=== PATIENT | female | born 1950 | race Caucasian/White ===

== ENCOUNTER → 2017-11-27 10:33 | Outpatient (CLI) | payer MEDICARE, OTHER, SELFPAY ==
[2017-11-27 12:26] LABS: Anion Gap 6 (5-15); BUN 14 mg/dL (7-18); BUN/Creat Ratio 18.1 RATIO (10-20); Chloride 106 mmol/L (98-107); Cholesterol 243 mg/dL (200); Creatinine, Serum 0.77 mg/dL (0.55-1.02); EST Glomerular Filtration Rate 79 mL/min (>60); Est Glom Filt Rate - Afr Amer 96 mL/min (>60); Glucose 92 mg/dL (74-106); High Density Lipoprotein 38 mg/dL; Potassium 4.4 mmol/L (3.5-5.1); Sodium Level 139 mmol/L (136-145); Triglycerides 178 mg/dL; Very Low Density Lipoprotein 36 mg/dL (5-40)
== END ==
PROVIDERS: Family Provider Family Medicine; PCP Family Medicine; Visit Provider Family Medicine
DX: I10 Essential (primary) hypertension (principal)
CPT/HCPCS: 36415; 80048; 80061

== ENCOUNTER → 2018-04-13 17:44 | Outpatient (CLI) | payer MEDICARE, OTHER, SELFPAY ==
--- NOTE | 2018-04-13 17:50 | CT_ITS ---
STUDY: CT CHEST WITHOUT CONTRAST REASON FOR EXAM: Female, 68 years old. Positive PVD 40 year smoking history RADIATION DOSAGE (If Supplied By Facility): CTDIvol = ( 1.70 ) mGy, DLP = ( 59.55 ) mGycm TECHNIQUE: Transaxial imaging was performed without the administration of intravenous contrast material. Multiplanar coronal and sagittal images were reformatted. Individualized dose optimization techniques were used for this CT. COMPARISON: January 06, 2018 chest x-ray, January 31, 2015 CT scan chest FINDINGS: There is a pattern of hyperinflation throughout the lungs. There are small emphysematous blebs throughout the lungs with predominance in the right upper lobes. There is no visualized focal consolidation pleural effusion or pulmonary edema or suspicious pulmonary nodule. There is no demonstrated pleural abnormality. There is mild enlargement of the left atrium. There are coronary calcifications. There is a precarinal lymph node measuring 8.7 mm. Normal hilar regions. Normal unenhanced pulmonary arteries. There is atherosclerotic calcification of the aortic arch with tortuosity and elongation of the aortic arch and descending thoracic aorta. The bones are osteopenic and mildly degenerative. There is limited visualization of the abdominal anatomy due to the technique. The study is grainy due to evaluate organs of the upper abdomen. CT/Low Dose CT Lung Screening IMPRESSION: Chronic obstructive pulmonary disease emphysema without evidence of focal mass. Nonspecific subcentimeter mediastinal lymph nodes Atherosclerotic disease of the aorta and coronary arteries. Electronically Signed: Claudine Dai MD at 22:23 EDT Tel , Service support ,
== END ==
PROVIDERS: Family Provider Family Medicine; PCP Family Medicine; Visit Provider Internal Medicine Pulmonary Disease
DX: Z87.891 Personal history of nicotine dependence (principal); Z12.2 Encounter for screening for malignant neoplasm of respiratory organs
CPT/HCPCS: G0297

== ENCOUNTER → 2018-05-07 13:43 | Outpatient (CLI) | payer MEDICARE, OTHER, SELFPAY | PROVIDERS: Family Provider Family Medicine; PCP Family Medicine; Visit Provider Family Medicine | DX: R59.1 Generalized enlarged lymph nodes (principal) | CPT/HCPCS: 76882; 77062; 77066; G0279 ==

== ENCOUNTER → 2018-05-12 16:20 | Outpatient (CLI) | payer MEDICARE, OTHER, SELFPAY | PROVIDERS: Family Provider Family Medicine; PCP Family Medicine; Visit Provider Family Medicine | DX: M54.9 Dorsalgia, unspecified (principal); G89.29 Other chronic pain | CPT/HCPCS: 72146 ==

== ENCOUNTER → 2018-06-25 11:44 | Outpatient (CLI) | payer MEDICARE, OTHER, SELFPAY ==
[2018-06-25 14:32] LABS: Vitamin D,25 Hydroxy 18.9 ng/mL (29.95-100.01)
[2018-06-25 14:37] LABS: Anion Gap 8 (5-15); BUN 17 mg/dL (7-18); BUN/Creat Ratio 22.7 RATIO (10-20); Calcium,Total 8.8 mg/dL (8.5-10.1); Chloride 105 mmol/L (98-107); Cholesterol 236 mg/dL (200); Creatinine, Serum 0.75 mg/dL (0.55-1.02); EST Glomerular Filtration Rate 82 mL/min (>60); Est Glom Filt Rate - Afr Amer 100 mL/min (>60); Glucose 78 mg/dL (74-106); High Density Lipoprotein 40 mg/dL; Potassium 4.4 mmol/L (3.5-5.1); Sodium Level 139 mmol/L (136-145); Thyroid Stim Hormone (TSH) 1.09 uIU/mL (0.358-3.74); Triglycerides 247 mg/dL; Very Low Density Lipoprotein 49 mg/dL (5-40)
== END ==
PROVIDERS: Family Provider Family Medicine; PCP Family Medicine; Visit Provider Family Medicine
DX: Z00.00 Encounter for general adult medical examination without abnormal findings (principal)
CPT/HCPCS: 36415; 80048; 80061; 82306; 84443; 97530

== ENCOUNTER 2018-07-13 10:30 | Outpatient (RCR) | payer MEDICARE, OTHER, SELFPAY ==
--- NOTE | 2018-05-26 13:42 | HP.PTEVAL_ITS ---
Patient's Visit Information KORTNEY CRUZ is a 68 year old F referred to Physical Therapy by NAVID Reyes with a diagnosis of INTERVERTEBRAL DISC THORACIC. Date of Evaluation: 05/26/18 Physical Therapist: Humble Finley PT, - Visit Plan Frequency: 2x /Week Duration: 4 Weeks Plan: MANUAL THERAPY-STM,US,MHP,GRADE ROM /POSTURAL EX'S FOR THORACIC SPINE - Subjective Subjective: This 68 y/o female presenst to physical therapy with thoracic pain. Patient thoracic pain for 2013 ,patient symptoms got better,but in February 2018 pain return with more pain. Patient seen pain management and plane for epidural injections Jun 02. Patient has had prior PT and epidural in past.Symptoms worse twisting,raising arms,lifting, housework tasks and ADL'S . Symptoms desribed stabbing pain. Patient better with heat.Patient has had h/n of HNP. Recent x-rays DDD. Pain affects sleeping.Coughing/sneezing/straining increase symptoms. Patient affects QOL and housework tasks. VOCATION: retired. SOCAIL: - Pain Bilateral Back Pain Intensity (Out of 10): 10 Pain Intensity Range: 10 - Objective POSTURE: mild foward posture. PALAPTION: tender thoracic paraspinals. NEURO: intact denies parathesia/tingling. AROM: BUE AROM flexion abd 120 degrees pain. MMT: 4-/5 except shoulders 3+/5. THORACIC ROM: flexion severe,extension severe loss,rotation mod /severe loss. SYMMTRIES: align - Special Tests Thoracic Sitting: Flexion - Mechanical Response: No effect Thoracic Sitting: Flexion - Symptoms During Testing: Increases Thoracic Sitting: Flexion - Symptoms After Testing: Worse Thoracic Sitting: Extension - Mechanical Response: No effect Thoracic Sitting: Extension - Symptoms During Testing: Increases Thoracic Sitting: Extension - Symptoms After Testing: Worse Thoracic Sitting: Right rotation - Mechanical Response: No effect Thoracic Sitting: Right Rotation - Symptoms During Testing: Increases Thoracic Sitting: Right Rotation - Symptoms After Testing: Worse Thoracic Sitting: Left rotation - Mechanical Response: No effect Thoracic Sitting: Left Rotation - Symptoms During Testing: Increases Thoracic Sitting: Left Rotation - Symptoms After Testing: Worse - Goals Goal 1:: Patient to be independant with HEP Goal Time Frame: 4-6 Weeks Goal 2:: Patient to improve posture for ADL'S Goal Time Frame: 4-6 Weeks Goal 3:: Patient decrease thoracic pain by 50% or greater to improve function with ADL'S Goal Time Frame: 4-6 Weeks Goal 4:: Patient to improve thoracic ROM for function of recovery Goal Time Frame: 4-6 Weeks Goal 5:: Patient to be able to perform ADL'S and housework tasks with min limitations Goal Time Frame: 4-6 Weeks - Rehabilitation Potential Physical Therapy Diagnosis: Patient has thoracic pain with loss of motion all planes impairs ADL'S /housework tasks and QOL,thus benifit from skilled PT Rehabilitation Potential: Good - Anticipated Interventions Patient/Client Instruction: Educate patient on: Condition, Plan of Care For the Purpose of:: To decrease pain, To increase ROM, To improve muscle performance and motor function, To improve ability to perform ADL's, To improve ability of physical actions for home/community/work/leisure, To improve health of tissue, To decrease soft tissue restriction, To increase flexibility/ROM, To improve ability to perform tasks related to life management Therapeutic Exercise to Include: Strength training, Postural training, Flexibilty training, Active ROM For the Purpose of:: To decrease pain, To improve nutrient delivery to tissue, To improve ability to perform ADL's, To increase tolerance to activity/condition /position, To improve ability of physical actions for home/community/work/ leisure, To improve health of tissue, To decrease soft tissue restriction, To improve ability to perform tasks related to life management Manual Therapy Techniques to Include: Soft tissue mobilization For the Purpose of:: To decrease pain, To increase ROM, To improve nutrient delivery to tissue, To increase oxygenation perfusion, To improve health of tissue, To decrease soft tissue restriction, To increase flexibility/ROM TENS: Yes IF ES: Yes Thermo therapy (hot pack): Yes Ultrasound (thermal/non thermal): Yes For the Purpose of:: To decrease swelling/inflammation, To increase ROM, To improve health of tissue, To decrease soft tissue restriction Thank you for the opportunity to evaluate your patient. For Medicare and Medicare HMO plans, please review the plan of care and approve it. It will need to be FAXED BACK to us at [phone] for Medicare purposes. Please let me know if there are questions or concerns regarding this plan of care. Physician Signature: Date:
--- NOTE | 2018-06-25 11:00 | HP.PTREVAL_ITS ---
Carmen Smith, CASSANDRA-C, It has been my pleasure to treat KORTNEY CRUZ over the last 9 visits for INTERVERTEBRAL DISC THORACIC. Please see the progress note below for an update on the physical therapy plan of care! Subjective: Giselle is still able to do more ADL'. ABLE TO RIDE BIKE Objective/Function: POSTURE: rounded shoulders head foward. PALPATION: tender scapular/thoracic/levator. AROM: BUE WFL. MMT: 4/5 except shoulder 4-5/. CERVICAL ROM: flexion min loss,lateral flexion/rotation ,ext mold loss. THORACIC ROM: flexion min/mod loss,extension min /mod loss Plan Plan: CONT WITH PT INTERVENTION 2X/WEEK FOR 4WEEKS MANUAL THERAPY- STM,US,MHP,GRADE ROM /POSTURAL EX'S FOR THORACIC SPINE Goals Goal 1:: Patient to be independant with HEP Goal Time Frame: 4-6 Weeks Goal Progress: Progressing Goal 2:: Patient to improve posture for ADL'S Goal Time Frame: 4-6 Weeks Goal Progress: Progressing Goal 3:: Patient decrease thoracic pain by 60% or greater to improve function with ADL'S Goal Time Frame: 4-6 Weeks Goal Progress: Progressing Goal 4:: Patient to improve thoracic ROM for function of recovery Goal Time Frame: 4-6 Weeks Goal Progress: Progressing Goal 5:: Patient to be able to perform ADL'S and housework tasks with min limitations Goal Time Frame: 4-6 Weeks Goal Progress: Progressing Anticipated Interventions Patient/Client Instruction: Educate patient on: Condition, Plan of Care For the Purpose of:: To decrease pain, To increase ROM, To improve muscle performance and motor function, To improve ability to perform ADL's, To improve ability of physical actions for home/community/work/leisure, To improve health of tissue, To decrease soft tissue restriction, To increase flexibility/ROM, To improve ability to perform tasks related to life management Therapeutic Exercise to Include: Strength training, Postural training, Flexibilty training, Active ROM For the Purpose of:: To decrease pain, To improve nutrient delivery to tissue, To improve ability to perform ADL's, To increase tolerance to activity/condition/position, To improve ability of physical actions for home/community/work/leisure, To improve health of tissue, To decrease soft tissue restriction, To improve ability to perform tasks related to life management Manual Therapy Techniques to Include: Soft tissue mobilization For the Purpose of:: To decrease pain, To increase ROM, To improve nutrient delivery to tissue, To increase oxygenation perfusion, To improve health of tissue, To decrease soft tissue restriction, To increase flexibility/ROM TENS: Yes IF ES: Yes Thermo therapy (hot pack): Yes Ultrasound (thermal/non thermal): Yes For the Purpose of:: To decrease swelling/inflammation, To increase ROM, To improve health of tissue, To decrease soft tissue restriction Please do not hesitate to contact me at [phone] by phone or if you have questions or concerns regarding this new plan of care! Sincerely, Humble Finley PT,
--- NOTE | 2018-08-24 11:05 | HP.PTDCNRP_ITS ---
HP - Discharge Summary (1) - Patient Information KORTNEY CRUZ was seen in my office for initial evaluation on 05/26/18. The following Plan of Care was established for this patient: Initial Frequency: 2x /Week Initial Duration: 4 Weeks - Anticipated Interventions Patient/Client Instruction: Educate patient on: Condition, Plan of Care For the Purpose of:: To decrease pain, To increase ROM, To improve muscle perf ormance and motor function, To improve ability to perform ADL's, To improve ability of physical actions for home/community/work/leisure, To improve health of tissue, To decrease soft tissue restriction, To increase flexibility/ROM, To improve ability to perform tasks related to life management Therapeutic Exercise to Include: Strength training, Postural training, Flexibilt y training, Active ROM For the Purpose of:: To decrease pain, To improve nutrient delivery to tissue, To improve ability to perform ADL's, To increase tolerance to activity/co ndition/position, To improve ability of physical actions for home/community/work/leisure, To improve health of tissue, To decrease soft tissue restriction, To improve ability to perform tasks related to life management Manual Therapy Techniques to Include: Soft tissue mobilization For the Purpose of:: To decrease pain, To increase ROM, To improve nutrient delivery to tissue, To increase oxygenation perfusion, To improve health of tissue, To decrease soft tissue restriction, To increase flexibility/ROM TENS: Yes IF ES: Yes Thermo therapy (hot pack): Yes Ultrasound (thermal/non thermal): Yes For the Purpose of:: To decrease swelling/inflammation, To increase ROM, To improve health of tissue, To decrease soft tissue restriction This patient was last seen in our office 07/13/18. Pertinent comments regarding their Physical therapy will appear below: This patient seen for thoracic pain with PT tx focusing on manual therapy -STM . Patient had temporary releive for tx ,thus is d/c from PT At this point I will be discontinuing this patient from physical therapy. I would be happy to see this patient again in the future if found appropriate by the physician. Thank you! Humble Finley, PT, Cert MDT, OCS
== END 2018-07-13 19:00 | disposition home or self-care (01) ==
LOC: PT 10:30
PROVIDERS: Family Provider Family Medicine; PCP Family Medicine; Visit Provider Nurse Practitioner Family
DX: M51.34 Other intervertebral disc degeneration, thoracic region (principal)
CPT/HCPCS: 97035; 97140; 97162; 97530

== ENCOUNTER → 2018-09-24 12:59 | Outpatient (CLI) | payer MEDICARE, OTHER, SELFPAY ==
--- NOTE | 2018-09-24 08:40 | LIP_PTH ---
PATIENT: KORTNEY CRUZ LOC: [facility] U#:[id number] AGE/SX: 75/F ROOM: RE09/24/[address]: Dr. Vianca Madison MD : 1950 BED: DIS: SPEC #: [id number] RECD: 09/24/18 12:51 STATUS: YADIRA KONRAD #: [id number] JOSE EDUARDO: 09/24/18 08:[address]: Vianca Madison DEPT: SURGICAL PATHOLOGY RECD BY: Phill Sebastian ENTERED: 09/24/18 13:33 SP TYPE: LIPOMA OTHR DR: Dr. Josh Greene MD Tissues: Soft tissues, NOS Procedures: Surgery Specimen Level III HEADER OPERATION: Excision of left upper arm lipoma PRE-OP DIAGNOSIS: Left arm lipoma TISSUE SUBMITTED: Left arm lipoma MICROSCOPIC DIAGNOSIS Soft tissue lesion of left arm, excision: Mature adipose tissue consistent with lipoma. AM:carlos 09/25/18 MICROSCOPIC DESCRIPTION Slides are reviewed. GROSS DESCRIPTION Received in fixative is one container labeled with the patient's name and designated left arm lipoma. The specimen consists of a piece of yellow adipose tissue measuring 3.5 x 1 x 0.5 cm. The specimen is bisected and reveals yellow adipose cut surfaces without area of hemorrhage, necrosis and cystic degeneration. The entire specimen is submitted in one cassette. / SJ:carlos 09/24/18 TC:1 CPT: 94247
[2018-09-24 09:07] VITALS: BMI 21.7
--- OUTSIDE RECORDS SUMMARY | 2018-11-29 05:54 | XMS RPT_ITS ---
:1950 Author Organization OHIP Support Name Relationship Address Phone NANCYESTEFANYHIMA Unavailable [address] + [place] [address] R Unavailable Unavailable Unavailable HIMA CRUZ Unavailable [address] + [place] [address] R Unavailable Unavailable Unavailable ESTEFANY CRUZ Unavailable Unavailable + ESTEFANY CRUZ Unavailable Unavailable + HIMA CRUZ Unavailable [address] + [place] [address] R Unavailable Unavailable Unavailable HIMA CRUZ Unavailable [address] + [place] [address] R Unavailable Unavailable Unavailable HIMA CRUZ Unavailable [address] + [place] [address] R Unavailable Unavailable Unavailable HIMA CRUZ Unavailable [address] + [place] [address] R Unavailable Unavailable Unavailable HIMA CRUZ Unavailable [address] + [place] [address] R Unavailable Unavailable Unavailable HIMA CRUZ Unavailable [address] + [place] [address] R Unavailable Unavailable Unavailable HIMA CRUZ Unavailable [address] + [place] [address] R Unavailable Unavailable Unavailable HIMA CRUZ Unavailable [address] + [place] [address] R Unavailable Unavailable Unavailable HIMA CRUZ Unavailable [address] + [place] [address] R Unavailable Unavailable Unavailable HIMA CRUZ Unavailable [address] + [place] [address] R Unavailable Unavailable Unavailable Care Team Providers Name Role Phone ELKE ANTUNEZ, MOE Attending Unavailable DR. MARJ MORRIS DO Primary Care Unavailable Robotham, Vianca Attending Unavailable Greene, Josh Referring Unavailable Robotham, Vianca Attending Unavailable Robotham, Vianca Referring Unavailable Greene, Josh Primary Care Unavailable Prah, Serafin Attending Unavailable Greene, Josh Primary Care Unavailable Greene, Josh Referring Unavailable Greene, Josh Attending Unavailable Greene, Josh Primary Care Unavailable Prah, Serafin Attending Unavailable Greene, Josh Primary Care Unavailable Prah, Serafin Consulting Unavailable Sibilia, Xavier Attending Unavailable Sibilia, Xavier Referring Unavailable Greene, Josh Primary Care Unavailable Greene, Josh Attending Unavailable Greene, Josh Primary Care Unavailable Greene, Josh Attending Unavailable Greene, Josh Referring Unavailable Greene, Josh Primary Care Unavailable Robotham, Vianca Attending Unavailable Greene, Josh Referring Unavailable Greene, Josh Primary Care Unavailable Prebish, Carmen LOAN COORDINATOR-C Attending Unavailable Prebish, Carmen LOAN COORDINATOR-C Referring Unavailable Greene, Josh Primary Care Unavailable Greene, Josh Attending Unavailable Greene, Josh Primary Care Unavailable Prah, Serafin Attending Unavailable Greene, Josh Referring Unavailable Greene, Josh Primary Care Unavailable Prah, Serafin Consulting Unavailable PROBLEMS PROBLEMS DATE TYPE CONDITION / CODE ATTENDING STATUS SOURCE 08/11/2018 Unknown D[facility] [place] [facility] / D45(ICD-10) [facility] Hospital Repository 08/11/2018 Unknown D75.1 - [facility] [place] [facility] / Community D75.1(ICD-10) Hospital Repository 09/02/2018 Unknown M51.34 - Other Prebish, Carmen Active [place] intervertebral disc LOAN COORDINATOR-C [facility] degeneration, [facility] thoracic region / Repository M51.34(ICD-10) 06/25/2018 Unknown Z00.00 - Encounter Josh [place] for general adult [facility] without abnormal Repository findings / Z00.00(ICD-10) 05/07/2018 Unknown R59.1 - Generalized GreeneJosh johansen Active [place] enlarged lymph nodes [facility] / R59.1(ICD-10) Hospital Repository 11/27/2017 Unknown I10 - Essential GreeneJosh johansen Active [place] (primary) [facility] hypertension / Hospital I10(ICD-10) Repository PROCEDURES PROCEDURES No Procedure Records FoundRESULTS RESULTS SURGERY VISIT REPORT Observed: 09/24/2018 Status: F Source: [place] 9:07 AM [facility] [place] [facility] [address] [place] [address] OFFICE VISIT Date of Service: 09/24/18 MR#: [id number] Acct: [id number] Name: YADIRA CRUZ Rep #: [id number] : 1950 Provider: Vianca Madison MD Age/Sex: 68/F Location: [facility] Status: Signed Intake Vital Signs09/24/18 Body Mass Index (BMI) 21.7 Intake Visit Reasons: LT UPPER INSIDE ARM CYST Chief Complaint: F/u for polycythemia. Allergies erythromycin base Adverse Reaction (Verified 09/24/18 09:01) Vomiting Lvccizj-Jrq-Tez Reductase Inhibitor Adverse Reaction (Verified 09/24/18 09:01) Unknown Medications Atenolol [Tenormin (beta ayesha)] 50 mg PO BID 10/17/14 [History Confirmed 09/24/18] Hydrocodone Bitart/Apap 5-325 [[place] 5/325] 1 tab PO TID PRN 10/17/14 [History Confirmed 09/24/18] Clonazepam [Klonopin] 0.5 mg PO TID 06/20/16 [History Confirmed 09/24/18] Amlodipine [Norvasc] 5 mg PO DAILY 01/06/17 [History Confirmed 09/24/18] Zolpidem Tartrate [Ambien Cr] 12.5 mg PO QHS PRN PRN 02/03/18 [History Confirmed 09/24/18] hydroxyzine pamoate 100 mg capsule 100 mg PO ONCE 05/21/18 [History Confirmed 09/24/18] PFSH Medical History Hyperlipidemia (Acute) Vocal cord dysfunction (Acute) Arthritis (Acute) Fatigue (Acute) Chronic pain (Chronic) Anxiety disorder (Chronic) Tobacco dependence (Chronic) Depression (Chronic) Hypertension (Chronic) Chest pain (Acute) Hyperinflation of lungs (Chronic) COPD (chronic obstructive pulmonary disease) (Suspected) GERD (gastroesophageal reflux disease) (Suspected) 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 Patient states that she thinks is gotten a little bigger and they have also found mass in her lung which she is getting worked up. She would like to have this lesion removed. Exam Const General: cooperative, comfortable, no acute distress Skin Other: Left upper arm, 2 x 2 soft, mobile subcutaneous mass, no change the overlying skin, nontender Office Procedures Miscellaneous Procedure Procedure Performed By: Procedure performed by: Vianca Madison Details Discussed procedure of excision of left upper arm lipoma including but not limited to risk of bleeding/hematoma, seroma, infection, recurrence and etc. Patient no further questions and agreed to proceed. Consent was signed and timeout was completed. Patient's left upper arm was prepped draped in usual sterile fashion with Betadine. Lidocaine 1% with epinephrine was used for local anesthesia a total of 3 cc. Incision was made with a 15 blade scalpel. The lipoma was identified as able to be removed with Metzenbaum scissors after gentle pressure to get the lipoma to pop out of the incision. Hemostasis was assured. Wound was irrigated. The lipoma measured 2 cm x 1.5 cm x 1.5 cm. The wound was closed with subdermal sutures of 3-0 Vicryl interrupted x2. The skin was closed with Steri-Strips. OpSite was placed over top. Patient tolerated procedure well and left the office in stable condition. Procedure Time Out Time Out Informed consent given: Yes Consent signed: Yes Time out checklist: patient, procedure, site marked/identified, positioning of patient, supplies available, allergies confirmed, team agrees on procedure Time out staff in room: Yes Time out verified: Yes Time out date: 09/24/18 Time out time: 08:40 Assessment AND Plan Problems 1. Lipoma of arm D17.20 Plan Patient tolerated procedure well. Specimen was consistent with lipoma and was sent to pathology for confirmation. Follow-up in 1-2 weeks. Patient was agreeable plan. Vianca Madison M.D. Pager: [phone] [facility] [address] [place] [address], Outpatient [place], [address] [place] [address] Office: [phone] Plan Detail Follow Up 1-2 weeks Coding Level of Care Code Attention Display Coordinator Diagnoses Lipoma of arm D17.20 Comment [id number] 09/24/18 0907 <Electronically signed by Vianca Madison MD> Date Vianca Madison MD Cosigner Signature: Date (if applicable) CC: Josh Greene MD LIPOMA (SOFT TISSUE) Observed: 09/24/2018 Status: F Source: [place] 8:40 AM [facility] [place] Patient: YADIRA CRUZ : 1950 (68/F) Acct Num: [id number] Phys: Gricelda ANTUNEZ,Vianca Unit Num: [id number] Loc: [facility] Specimen: [id number] Received: 09/24/18 - 1251 Spec Type: LIPOMA TISSUES 1 TISSUES: Soft tissues, NOS GROSS DESCRIPTION Received in fixative is one container labeled with the patient's name and designated left arm lipoma. The specimen consists of a piece of yellow adipose tissue measuring 3.5 x 1 x 0.5 cm. The specimen is bisected and reveals yellow adipose cut surfaces without area of hemorrhage, necrosis and cystic degeneration. The entire specimen is submitted in one cassette. / SJ:carlos TC:1 CPT: 90742 HEADER OPERATION: Excision of left upper arm lipoma PRE-OP DIAGNOSIS: Left arm lipoma TISSUE SUBMITTED: Left arm lipoma MICROSCOPIC DESCRIPTION Slides are reviewed. MICROSCOPIC DIAGNOSIS Soft tissue lesion of left arm, excision: Mature adipose tissue consistent with lipoma. AM:carlos 09/25/18 Signed Marcell Barlow DO 09/25/18 <signature on file> Performed By: #### PLIP #### [facility] [place], [address] CT THORAX W/O Observed: 08/20/2018 Status: F Source: [place] CONTRAST 11:00 AM [facility] REPOSITORY ORIGINAL CT THORAX W/O CONTRAST CLINICAL STATEMENT:OTHER CHEST PAIN TECHNIQUE: Multiple-row detector helical CT examination of the thorax without IV contrast. Axial, sagittal, and coronal reconstructed images. This exam was performed according to our departmental dose o ptimization program, and includes the following measures where applicable: automated exposure control, adjustment of the mAs and/or kVp according to patient size and/or exam, and an iterative reconstruction algorithm. COMPARISON: None FINDINGS: The visualized thyroid gland is unremarkable. There is no axillary adenopathy. No mediastinal or hilar adenopathy shown within the limits of a noncontrast evaluation which decreases sensitivity. The hea rt is not enlarged. Coronary artery and aortic atherosclerotic disease noted. No pericardial effusion. Limited images of the upper abdomen demonstrate nonobstructing LEFT nephrolithiasis. The lungs are emphysematous. The trachea and mainstem bronchi are patent. Parenchymal banding in the lower lobes bilaterally favors scarring or atelectasis. No pleural effusion or pneumothorax. No pulmo nary mass. There is a 3 mm RIGHT upper lobe pulmonary nodule on image 220 series 3. No acute osseous findings. There are mild degenerative changes present in the spine. Vertebral body heights are maintained. IMPRESSION: 1. No acute findings. 2. Emphysema. 3. A 3 mm RIGHT upper lobe pulmonary nodule. Followup as follows based on the 2017 Fleischner Society recommendations for single solid lung nodule measuring <6mm (average of length and width, rounded to the nearest mm), and malignancy risk: Low-Risk Patient: No routine follow-up High-Risk Patient: Optional CT at 12 months These followup recommendations do not apply in immunocompromised patients or patients with cancers who are at risk for metastasis. Interpreted By: Nelia Blackwell MD Preliminary Report By: Nelia Blackwell MD Electronically Signed By: Nelia Blackwell MD Dictated Date: 08/20/2018 11:11:54 AM Prelim Date: 08/20/2018 11:11:54 AM Sign Date: 08/20/2018 11:17:41 AM ONCOLOGY VISIT REPORT Observed: 08/11/2018 Status: F Source: [place] 11:26 AM [facility] [place] [facility] [place] [address] OFFICE VISIT Date of Service: 08/11/18 1125 MR#: [id number] Acct: [id number] Name: YADIRA CRUZ Rep #: [id number] : 1950 From: Serafin Arrieta MD Age/Sex: 68/F Location: [facility]MD Status: Signed Subjective - Date of Service Date of Service:: 08/11/18 - Chief Complaint F/u for polycythemia. - History of Present Illness 68y.o.woman was evaluated in Oct 2014 for Polycythemia with Hgb of 17.5. JAK2 was negative and Erythropoietin level was normal. Bone marrow bx on 12/21/2014 was normal with negative BCR-ABL and JAK2. She had therapeutic phlebotomies till 06/19/2015. Currently on observation, comes in for follow up. She is still smoking, feels well. - Past Medical/Social History Past Medical History Past Medical History: COPD,Depression,Hyperlipidemia,Hypertension Other Past Medical History: Vocal cord dysfunction polycythemia Past Surgical History Surgical: Cholecystectomy Other Surgical History: laparoscopic cholecystectomy Family History Paternal Past Medical History: Diabetes mellitus,Heart disease,Hypertension Paternal History of Cancer Lung cancer Maternal Past Medical History: Arthritis,Hypertension Social History Social History: No changes Smoking Status Current every day smoker Review of Systems Constitutional:: Denies: Fever, Sweats, Weight loss, Appetite change, Chills Cardiovascular:: Denies: Chest pain, Palpitations, Dyspnea on exertion, Orthopnea, PND, Shortness of breath Respiratory: Denies: Cough, Hemoptysis, Shortness of Breath, Wheezing Gastrointestinal:: Denies: Abdominal pain, Nausea, Vomiting, Diarrhea, Constipation, Hematochezia Genitourinary: Denies: Dysuria, Hematuria, 15, Flank pain Musculoskeletal:: Reports: Backache Skin: Denies: Rash, Skin Changes, Wounds Neurological:: Denies: Headache, Dizziness, Visual changes, Tinnitus, Hearing loss Psychiatric: Denies: Anxiety, Depression, Homicidal Ideations, Suicidal Ideations Vital Signs Height 5 ft 2 in Weight: 53.751 kg Weight in Pounds 118.5 lbs Pulse Ox 97 - Physical Exam General: Alert, Oriented x3, No apparent distress HEENT: Atraumatic, PERRLA, EOMI, Normocephalic Oropharynx:: Dry mucosa Neck:: Supple, Trachea midline. Negative for: JVD, bilateral Cardiac:: Regular rate, Regular rhythm, Normal S1, Normal S2. Negative for: Murmur Lungs: Clear to auscultation, Excusion symmetrical. Negative for: Rhonchi, Wheezes Laboratory Data: Laboratory Tests WBC 12.0 H (4.4-11.0) K/mm3 RBC 5.63 H (4.2-5.4) M/mm3 Hgb 16.8 H (12.0-15.0) g/dl Assessment and Plan Polycythemia-most likely secondary to smoking and COPD. HCT is less than 50. No need for phlebotomy. Plan is to continue observation. RTC 6 months with CBC. Medications: Prescriptions This Visit Medication Instructions Recorded Zolpidem Tartrate [Ambien Cr] 12.5 mg PO QHS PRN PRN 02/03/18 Primary Care Provider: Josh [place] Referring Provider: - Problem List (1) Polycythemia secondary to smoking Status: Chronic Code Visit Office Visits / Consults: 34937 OV L3 Est 08/11/18 1126 <Electronically signed by Serafin Arrieta MD> Date Serafin Arrieta MD Cosigner Signature: Date (if applicable) CC: Josh [place] MD CBC W/DIFF, AUTOMATED Collected: 08/11/2018 Status: F Source: [place] 10:49 AM [facility] [place] Order Comment: Reason for Laboratory Test . TYPE CODE TESTS RESULT OUT OF RANGE REFERENCE UNITS LAB L100.1000 4.4-11.0 K/mm3 High WBC 12.0 LAB L100.1200 4.2-5.4 M/mm3 High RBC 5.63 LAB L100.1300 12.0-15.0 g/dl High HGB 16.8 LAB L100.1400 37-47 % High HCT 48.7 LAB L100.1500 81-99 fL Normal MCV 86.5 LAB L100.1600 27.0-32.0 pg Normal MCH 29.8 LAB L100.1700 32-36 g/gl Normal MCHC 34.5 LAB L100.1810 11.6-14.6 % Normal RDW CV 14.3 LAB L100.1820 35.1-43.9 fl High RDW SD 45.3 LAB L100.1900 150-450 K/mm3 Normal PLT 235 LAB L100.2000 6.2-12.0 fl Normal MPV 9.7 LAB L100.2100 47-70 % Normal NEUT% 68.9 LAB L100.2200 19-41 % Normal LY% 22.9 LAB L100.2300 0-10 % Normal MONO% 5.7 LAB L100.2400 0-5 % Normal EO% 1.8 LAB L100.2500 0-1 % Normal BASO% 0.4 LAB L100.2550 0.0-0.9 % Normal IM GRAN % 0.300 Result Comment: IG% - Immature Granulocytes (promyelocytes, myelocytes and metamyelocytes) > 1% indicates that a LEFT SHIFT is Present. LAB L100.2620 2.0-7.7 X10 3/uL High Absolute Neut 8.3 LAB L100.2720 0.83-4.51 X10 3/ul Normal Absolute Lymph 2.74 Performed By: #### L100.0100 #### [facility] [address] [place], [address] RE-EVALUATION - PT (1) Observed: 06/25/2018 Status: F Source: [place] 5:50 PM [facility] [place] [facility] [address] [place], [place] [address] Fax REEVALUATION / MEDICARE RECERTIFICATION PHYSICAL THERAPY MR#: [id number] Acct: [id number] Name: YADIRA CRUZ Rep #: [id number] : 1950 68 From: Humble Finley PT, Cert. MDT, OCS Referring DrShilpi: Carmen SHOEMAKER [place] Status: REG RCR Insurance: MEDICARE PART A B [facility] Carmen Smith, CASSANDRA-Rosemarie, It has been my pleasure to treat YADIRA CRUZ over the last 9 visits for INTERVERTEBRAL DISC THORACIC. Please see the progress note below for an update on the physical therapy plan of care! Subjective: Patyient is still able to do more ADL'. ABLE TO RIDE BIKE Objective/Function: POSTURE: rounded shoulders head foward. PALPATION: tender scapular/thoracic/levator. AROM: BUE WFL. MMT: 4/5 except shoulder 4-5/. CERVICAL ROM: flexion min loss,lateral flexion/rotation ,ext mold loss. THORACIC ROM: flexion min/mod loss,extension min /mod loss Plan Plan: CONT WITH PT INTERVENTION 2X/WEEK FOR 4WEEKS MANUAL THERAPY-STM,US,MHP,GRADE ROM /POSTURAL EX'S FOR THORACIC SPINE Goals Goal 1:: Patient to be independant with HEP Goal Time Frame: 4-6 Weeks Goal Progress: Progressing Goal 2:: Patient to improve posture for ADL'S Goal Time Frame: 4-6 Weeks Goal Progress: Progressing Goal 3:: Patient decrease thoracic pain by 60% or greater to improve function with ADL'S Goal Time Frame: 4-6 Weeks Goal Progress: Progressing Goal 4:: Patient to improve thoracic ROM for function of recovery Goal Time Frame: 4-6 Weeks Goal Progress: Progressing Goal 5:: Patient to be able to perform ADL'S and housework tasks with min limitations Goal Time Frame: 4-6 Weeks Goal Progress: Progressing Anticipated Interventions Patient/Client Instruction: Educate patient on: Condition, Plan of Care For the Purpose of:: To decrease pain, To increase ROM, To improve muscle performance and motor function, To improve ability to perform ADL's, To improve ability of physical actions for home/community/work/leisure, To improve health of tissue, To decrease soft tissue restriction, To increase flexibility/ROM, To improve ability to perform tasks related to life management Therapeutic Exercise to Include: Strength training, Postural training, Flexibilty training, Active ROM For the Purpose of:: To decrease pain, To improve nutrient delivery to tissue, To improve ability to perform ADL's, To increase tolerance to activity/condition/position, To improve ability of physical actions for home/community/work/leisure, To improve health of tissue, To decrease soft tissue restriction, To improve ability to perform tasks related to life management Manual Therapy Techniques to Include: Soft tissue mobilization For the Purpose of:: To decrease pain, To increase ROM, To improve nutrient delivery to tissue, To increase oxygenation perfusion, To improve health of tissue, To decrease soft tissue restriction, To increase flexibility/ROM TENS: Yes IF ES: Yes Thermo therapy (hot pack): Yes Ultrasound (thermal/non thermal): Yes For the Purpose of:: To decrease swelling/inflammation, To increase ROM, To improve health of tissue, To decrease soft tissue restriction Please do not hesitate to contact me at [phone] by phone or if you have questions or concerns regarding this new plan of care! Sincerely, Humble Finley PT, <Electronically signed by Humble Finley PT, Cert. T, OCS> 06/25/18 7788 CC: Carmen SHOEMAKER [facility]; Josh [place] MD VETO Signed For Medicare only, by signing this I certify the plan of care. Physicians Signature Date VITAMIN D,25 HYDROXY Collected: 06/25/2018 Status: F Source: [place] 11:48 AM [facility] [place] TYPE CODE TESTS RESULT OUT OF REFERENCE UNITS RANGE LAB L506.1000 29.95-100.01 ng/mL Low Vitamin D 18.9 25-OH Result Comment: Vitamin D 25(OH) Status Range Deficiency <20 ng/mL (50nmol/L) Insuffciency 20 - 30 ng/mL (50 - 75 nmol/L) Sufficiency 30 - 100 ng/mL (75 - 250 nmol/L) Toxicity >100 ng/mL (>250 nmol/L) Performed By: #### L506.1000 #### [place] [facility] [address] [place], [address] BASIC METABOLIC Collected: 06/25/2018 Status: F Source: [place] PROFILE (BMP) 11:48 AM [facility] [place] TYPE CODE TESTS RESULT OUT OF RANGE REFERENCE UNITS LAB L501.0100 74-106 mg/dL Normal GLU 78 Result Comment: Please note revised GLUCOSE reference range effective 2017. LAB L501.1000 7-18 mg/dL Normal BUN 17 LAB L501.1100 0.55-1.02 mg/dL Normal CREAT,SERUM 0.75 Result Comment: The validity of the calculated GFR AND GFRAA in patients over 70 years has not been determined. Clinical correlation is essential. LAB L501.1110 >60 mL/min Normal EST GFR 82 Result Comment: Non- GFR Calc LAB L501.1115 >60 mL/min Normal EST GFR - AA 100 Result Comment: GFR Calc LAB L501.1300 10-20 RATIO High BUN/CRE 22.7 LAB L501.2200 8.5-10.1 mg/dL CA Normal 8.8 LAB L501.5300 136-145 mmol/L NA Normal 139 LAB L501.5600 3.5-5.1 mmol/L K Normal 4.4 LAB L501.5900 98-107 mmol/L CL Normal 105 LAB L501.6100 21.0-32.0 mmol/L Normal CO2 26.0 LAB L501.6200 5-15 Normal GAP 8 Performed By: #### L500.2500, L500.4100, L501.9520 #### [facility] [address] [place], [place], [address] LIPID PROFILE Collected: 06/25/2018 Status: F Source: [place] 11:48 AM [facility] [place] TYPE CODE TESTS RESULT OUT OF RANGE REFERENCE UNITS LAB L501.4900 200 mg/dL High CHOL 236 Result Comment: <200 mg/dL Desirable 200-240 mg/dL Borderline >240 mg/dL High Risk LAB L501.5000 mg/dL High TRIG 247 Result Comment: The drugs N-Acetylcysteine and Metamizole may falsely depress this assay. Serum Triglycerides Reference Interval Normal <150 mg/dL Borderline high 150 - 199 mg/dL High 200 - 499 mg/dL Very High > or = 500 mg/dL LAB L501.6400 mg/dL Normal HDL 40 Result Comment: The drugs N-Acetylcysteine and Metamizole may falsely depress this assay. Reference Range HDL <40 mg/dL Low HDL Cholesterol HDL >or= 60 mg/dL High HDL Cholesterol LAB L501.6500 0-130 mg/dL High LDL 147 LAB L501.6600 5-40 mg/dL High VLDL 49 Performed By: #### L500.2500, L500.4100, L501.9520 #### [facility] [address] [place], [address] THYROID STIM HORMONE Collected: 06/25/2018 Status: F Source: [place] ([facility]) 11:48 AM [facility] [place] TYPE CODE TESTS RESULT OUT OF RANGE REFERENCE UNITS LAB L501.9520 0.358-3.74 uIU/mL Normal TSH 1.09 Performed By: #### L500.2500, L500.4100, L501.9520 #### [facility] [address] [place], [place], [address] INITAL EVALUATION (1) Observed: 05/27/2018 Status: F Source: [place] - PT 4:24 PM [facility] [place] [facility] [address] [place], [place] [address] Fax REHABILITATION SERVICES INITIAL EVALUATION MR#: [id number] Acct: [id number] Name: YADIRA CRUZ Rep #: [id number] : 1950 68 From: Humble Finley PT, Cert. MDT, OCS Referring DrShilpi: Carmen Smith Status: REG RCR Insurance: MEDICARE PART A B [facility] Patient's Visit Information YADIRA CRUZ is a 68 year old F referred to Physical Therapy by NAVID Reyes with a diagnosis of INTERVERTEBRAL DISC THORACIC. Date of Evaluation: 05/26/18 Physical Therapist: Humble Finley PT, - Visit Plan Frequency: 2x /Week Duration: 4 Weeks Plan: MANUAL THERAPY-STM,US,MHP,GRADE ROM /POSTURAL EX'S FOR THORACIC SPINE - Subjective Subjective: This 68 y/o female presenst to physical therapy with thoracic pain. Patient thoracic pain for 2013 ,patient symptoms got better,but in February 2018 pain return with more pain. Patient seen pain management and plane for epidural injections Jun 02. Patient has had prior PT and epidural in past.Symptoms worse twisting,raising arms,lifting, housework tasks and ADL'S . Symptoms desribed stabbing pain. Patient better with heat.Patient has had h/n of HNP. Recent x-rays DDD. Pain affects sleeping.Coughing/sneezing/straining increase symptoms. Patient affects QOL and housework tasks. VOCATION: retired. SOCAIL: - Pain Bilateral Back Pain Intensity (Out of 10): 10 Pain Intensity Range: 10 - Objective POSTURE: mild foward posture. PALAPTION: tender thoracic paraspinals. NEURO: intact denies parathesia/tingling. AROM: BUE AROM flexion abd 120 degrees pain. MMT: 4-/5 except shoulders 3+/5. THORACIC ROM: flexion severe,extension severe loss,rotation mod /severe loss. SYMMTRIES: align - Special Tests Thoracic Sitting: Flexion - Mechanical Response: No effect Thoracic Sitting: Flexion - Symptoms During Testing: Increases Thoracic Sitting: Flexion - Symptoms After Testing: Worse Thoracic Sitting: Extension - Mechanical Response: No effect Thoracic Sitting: Extension - Symptoms During Testing: Increases Thoracic Sitting: Extension - Symptoms After Testing: Worse Thoracic Sitting: Right rotation - Mechanical Response: No effect Thoracic Sitting: Right Rotation - Symptoms During Testing: Increases Thoracic Sitting: Right Rotation - Symptoms After Testing: Worse Thoracic Sitting: Left rotation - Mechanical Response: No effect Thoracic Sitting: Left Rotation - Symptoms During Testing: Increases Thoracic Sitting: Left Rotation - Symptoms After Testing: Worse - Goals Goal 1:: Patient to be independant with HEP Goal Time Frame: 4-6 Weeks Goal 2:: Patient to improve posture for ADL'S Goal Time Frame: 4-6 Weeks Goal 3:: Patient decrease thoracic pain by 50% or greater to improve function with ADL'S Goal Time Frame: 4-6 Weeks Goal 4:: Patient to improve thoracic ROM for function of recovery Goal Time Frame: 4-6 Weeks Goal 5:: Patient to be able to perform ADL'S and housework tasks with min limitations Goal Time Frame: 4-6 Weeks - Rehabilitation Potential Physical Therapy Diagnosis: Patient has thoracic pain with loss of motion all planes impairs ADL'S /housework tasks and QOL,thus benifit from skilled PT Rehabilitation Potential: Good - Anticipated Interventions Patient/Client Instruction: Educate patient on: Condition, Plan of Care For the Purpose of:: To decrease pain, To increase ROM, To improve muscle performance and motor function, To improve ability to perform ADL's, To improve ability of physical actions for home/community/work/leisure, To improve health of tissue, To decrease soft tissue restriction, To increase flexibility/ROM, To improve ability to perform tasks related to life management Therapeutic Exercise to Include: Strength training, Postural training, Flexibilty training, Active ROM For the Purpose of:: To decrease pain, To improve nutrient delivery to tissue, To improve ability to perform ADL's, To increase tolerance to activity/condition/position, To improve ability of physical actions for home/community/work/leisure, To improve health of tissue, To decrease soft tissue restriction, To improve ability to perform tasks related to life management Manual Therapy Techniques to Include: Soft tissue mobilization For the Purpose of:: To decrease pain, To increase ROM, To improve nutrient delivery to tissue, To increase oxygenation perfusion, To improve health of tissue, To decrease soft tissue restriction, To increase flexibility/ROM TENS: Yes IF ES: Yes Thermo therapy (hot pack): Yes Ultrasound (thermal/non thermal): Yes For the Purpose of:: To decrease swelling/inflammation, To increase ROM, To improve health of tissue, To decrease soft tissue restriction Thank you for the opportunity to evaluate your patient. For Medicare and Medicare HMO plans, please review the plan of care and approve it. It will need to be FAXED BACK to us at [phone] for Medicare purposes. Please let me know if there are questions or concerns regarding this plan of care. Physician Signature: Date: <Electronically signed by Humble Finley PT, Cert. SUZY, OCS> 05/27/18 1624 CC: Carmen Smith; Josh Greene MD VETO Signed For Medicare only, by signing this I certify the plan of care. Physicians Signature Date SURGERY VISIT REPORT Observed: 05/21/2018 Status: F Source: [place] 2:39 PM [facility] [address] [place] [address] OFFICE VISIT Date of Service: 05/21/18 MR#: [id number] Acct: [id number] Name: YADIRA CRUZ Rep #: [id number] : 1950 Provider: Vianca Madison MD Age/Sex: 68/F Location: [facility] Status: Signed Intake Vital Signs05/21/18 Height 5 ft 2 in 05/21/18 Weight: 113 lb Intake Visit Reasons: Lipoma Lt Axilla US [facility] 05/07 Chief Complaint: F/u for polycythemia. Pharmaceutical Salesperson Required: No Is patient in pain?: No Allergies erythromycin base Adverse Reaction (Verified 05/21/18 13:57) Vomiting Cdwmdhj-Lwg-Ito Reductase Inhibitor Adverse Reaction (Verified 05/21/18 13:57) Unknown Medications Atenolol [Tenormin (beta ayesha)] 50 mg PO BID 10/17/14 [History Confirmed 05/21/18] Hydrocodone Bitart/Apap 5-325 [[place] 5/325] 1 tab PO TID PRN 10/17/14 [History Confirmed 02/03/18] Clonazepam [Klonopin] 0.5 mg PO TID 06/20/16 [History Confirmed 05/21/18] Amlodipine [Norvasc] 5 mg PO DAILY 01/06/17 [History Confirmed 05/21/18] Zolpidem Tartrate [Ambien Cr] 12.5 mg PO QHS PRN PRN 02/03/18 [History Confirmed 05/21/18] hydroxyzine pamoate 100 mg capsule 100 mg PO ONCE 05/21/18 [History Confirmed 05/21/18] PFSH Medical History Hyperlipidemia (Acute) Vocal cord dysfunction (Acute) Arthritis (Acute) Fatigue (Acute) Chronic pain (Chronic) Anxiety disorder (Chronic) Tobacco dependence (Chronic) Depression (Chronic) Hypertension (Chronic) Chest pain (Acute) Hyperinflation of lungs (Chronic) COPD (chronic obstructive pulmonary disease) (Suspected) GERD (gastroesophageal reflux disease) (Suspected) 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 Patient did undergo an ultrasound which was consistent with likely lipoma that was about 2 cm x 2 cm. Patient states she knows that maybe about a month ago she sat in the mirror. Denies any pain or changes overlying skin or any irritation with her clothes. Patient states she is here because her PCP told her to come get it checked out however she would be fine with not getting it removed if it does not need to be. Exam Const General: cooperative, comfortable, no acute distress Extrem Other: Left upper arm: 2 x 2 centimeter subcutaneous mass, soft mobile, nontender, likely lipoma Assessment AND Plan Problems 1. Lipoma of arm D17.20 Plan Discussed patient that this was indeed likely a lipoma consistent with the ultrasound. Patient denies any pain or discomfort caused by this. Discussed with patient that if this does in the future cause any discomfort or irritation or grows in size and she is concerned about we could remove this at that time in office for her. Patient was agreeable to this watching it for now and she will let us know if she changes her mind. Patient no further questions at this time. Vianca Madison M.D. Pager: [phone] [facility] [address] [place] [address], [facility], [address] [place] [address] Office: [phone] Plan Detail Follow Up As needed Coding Level of Care Code Off vis,new,level 3 Diagnoses Lipoma of arm D17.20 05/21/18 7439 <Electronically signed by Vianca Madison MD> Date Vianca Madison MD Cosigner Signature: Date (if applicable) CC: Josh Greene MD SPINE THORACIC Observed: 05/12/2018 Status: F Source: [place] (ROUTINE) 4:28 PM [facility] Imaging Services [address] [place] [address] [place] [address] Spine Thoracic (Routine) MR#: [id number] Acct: [id number] Name: YADIRA CRUZ Rep #: [id number] : 1950 F 68 From: Patricio Sellers PCP: Josh Greene MD Status: REG CLI Study: Spine Thoracic (Routine) Date of Exam: 05/12/18 Exam# [id number] Ordering Dr: Josh Greene MD STUDY: MRI THORACIC SPINE WITHOUT CONTRAST REASON FOR EXAM: Female, 68 years old. Chronic mid back pain. TECHNIQUE: Standardized fat and water weighted pulse sequences were obtained in the sagittal and axial planes. COMPARISON: April 11, 2015 FINDINGS: Normal kyphosis of the thoracic spine. There is no substantial scoliosis. T1-2, T2-3, T3-4, T4-5, T5-6, T6-7, T7-8, T8-9, T9-10, T10- 11, T11-12: There is mild/moderate diffuse disc space narrowing and endplate spondylosis. Normal visualized thoracic cord. The soft tissue structures are unremarkable. MRI/Spine Thoracic (Routine) IMPRESSION: Stable examination. Moderate/moderate multilevel degenerative changes. Electronically Signed: Patricio Sellers MD at 15:36 EDT Tel , Service support , CC: Josh Greene MD Film Historian: Signed EXT NON VASC Observed: 05/07/2018 Status: F Source: [place] LIMITED/SOFT TISS 2:37 PM [facility] Imaging Services [address] [place] [address] Ext Non Vasc Limited/Soft Tiss MR#: [id number] Acct: [id number] Name: YADIRA CRUZ Rep #: [id number] : 1950 F 68 From: Modesto Butler MD PCP: Josh Greene MD Status: REG CLI Study: Ext Non Vasc Limited/Soft Tiss Date of Exam: 05/07/18 Exam# [id number] Ordering Dr: Josh Greene MD STUDY: SUPERFICIAL ULTRASOUND - LEFT UPPER ARM. REASON FOR EXAM: Female, 68 years old. Palpable abnormality. TECHNIQUE: A superficial ultrasound was performed with real- time and static deng-scale imaging. COMPARISON: None. FINDINGS: The palpable abnormality corresponds a 2.1 cm x 2 cm x 0.6 cm slightly hyperechoic nodular density. This most likely represents a lipoma. US/Ext Non Vasc Limited/Soft Tiss IMPRESSION: The palpable abnormality corresponds to a 2.1 cm x 2 cm x 0.6 cm slightly hyperechoic well-defined nodular density suggestive of a lipoma. Electronically Signed: Modesto Butler MD at 9:00 EDT Tel [phone], Service support , CC: Josh Greene MD Film Historian: Signed DIAG MAMM W/CAD, Observed: 05/07/2018 Status: F Source: [place] BILAT 1:48 PM [facility] Imaging [facility] [address] [place] [address] DIAG MAMM W/CAD, BILAT MR#: [id number] Acct: [id number] Name: YADIRA CRUZ Rep #: [id number] : 1950 F 68 From: Modesto Butler MD PCP: Josh Greene MD Status: REG CLI Study: DIAG MAMM W/CAD, BILAT Date of Exam: 05/07/18 Exam# [id number] Ordering Dr: Josh Greene MD MAMMOGRAPHY - BILATERAL DIAGNOSTIC REASON FOR EXAM: Female, 68 years old. Left axillary lump. PERTINENT HISTORY: Prior right stereotactic breast biopsy. TECHNIQUE: Digital bilateral breast disha (3D mammographic acquisition) in the CC and MLO projections. 2-D mediolateral oblique (MLO) and craniocaudad (CC) views of both breasts were obtained. Compression spot views of the left axillary region were obtained as well. CAD: Full Field Digital Mammography with Computer Added Detection was performed. COMPARISON: Comparison is made with prior chest examination dated February 09, 2016. FINDINGS: Breast Composition: The breasts are almost entirely fatty. There are no dominant masses or suspicious calcifications. A tissue clip marker is seen in the upper slightly lateral midportion of the right breast. This is unchanged. No other significant abnormalities are identified. There has been no significant change since the prior study. BI/DIAG MAMM W/CAD, BILAT IMPRESSION: Stable bilateral diagnostic mammogram. With the patient's history of a palpable left axillary lump, correlation with ultrasound is recommended. ASSESSMENT CATEGORY: BIRADS Category 0: Incomplete. Need additional imaging evaluation. A letter regarding these results will be sent to the patient by the facility within 30 days. Approximately 10% of breast cancers are not detected by mammography. A normal mammogram should not delay biopsy of a clinically suspicious abnormality. Electronically Signed: Modesto Butler MD at 15:02 EDT Tel [phone], Service support , CC: Josh Greene MD Film Historian: Signed LOW DOSE CT LUNG Observed: 04/13/2018 Status: F Source: [place] SCREENING 5:57 PM [facility] Imaging Services [address] [place] [address] Lung Screening MR#: [id number] Acct: [id number] Name: YADIRA CRUZ Rep #: [id number] : 1950 F 68 From: Claudine Dai MD PCP: Josh Greene MD Status: REG CLI Study: Low Dose CT Lung Screening Date of Exam: 04/13/18 Exam# [id number] Ordering Dr: Xavier Guerrier MD STUDY: CT CHEST WITHOUT CONTRAST REASON FOR EXAM: Female, 68 years old. Positive PVD 40 year smoking history RADIATION DOSAGE (If Supplied By Facility): CTDIvol = ( 1.70 ) mGy, DLP = ( 59.55 ) mGycm TECHNIQUE: Transaxial imaging was performed without the administration of intravenous contrast material. Multiplanar coronal and sagittal images were reformatted. Individualized dose optimization techniques were used for this CT. COMPARISON: January 06, 2018 chest x-ray, January 31, 2015 CT scan chest FINDINGS: There is a pattern of hyperinflation throughout the lungs. There are small emphysematous blebs throughout the lungs with predominance in the right upper lobes. There is no visualized focal consolidation pleural effusion or pulmonary edema or suspicious pulmonary nodule. There is no demonstrated pleural abnormality. There is mild enlargement of the left atrium. There are coronary calcifications. There is a precarinal lymph node measuring 8.7 mm. Normal hilar regions. Normal unenhanced pulmonary arteries. There is atherosclerotic calcification of the aortic arch with tortuosity and elongation of the aortic arch and descending thoracic aorta. The bones are osteopenic and mildly degenerative. There is limited visualization of the abdominal anatomy due to the technique. The study is grainy due to evaluate organs of the upper abdomen. CT/Low Dose CT Lung Screening IMPRESSION: Chronic obstructive pulmonary disease emphysema without evidence of focal mass. Nonspecific subcentimeter mediastinal lymph nodes Atherosclerotic disease of the aorta and coronary arteries. Electronically Signed: Claudine Dai MD at 22:23 EDT Tel , Service support , CC: Josh Greene MD; Xavier Guerrier MD Film Historian: Signed ONCOLOGY VISIT REPORT Observed: 02/03/2018 Status: F Source: [place] 11:09 AM [facility] [address] [place] [address] OFFICE VISIT Date of Service: 02/03/18 1105 MR#: [id number] Acct: [id number] Name: YADIRA CRUZ Rep #: [id number] : 1950 From: Serafin Arrieta MD Age/Sex: 68/F Location: [facility] Status: Signed Subjective - Date of Service Date of Service:: 02/03/18 - Chief Complaint F/u for polycythemia. - History of Present Illness 68y.o.woman was evaluated in Oct 2014 for Polycythemia with Hgb of 17.5. JAK2 was negative and Erythropoietin level was normal. Bone marrow bx on 12/21/2014 was normal with negative BCR-ABL and JAK2. She had therapeutic phlebotomies till 06/19/2015. Currently on observation, comes in for follow up. She is still smoking, feels well. - Past Medical/Social History Past Medical History Past Medical History: COPD,Depression,Hyperlipidemia,Hypertension Other Past Medical History: Vocal cord dysfunction polycythemia Past Surgical History Surgical: Cholecystectomy Other Surgical History: laparoscopic cholecystectomy Family History Paternal Past Medical History: Diabetes mellitus,Heart disease,Hypertension Paternal History of Cancer Lung cancer Maternal Past Medical History: Arthritis,Hypertension Social History Social History: No changes Smoking Status Current every day smoker Review of Systems Constitutional:: Denies: Fever, Sweats, Weight loss, Appetite change, Chills Cardiovascular:: Denies: Chest pain, Palpitations, Dyspnea on exertion, Orthopnea, PND, Shortness of breath Respiratory: Denies: Cough, Hemoptysis, Shortness of Breath, Wheezing Gastrointestinal:: Denies: Abdominal pain, Nausea, Vomiting, Diarrhea, Constipation, Hematochezia Genitourinary: Denies: Dysuria, Hematuria, 15, Flank pain Musculoskeletal:: Denies: Back pain, Myalgia, Arthralgia Skin: Denies: Rash, Skin Changes, Wounds Neurological:: Denies: Headache, Dizziness, Visual changes, Tinnitus, Hearing loss Psychiatric: Denies: Anxiety, Depression, Homicidal Ideations, Suicidal Ideations Vital Signs Height 5 ft 2 in Weight: 53.524 kg Weight in Pounds 118.0 lbs Pulse Ox 96 - Physical Exam General: Alert, Oriented x3, No apparent distress HEENT: Atraumatic, PERRLA, EOMI, Normocephalic Oropharynx:: Dry mucosa Neck:: Supple, Trachea midline. Negative for: JVD, bilateral Cardiac:: Regular rate, Regular rhythm, Normal S1, Normal S2. Negative for: Murmur Lungs: Clear to auscultation, Excusion symmetrical. Negative for: Rhonchi, Wheezes Abdomen:: Bowel sounds x 4, Soft, Non-tender, Non-distended. Negative for: Hepatosplenomegaly Extremities:: Negative for: Cyanosis, Edema Neurological: Neuro grossly intact Skin:: Negative for: Lesions, Rash, Petechiae, Ecchymosis Psychiatric:: Appropriate affect, Euthymic Lymphatics:: Negative for: Cervical lymphadenopathy, Supraclavicular lymphadenopathy, Axillary lymphadenopathy Laboratory Data: Laboratory Tests WBC 10.8 (4.4-11.0) K/mm3 RBC 5.47 H (4.2-5.4) M/mm3 Hgb 16.6 H (12.0-15.0) g/dl Assessment and Plan Polycythemia-most likely secondary to smoking and COPD. HCT is less than 50. No need for phlebotomy. Plan is to continue observation. RTC 6 months with CBC. Medications: Prescriptions This Visit Medication Instructions Recorded Zolpidem Tartrate [Ambien Cr] 12.5 mg PO QHS PRN PRN 02/03/18 Primary Care Provider: Josh Greene Referring Provider: - Problem List (1) Polycythemia secondary to smoking Status: Chronic Code Visit Office Visits / Consults: 19721 OV L3 Est 02/03/18 1109 <Electronically signed by Serafin Arrieta MD> Date Serafin Arrieta MD Cosigner Signature: Date (if applicable) CC: CBC W/DIFF, AUTOMATED Collected: 02/03/2018 Status: F Source: [place] 10:38 AM [facility] Order Comment: Reason for Laboratory Test OV TYPE CODE TESTS RESULT OUT OF RANGE REFERENCE UNITS LAB L100.1000 4.4-11.0 K/mm3 Normal WBC 10.8 LAB L100.1200 4.2-5.4 M/mm3 High RBC 5.47 LAB L100.1300 12.0-15.0 g/dl High HGB 16.6 LAB L100.1400 37-47 % High HCT 48.5 LAB L100.1500 81-99 fL Normal MCV 88.7 LAB L100.1600 27.0-32.0 pg Normal MCH 30.3 LAB L100.1700 32-36 g/gl Normal MCHC 34.2 LAB L100.1810 11.6-14.6 % Normal RDW CV 14.6 LAB L100.1820 35.1-43.9 fl High RDW SD 46.9 LAB L100.1900 150-450 K/mm3 Normal PLT 231 LAB L100.2000 6.2-12.0 fl Normal MPV 10.1 LAB L100.2100 47-70 % Normal NEUT% 67.3 LAB L100.2200 19-41 % Normal LY% 22.6 LAB L100.2300 0-10 % Normal MONO% 8.3 LAB L100.2400 0-5 % Normal EO% 1.2 LAB L100.2500 0-1 % Normal BASO% 0.3 LAB L100.2550 0.0-0.9 % Normal IM GRAN % 0.300 Result Comment: IG% - Immature Granulocytes (promyelocytes, myelocytes and metamyelocytes) > 1% indicates that a LEFT SHIFT is Present. LAB L100.2620 2.0-7.7 X10 3/uL Normal Absolute Neut 7.2 LAB L100.2720 0.83-4.51 X10 3/ul Normal Absolute Lymph 2.43 Performed By: #### L100.0100 #### [facility] [address] [place], [place], [address] BASIC METABOLIC Collected: 11/27/2017 Status: F Source: [place] PROFILE (BMP) 10:35 AM [facility] TYPE CODE TESTS RESULT OUT OF RANGE REFERENCE UNITS LAB L501.0100 74-106 mg/dL Normal GLU 92 Result Comment: Please note revised GLUCOSE reference range effective 2017. LAB L501.1000 7-18 mg/dL Normal BUN 14 LAB L501.1100 0.55-1.02 mg/dL Normal CREAT,SERUM 0.77 Result Comment: The validity of the calculated GFR AND GFRAA in patients over 70 years has not been determined. Clinical correlation is essential. LAB L501.1110 >60 mL/min Normal EST GFR 79 Result Comment: Non- GFR Calc LAB L501.1115 >60 mL/min Normal EST GFR - AA 96 Result Comment: GFR Calc LAB L501.1300 10-20 RATIO Normal BUN/CRE 18.1 LAB L501.2200 8.5-10.1 mg/dL CA Normal 9.0 LAB L501.5300 136-145 mmol/L NA Normal 139 LAB L501.5600 3.5-5.1 mmol/L K Normal 4.4 LAB L501.5900 98-107 mmol/L CL Normal 106 LAB L501.6100 21.0-32.0 mmol/L Normal CO2 27.0 LAB L501.6200 5-15 Normal GAP 6 Performed By: #### L500.2500, L500.4100 #### [facility] [address] [place], [address] LIPID PROFILE Collected: 11/27/2017 Status: F Source: [place] 10:35 AM [facility] TYPE CODE TESTS RESULT OUT OF RANGE REFERENCE UNITS LAB L501.4900 200 mg/dL High CHOL 243 Result Comment: <200 mg/dL Desirable 200-240 mg/dL Borderline >240 mg/dL High Risk LAB L501.5000 mg/dL Normal TRIG 178 Result Comment: The drugs N-Acetylcysteine and Metamizole may falsely depress this assay. Serum Triglycerides Reference Interval Normal <150 mg/dL Borderline high 150 - 199 mg/dL High 200 - 499 mg/dL Very High > or = 500 mg/dL LAB L501.6400 mg/dL Low HDL 38 Result Comment: The drugs N-Acetylcysteine and Metamizole may falsely depress this assay. Reference Range HDL <40 mg/dL Low HDL Cholesterol HDL >or= 60 mg/dL High HDL Cholesterol LAB L501.6500 0-130 mg/dL High LDL 169 LAB L501.6600 5-40 mg/dL Normal VLDL 36 Performed By: #### L500.2500, L500.4100 #### [facility] [address] [place], [address] ALLERGIES ALLERGIES DATE TYPE / CODE NAME / CODE REACTION SEVERITY SOURCE 09/24/2018 Drug Jygbwix-Eat-Ydo Unknown Unknown [facility] 896064(SNOM Inhibitor/[id number] Hospital ED CT) 5(RXNORM) Repository 09/24/2018 Drug erythromycin Vomiting Unknown [facility]/416 base/[id number](RXN [facility] 670349(SNOM ORM) Hospital ED CT) Repository ENCOUNTERS ENCOUNTERS ADMIT/DISCHARGE ACCOUNT NUMBER ADMITTING ENCOUNTER LOCATION SOURCE CLASS 09/24/[id number] [facility] ding:LABSPEC Repository 09/24/2018/09/24/19 [id number] Ambulatory BMSBuilding: [place] [address] BMS[facility] Repository 08/20/2018/08/20/20 [id number] Ambulatory BBuilding:RA Jiang [address] [place] [address] Repository 08/11/2018 [id number] Ambulatory BMSBuilding: [place] [facility] Repository 08/11/[id number] [facility] ding:OMD Repository 07/13/2018/07/13/20 [id number] Ambulatory [place] [facility] [address] [place] [address] ding:PT Repository 06/25/[id number] [facility] ding:MFPLAB Repository 05/21/2018/05/21/20 [id number] Ambulatory BMSBuilding: [place] [facility] BMS.W[facility] Repository 05/12/[id number] [facility] ding:MRI Repository 05/07/[id number] [facility] ding:US Repository 04/13/[id number] [facility] ding:CT Repository 02/03/2018 [id number] Ambulatory BMSBuilding: Brigitte BMS.CF.[facility] Hospital Repository 11/27/[id number] [facility] ding:[id number] Repository PAYERS PAYERS ENCOUNTER GUARANTOR PAYER SUBSCRIBER SOURCE 09/24/2018 YADIRA Vazquez Primary YADIRA Briggs [id number] REYES Insurance:MEDICARE GRIMSHAWDOB: [facility] [id number] [facility] [address]Blb: Number: Repository [id number] (HP) Date:2018-09-24 09/24/2018 Secondary YADIRA Taylor Brigitte Insurance:MEDICAL GRIMSHAWDOB: [facility] [id number] [facility] Number: Repository [id number] Date:7593-31-43[address] [address]HB: 09/24/2018 Tertiary NOT GIVENUNK [place] Insurance:SELF PAY [facility] Number: Effective Repository Date:2018-09-24 09/24/2018 YADIRA Vazquez Primary YADIRA REYES Insurance:MEDICARE GRIMSHAWDOB: [facility] STAPRICHARD NICOLE, PART A [facility] [id number] [facility] [place] [address]Lmw: Number: Repository [id number] (HP) Date:2018-09-22 09/24/2018 Secondary YADIRA Briggs Insurance:MEDICAL GRIMSHAWDOB: [facility] [id number] Hospital Number: Repository [id number] Date:6277-05-85ML [address] [place] [address]KN: 09/24/2018 Tertiary NOT GIVENUNK [place] Insurance:SELF PAY [facility] Number: Effective Repository Date:2018-09-22 08/20/2018 YADIRA L Primary YADIRA Vazquez [facility] GRIMSHAWDOB: Insurance:MEDICARE GRIMSHAWDOB: [facility] PART B [facility] [id number] Repository [facility] Number: [facility] [place] [id number] [place] [address]~[id number] Date:2018-08-2056247Jjw: 330 6@[facility] HOSPITALel: [id number] [phone] Name:[facility] ()Tel: ([phone]) (HP)Tel: ([phone]) Administrators LLCPO [phone] ([phone]) [phone] () [address] [place] [address]AJ: 08/20/2018 Secondary YADIRA Jiang [facility] Insurance:MEDICAL GRIMSHAWDOB: [facility] [id number] Repository [facility] Number: ERIC HINTON [id number] [place] Date:2018-08-2024816Vzm: [phone] [id number] [phone] Name:[facility] Box (HP)Tel: 000 [address], [place] [phone] (WP) [address]UN: 08/11/2018 [place] Primary [facility] Insurance:MEDICARE GRIMSHAWDOB: [facility] [place], PART A [facility] [id number] Regional Medical [facility] [address]Ego: Number: Repository [id number] (HP) Date:2017-01-06 08/11/2018 Secondary YADIRA L [place] Insurance:MEDICAL GRIMSHAWDOB: [facility] [id number] Hospital Number: Repository [id number] Date:1997-13-27QD[address] [address]NO: 08/11/2018 Tertiary NOT GIVENUNK [place] Insurance:SELF PAY [facility] Number: Effective Repository Date:2018-08-11 08/11/2018 [place] Primary YADIRA Faustinoster [id number] Insurance:MEDICARE GRIMSHAWDOB: [facility] [place], PART A [facility] [id number] Regional Medical Center [address]Qif: Number: Repository [id number] (HP) Date:2017-01-06 08/11/2018 Secondary YADIRA L [place] Insurance:MEDICAL GRIMSHAWDOB: [facility] [id number] Hospital Number: Repository [id number] Date:1378-47-08UX[address] [address]FM: 08/11/2018 Tertiary NOT GIVENUNK [place] Insurance:SELF PAY [facility] Number: Effective Repository Date:2016-11-27 07/13/2018 [place] Primary YADIRA Briggs [id number] Insurance:MEDICARE GRIMSHAWDOB: [facility] [place], PART A [facility] [id number] Regional Medical Center [address]Htz: Number: Repository [id number] (HP) Date:2017-01-06 07/13/2018 Secondary YADIRA L [place] Insurance:MEDICAL GRIMSHAWDOB: [facility] [id number] Hospital Number: Repository [id number] Date:4830-89-05TO[address] [address]LU: 07/13/2018 Tertiary NOT GIVENUNK [place] Insurance:SELF PAY [facility] Number: Effective Repository Date:2018-05-21 06/25/2018 [place] Primary YADIRA [address] Insurance:MEDICARE GRIMSHAWDOB: [facility] [place], PART A [facility] [id number] Regional Medical Center [address]Bkk: Number: Repository [id number] (HP) Date:2018-06-25 06/25/2018 Secondary YADIRA Vazquez [place] Insurance:MEDICAL GRIMSHAWDOB: [facility] [id number] Hospital Number: Repository [id number] Date:3421-44-41NE [address] [address]YI: 06/25/2018 Tertiary NOT GIVENUNK [place] Insurance:SELF PAY [facility] Number: Effective Repository Date:2018-06-25 05/21/2018 [place] Primary YADIRA [address] Insurance:MEDICARE GRIMSHAWDOB: [facility] [place], PART A [facility] [id number] Regional Medical Center [address]Bur: Number: Repository [id number] (HP) Date:2018-05-18 05/21/2018 Secondary YADIRA Vazquez [place] Insurance:MEDICAL GRIMSHAWDOB: [facility] [id number] Hospital Number: Repository [id number] Date:4350-82-38QG [address] [address]EQ: 05/21/2018 Tertiary NOT GIVENUNK [place] Insurance:SELF PAY [facility] Number: Effective Repository Date:2018-05-18 05/12/2018 [place] Primary Yadira [id number] Insurance:MEDICARE GrimshawDOB: [facility] [place], PART A [facility] [id number] Regional Medical Center [address]Vyo: Number: Repository [id number] (HP) Date:2018-05-06 05/12/2018 Secondary Yadira Vazquez [place] Insurance:MEDICAL GrimshawDOB: [facility] [id number] Hospital Number: Repository [id number] Date:8089-69-34YC[address] [address]SC: 05/12/2018 Tertiary NOT GIVENUNK [place] Insurance:SELF PAY [facility] Number: Effective Repository Date:2018-05-06 05/07/2018 [place] Primary Yadira Briggs [id number] Insurance:MEDICARE GrimshawDOB: [facility], PART A [facility] [id number] Regional Medical Center [address]Ruj: Number: Repository [id number] () Date:2018-05-06 05/07/2018 Secondary Yadira L [place] Insurance:MEDICAL GrimshawDOB: [facility] [id number] Hospital Number: Repository [id number] Date:0724-60-67MQ[address] [address]SJ: 05/07/2018 Tertiary NOT GIVENUNK [place] Insurance:SELF PAY [facility] Number: Effective Repository Date:2018-05-06 04/13/2018 [place] Primary Yadira [id number] Insurance:MEDICARE GrimshawDOB: [facility], PART A [facility] [id number] Regional Medical Center [address]Mlt: Number: Repository [id number] (HP) Date:2018-03-30 04/13/2018 Secondary Yadira Vazquez [place] Insurance:MEDICAL imshawDOB: [facility] [id number] Hospital Number: Repository [id number] Date:[id number] [address]WN: 04/13/2018 Tertiary NOT GIVENUNK [place] Insurance:SELF PAY [facility] Number: Effective Repository Date:2018-03-30 02/03/2018 [place] Primary Yadira [id number] Insurance:MEDICARE GrimshawDOB: [facility], PART A [facility] [id number] Regional Medical Center [address]San: Number: Repository [id number] (HP) Date:2017-01-06 02/03/2018 Secondary Yadira L [place] Insurance:MEDICAL GrimshawDOB: [facility] [id number] Hospital Number: Repository [id number] Date:9199-01-88VZ [address] [address]DZ: 02/03/2018 Tertiary NOT GIVENUNK [place] Insurance:SELF PAY [facility] Number: Effective Repository Date:2018-02-03 11/27/2017 [place] Primary Yadira [id number] Insurance:MEDICARE imshawDOB: [facility], PART A [facility] [id number] Regional Medical Center [address]Zmx: Number: Repository [id number] (HP) Date:2017-11-27 11/27/2017 Secondary Yadira Vazquez [place] Insurance:MEDICAL imshawDOB: [facility] [id number] Hospital Number: Repository [id number] Date:8275-50-11SA [address] [address]ZW: 11/27/2017 Tertiary NOT GIVENUNK [place] Insurance:SELF PAY [facility] Number: Effective Repository Date:2017-11-27
== END ==
PROVIDERS: Family Provider Family Medicine; PCP Family Medicine; Referring Provider Surgery; Visit Provider Surgery
DX: D17.22 Benign lipomatous neoplasm of skin and subcutaneous tissue of left arm (principal)
CPT/HCPCS: 88304

== ENCOUNTER → 2018-10-28 14:30 | Outpatient (CLI) | payer MEDICARE, OTHER, SELFPAY ==
[2018-09-24 09:07] VITALS: BMI 21.7
[2018-10-28 16:10] LABS: Vitamin D,25 Hydroxy 23.6 ng/mL (29.95-100.01)
[2018-10-28 16:31] LABS: Anion Gap 9 (5-15); BUN 9 mg/dL (7-18); BUN/Creat Ratio 12.6 RATIO (10-20); Calcium,Total 8.7 mg/dL (8.5-10.1); Chloride 104 mmol/L (98-107); Cholesterol 213 mg/dL (200); Creatinine, Serum 0.71 mg/dL (0.55-1.02); EST Glomerular Filtration Rate 87 mL/min (>60); Est Glom Filt Rate - Afr Amer 105 mL/min (>60); Glucose 77 mg/dL (74-106); High Density Lipoprotein 41 mg/dL; Magnesium 2.2 mg/dL (1.6-2.6); Potassium 4.4 mmol/L (3.5-5.1); Sodium Level 141 mmol/L (136-145); Triglycerides 147 mg/dL; Very Low Density Lipoprotein 29 mg/dL (5-40)
== END ==
PROVIDERS: Family Provider Family Medicine; PCP Family Medicine; Referring Provider Family Medicine; Visit Provider Family Medicine
DX: I10 Essential (primary) hypertension (principal); E55.9 Vitamin D deficiency, unspecified
CPT/HCPCS: 36415; 80048; 80061; 82306; 83735

== ENCOUNTER 2019-01-02 15:25 | Inpatient (IN) | payer MEDICARE, OTHER, SELFPAY ==
[2018-09-24 09:07] VITALS: BMI 21.7
[2019-01-02] VITALS (10 sets, daily range): BP systolic 153–172; BP diastolic 66–86; PULSE 58–77; RESP 16–18; TEMP 36.6–36.7; O2SAT 95–99; BMI 23.1; BMI 22.8; BMI 22.9
--- NOTE | 2019-01-02 15:45 | CT_ITS ---
STUDY: CT BRAIN WITHOUT CONTRAST REASON FOR EXAM: Female, 68 years old. Dizzy x10 days. RADIATION DOSAGE (If Supplied By Facility): CTDIvol = ( 44.99 ) mGy, DLP = ( 779.24 ) mGycm TECHNIQUE: Transaxial CT imaging of the brain was performed without administration of intravenous contrast material. Individualized dose optimization techniques were used for this CT. COMPARISON: March 29, 2015 FINDINGS: Normal soft tissue structures. Normal calvarium. Normal size ventricles and extra-axial spaces for the patient's age. Normal white matter tracts of the cerebral hemispheres. Normal basal ganglia and thalami. Normal brainstem. Normal cerebellum. There is no intracranial hemorrhage. There are no findings of an acute ischemic infarction. Normal visualized paranasal sinuses. CT/Brain/Head without Contrast IMPRESSION: No acute intracranial process. Electronically Signed: Kerry Blanoc MD at 16:23 EDT Tel , Service support ,
--- NOTE | 2019-01-02 15:49 | ED.DCSUM_ITS ---
- ER Visit Summary Date of Service: 01/02/19 Chief Complaint: Dizziness History of Present Illness: The patient is a 68 F history of COPD, hypertension and chronic back pain secondary to thoracic degenerative disc disease. Patient states last 2 weeks she has had dizziness which she describes as off balance. Denies any falls. No head trauma. She is on no blood thinners. Denies any headaches. Typically states she does not feel this way. She denies any vomiting or diarrhea. She does have mild nausea with it. The room was not spinning. She denies any weakness in her arms or legs. She has never had vertigo. Physical Examination: Older female. No acute distress. Vital signs are stable. Afebrile. Her initial blood pressure is 163/74. She does not look septic or toxic. She has a strong smell of tobacco smoke. HEENT exam unremarkable. No signs of trauma. Pupils are round reactive light extra motions are intact. No palsy. No facial droop. Normal speech. Pupils about 3 mm bilaterally reactive. TMs are normal bilaterally. No cerumen impaction. Neck nontender. Lungs clear to auscultation bilaterally. Heart regular rhythm no murmur. Abdomen is soft and nontender. Patient is moving all 4 extremities. 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 Fingertip to nose within normal limits bilaterally. Dorsi and plantar flexion intact. Normal motor strength and sensation lower extremities. Ngfr-vq-zpis within normal limits. Neurologically she is awake and alert with absolutely no focal motor or sensory deficits. NIH score is 0. She notes day, month, year and president states. She has normal speech. Hallpike maneuvers were normal. She did not have excessive dizziness or nausea with rotating her head left to right and sitting her upright. This does not appear to be vertigo clinically. Test Results: CBC shows no acute abnormality. White count 10. Hemoglobin 17. BMP unremarkable normal creatinine and gap. CT of the brain without contrast shows no acute abnormality. A CTA of the neck was obtained showed no significant stenosis a CT of the brain showed right carotid artery at the cavernous sinus area with a 50-75% stenosis. Emergency Department Course and Treatment: Patient was ambulating the hallway and had definite ataxia where she went off to the right to the point where she had to grab the wall. Treatment Plan: I discussed with the hospitalist and they will admit the patient for dizziness and ataxia of uncertain etiology. She will undergo further stroke work-up. She may need an MRI and neurology consultation. Disposition: Admission Impression: Acute dizziness with ataxia of uncertain etiology This note was generated with [employer] dictation software. It may contain incorrect words, spelling, and punctuation that were not noted in review of the chart prior to signing ED Disposition - Plan for ED Patient: Referrals: Josh Greene MD [Primary Care Provider] -
[2019-01-02 16:07] LABS: Anion Gap 5 (5-15); BUN 10 mg/dL (7-18); BUN/Creat Ratio 10.6 RATIO (10-20); Calcium,Total 8.8 mg/dL (8.5-10.1); Chloride 105 mmol/L (98-107); Creatinine, Serum 0.94 mg/dL (0.55-1.02); EST Glomerular Filtration Rate 63 mL/min (>60); Est Glom Filt Rate - Afr Amer 76 mL/min (>60); Estimated Creatinine Clearance 46.56 ml/min; Glucose 108 mg/dL (74-106); Potassium 3.8 mmol/L (3.5-5.1); Sodium Level 140 mmol/L (136-145)
[2019-01-02 16:30] LABS: Absolute Lymphocyte Count 3.46 X10^3/ul (0.83-4.51); Absolute Neutrophil Count 5.9 X10^3/uL (2.0-7.7); Basophil# 0.03 X10^3/uL; Basophil% 0.3 % (0-1); Eosinophil# 0.23 X10^3/uL; Eosinophils% 2.2 % (0-5); Hematocrit 48.5 % (37-47); Hemoglobin 17.1 g/dl (12.0-15.0); Lymphocyte # 3.46 X10^3/ul (4.0); Lymphocyte % 33.7 % (19-41); Mean Corp Hgb Conc 35.3 g/gl (32-36); Mean Corpuscular Hgb 29.5 pg (27.0-32.0); Mean Corpuscular Volume 83.8 fL (81-99); Mean Platelet Vol. 9.7 fl (6.2-12.0); Monocyte# 0.64 X10^3/uL; Monocyte% 6.2 % (0-10); Neutrophil # 5.88 X10^3/uL (2.7-7.7); Neutrophil % 57.4 % (47-70); Platelet Count 230 K/mm3 (150-450); RBC Distribution Width CV 14.5 % (11.6-14.6); RBC Distribution Width SD 44.1 fl (35.1-43.9); Red Blood Count 5.79 M/mm3 (4.2-5.4); White Blood Count 10.3 K/mm3 (4.4-11.0)
[2019-01-02 16:32] LABS: POSITIVE COUNT NO; POSITIVE DIFFERENTIAL NO; POSITIVE MORPHOLOGY NO
--- NOTE | 2019-01-02 17:00 | CT_ITS ---
STUDY: CTA OF THE BRAIN REASON FOR EXAM: Female, 68 years old. Ataxia and dizziness RADIATION DOSAGE (If Supplied By Facility): CTDIvol = ( 18.76 ) mGy, DLP = ( 660.26 ) mGycm TECHNIQUE: CT angiography was performed with a multi-detector CT scanner. Data acquisition was obtained from the skull base through the vertex following intravenous administration of 100 IV Isovue 370. MIP images were reconstructed from the axial data set. Post-processing of the angiographic images was performed, with multiplanar reformation and 3D reconstruction. Individualized dose optimization techniques were used for this CT. COMPARISON: January 02, 2019 CT brain FINDINGS: Normal bilateral petrous carotid arteries. There is calcified plaque formation of the right cavernous carotid artery, with a moderate stenosis (50-75%). Normal left cavernous carotid artery with a normal supraclinoid bifurcation. Normal right A1 segments of the anterior cerebral artery. Normal left A1 segments of the anterior cerebral artery. Normal intact anterior communicating artery (ACOM). Normal bilateral A2 segments of the anterior cerebral arteries. Normal right M1 and M2 segments of the middle cerebral arteries, with a normal M1 bifurcation. Normal left M1 and M2 segments of the middle cerebral arteries, with a normal M1 bifurcation. There is non-visualization of the right posterior communicating artery (PCOM). There is non-visualization of the left posterior communicating artery (PCOM). Normal bilateral vertebral arteries. Normal basilar artery with a normal basilar bifurcation. The visualized bilateral superior cerebellar (SCA) arteries are normal. Normal bilateral P1, P2 and visualized P3 segments of the posterior cerebral arteries. There is no demonstrated aneurysm of the [place] of [place]. There is no demonstrated abnormality of the visualized brain. IMPRESSION: Moderate stenosis right cavernous segment internal carotid artery otherwise negative Electronically Signed: Pb Schulz MD at 18:07 EDT , Service support , STUDY: CTA NECK WITH CONTRAST REASON FOR EXAM: Female, 68 years old. Ataxia and dizziness RADIATION DOSAGE (If Supplied By Facility): CTDIvol = ( 18.76 ) mGy, DLP = ( 660.26 ) mGycm TECHNIQUE: CT angiography with multi-detector data acquisition was performed from the aortic arch to the skull base following intravenous administration of 100 IV Isovue 370. MIP images were reconstructed from the axial data set. Post-processing of the angiographic images was performed, with multiplanar reformation and 3D reconstruction. Individualized dose optimization techniques were used for this CT. COMPARISON: None. FINDINGS: AORTIC ARCH: Normal visualized aortic arch. Normal origins of the brachiocephalic, left common carotid, and left subclavian arteries. RIGHT CAROTID ARTERIES: Normal right common carotid artery (CCA). There is mild atherosclerotic plaque formation with minimal narrowing of the right carotid bulb. Normal origin of the right internal carotid (ICA) artery without a hemodynamically significant stenosis. Normal visualized cervical portion of the right internal carotid artery. Normal origin of the right external carotid artery (ECA). LEFT CAROTID ARTERIES: Normal left common carotid artery (CCA). There is mild atherosclerotic plaque formation with minimal narrowing of the left carotid bulb. Normal origin of the left internal carotid (ICA) artery without a hemodynamically significant stenosis. Normal visualized cervical portion of the left internal carotid artery. Normal origin of the left external carotid artery (ECA). VERTEBRAL ARTERIES: Normal bilateral vertebral arteries. CT/CTA Neck W/WO Contrast IMPRESSION: No hemodynamically significant stenosis. Electronically Signed: Pb Schulz MD at 18:11 EDT , Service support ,
--- NOTE | 2019-01-02 17:00 | CT_ITS ---
STUDY: CTA OF THE BRAIN REASON FOR EXAM: Female, 68 years old. Ataxia and dizziness RADIATION DOSAGE (If Supplied By Facility): CTDIvol = ( 18.76 ) mGy, DLP = ( 660.26 ) mGycm TECHNIQUE: CT angiography was performed with a multi-detector CT scanner. Data acquisition was obtained from the skull base through the vertex following intravenous administration of 100 IV Isovue 370. MIP images were reconstructed from the axial data set. Post-processing of the angiographic images was performed, with multiplanar reformation and 3D reconstruction. Individualized dose optimization techniques were used for this CT. COMPARISON: January 02, 2019 CT brain FINDINGS: Normal bilateral petrous carotid arteries. There is calcified plaque formation of the right cavernous carotid artery, with a moderate stenosis (50-75%). Normal left cavernous carotid artery with a normal supraclinoid bifurcation. Normal right A1 segments of the anterior cerebral artery. Normal left A1 segments of the anterior cerebral artery. Normal intact anterior communicating artery (ACOM). Normal bilateral A2 segments of the anterior cerebral arteries. Normal right M1 and M2 segments of the middle cerebral arteries, with a normal M1 bifurcation. Normal left M1 and M2 segments of the middle cerebral arteries, with a normal M1 bifurcation. There is non-visualization of the right posterior communicating artery (PCOM). There is non-visualization of the left posterior communicating artery (PCOM). Normal bilateral vertebral arteries. Normal basilar artery with a normal basilar bifurcation. The visualized bilateral superior cerebellar (SCA) arteries are normal. Normal bilateral P1, P2 and visualized P3 segments of the posterior cerebral arteries. There is no demonstrated aneurysm of the [place] of [place]. There is no demonstrated abnormality of the visualized brain. IMPRESSION: Moderate stenosis right cavernous segment internal carotid artery otherwise negative Electronically Signed: Pb Schulz MD at 18:07 EDT , Service support , STUDY: CTA NECK WITH CONTRAST REASON FOR EXAM: Female, 68 years old. Ataxia and dizziness RADIATION DOSAGE (If Supplied By Facility): CTDIvol = ( 18.76 ) mGy, DLP = ( 660.26 ) mGycm TECHNIQUE: CT angiography with multi-detector data acquisition was performed from the aortic arch to the skull base following intravenous administration of 100 IV Isovue 370. MIP images were reconstructed from the axial data set. Post-processing of the angiographic images was performed, with multiplanar reformation and 3D reconstruction. Individualized dose optimization techniques were used for this CT. COMPARISON: None. FINDINGS: AORTIC ARCH: Normal visualized aortic arch. Normal origins of the brachiocephalic, left common carotid, and left subclavian arteries. RIGHT CAROTID ARTERIES: Normal right common carotid artery (CCA). There is mild atherosclerotic plaque formation with minimal narrowing of the right carotid bulb. Normal origin of the right internal carotid (ICA) artery without a hemodynamically significant stenosis. Normal visualized cervical portion of the right internal carotid artery. Normal origin of the right external carotid artery (ECA). LEFT CAROTID ARTERIES: Normal left common carotid artery (CCA). There is mild atherosclerotic plaque formation with minimal narrowing of the left carotid bulb. Normal origin of the left internal carotid (ICA) artery without a hemodynamically significant stenosis. Normal visualized cervical portion of the left internal carotid artery. Normal origin of the left external carotid artery (ECA). VERTEBRAL ARTERIES: Normal bilateral vertebral arteries. CT/CTA Head W/WO Contrast IMPRESSION: No hemodynamically significant stenosis. Electronically Signed: Pb Schulz MD at 18:11 EDT , Service support ,
[2019-01-02] MEDS: 0.9% Normal Saline 1,000 ML 999 ML IV (17:19)
--- NOTE | 2019-01-02 17:21 | EKG12_ITS ---
Test Reason : DIZZINESS Blood Pressure : / mmHG Vent. Rate : 075 BPM Atrial Rate : 075 BPM P-R Int : 198 ms QRS Dur : 124 ms QT Int : 452 ms P-R-T Axes : 073 055 030 degrees QTc Int : 504 ms Normal sinus rhythm Low voltage QRS (Limb Leads) Right bundle branch block Abnormal ECG Confirmed by KAYLIN ANTUNEZ, JAYSON ([id number]), x ray consultant VASHTI TALBOT ([id number]) on 01/04/2019 12:01:38 PM Referred By: Latisha Irby Confirmed By:JAYSON EWING MD
--- NOTE | 2019-01-02 17:32 | PCM.HP.STD ---
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 The patient is a 68 year old F who presents the Emergency Room with ataxia. She reports approximately 10 days ago she went to her primary care physician for mild dizziness and was diagnosed with inner ear fluid and placed on Augmentin. She states her symptoms have slowly worsened since that time and she now has to hold onto something while ambulating due to drifting to the right. She complains of dizzy sensation with head movement or standing/ambulating. Denies unilateral weakness, numbness, tingling, slurred speech, vision changes. She has a past medical history of hypertension, hyperlipidemia, anxiety, depression, mild COPD, GERD, polycythemia secondary to smoking, tobacco dependence, chronic pain syndrome, marijuana oil use. Past Medical History Past Medical History (Chronic Problems): Chronic Problems (Last Reviewed 09/24/18 @ 09:00 by Aditi Carreno) Hyperlipidemia (Chronic) Vocal cord dysfunction (Chronic) Hx of cholecystectomy (Chronic) 05/2014 Arthritis (Chronic) Chronic pain (Chronic) Anxiety disorder (Chronic) Tobacco dependence (Chronic) Depression (Chronic) Hypertension (Chronic) Hyperinflation of lungs (Chronic) COPD (chronic obstructive pulmonary disease) (Chronic) GERD (gastroesophageal reflux disease) (Chronic) Polycythemia secondary to smoking (Chronic) Medical History: Medical History (Last Reviewed 09/24/18 @ 09:00 by Aditi Carreno) Hyperlipidemia (Chronic) E78.5 Vocal cord dysfunction (Chronic) J38.3 Arthritis (Chronic) M19.90 Chronic pain (Chronic) G89.29 Anxiety disorder (Chronic) F41.9 Tobacco dependence (Chronic) F17.200 Depression (Chronic) F32.9 Hypertension (Chronic) I10 Hyperinflation of lungs (Chronic) R09.89 COPD (chronic obstructive pulmonary disease) (Chronic) J44.9 GERD (gastroesophageal reflux disease) (Chronic) K21.9 Polycythemia secondary to smoking (Chronic) D75.1 Allergies erythromycin base Adverse Reaction (Verified 01/02/19 15:28) Vomiting Fixeome-Trb-Iel Reductase Inhibitor Adverse Reaction (Verified 01/02/19 15:28) Unknown Home Medications: Ambulatory Orders Medication Instructions Recorded Atenolol [Tenormin (beta ayesha)] 50 mg PO BID 10/17/14 Clonazepam [Klonopin] 0.5 mg PO TID 06/20/16 Amlodipine [Norvasc] 5 mg PO DAILY 01/06/17 Zolpidem Tartrate [Ambien Cr] 12.5 mg PO QHS PRN PRN 02/03/18 hydroxyzine pamoate 100 mg capsule 100 mg PO ONCE 05/21/18 Amoxicillin/Potassium Clav 1 tab PO BID 01/02/19 [Amox-Clav 875-125 mg Tablet] Baclofen [Lioresal] 10 mg PO TID 01/02/19 Cholecalciferol (Vitamin D3) 1 tab PO DAILY 01/02/19 [Vitamin D3] Surgical History: Surgical History (Last Reviewed 09/24/18 @ 09:00 by Aditi Carreno) Hx of cholecystectomy (Chronic) Z90.49 05/2014 Surgical History: cholecystectomy Psychiatric History: Anxiety, Depression 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 Alcohol: Rare Drugs: Marijuana - Oil - *Family History Maternal Family History: Family History (Last Reviewed 01/02/19 @ 17:35 by NAVID Ambrocio) Mother Arthritis Hypertension Father Lung cancer Heart disease Diabetes Hypertension Sibling Family History: Family History (Last Reviewed 01/02/19 @ 17:35 by NAVID Ambrocio) Mother Arthritis Hypertension Father Lung cancer Heart disease Diabetes Hypertension History Items: Heart Disease Paternal Family History: Family History (Last Reviewed 01/02/19 @ 17:35 by NAVID Ambrocio) Mother Arthritis Hypertension Father Lung cancer Heart disease Diabetes Hypertension History Items: Diabetes, Heart Disease Review of Systems Constitutional: Denies: Chills, Fever, Weight Change HEENT: Denies: Head Aches, Sinus Congestion, Sinus Drainage Cardiovascular: Denies: Chest Pain, Edema, Light Headedness, Palpitations, Syncope Respiratory: Denies: Cough, Shortness of breath at rest, Sputum production Gastrointestinal: Denies: Abdominal Pain, Nausea, Vomiting Genitourinary: Denies: Dysuria Musculoskeletal: Denies: Joint Pain, Joint Tenderness Skin: Denies: Rash, Wounds Neurological: Reports: - - Drift to right when walking, dizziness.. Denies: Focal weakness, Numbness, Tingling Psychiatric: Reports: Anxiety, Depression Hematologic/ Lymphatic: Denies: Easy Bruising, Easy Bleeding VTE Information - Inpt Only VTE Present on Admission: No VTE Mechan Device Prophylaxis: None VTE Pharm Prophylaxis ordered?: Yes - Physical Exam General: Alert, Oriented x3, Cooperative HEENT: Atraumatic, PERRLA, EOMI, Normocephalic Neck: Supple, No JVD, Negative Carotid Bruits Lungs: Clear to auscultation, Diminished Cardiovascular: Regular rate, Regular Rhythm, Normal S1, Normal S2, No murmurs Abdomen: Bowel Sounds Present, Soft, Non Tender, Non-Distended Extremities: No clubbing, No cyanosis, No edema, Capillary Refill Less than 3 Seconds Skin: No rashes, No breakdown Musculoskeletal: No Tenderness to Palpation of Joints or Extremities Neurological: Cranial nerves II-XII grossly intact, Neuro grossly intact, - - Right eye nystagmus. Ataxia with walking. Psych/Mental Status: Normal Affect, Appropriate Vital Signs Temp Pulse Resp BP Pulse Ox 97.9 F 62 17 157/66 H 99 01/02/19 15:25 01/02/19 16:22 01/02/19 15:34 01/02/19 16:22 01/02/19 15:34 Oxygen Delivery Method Room Air Weight: 126 lb 12.253 oz Body Mass Index (BMI) 23.1 Laboratory Tests Past 24 Hrs 01/02/19 01/02/19 15:35 15:35 WBC 10.3 RBC 5.79 H Hgb 17.1 H Hct 48.5 H MCV 83.8 MCH 29.5 MCHC 35.3 RDW 14.5 RDW Differential 44.1 H Plt Count 230 MPV 9.7 Immature Gran % (Auto) 0.200 Neut % (Auto) 57.4 Lymph % (Auto) 33.7 [place] % (Auto) 6.2 Eos % (Auto) 2.2 Baso % (Auto) 0.3 Absolute Neuts (auto) 5.9 Absolute Lymphs (auto) 3.46 Total Counted Not Reportable Sodium 140 Potassium 3.8 Chloride 105 Carbon Dioxide 30.0 Anion Gap 5 BUN 10 Creatinine 0.94 Estim Creat Clear Calc 46.56 Est GFR (MDRD) Af Amer 76 Est GFR (MDRD) Non-Af 63 BUN/Creatinine Ratio 10.6 Glucose 108 H Calcium 8.8 Assessment/Plan 1. Ataxia- Unclear etiology. R/O CVA. Brain CT with no acute process. Head and neck CTA pending. Obtain MRI brain. [facility]. Check lipid panel in a.m. PT/OT. Check mg, tsh. 2. Hypertension-permissive while r/o cva. On amlodipine, atenolol. 3. Chronic polycythemia-follows with oncology, Dr. Arrieta. Suspected to be secondary to COPD and tobacco use. 4. Anxiety/Depression- continue home klonopin regimen. 5. Tobacco Dependence-encourage smoking cessation. Nicotine replaced tonight. 6. Chronic pain syndrome- continue baclofen regimen. Uses marijuana oil for pain as well. 7. Chronic COPD-No acute exacerbation. PRN albuterol aerosols. DVT prophylaxis- Lovenox sc This patient was seen by NAVID Ambrocio under the supervision of Dr. Irby.
--- NOTE | 2019-01-02 17:39 | HP.PCM_ITS ---
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 The patient is a 68 year old F who presents the Emergency Room with ataxia. She reports approximately 10 days ago she went to her primary care physician for mild dizziness and was diagnosed with inner ear fluid and placed on Augmentin. She states her symptoms have slowly worsened since that time and she now has to hold onto something while ambulating due to drifting to the right. She complains of dizzy sensation with head movement or standing/ambulating. Denies unilateral weakness, numbness, tingling, slurred speech, vision changes. She has a past medical history of hypertension, hyperlipidemia, anxiety, depression, mild COPD, GERD, polycythemia secondary to smoking, tobacco dependence, chronic pain syndrome, marijuana oil use. Past Medical History Past Medical History (Chronic Problems): Chronic Problems (Last Reviewed 09/24/18 @ 09:00 by Aditi Carreno) Hyperlipidemia (Chronic) Vocal cord dysfunction (Chronic) Hx of cholecystectomy (Chronic) 05/2014 Arthritis (Chronic) Chronic pain (Chronic) Anxiety disorder (Chronic) Tobacco dependence (Chronic) Depression (Chronic) Hypertension (Chronic) Hyperinflation of lungs (Chronic) COPD (chronic obstructive pulmonary disease) (Chronic) GERD (gastroesophageal reflux disease) (Chronic) Polycythemia secondary to smoking (Chronic) Medical History: Medical History (Last Reviewed 09/24/18 @ 09:00 by Aditi Carreno) Hyperlipidemia (Chronic) E78.5 Vocal cord dysfunction (Chronic) J38.3 Arthritis (Chronic) M19.90 Chronic pain (Chronic) G89.29 Anxiety disorder (Chronic) F41.9 Tobacco dependence (Chronic) F17.200 Depression (Chronic) F32.9 Hypertension (Chronic) I10 Hyperinflation of lungs (Chronic) R09.89 COPD (chronic obstructive pulmonary disease) (Chronic) J44.9 GERD (gastroesophageal reflux disease) (Chronic) K21.9 Polycythemia secondary to smoking (Chronic) D75.1 Allergies erythromycin base Adverse Reaction (Verified 01/02/19 15:28) Vomiting Kyvyokw-Oje-Vmf Reductase Inhibitor Adverse Reaction (Verified 01/02/19 15:28) Unknown Home Medications: Ambulatory Orders Medication Instructions Recorded Atenolol [Tenormin (beta ayesha)] 50 mg PO BID 10/17/14 Clonazepam [Klonopin] 0.5 mg PO TID 06/20/16 Amlodipine [Norvasc] 5 mg PO DAILY 01/06/17 Zolpidem Tartrate [Ambien Cr] 12.5 mg PO QHS PRN PRN 02/03/18 hydroxyzine pamoate 100 mg capsule 100 mg PO ONCE 05/21/18 Amoxicillin/Potassium Clav 1 tab PO BID 01/02/19 [Amox-Clav 875-125 mg Tablet] Baclofen [Lioresal] 10 mg PO TID 01/02/19 Cholecalciferol (Vitamin D3) 1 tab PO DAILY 01/02/19 [Vitamin D3] Surgical History: Surgical History (Last Reviewed 09/24/18 @ 09:00 by Aditi Carreno) Hx of cholecystectomy (Chronic) Z90.49 05/2014 Surgical History: cholecystectomy Psychiatric History: Anxiety, Depression 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 Alcohol: Rare Drugs: Marijuana - Oil - *Family History Maternal Family History: Family History (Last Reviewed 01/02/19 @ 17:35 by NAVID Ambrocio) Mother Arthritis Hypertension Father Lung cancer Heart disease Diabetes Hypertension Sibling Family History: Family History (Last Reviewed 01/02/19 @ 17:35 by NAVID Ambrocio) Mother Arthritis Hypertension Father Lung cancer Heart disease Diabetes Hypertension History Items: Heart Disease Paternal Family History: Family History (Last Reviewed 01/02/19 @ 17:35 by NAVID Ambrocio) Mother Arthritis Hypertension Father Lung cancer Heart disease Diabetes Hypertension History Items: Diabetes, Heart Disease Review of Systems Constitutional: Denies: Chills, Fever, Weight Change HEENT: Denies: Head Aches, Sinus Congestion, Sinus Drainage Cardiovascular: Denies: Chest Pain, Edema, Light Headedness, Palpitations, Syncope Respiratory: Denies: Cough, Shortness of breath at rest, Sputum production Gastrointestinal: Denies: Abdominal Pain, Nausea, Vomiting Genitourinary: Denies: Dysuria Musculoskeletal: Denies: Joint Pain, Joint Tenderness Skin: Denies: Rash, Wounds Neurological: Reports: - - Drift to right when walking, dizziness.. Denies: Focal weakness, Numbness, Tingling Psychiatric: Reports: Anxiety, Depression Hematologic/ Lymphatic: Denies: Easy Bruising, Easy Bleeding VTE Information - Inpt Only VTE Present on Admission: No VTE Mechan Device Prophylaxis: None VTE Pharm Prophylaxis ordered?: Yes - Physical Exam General: Alert, Oriented x3, Cooperative HEENT: Atraumatic, PERRLA, EOMI, Normocephalic Neck: Supple, No JVD, Negative Carotid Bruits Lungs: Clear to auscultation, Diminished Cardiovascular: Regular rate, Regular Rhythm, Normal S1, Normal S2, No murmurs Abdomen: Bowel Sounds Present, Soft, Non Tender, Non-Distended Extremities: No clubbing, No cyanosis, No edema, Capillary Refill Less than 3 Seconds Skin: No rashes, No breakdown Musculoskeletal: No Tenderness to Palpation of Joints or Extremities Neurological: Cranial nerves II-XII grossly intact, Neuro grossly intact, - - Right eye nystagmus. Ataxia with walking. Psych/Mental Status: Normal Affect, Appropriate Vital Signs Temp Pulse Resp BP Pulse Ox 97.9 F 62 17 157/66 H 99 01/02/19 15:25 01/02/19 16:22 01/02/19 15:34 01/02/19 16:22 01/02/19 15:34 Oxygen Delivery Method Room Air Weight: 126 lb 12.253 oz Body Mass Index (BMI) 23.1 Laboratory Tests Past 24 Hrs 01/02/19 01/02/19 15:35 15:35 WBC 10.3 RBC 5.79 H Hgb 17.1 H Hct 48.5 H MCV 83.8 MCH 29.5 MCHC 35.3 RDW 14.5 RDW Differential 44.1 H Plt Count 230 MPV 9.7 Immature Gran % (Auto) 0.200 Neut % (Auto) 57.4 Lymph % (Auto) 33.7 [place] % (Auto) 6.2 Eos % (Auto) 2.2 Baso % (Auto) 0.3 Absolute Neuts (auto) 5.9 Absolute Lymphs (auto) 3.46 Total Counted Not Reportable Sodium 140 Potassium 3.8 Chloride 105 Carbon Dioxide 30.0 Anion Gap 5 BUN 10 Creatinine 0.94 Estim Creat Clear Calc 46.56 Est GFR (MDRD) Af Amer 76 Est GFR (MDRD) Non-Af 63 BUN/Creatinine Ratio 10.6 Glucose 108 H Calcium 8.8 Assessment/Plan 1. Ataxia- Unclear etiology. R/O CVA. Brain CT with no acute process. Head and neck CTA pending. Obtain MRI brain. [facility]. Check lipid panel in a.m. PT/OT. Check mg, tsh. 2. Hypertension-permissive while r/o cva. On amlodipine, atenolol. 3. Chronic polycythemia-follows with oncology, Dr. Arrieta. Suspected to be secondary to COPD and tobacco use. 4. Anxiety/Depression- continue home klonopin regimen. 5. Tobacco Dependence-encourage smoking cessation. Nicotine replaced tonight. 6. Chronic pain syndrome- continue baclofen regimen. Uses marijuana oil for pain as well. 7. Chronic COPD-No acute exacerbation. PRN albuterol aerosols. DVT prophylaxis- Lovenox sc This patient was seen by NAVID Ambrocio under the supervision of Dr. Irby.
[2019-01-02 20:02] LABS: Hemoglobin A1c 5.4 % (4.2-6.3)
[2019-01-02 20:04] LABS: Magnesium 1.9 mg/dL (1.6-2.6); Thyroid Stim Hormone (TSH) 2.48 uIU/mL (0.358-3.74)
[2019-01-02] MEDS: 0.9% Normal Saline 1,000 ML 100 ML IV (20:29)
[2019-01-02] MEDS: Baclofen 10 MG Tablet PO (22:24)
[2019-01-02] MEDS: hydrOXYzine PAM 25 MG Capsule 100 MG PO (22:36)
[2019-01-02] MEDS: clonazePAM 0.5 MG Tablet PO (22:36)
[2019-01-03] VITALS (11 sets, daily range): BP systolic 137–173; BP diastolic 61–78; PULSE 59–82; RESP 16–18; TEMP 36.6–36.9; O2SAT 92–96; BMI 22.8
[2019-01-03] MEDS: 0.9% Normal Saline 1,000 ML 100 ML IV ×2 (05:55→18:04)
[2019-01-03] MEDS: Baclofen 10 MG Tablet PO ×3 (05:56→21:16)
[2019-01-03] MEDS: clonazePAM 0.5 MG Tablet PO ×3 (05:56→21:14)
[2019-01-03] MEDS: Ipratropium/Albuterol Sulfate 3 ML AMPUL.NEB INHALATION (07:12)
[2019-01-03 08:02] LABS: Cholesterol 219 mg/dL (200); High Density Lipoprotein 38 mg/dL; Triglycerides 195 mg/dL; Very Low Density Lipoprotein 39 mg/dL (5-40)
[2019-01-03] MEDS: Aspirin 81 MG TAB.CHEW PO (09:01)
[2019-01-03] MEDS: Famotidine 20 MG Tablet PO ×2 (09:01→21:16)
[2019-01-03] MEDS: Enoxaparin 40 MG/0.4 ML Syringe SC (09:01)
--- NOTE | 2019-01-03 12:10 | PCM.PROGNOTE ---
<Paula Benjamin - Last Filed: 01/03/19 12:20> Subjective: Patient seen and examined. Continues to complain of drifting to right when walking and blurred vision. Denies new neurologic symptoms or focal deficits. - Physical Exam General: Alert, Oriented x3, Cooperative HEENT: Atraumatic, PERRLA, EOMI, Normocephalic Neck: Supple, No JVD, Negative Carotid Bruits Lungs: Clear to auscultation, Diminished Cardiovascular: Regular rate, Regular Rhythm, Normal S1, Normal S2, No murmurs Abdomen: Bowel Sounds Present, Soft, Non Tender, Non-Distended Extremities: No clubbing, No cyanosis, No edema, Capillary Refill Less than 3 Seconds Skin: No rashes, No breakdown Musculoskeletal: No Tenderness to Palpation of Joints or Extremities Neurological: Cranial nerves II-XII grossly intact, Neuro grossly intact, - - Ataxia with ambulation, right gaze nystagmus Psych/Mental Status: Normal Affect, Appropriate Vital Signs Temp Pulse Resp BP Pulse Ox 98.2 F 71 16 152/76 H 96 01/03/19 09:00 01/03/19 10:55 01/03/19 09:00 01/03/19 09:00 01/03/19 09:00 Oxygen Delivery Method Room Air Weight: 125 lb 3.561 oz Body Mass Index (BMI) 22.8 Intake and Output for Last 24 Hours 01/01/19 01/02/19 01/03/19 23:59 23:59 23:59 Intake Total 1435 / 1435 Balance 1435 / 1435 Laboratory Tests Past 24 Hrs 01/02/19 01/02/19 01/02/19 15:35 15:35 15:35 WBC 10.3 RBC 5.79 H Hgb 17.1 H Hct 48.5 H MCV 83.8 MCH 29.5 MCHC 35.3 RDW 14.5 RDW Differential 44.1 H Plt Count 230 MPV 9.7 Immature Gran % (Auto) 0.200 Neut % (Auto) 57.4 Lymph % (Auto) 33.7 [place] % (Auto) 6.2 Eos % (Auto) 2.2 Baso % (Auto) 0.3 Absolute Neuts (auto) 5.9 Absolute Lymphs (auto) 3.46 Total Counted Not Reportable Sodium 140 Potassium 3.8 Chloride 105 Carbon Dioxide 30.0 Anion Gap 5 BUN 10 Creatinine 0.94 Estim Creat Clear Calc 46.56 Est GFR (MDRD) Af Amer 76 Est GFR (MDRD) Non-Af 63 BUN/Creatinine Ratio 10.6 Glucose 108 H Hemoglobin A1c Calcium 8.8 Magnesium 1.9 Triglycerides Cholesterol LDL Cholesterol VLDL Cholesterol HDL Cholesterol Whole Bld Vitamin B1 Vitamin B12 RBC Folate Hemolysate RBC Folate Hematocrit TSH 2.48 01/02/19 01/03/19 01/03/19 15:35 05:55 08:23 WBC RBC Hgb Hct MCV MCH MCHC RDW RDW Differential Plt Count MPV Immature Gran % (Auto) Neut % (Auto) Lymph % (Auto) [place] % (Auto) Eos % (Auto) Baso % (Auto) Absolute Neuts (auto) Absolute Lymphs (auto) Total Counted Sodium Potassium Chloride Carbon Dioxide Anion Gap BUN Creatinine Estim Creat Clear Calc Est GFR (MDRD) Af Amer Est GFR (MDRD) Non-Af BUN/Creatinine Ratio Glucose Hemoglobin A1c 5.4 Calcium Magnesium Triglycerides 195 Cholesterol 219 H LDL Cholesterol 142 H VLDL Cholesterol 39 HDL Cholesterol 38 L Whole Bld Vitamin B1 Vitamin B12 Pending RBC Folate Hemolysate RBC Folate Hematocrit TSH 01/03/19 01/03/19 08:23 08:23 WBC RBC Hgb Hct MCV MCH MCHC RDW RDW Differential Plt Count MPV Immature Gran % (Auto) Neut % (Auto) Lymph % (Auto) [place] % (Auto) Eos % (Auto) Baso % (Auto) Absolute Neuts (auto) Absolute Lymphs (auto) Total Counted Sodium Potassium Chloride Carbon Dioxide Anion Gap BUN Creatinine Estim Creat Clear Calc Est GFR (MDRD) Af Amer Est GFR (MDRD) Non-Af BUN/Creatinine Ratio Glucose Hemoglobin A1c Calcium Magnesium Triglycerides Cholesterol LDL Cholesterol VLDL Cholesterol HDL Cholesterol Whole Bld Vitamin B1 Pending Vitamin B12 RBC Folate Hemolysate Pending RBC Folate Pending Hematocrit Pending TSH Medical Necessity - Tobacco Use Smoking Status: Current every day smoker Tobacco Use: Cigarettes Assessment/Plan 1. Ataxia- Unclear etiology. CVA ruled out. Brain CT with no acute process. MRI of brain showed scattered foci of abnormal signal within the white matter with the most severe changes in the left periatrial region. No evidence of acute infarct. Neck CTA shows moderate stenosis right cavernous segment internal carotid artery 50 to 75%, otherwise no significant stenosis. Lipid panel elevated, reported allergy to statin although reaction unknown. Will attempt initiation of statin and monitor. Continue aspirin. Neurology consult pending. PT/OT. Echo pending. B12, folate pending. 2. Hypertension-continue amlodipine, atenolol. 3. Chronic polycythemia-follows with oncology, Dr. Arrieta. Suspected to be secondary to COPD and tobacco use. 4. Anxiety/Depression- continue home klonopin regimen. 5. Tobacco Dependence-encourage smoking cessation. Nicotine replacement patch. 6. Chronic pain syndrome- continue baclofen regimen. Uses marijuana oil for pain as well. 7. Chronic COPD-No acute exacerbation. PRN albuterol aerosols. DVT prophylaxis- Lovenox sc This patient was seen by NAVID Ambrocio under the supervision of Dr. Campos. <Nehal Campos - Last Filed: 01/03/19 13:30> - Physical Exam Vital Signs Temp Pulse Resp BP Pulse Ox 98.2 F 71 16 152/76 H 96 01/03/19 09:00 01/03/19 10:55 01/03/19 09:00 01/03/19 09:00 01/03/19 09:00 Oxygen Delivery Method Room Air Weight: 125 lb 3.561 oz Body Mass Index (BMI) 22.8 Intake and Output for Last 24 Hours 01/01/19 01/02/19 01/03/19 23:59 23:59 23:59 Intake Total 2227 / 2227 Balance 2227 / 2227 Laboratory Tests Past 24 Hrs 01/02/19 01/02/19 01/02/19 15:35 15:35 15:35 WBC 10.3 RBC 5.79 H Hgb 17.1 H Hct 48.5 H MCV 83.8 MCH 29.5 MCHC 35.3 RDW 14.5 RDW Differential 44.1 H Plt Count 230 MPV 9.7 Immature Gran % (Auto) 0.200 Neut % (Auto) 57.4 Lymph % (Auto) 33.7 [place] % (Auto) 6.2 Eos % (Auto) 2.2 Baso % (Auto) 0.3 Absolute Neuts (auto) 5.9 Absolute Lymphs (auto) 3.46 Total Counted Not Reportable Sodium 140 Potassium 3.8 Chloride 105 Carbon Dioxide 30.0 Anion Gap 5 BUN 10 Creatinine 0.94 Estim Creat Clear Calc 46.56 Est GFR (MDRD) Af Amer 76 Est GFR (MDRD) Non-Af 63 BUN/Creatinine Ratio 10.6 Glucose 108 H Hemoglobin A1c Calcium 8.8 Magnesium 1.9 Triglycerides Cholesterol LDL Cholesterol VLDL Cholesterol HDL Cholesterol Whole Bld Vitamin B1 Vitamin B12 RBC Folate Hemolysate RBC Folate Hematocrit TSH 2.48 01/02/19 01/03/19 01/03/19 15:35 05:55 08:23 WBC RBC Hgb Hct MCV MCH MCHC RDW RDW Differential Plt Count MPV Immature Gran % (Auto) Neut % (Auto) Lymph % (Auto) [place] % (Auto) Eos % (Auto) Baso % (Auto) Absolute Neuts (auto) Absolute Lymphs (auto) Total Counted Sodium Potassium Chloride Carbon Dioxide Anion Gap BUN Creatinine Estim Creat Clear Calc Est GFR (MDRD) Af Amer Est GFR (MDRD) Non-Af BUN/Creatinine Ratio Glucose Hemoglobin A1c 5.4 Calcium Magnesium Triglycerides 195 Cholesterol 219 H LDL Cholesterol 142 H VLDL Cholesterol 39 HDL Cholesterol 38 L Whole Bld Vitamin B1 Vitamin B12 Pending RBC Folate Hemolysate RBC Folate Hematocrit TSH 01/03/19 01/03/19 08:23 08:23 WBC RBC Hgb Hct MCV MCH MCHC RDW RDW Differential Plt Count MPV Immature Gran % (Auto) Neut % (Auto) Lymph % (Auto) [place] % (Auto) Eos % (Auto) Baso % (Auto) Absolute Neuts (auto) Absolute Lymphs (auto) Total Counted Sodium Potassium Chloride Carbon Dioxide Anion Gap BUN Creatinine Estim Creat Clear Calc Est GFR (MDRD) Af Amer Est GFR (MDRD) Non-Af BUN/Creatinine Ratio Glucose Hemoglobin A1c Calcium Magnesium Triglycerides Cholesterol LDL Cholesterol VLDL Cholesterol HDL Cholesterol Whole Bld Vitamin B1 Pending Vitamin B12 RBC Folate Hemolysate Pending RBC Folate Pending Hematocrit Pending TSH Assessment/Plan Patient seen by Paula SHOEMAKER under my supervision Patient seen and examined. She was admitted with complaint of gait instability. She had been seen by her PCP about 10 days ago for dizziness incision was diagnosed with an air-fluid and started on Augmentin. Symptoms have however not resolved eventually she found herself drifting to the right side. She also has blurred vision. CT of the head and CT angiogram of the head and neck done in the ED was negative. Patient seen and examined. Still complaining of gait instability this morning. The patient has improved. It was noted on admission that she had some nystagmus. Review of systems otherwise negative. Last vitals reviewed. o/e: Vital Signs Height 5 ft 2 in Weight: 125 lb 3.561 oz Weight in Pounds 125.2 lbs Pulse Ox 96 Temperature 98.2 F Pulse Rate [Standing] 68 Pulse Rate [Sitting] 65 Pulse Rate [Lying] 62 Pulse Rate 71 Respiratory Rate 16 Blood Pressure [Standing] 153/86 Blood Pressure [Sitting] 158/72 Blood Pressure [Lying] 157/66 Blood Pressure 152/76 Blood Pressure Position Semi-Fowlers General: Alert, Oriented x3, Cooperative HEENT: Atraumatic, PERRLA, EOMI, Normocephalic Neck: Supple, No JVD, Negative Carotid Bruits Lungs: Clear to auscultation, Diminished Cardiovascular: Regular rate, Regular Rhythm, Normal S1, Normal S2, No murmurs Abdomen: Bowel Sounds Present, Soft, Non Tender, Non-Distended Extremities: No clubbing, No cyanosis, No edema, Capillary Refill Less than 3 Seconds Skin: No rashes, No breakdown Musculoskeletal: No Tenderness to Palpation of Joints or Extremities Neurological: Cranial nerves II-XII grossly intact, Neuro grossly intact, - - Ataxia with ambulation, mild right gaze nystagmus Psych/Mental Status: Normal Affect, Appropriate MRI done of the brain today showed scattered foci of abnormal signal within the white matter with the most severe changes in the left periatrial region. No MRI evidence of acute infarct. Neurology consulted and will await recommendations. Patient was worried that she may possibly have MS; patient reassured and told that would wait for neurology evaluation to see if we need any further work-up for MS. Vitamin B12 and folate levels also ordered and pending. Vitamin B1 also checked. Rest of management as per NAVID Ambrocio's note which I have reviewed and endorsed. Code Visit Inpatient E&M: 66350 Subs Hosp L3
--- NOTE | 2019-01-03 12:20 | CDU_ITS ---
Reason For Study: Vertigo Rt. Velocities/BP Lt. Velocities/BP Prox CCA 69.5/13.4 cm/sec. Prox CCA 72.7/10.7 cm/sec. Mid CCA 81.2/20 cm/sec. Mid CCA 87.2/13.5 cm/sec. Dist CCA 57.9/10.7 cm/sec. Dist CCA 68.3/13.5 cm/sec. Prox ICA 65.5/17.3 cm/sec. Prox ICA 77.8/16.3 cm/sec. Mid ICA 57/15.4 cm/sec. Mid ICA 81.5/19.2 cm/sec. Dist ICA 73.7/9.5 cm/sec. Dist ICA 33.4/11.4 cm/sec. Rt. ICA/CCA = 1.1. Lt. ICA/CCA = 1.1. Prox ECA 92.6/12.4 cm/sec. Prox ECA 65.5/10.7 cm/sec. Rt. Vert. 51.7/11.6 cm/sec. Lt. Vert. 76.1/10.2 cm/sec. Right Extracranial There is homogeneous, smooth atherosclerotic plaque noted in the right common carotid artery. There is heterogeneous, smooth atherosclerotic plaque noted in the right internal carotid artery. There is intimal thickening but no significant atherosclerotic plaque noted in the right external carotid artery. Antegrade flow is noted in the right vertebral artery. Left Extracranial There is homogeneous, smooth atherosclerotic plaque noted in the left common carotid artery. There is heterogeneous, irregular atherosclerotic plaque noted in the left internal carotid artery. There is intimal thickening but no significant atherosclerotic plaque noted in the left external carotid artery. Antegrade flow is noted in the left vertebral artery. Procedure Carotid Duplex [id number]. Exam performed portable in patient room. Interpretation Summary Irregular plague at the proximal right internal and external carotid arteries with <50% stenosis of each. Irregular plague at the proximal left internal carotid with<50% stenosis. <50% stenosis left external carotid Patent and antegrade vertebrals bilaterally Ordering Physician: NAVID Ambrocio Referring Physician: Josh Greene Performed By: Stella Fernández RVT
--- NOTE | 2019-01-03 19:33 | MRI_ITS ---
STUDY: MRI BRAIN WITH AND WITHOUT CONTRAST REASON FOR EXAM: Female, 68 years old. Ataxia and imbalance. TECHNIQUE: Standardized multiplanar fat and water weighted pulse sequences were obtained. 11 ml IV Dotarem was administered for the contrast portion of the examination. COMPARISON: CT of the head dated January 02, 2019. FINDINGS: Normal size of the ventricles and extra-axial spaces for the patient's age. There are a limited number of small white matter hyperintensities, distributed throughout the deep white matter tracts of the cerebral hemispheres, consistent with mild chronic white matter ischemic changes. There is no evidence for recent intracranial ischemia or other cause of cytotoxic edema on diffusion weighted imaging (DWI). Normal T2* images of the brain without demonstrated susceptibility artifact. There is no demonstrated hemosiderin stain. Normal bilateral basal ganglia. Normal thalami. There is no extra-axial fluid accumulation. Normal flow voids within the major intracranial circulation suggesting patency by spin echo criteria. Normal venous enhancement. There is no enhancing intra-axial or extra-axial abnormality. Normal sella turcica, pituitary gland, infundibular stalk, optic chiasm and hypothalamus. Normal tectal plate and pineal gland. Normal midbrain, terry and medulla. Normal cerebellum. Normal basal cisterns. Normal bilateral temporal bones. Normal bilateral internal auditory canals. No demonstrated orbital abnormality, within the constraints of a routine brain study. Normal visualized paranasal sinuses. Normal calvarium and skull base. Normal visualized soft tissue structures. Normal visualized upper cervical spine. MRI/Brain W/WO Contrast IMPRESSION: 1. There are scattered foci of abnormal signal within the white matter with the most severe changes in the left periatrial region. Although differential considerations include sequela of microvascular disease, etiologies of demyelination are also possible. 2. No MRI evidence for acute infarct. Electronically Signed: Birgit Arellano MD at 11:02 EDT , Service support ,
[2019-01-03] MEDS: hydrOXYzine PAM 25 MG Capsule 100 MG PO (21:14)
[2019-01-03] MEDS: Acetaminophen 325 MG Tablet 650 MG PO (21:15)
[2019-01-03] MEDS: Atenolol 50 MG Tablet PO (21:20)
[2019-01-04] VITALS (9 sets, daily range): BP systolic 156–190; BP diastolic 53–88; PULSE 53–92; RESP 14–18; TEMP 36.7–36.8; O2SAT 95–98; BMI 22.8
[2019-01-04] MEDS: 0.9% Normal Saline 1,000 ML 100 ML IV (04:24)
[2019-01-04] MEDS: Aspirin 81 MG TAB.CHEW PO (07:40)
[2019-01-04] MEDS: Enoxaparin 40 MG/0.4 ML Syringe SC (07:41)
[2019-01-04] MEDS: Famotidine 20 MG Tablet PO (07:41)
[2019-01-04] MEDS: Atenolol 50 MG Tablet PO (07:41)
[2019-01-04] MEDS: amLODIPine 5 MG Tablet PO (07:41)
[2019-01-04] MEDS: Baclofen 10 MG Tablet PO ×2 (07:42→14:03)
[2019-01-04] MEDS: clonazePAM 0.5 MG Tablet PO ×2 (07:43→14:03)
[2019-01-04 08:59] LABS: Vitamin B12 452 pg/mL (211-911)
--- NOTE | 2019-01-04 10:01 | PCM.CONS.GEN ---
Reason for Consult Date of Consultation: 01/04/19 Reason for Consultation: unsteady History of Present Illness: 68 yo white female with 14 day history of unsteadiness. reports gradual onset. some nausea, no double vision, no weakness. reports veering to the right when walks, as op was prescribed augmentin, used for nine days with no benefit. no known trigger, car motion makes her very nauseated. reports essentially asymptomatic when supine. per admit note:The patient is a 68 y/o F w/ PMHx: Chronic COPD, Tobacco use, Anxiety and Depression, OA, Polycythemia secondary to chronic tobacco use, Vocal Cord Dysfunction, HTN, HLD who presents to the [facility] ED on 01/02/19 w/ history of ongoing dizziness, mild lightheadedness with sensation of feeling off balance, continuously leaning and walking toward the right for approximately 2 weeks with mildly associated nausea with no emesis and no vertiginous symptoms associated. Attempted DHM in the ED without any recurrent symptoms per ED physician, no vertigo sensation; however, upon Hospitalist evaluation noted nystagmus R lateral movements and also had sensation of lightheadedness and noted feels as though being pulled to the right. Work-up in the ED included T 97.9, heart rate 58, BP 163/74, respiratory rate 16, 97% on room air, unremarkable orthostatic vital sign assessment, CBC with WBC 10.3, hemoglobin 17.1, platelet 230 without shift, BMP with glucose 108, CT brain with no acute intracranial process, EKG with no acute evidence of ischemia, CTA head and neck pending upon requested evaluation. In the ED patient ministered normal saline. Past Medical History Past Medical History (Chronic Problems): Chronic Problems (Last Reviewed 09/24/18 @ 09:00 by Aditi Carreno) Hyperlipidemia (Chronic) Vocal cord dysfunction (Chronic) Hx of cholecystectomy (Chronic) 05/2014 Arthritis (Chronic) Chronic pain (Chronic) Anxiety disorder (Chronic) Tobacco dependence (Chronic) Depression (Chronic) Hypertension (Chronic) Hyperinflation of lungs (Chronic) COPD (chronic obstructive pulmonary disease) (Chronic) GERD (gastroesophageal reflux disease) (Chronic) Polycythemia secondary to smoking (Chronic) Medical History: Medical History (Last Reviewed 09/24/18 @ 09:00 by Aditi Carreno) Hyperlipidemia (Chronic) E78.5 Vocal cord dysfunction (Chronic) J38.3 Arthritis (Chronic) M19.90 Chronic pain (Chronic) G89.29 Anxiety disorder (Chronic) F41.9 Tobacco dependence (Chronic) F17.200 Depression (Chronic) F32.9 Hypertension (Chronic) I10 Hyperinflation of lungs (Chronic) R09.89 COPD (chronic obstructive pulmonary disease) (Chronic) J44.9 GERD (gastroesophageal reflux disease) (Chronic) K21.9 Polycythemia secondary to smoking (Chronic) D75.1 Allergies erythromycin base Adverse Reaction (Verified 01/02/19 15:28) Vomiting Gnzvpxr-Gjo-Hfr Reductase Inhibitor Adverse Reaction (Verified 01/02/19 15:28) Unknown Home Medications: Ambulatory Orders Medication Instructions Recorded Atenolol [Tenormin (beta ayesha)] 50 mg PO BID 10/17/14 Clonazepam [Klonopin] 0.5 mg PO TID 06/20/16 Amlodipine [Norvasc] 5 mg PO DAILY 01/06/17 Zolpidem Tartrate [Ambien Cr] 12.5 mg PO QHS PRN PRN 02/03/18 hydroxyzine pamoate 100 mg capsule 100 mg PO QHS 05/21/18 Amoxicillin/Potassium Clav 1 tab PO BID 01/02/19 [Amox-Clav 875-125 mg Tablet] Baclofen [Lioresal] 10 mg PO TID 01/02/19 Cholecalciferol (Vitamin D3) 1 tab PO DAILY 01/02/19 [Vitamin D3] Surgical History: Surgical History (Last Reviewed 09/24/18 @ 09:00 by Aditi Carreno) Hx of cholecystectomy (Chronic) Z90.49 05/2014 Surgical History: cholecystectomy Psychiatric History: Anxiety, Depression CIVIL PREPAREDNESS COORDINATOR History: No pertinent CIVIL PREPAREDNESS COORDINATOR history Lives: Spouse/ Significant Other Smoking Status: Current every day smoker Tobacco Use: Cigarettes Alcohol: Rare Drugs: Marijuana - Oil - *Family History Maternal Family History: Family History (Last Reviewed 01/02/19 @ 17:35 by NAVID Ambrocio) Mother Arthritis Hypertension Father Lung cancer Heart disease Diabetes Hypertension Sibling Family History: Family History (Last Reviewed 01/02/19 @ 17:35 by NAVID Ambrocio) Mother Arthritis Hypertension Father Lung cancer Heart disease Diabetes Hypertension History Items: Heart Disease Paternal Family History: Family History (Last Reviewed 01/02/19 @ 17:35 by NAVID Ambrocio) Mother Arthritis Hypertension Father Lung cancer Heart disease Diabetes Hypertension History Items: Diabetes, Heart Disease Review of Systems Constitutional: Denies: Chills, Fever, Weight Change HEENT: Denies: Head Aches, Sinus Congestion, Sinus Drainage Cardiovascular: Denies: Chest Pain, Palpitations Respiratory: Denies: Cough, Shortness of breath at rest, Sputum production Gastrointestinal: Denies: Abdominal Pain, Nausea, Vomiting Genitourinary: Denies: Dysuria Musculoskeletal: Denies: Joint Pain, Joint Tenderness Skin: Denies: Rash, Wounds Neurological: Reports: Balance problems. Denies: Focal weakness, Numbness, Tingling Psychiatric: Denies: Anxiety, Depression, Homicidal Ideations, Suicidal Ideations Hematologic/ Lymphatic: Denies: Easy Bruising, Easy Bleeding - Physical Exam General: Alert, Oriented x3, Cooperative HEENT: PERRLA, EOMI Neurological: Cranial nerves II-XII grossly intact, Deep Tendon Reflexes 2+/4 and Symmetrical, Neuro grossly intact, Motor Exam 5/5 strength throughout Psych/Mental Status: Normal Affect, Alert and oriented to time, place, person, mood and affect Vital Signs Temp Pulse Resp BP Pulse Ox 36.8 C 92 18 158/84 H 97 01/04/19 09:37 01/04/19 09:37 01/04/19 09:37 01/04/19 09:37 01/04/19 09:37 Oxygen Delivery Method Room Air Weight: 56.8 kg Body Mass Index (BMI) 22.8 Intake and Output for Last 24 Hours 01/02/19 01/03/19 01/04/19 23:59 23:59 23:59 Intake Total 2226 / 2227 2790 / 2790 Balance 2226 / 2226 2790 / 2790 Laboratory Tests Past 24 Hrs 01/03/19 08:23 Vitamin B12 452 MRI reviewed, no acute Assessment/Plan bppv, complicated by debility due to back pain no evidence of neurologic injury pt/ot for vertigo prn analgesics ok to dc from neuro standpoint
--- NOTE | 2019-01-04 10:04 | CON.PCM_ITS ---
Reason for Consult Date of Consultation: 01/04/19 Reason for Consultation: unsteady History of Present Illness: 68 yo white female with 14 day history of unsteadiness. reports gradual onset. some nausea, no double vision, no weakness. reports veering to the right when walks, as op was prescribed augmentin, used for nine days with no benefit. no known trigger, car motion makes her very nauseated. reports essentially asymptomatic when supine. per admit note:The patient is a 68 y/o F w/ PMHx: Chronic COPD, Tobacco use, Anxiety and Depression, OA, Polycythemia secondary to chronic tobacco use, Vocal Cord Dysfunction, HTN, HLD who presents to the [facility] ED on 01/02/19 w/ history of ongoing dizziness, mild lightheadedness with sensation of feeling off balance, continuously leaning and walking toward the right for approximately 2 weeks with mildly associated nausea with no emesis and no vertiginous symptoms associated. Attempted DHM in the ED without any recurrent symptoms per ED physician, no vertigo sensation; however, upon Hospitalist evaluation noted nystagmus R lateral movements and also had sensation of lightheadedness and noted feels as though being pulled to the right. Work-up in the ED included T 97.9, heart rate 58, BP 163/74, respiratory rate 16, 97% on room air, unremarkable orthostatic vital sign assessment, CBC with WBC 10.3, hemoglobin 17.1, platelet 230 without shift, BMP with glucose 108, CT brain with no acute intracranial process, EKG w ith no acute evidence of ischemia, CTA head and neck pending upon requested evaluation. In the ED patient ministered normal saline. Past Medical History Past Medical History (Chronic Problems): Chronic Problems (Last Reviewed 09/24/18 @ 09:00 by Aditi Carreno) Hyperlipidemia (Chronic) Vocal cord dysfunction (Chronic) Hx of cholecystectomy (Chronic) 05/2014 Arthritis (Chronic) Chronic pain (Chronic) Anxiety disorder (Chronic) Tobacco dependence (Chronic) Depression (Chronic) Hypertension (Chronic) Hyperinflation of lungs (Chronic) COPD (chronic obstructive pulmonary disease) (Chronic) GERD (gastroesophageal reflux disease) (Chronic) Polycythemia secondary to smoking (Chronic) Medical History: Medical History (Last Reviewed 09/24/18 @ 09:00 by Aditi Carreno) Hyperlipidemia (Chronic) E78.5 Vocal cord dysfunction (Chronic) J38.3 Arthritis (Chronic) M19.90 Chronic pain (Chronic) G89.29 Anxiety disorder (Chronic) F41.9 Tobacco dependence (Chronic) F17.200 Depression (Chronic) F32.9 Hypertension (Chronic) I10 Hyperinflation of lungs (Chronic) R09.89 COPD (chronic obstructive pulmonary disease) (Chronic) J44.9 GERD (gastroesophageal reflux disease) (Chronic) K21.9 Polycythemia secondary to smoking (Chronic) D75.1 Allergies erythromycin base Adverse Reaction (Verified 01/02/19 15:28) Vomiting Saondbi-Gia-Jaw Reductase Inhibitor Adverse Reaction (Verified 01/02/19 15:28) Unknown Home Medications: Ambulatory Orders Medication Instructions Recorded Atenolol [Tenormin (beta ayesha)] 50 mg PO BID 10/17/14 Clonazepam [Klonopin] 0.5 mg PO TID 06/20/16 Amlodipine [Norvasc] 5 mg PO DAILY 01/06/17 Zolpidem Tartrate [Ambien Cr] 12.5 mg PO QHS PRN PRN 02/03/18 hydroxyzine pamoate 100 mg capsule 100 mg PO QHS 05/21/18 Amoxicillin/Potassium Clav 1 tab PO BID 01/02/19 [Amox-Clav 875-125 mg Tablet] Baclofen [Lioresal] 10 mg PO TID 01/02/19 Cholecalciferol (Vitamin D3) 1 tab PO DAILY 01/02/19 [Vitamin D3] Surgical History: Surgical History (Last Reviewed 09/24/18 @ 09:00 by Aditi Carreno) Hx of cholecystectomy (Chronic) Z90.49 05/2014 Surgical History: cholecystectomy Psychiatric History: Anxiety, Depression 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 Lives: Spouse/ Significant Other Smoking Status: Current every day smoker Tobacco Use: Cigarettes Alcohol: Rare Drugs: Marijuana - Oil - *Family History Maternal Family History: Family History (Last Reviewed 01/02/19 @ 17:35 by NAVID Ambrocio) Mother Arthritis Hypertension Father Lung cancer Heart disease Diabetes Hypertension Sibling Family History: Family History (Last Reviewed 01/02/19 @ 17:35 by NAVID Ambrocio) Mother Arthritis Hypertension Father Lung cancer Heart disease Diabetes Hypertension History Items: Heart Disease Paternal Family History: Family History (Last Reviewed 01/02/19 @ 17:35 by NAVID Ambrocio) Mother Arthritis Hypertension Father Lung cancer Heart disease Diabetes Hypertension History Items: Diabetes, Heart Disease Review of Systems Constitutional: Denies: Chills, Fever, Weight Change HEENT: Denies: Head Aches, Sinus Congestion, Sinus Drainage Cardiovascular: Denies: Chest Pain, Palpitations Respiratory: Denies: Cough, Shortness of breath at rest, Sputum production Gastrointestinal: Denies: Abdominal Pain, Nausea, Vomiting Genitourinary: Denies: Dysuria Musculoskeletal: Denies: Joint Pain, Joint Tenderness Skin: Denies: Rash, Wounds Neurological: Reports: Balance problems. Denies: Focal weakness, Numbness, Tingling Psychiatric: Denies: Anxiety, Depression, Homicidal Ideations, Suicidal Ideations Hematologic/ Lymphatic: Denies: Easy Bruising, Easy Bleeding - Physical Exam General: Alert, Oriented x3, Cooperative HEENT: PERRLA, EOMI Neurological: Cranial nerves II-XII grossly intact, Deep Tendon Reflexes 2+/4 and Symmetrical, Neuro grossly intact, Motor Exam 5/5 strength throughout Psych/Mental Status: Normal Affect, Alert and oriented to time, place, person, mood and affect Vital Signs Temp Pulse Resp BP Pulse Ox 36.8 C 92 18 158/84 H 97 01/04/19 09:37 01/04/19 09:37 01/04/19 09:37 01/04/19 09:37 01/04/19 09:37 Oxygen Delivery Method Room Air Weight: 56.8 kg Body Mass Index (BMI) 22.8 Intake and Output for Last 24 Hours 01/02/19 01/03/19 01/04/19 23:59 23:59 23:59 Intake Total 2226 / 7 2790 / 2790 Balance 2226 / 2226 2790 / 2790 Laboratory Tests Past 24 Hrs 01/03/19 08:23 Vitamin B12 452 MRI reviewed, no acute Assessment/Plan bppv, complicated by debility due to back pain no evidence of neurologic injury pt/ot for vertigo prn analgesics ok to dc from neuro standpoint
--- NOTE | 2019-01-04 11:40 | CASEMGMT ---
MARIBEL FARRELL Face to Face with patient for initial transition planning/care coordination assessment. RN BUD introduced self and role at [facility]. Patient lying in bed, alert and oriented. Patient willing to participate in assessment and is able to answer all questions appropriately. Care providers, pharmacy, and demographics verified. Patient wishes to discharge home and would like script for outpatient therapy. Patient is also requesting BSC for at discharge. MARIBEL FARRELL informed patient that BSC may not be covered by insurance but CM would provided script to try. Patient states she has no further needs or concerns at this time. BUD Soria updated regarding outpatient therapy and BSC. CM to follow for discharge planning needs that may arise. PCP: Ramona Specialists: None Preferred Pharmacy: [facility] Insurance: [facility], MMO Prescription Benefit: Yes Living Will/HPOA: none LNOK: Living Arrangements: Patient lives with in split level home. Patient is normally independent at home. Transportation: self/ DME/HHC: Patient denies DME or HHC. Patient is requesting outpatient therapy and BSC at discharge. Disposition Plan: Patient to discharge home with outpatient therapy, family support, and follow-up plans in place. Stella ROBERTS, RN, CM
--- NOTE | 2019-01-04 12:49 | DCINST_ITS ---
You will use the following diet at home:: Cardiac Discharge Activity: Return to Normal Activity Call your doctor if you observe: Numbness or Tingling, Shortness of breath, Dizziness, Fainting spells, Chest pain Allergies/Adverse Reactions: Allergies erythromycin base Adverse Reaction (Verified 01/02/19 15:28) Vomiting Vltngrg-Wix-Xwo Reductase Inhibitor Adverse Reaction (Verified 01/02/19 15:28) Unknown Medications to take at Discharge Atenolol [Tenormin (beta ayesha)] 50 mg PO BID 10/17/14 Clonazepam [Klonopin] 0.5 mg PO TID 06/20/16 Amlodipine [Norvasc] 5 mg PO DAILY 01/06/17 Zolpidem Tartrate [Ambien Cr] 12.5 mg PO QHS PRN PRN 02/03/18 hydroxyzine pamoate 100 mg capsule 100 mg PO QHS 05/21/18 Baclofen [Lioresal] 10 mg PO TID 01/02/19 Cholecalciferol (Vitamin D3) [Vitamin D3] 1 tab PO DAILY 01/02/19 Atorvastatin Calcium [Lipitor] 40 mg PO QHS #30 tablet 01/04/19 Meclizine HCl 25 mg PO TID PRN #20 tablet 01/04/19 The following prescriptions were given: Atorvastatin Calcium [Lipitor] 40 mg PO QHS #30 tablet Meclizine HCl 25 mg PO TID PRN #20 tablet PRN Reason: Vertigo Primary Care Physician: Josh Greene MD [Primary Care Provider] - Please follow up with your Primary Care Physician in: 1 Week Test Results: Test results from this visit will be discussed in further detail at your follow- up appointment, if applicable. Please Follow Up With: Jonathan Calderon MD - ENT When: Call for appt if vertigo persistant Proposed Discharge Date: 01/04/19
--- NOTE | 2019-01-04 12:50 | PCM.DC.SUM ---
<Paula Benjamin - Last Filed: 01/04/19 12:55> Discharge Date and Diagnosis Date of Admission: 01/02/19 Date of Discharge: 01/04/19 - Primary Discharge Diagnosis 1. BPPV 2. Hypertension 3. Chronic polycythemia 4. Anxiety/Depression 5. Tobacco Dependence 6. Chronic pain syndrome 7. Chronic COPD 8. 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 Electronically Signed: Kerry Blanco MD at 16:23 EDT Tel , Service support , Head CTA 01/02/19 17:00 IMPRESSION: No hemodynamically significant stenosis. Electronically Signed: Pb Schulz MD at 18:11 EDT , Service support , Neck CTA 01/02/19 17:00 IMPRESSION: No hemodynamically significant stenosis. Electronically Signed: Pb Schulz MD at 18:11 EDT , Service support , Brain MRI 01/03/19 19:33 IMPRESSION: 1. There are scattered foci of abnormal signal within the white matter with the most severe changes in the left periatrial region. Although differential considerations include sequela of microvascular disease, etiologies of demyelination are also possible. 2. No MRI evidence for acute infarct. Electronically Signed: Birgit Arellano MD at 11:02 EDT , Service support , Dr. Madrigal- Neurology Operations: None Procedures: 2-D Echocardiogram Summary of Care Provided: The patient is a 68 year old F admitted 01/02/2018 due to ataxia. 1. Ataxia secondary to BPPV-CVA ruled out. Brain CT with no acute process. MRI of brain showed scattered foci of abnormal signal within the white matter with the most severe changes in the left periatrial region. No evidence of acute infarct. Neck CTA shows moderate stenosis right cavernous segment internal carotid artery 50 to 75%, otherwise no significant stenosis. Carotid ultrasound shows less than 50% stenosis bilaterally. Lipid panel elevated, reported allergy to statin although reaction unknown. Will attempt initiation of statin and monitor. Neurology consulted, suspects BPPV. Meclizine as needed at discharge for vertigo. Vestibular therapy at discharge. If vertigo is persistent, patient may follow-up with ENT. Follow-up with primary care physician in 1 week. Echocardiogram report pending and will be reviewed prior to discharge. 2. Hypertension-continue amlodipine, atenolol. 3. Chronic polycythemia-follows with oncology, Dr. Arrieta. Suspected to be secondary to COPD and tobacco use. 4. Anxiety/Depression- continue home klonopin regimen. 5. Tobacco Dependence-encourage smoking cessation. 6. Chronic pain syndrome- continue baclofen regimen. Uses marijuana oil for pain as well. 7. Chronic COPD-No acute exacerbation. General: Alert, Oriented x3, Cooperative HEENT: Atraumatic, PERRLA, EOMI, Normocephalic Neck: Supple, No JVD, Negative Carotid Bruits Lungs: Clear to auscultation, Diminished Cardiovascular: Regular rate, Regular Rhythm, Normal S1, Normal S2, No murmurs Abdomen: Bowel Sounds Present, Soft, Non Tender, Non-Distended Extremities: No clubbing, No cyanosis, No edema, Capillary Refill Less than 3 Seconds Skin: No rashes, No breakdown Musculoskeletal: No Tenderness to Palpation of Joints or Extremities Neurological: Cranial nerves II-XII grossly intact, Neuro grossly intact, Ataxia with ambulation Psych/Mental Status: Normal Affect, Appropriate Patient seen and examined prior to discharge. Physical assessment as noted above. Patient is stable for discharge with follow up recommendations as noted above. This patient was seen by NAVID Ambrocio under the supervision of Dr. Levin. - Physical Exam Vital Signs Temp Pulse Resp BP Pulse Ox 98.3 F 92 18 158/84 H 97 01/04/19 09:37 01/04/19 09:37 01/04/19 09:37 01/04/19 09:37 01/04/19 09:37 Oxygen Delivery Method Room Air Weight: 125 lb 3.561 oz Body Mass Index (BMI) 22.8 Intake and Output for Last 24 Hours 01/02/19 01/03/19 01/04/19 23:59 23:59 23:59 Intake Total 2226 3838 / 3838 Balance 2226 3838 / 3838 Laboratory Tests Past 24 Hrs 01/03/19 08:23 Vitamin B12 452 Discharge Diet: Low fat/ Low Cholesterol Discharge Activity: Return to Normal Activity Call your doctor if you observe: Numbness or Tingling, Shortness of breath, Dizziness, Fainting spells, Chest pain Home Medications: Medications to take at Discharge Atenolol [Tenormin (beta ayesha)] 50 mg PO BID 10/17/14 Clonazepam [Klonopin] 0.5 mg PO TID 06/20/16 Amlodipine [Norvasc] 5 mg PO DAILY 01/06/17 Zolpidem Tartrate [Ambien Cr] 12.5 mg PO QHS PRN PRN 02/03/18 hydroxyzine pamoate 100 mg capsule 100 mg PO QHS 05/21/18 Baclofen [Lioresal] 10 mg PO TID 01/02/19 Cholecalciferol (Vitamin D3) [Vitamin D3] 1 tab PO DAILY 01/02/19 Atorvastatin Calcium [Lipitor] 40 mg PO QHS #30 tablet 01/04/19 Meclizine HCl 25 mg PO TID PRN #20 tablet 01/04/19 Following Prescrptions Were Given to Patient: Atorvastatin Calcium [Lipitor] 40 mg PO QHS #30 tablet Meclizine HCl 25 mg PO TID PRN #20 tablet PRN Reason: Vertigo Primary Care Physician: Josh Greene MD [Primary Care Provider] - Please follow up with your Primary Care Physician in: 1 Week Please Follow Up With: Jonathan Calderon MD - ENT When: Call for appt if vertigo persistant Disposition: Home Minutes spent on discharge:: 35 Patient Condition:: Stable Medical Necessity - Tobacco Use Smoking Status: Current every day smoker Tobacco Use: Cigarettes Meaningful Use Info Meaningful Use Diagnoses (Choose all that apply): None applicable <Naseem Levin - Last Filed: 01/04/19 16:40> Discharge Date and Diagnosis - Secondary Discharge Diagnosis Chronic Problems (Last Reviewed 09/24/18 @ 09:00 by Aditi Carreno) Hyperlipidemia (Chronic) Vocal cord dysfunction (Chronic) Hx of cholecystectomy (Chronic) 05/2014 Arthritis (Chronic) Chronic pain (Chronic) Anxiety disorder (Chronic) Tobacco dependence (Chronic) Depression (Chronic) Hypertension (Chronic) Hyperinflation of lungs (Chronic) COPD (chronic obstructive pulmonary disease) (Chronic) GERD (gastroesophageal reflux disease) (Chronic) 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 I have independently interviewed and examined the patient and reviewed pertinent history, examination findings, laboratory and plan of management. I have reviewed the note and agree with the documented findings with the few additional points. In brief, patient is admitted for ataxia secondary to BPPV. Stroke work-up was negative including MRI brain which was negative for acute infarct. Carotid ultrasound shows less than 50% stenosis bilaterally in ICA and ECA. CTA neck shows moderate stenosis of right cavernous segment, 50 to 75% otherwise no significant stenosis. Patient is being discharged on atorvastatin, meclizine. On baclofen 10 mg 3 times daily. Discharge medication reconciliation done. Discharge follow-up instructions completed. Discharge process discussed with the patient and all questions were answered to patient's satisfaction. Physical therapy recommended outpatient PT. Patient refused OT stating she needs only PT. Patient was admitted as inpatient but was discharged because of sooner recovery than expected. Patient was recommended to follow-up with Dr. Pb Harrison, ENT for dizziness and ataxia to rule out vestibular disorder. I have discussed my assessment with Paula TRUJILLO and orders have been reviewed. [] Subjective: Seen and examined. Patient has dizziness but denies vertigo. No spinning of head or surrounding. Patient states on walking she deviates to her right side. She is more concerned of gait ataxia/disequilibrium - Physical Exam General: Alert, Oriented x3, Cooperative HEENT: Atraumatic, PERRLA, EOMI, Normocephalic Neck: Supple, No JVD, Negative Carotid Bruits Lungs: Clear to auscultation, Normal air movement Cardiovascular: Regular rate, Regular Rhythm, Normal S1, Normal S2, No murmurs Abdomen: Bowel Sounds Present, Soft, Non Tender, Non-Distended Extremities: No edema, Capillary Refill Less than 3 Seconds Skin: No rashes, No breakdown Musculoskeletal: No Tenderness to Palpation of Joints or Extremities Lymphatic: No Cervical, Supraclavicular, or Inguinal Adenopathy Neurological: Cranial nerves II-XII grossly intact, Deep Tendon Reflexes 2+/4 and Symmetrical, Neuro grossly intact, Motor Exam 5/5 strength throughout, - - Gait not assessed. Patient seen by PT and OT. Psych/Mental Status: Normal Affect, Appropriate Vital Signs Temp Pulse Resp BP Pulse Ox 98.0 F 79 14 156/53 H 97 01/04/19 14:07 01/04/19 14:07 01/04/19 14:07 01/04/19 14:07 01/04/19 14:07 Oxygen Delivery Method Room Air Weight: 125 lb 3.561 oz Body Mass Index (BMI) 22.8 Intake and Output for Last 24 Hours 01/02/19 01/03/19 01/04/19 23:59 23:59 23:59 Intake Total 2226 / 2226 3838 / 3838 Balance 2226 / 2226 3838 / 3838 Laboratory Tests Past 24 Hrs 01/03/19 08:23 Vitamin B12 452 Code Visit Inpatient E&M: 11684 Disch Hosp
--- NOTE | 2019-01-04 12:55 | DS.PCM_ITS ---
<Paula Benjamin - Last Filed: 01/04/19 12:55> Discharge Date and Diagnosis Date of Admission: 01/02/19 Date of Discharge: 01/04/19 - Primary Discharge Diagnosis 1. BPPV 2. Hypertension 3. Chronic polycythemia 4. Anxiety/Depression 5. Tobacco Dependence 6. Chronic pain syndrome 7. Chronic COPD 8. 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 Electronically Signed: Kerry Blanco MD at 16:23 EDT Tel , Service support , Head CTA 01/02/19 17:00 IMPRESSION: No hemodynamically significant stenosis. Electronically Signed: Pb Schulz MD at 18:11 EDT , Service support , Neck CTA 01/02/19 17:00 IMPRESSION: No hemodynamically significant stenosis. Electronically Signed: Pb Schulz MD at 18:11 EDT , Service support , Brain MRI 01/03/19 19:33 IMPRESSION: 1. There are scattered foci of abnormal signal within the white matter with the most severe changes in the left periatrial region. Although differential considerations include sequela of microvascular disease, etiologies of demyelination are also possible. 2. No MRI evidence for acute infarct. Electronically Signed: Birgit Arellano MD at 11:02 EDT , Service support , Dr. Madrigal- Neurology Operations: None Procedures: 2-D Echocardiogram Summary of Care Provided: The patient is a 68 year old F admitted 01/02/2018 due to ataxia. 1. Ataxia secondary to BPPV-CVA ruled out. Brain CT with no acute process. MRI of brain showed scattered foci of abnormal signal within the white matter with the most severe changes in the left periatrial region. No evidence of acute infarct. Neck CTA shows moderate stenosis right cavernous segment internal carotid artery 50 to 75%, otherwise no significant stenosis. Carotid ultrasound shows less than 50% stenosis bilaterally. Lipid panel elevated, reported allergy to statin although reaction unknown. Will attempt initiation of statin and monitor. Neurology consulted, suspects BPPV. Meclizine as needed at discharge for vertigo. Vestibular therapy at discharge. If vertigo is persistent, patient may follow-up with ENT. Follow-up with primary care physician in 1 week. Echocardiogram report pending and will be reviewed prior to discharge. 2. Hypertension-continue amlodipine, atenolol. 3. Chronic polycythemia-follows with oncology, Dr. Arrieta. Suspected to be secondary to COPD and tobacco use. 4. Anxiety/Depression- continue home klonopin regimen. 5. Tobacco Dependence-encourage smoking cessation. 6. Chronic pain syndrome- continue baclofen regimen. Uses marijuana oil for pain as well. 7. Chronic COPD-No acute exacerbation. General: Alert, Oriented x3, Cooperative HEENT: Atraumatic, PERRLA, EOMI, Normocephalic Neck: Supple, No JVD, Negative Carotid Bruits Lungs: Clear to auscultation, Diminished Cardiovascular: Regular rate, Regular Rhythm, Normal S1, Normal S2, No murmurs Abdomen: Bowel Sounds Present, Soft, Non Tender, Non-Distended Extremities: No clubbing, No cyanosis, No edema, Capillary Refill Less than 3 Seconds Skin: No rashes, No breakdown Musculoskeletal: No Tenderness to Palpation of Joints or Extremities Neurological: Cranial nerves II-XII grossly intact, Neuro grossly intact, Ataxia with ambulation Psych/Mental Status: Normal Affect, Appropriate Patient seen and examined prior to discharge. Physical assessment as noted above. Patient is stable for discharge with follow up recommendations as noted above. This patient was seen by NAVID Ambrocio under the supervision of Dr. Levin. - Physical Exam Vital Signs Temp Pulse Resp BP Pulse Ox 98.3 F 92 18 158/84 H 97 01/04/19 09:37 01/04/19 09:37 01/04/19 09:37 01/04/19 09:37 01/04/19 09:37 Oxygen Delivery Method Room Air Weight: 125 lb 3.561 oz Body Mass Index (BMI) 22.8 Intake and Output for Last 24 Hours 01/02/19 01/03/19 01/04/19 23:59 23:59 23:59 Intake Total 2226 3838 / 3838 Balance 2226 3838 / 3838 Laboratory Tests Past 24 Hrs 01/03/19 08:23 Vitamin B12 452 Discharge Diet: Low fat/ Low Cholesterol Discharge Activity: Return to Normal Activity Call your doctor if you observe: Numbness or Tingling, Shortness of breath, Dizziness, Fainting spells, Chest pain Home Medications: Medications to take at Discharge Atenolol [Tenormin (beta ayesha)] 50 mg PO BID 10/17/14 Clonazepam [Klonopin] 0.5 mg PO TID 06/20/16 Amlodipine [Norvasc] 5 mg PO DAILY 01/06/17 Zolpidem Tartrate [Ambien Cr] 12.5 mg PO QHS PRN PRN 02/03/18 hydroxyzine pamoate 100 mg capsule 100 mg PO QHS 05/21/18 Baclofen [Lioresal] 10 mg PO TID 01/02/19 Cholecalciferol (Vitamin D3) [Vitamin D3] 1 tab PO DAILY 01/02/19 Atorvastatin Calcium [Lipitor] 40 mg PO QHS #30 tablet 01/04/19 Meclizine HCl 25 mg PO TID PRN #20 tablet 01/04/19 Following Prescrptions Were Given to Patient: Atorvastatin Calcium [Lipitor] 40 mg PO QHS #30 tablet Meclizine HCl 25 mg PO TID PRN #20 tablet PRN Reason: Vertigo Primary Care Physician: Josh Greene MD [Primary Care Provider] - Please follow up with your Primary Care Physician in: 1 Week Please Follow Up With: Jonathan Calderon MD - ENT When: Call for appt if vertigo persistant Disposition: Home Minutes spent on discharge:: 35 Patient Condition:: Stable Medical Necessity - Tobacco Use Smoking Status: Current every day smoker Tobacco Use: Cigarettes Meaningful Use Info Meaningful Use Diagnoses (Choose all that apply): None applicable <Naseem Levin - Last Filed: 01/04/19 16:40> Discharge Date and Diagnosis - Secondary Discharge Diagnosis Chronic Problems (Last Reviewed 09/24/18 @ 09:00 by Aditi Carreno) Hyperlipidemia (Chronic) Vocal cord dysfunction (Chronic) Hx of cholecystectomy (Chronic) 05/2014 Arthritis (Chronic) Chronic pain (Chronic) Anxiety disorder (Chronic) Tobacco dependence (Chronic) Depression (Chronic) Hypertension (Chronic) Hyperinflation of lungs (Chronic) COPD (chronic obstructive pulmonary disease) (Chronic) GERD (gastroesophageal reflux disease) (Chronic) 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 I have independently interviewed and examined the patient and reviewed pertinent history, examination findings, laboratory and plan of management. I have reviewed the note and agree with the documented findings with the few additional points. In brief, patient is admitted for ataxia secondary to BPPV. Stroke work-up was negative including MRI brain which was negative for acute infarct. Carotid ultrasound shows less than 50% stenosis bilaterally in ICA and ECA. CTA neck shows moderate stenosis of right cavernous segment, 50 to 75% otherwise no significant stenosis. Patient is being discharged on atorvastatin, meclizine. On baclofen 10 mg 3 times daily. Discharge medication reconciliation done. Discharge follow-up instructions completed. Discharge process discussed with the patient and all questions were answered to patient's satisfaction. Physical therapy recommended outpatient PT. Patient refused OT stating she needs only PT. Patient was admitted as inpatient but was discharged because of sooner recovery than expected. Patient was recommended to follow-up with Dr. Pb Harrison, ENT for dizziness and ataxia to rule out vestibular disorder. I have discussed my assessment with Paula TRUJILLO and orders have been reviewed. [] Subjective: Seen and examined. Patient has dizziness but denies vertigo. No spinning of head or surrounding. Patient states on walking she deviates to her right side. She is more concerned of gait ataxia/disequilibrium - Physical Exam General: Alert, Oriented x3, Cooperative HEENT: Atraumatic, PERRLA, EOMI, Normocephalic Neck: Supple, No JVD, Negative Carotid Bruits Lungs: Clear to auscultation, Normal air movement Cardiovascular: Regular rate, Regular Rhythm, Normal S1, Normal S2, No murmurs Abdomen: Bowel Sounds Present, Soft, Non Tender, Non-Distended Extremities: No edema, Capillary Refill Less than 3 Seconds Skin: No rashes, No breakdown Musculoskeletal: No Tenderness to Palpation of Joints or Extremities Lymphatic: No Cervical, Supraclavicular, or Inguinal Adenopathy Neurological: Cranial nerves II-XII grossly intact, Deep Tendon Reflexes 2+/4 and Symmetrical, Neuro grossly intact, Motor Exam 5/5 strength throughout, - - Gait not assessed. Patient seen by PT and OT. Psych/Mental Status: Normal Affect, Appropriate Vital Signs Temp Pulse Resp BP Pulse Ox 98.0 F 79 14 156/53 H 97 01/04/19 14:07 01/04/19 14:07 01/04/19 14:07 01/04/19 14:07 01/04/19 14:07 Oxygen Delivery Method Room Air Weight: 125 lb 3.561 oz Body Mass Index (BMI) 22.8 Intake and Output for Last 24 Hours 01/02/19 01/03/19 01/04/19 23:59 23:59 23:59 Intake Total 2226 / 2226 3838 / 3838 Balance 2226 / 2226 3838 / 3838 Laboratory Tests Past 24 Hrs 01/03/19 08:23 Vitamin B12 452 Code Visit Inpatient E&M: 04043 Disch Hosp
[2019-01-04] MEDS: hydrALAZINE 20 MG/ML Vial 10 MG IV (13:42)
--- NOTE | 2019-01-04 13:51 | CASEMGMT ---
Addendum entered by Stella Soria 01/04/19 15:35: Pt states would like OP therapy script faxed to [facility] at this time. Script faxed to [facility] at this time and original to pt at this time. Inga LÓPEZ CM Original Note: Pt provided with script for [facility]SC and OP vestibular therapy at this time. Pt states is anxious to discharge but is aware that she is awaiting ECHO results. Pt voices no further questions/concerns/needs at this time. Inga LÓPEZ CM
[2019-01-04] MEDS: Meclizine HCl 25 MG Tablet PO (14:03)
--- NOTE | 2019-01-04 15:38 | NURSING ---
pt extremely anxious stating she wants to leave without waiting for ECHO results. this RN contacted Sasha Benjamin [employer]ODUCT MANAG[employer] ANALYST to notify. Pt stated I won't be taking that statin either and I cannot believe they even think i would need that. Gumaro notified this RN that pt could be discharged and that if anything abnormal came across on ECHO report, pt would be made aware. Pt notified of this. Pt wheeled to front door where picked pt up.
[2019-01-05 16:07] LABS: Folate, Hemolysate Test 364.6 ng/mL (Not Estab.); Folate, RBC (Hct) Test 48.4 % (34.0-46.6)
[2019-01-06 09:10] LABS: Folates, RBC Test 753 ng/mL (>498)
[2019-01-08 12:20] LABS: Vitamin B1, Thiamine 149.4 nmol/L (66.5-200.0)
== END 2019-01-04 15:26 | disposition home or self-care (01) | DRG 149 ==
LOC: ED 17:45 → PCU 19:29
PROVIDERS: Student in an Organized Health Care Education/Training Program; Admitting Provider Family Medicine; Emergency Provider Emergency Medicine; Family Provider Family Medicine; PCP Family Medicine; Referring Provider Family Medicine; Visit Provider Internal Medicine
DX: H81.10 Benign paroxysmal vertigo, unspecified ear (principal); R27.0 Ataxia, unspecified; I10 Essential (primary) hypertension; D75.1 Secondary polycythemia; F41.9 Anxiety disorder, unspecified; F32.9 Major depressive disorder, single episode, unspecified; J44.9 Chronic obstructive pulmonary disease, unspecified; G89.4 Chronic pain syndrome; M19.90 Unspecified osteoarthritis, unspecified site; K21.9 Gastro-esophageal reflux disease without esophagitis; F17.210 Nicotine dependence, cigarettes, uncomplicated; E78.5 Hyperlipidemia, unspecified; Z79.899 Other long term (current) drug therapy
CPT/HCPCS: 36415; 70450; 70496; 70498; 70553; 80048; 80061; 82607; 82747; 83036; 83735; 84425; 84443; 85014; 85025; 93005; 93306; 93880; 94640; 96105; 97162; 97165; 97530; 97802; 99284; 99406; A9575; J7030; Q9957; Q9967; A4216

== ENCOUNTER → 2019-04-13 | Outpatient (CLI) | payer MEDICARE, OTHER, SELFPAY ==
[2018-09-24 09:07] VITALS: BMI 21.7
[2019-02-10 15:09] VITALS: BMI 23.8
--- NOTE | 2019-04-13 13:00 | CT_ITS ---
STUDY: LOW DOSE CT LUNG CANCER SCREENING REASON FOR EXAM: Female, 69 years old. Smoking history of one pack per day x50 years RADIATION DOSAGE (If Supplied By Facility): CTDIvol = ( 1.70 ) mGy, DLP = ( 57.00 ) mGycm TECHNIQUE: No contrast was administered. Low dose technique was utilized (average mAS-38 and kVp 120). 1.25 mm axial source images with a slice interval of 1.25-mm were reconstructed in lung windows. 2.5 mm axial source images with a slice interval of 2.5-mm were reconstructed in lung windows. 5.0 mm axial source images with a slice interval of 5.0-mm were reconstructed in soft tissue windows. Nodule measured using lung windows on PACS and/or independent workstation with automated measurement of minimum and maximum diameter. Nodule measurement reported as average diameter rounded to the nearest whole number. Growth is defined as an increase ins size of greater than 1.5 mm. COMPARISON: 04/13/2018 NODULES: No demonstrated nodules. Total lung nodules (excluding granulomas): 0 Emphysema: Mild emphysema present Endobronchial lesion: None Pulmonary artery: Unremarkable Mediastinal nodes: Scattered subcentimeter nodes Other chest and abdominal findings: Degenerative bony changes CT/Low Dose CT Lung Screening IMPRESSION: Lung-RADS category 2 - Continue annual screening with LDCT in 12 months. IMPORTANT NOTES FOR USE: ACR Lung-RADS Version 1.0 Assessment Categories Release Date: January 03, 2014 Category: Coded 0-4 bases on nodule(s) with highest degree of suspicion. Negative screen is defined as categories 1 and 2; a positive screen is defined as categories 3 and 4. Category 3 and 4A nodules that are unchanged on interval CT should be coded as category 2, and individuals returned to screening in 12 months. Category 4X: Category 3 or 4 nodules with additional imaging findings that increase the suspicion of lung cancer, such as spiculation, GGN that doubles in size in 1 year, enlarged lymph notes, etc. Category Modifiers: S (significant finding unrelated to lung cancer) and C (prior history of treated lung cancer) may be added to the 0-4 Lung-RADS Electronically Signed: Cortez Hatch MD at 16:52 EDT , Service support ,
== END | disposition home or self-care (01) ==
LOC: CT 12:57
PROVIDERS: Family Provider Family Medicine; PCP Family Medicine; Referring Provider Internal Medicine Pulmonary Disease; Visit Provider Internal Medicine Pulmonary Disease
DX: Z87.891 Personal history of nicotine dependence (principal); Z12.2 Encounter for screening for malignant neoplasm of respiratory organs
CPT/HCPCS: G0297

== ENCOUNTER → 2019-06-09 | Outpatient (CLI) | payer MEDICARE, OTHER, SELFPAY ==
[2019-02-10 15:09] VITALS: BMI 23.8
--- NOTE | 2019-06-09 10:00 | RAD_ITS ---
HISTORY:THORACIC AND LUMBAR PAIN THORACIC AND LUMBAR PAIN EXAMINATION/TECHNIQUE: XR Spine Lumbar 2 or 3 Views: . 2 views.. COMPARISON: March 06, 2017 FINDINGS: VERTEBRAE: Preserved vertebral body height. No fracture. No spondylolisthesis. Degenerative changes of the posterior elements. Preservation of the normal lumbar lordosis. DISCS: Degenerative changes are noted. INCLUDED ABDOMEN: Included bowel gas pattern is non-obstructive. Atherosclerotic vascular disease RAD/Lumbar Spine 2 or 3 Views IMPRESSION: Degenerative changes. No acute fracture or spondylolisthesis. at 2155 Reported and signed by: Claudine Constantino DO Electronically Signed: Claudine Constantino DO at 21:54 EDT Tel , Service support ,
== END | disposition home or self-care (01) ==
LOC: HPRAD 09:44
PROVIDERS: Family Provider Family Medicine; PCP Family Medicine; Referring Provider Anesthesiology Pain Medicine; Visit Provider Anesthesiology Pain Medicine
DX: M54.5 Low back pain (principal)
CPT/HCPCS: 72100

== ENCOUNTER → 2020-04-13 12:35 | Outpatient (CLI) | payer MEDICARE, OTHER, SELFPAY ==
[2019-08-11 15:15] VITALS: BMI 23.8
--- NOTE | 2020-04-13 12:38 | CT_ITS ---
STUDY: LOW DOSE CT LUNG CANCER SCREENING REASON FOR EXAM: Female, 70 years old. SMOKING HX 1PPD X 46YR. HTN-rx controlled. Prior cholecystectomy RADIATION DOSAGE (If Supplied By Facility): CTDIvol = ( 1.70 ) mGy, DLP = ( 53.18 ) mGycm TECHNIQUE: No contrast was administered. Low dose technique was utilized (average mAS-38 and kVp 120). 1.25 mm axial source images with a slice interval of 1.25-mm were reconstructed in lung windows. 2.5 mm axial source images with a slice interval of 2.5-mm were reconstructed in lung windows. 5.0 mm axial source images with a slice interval of 5.0-mm were reconstructed in soft tissue windows. Nodule measured using lung windows on PACS and/or independent workstation with automated measurement of minimum and maximum diameter. Nodule measurement reported as average diameter rounded to the nearest whole number. Growth is defined as an increase ins size of greater than 1.5 mm. COMPARISON: Comparison is made with prior study dated 04/13/2019. NODULES: No suspicious nodule is seen. Emphysema: Stable emphysematous changes with a small bolus formation in the upper lobes. Endobronchial lesion: None Aorta: Atherosclerotic plaque formation. Coronary arteries: Coronary artery calcification. CT/Low Dose CT Lung Screening IMPRESSION: Lung-RADS category 2 - Continue annual screening with LDCT in 12 months. IMPORTANT NOTES FOR USE: ACR Lung-RADS Version 1.0 Assessment Categories Release Date: January 03, 2014 Category: Coded 0-4 bases on nodule(s) with highest degree of suspicion. Negative screen is defined as categories 1 and 2; a positive screen is defined as categories 3 and 4. Category 3 and 4A nodules that are unchanged on interval CT should be coded as category 2, and individuals returned to screening in 12 months. Category 4X: Category 3 or 4 nodules with additional imaging findings that increase the suspicion of lung cancer, such as spiculation, GGN that doubles in size in 1 year, enlarged lymph notes, etc. Category Modifiers: S (significant finding unrelated to lung cancer) and C (prior history of treated lung cancer) may be added to the 0-4 Lung-RADS Electronically Signed: Modesto Butler, at 13:08 EDT , Service support ,
== END ==
PROVIDERS: Family Provider Family Medicine; PCP Family Medicine; Referring Provider Internal Medicine Pulmonary Disease; Visit Provider Internal Medicine Pulmonary Disease
DX: Z12.2 Encounter for screening for malignant neoplasm of respiratory organs (principal); Z87.891 Personal history of nicotine dependence
CPT/HCPCS: G0297

== ENCOUNTER → 2020-11-20 15:21 | Outpatient (CLI) | payer MEDICARE, OTHER, SELFPAY ==
[2019-08-11 15:15] VITALS: BMI 23.8
[2020-11-20 17:34] LABS: Amphetamine Urine VISTA NEGATIVE (<1000 ng/mL); Barbiturate Urine VISTA NEGATIVE (< 200 ng/mL); Benzodiazepine Urine VISTA NEGATIVE (< 200 ng/mL); Cocaine Urine VISTA NEGATIVE (< 300 ng/mL); Ecstacy Urine VISTA NEGATIVE (< 500 ng/mL); Methadone Urine VISTA NEGATIVE (< 300 ng/mL); PCP Urine VISTA NEGATIVE (< 25 ng/mL); THC Urine VISTA NEGATIVE (< 50 ng/mL); Vista UDS pH Range 5
== END ==
PROVIDERS: PCP Family Medicine; Visit Provider Anesthesiology Pain Medicine
DX: F11.20 Opioid dependence, uncomplicated (principal)
CPT/HCPCS: 80307

== ENCOUNTER → 2021-04-27 16:47 | Outpatient (CLI) | payer MEDICARE, OTHER, SELFPAY ==
--- NOTE | 2021-04-27 16:51 | RAD_ITS ---
STUDY: X-RAY - ABDOMEN/PELVIS REASON FOR EXAM: Female, 71 years old. CONSTIPATION TECHNIQUE: Flat and upright COMPARISON: None. FINDINGS: Normal visualized lung bases. No evidence for small bowel obstruction. There is mild diffuse fecal retention seen throughout the colon.. There is no demonstrated free abdominal air. The visualized liver, spleen and kidneys are grossly normal in size and morphology. Normal soft tissue structures. Normal visualized osseous structures. RAD/Abd Inc Decub and/or Erect IMPRESSION: Mild nonspecific fecal retention within the colon Electronically Signed: Pieter Jane MD at 17:21 EDT , Service support ,
== END ==
PROVIDERS: PCP Family Medicine; Referring Provider Family Medicine; Visit Provider Family Medicine
DX: K59.00 Constipation, unspecified (principal)
CPT/HCPCS: 74019

== ENCOUNTER 2021-04-29 11:34 | Emergency (ER) | payer MEDICARE, OTHER, SELFPAY ==
[2021-04-29 11:36] VITALS: BP 119/65; PULSE 81; RESP 16; TEMP 37.2; O2SAT 98; BMI 25.2
--- NOTE | 2021-04-29 11:58 | ED.VIS.GI ---
HPI HPI - GI History of Present Illness Chief Complaint: Constipation Detail of Chief Complaint: Constipation x9 days Informant: patient Narrative Narrative: Patient has been taking oxycodone for about a month. Patient has history of chronic back pain. She has not had a bowel movement in 9 days. Patient saw her primary care physician 2 days ago and had an x-ray of her abdomen and was started on Linzess and advised to take Metamucil. Patient has tried suppositories at home without any resolution in symptoms. Patient just describes some bloating but no real abdominal pain. She is had no fever or vomiting. She denies any pain radiating down her legs from her back. She denies difficulty with urination. [facility] Medical History (Updated 04/29/21 @ 13:[address] Mell Dickens DO) Anxiety disorder Arthritis Chronic pain COPD (chronic obstructive pulmonary disease) Depression GERD (gastroesophageal reflux disease) Hyperinflation of lungs Hyperlipidemia Hypertension Polycythemia secondary to smoking Tobacco dependence Vocal cord dysfunction Home Medications atenolol 50 mg PO BID 10/17/14 [History Last Taken 01/06/17] clonazepam 0.5 mg PO TID 06/20/16 [History Last Taken 01/06/17] amlodipine 5 mg PO DAILY 01/06/17 [History Last Taken 01/06/17] zolpidem 12.5 mg PO QHS PRN PRN 02/03/18 [History Last Taken Unknown] hydroxyzine pamoate 100 mg capsule 100 mg PO QHS 05/21/18 [History Last Taken Unknown] Cholecalciferol (Vitamin D3) [Vitamin D3] 1 tab PO DAILY 01/02/19 [History Last Taken Unknown] baclofen 10 mg PO TID 01/02/19 [History Last Taken Unknown] atorvastatin 40 mg PO QHS #30 tablet 01/04/19 [Rx Last Taken Unknown] meclizine 25 mg PO TID PRN #20 tab 01/04/19 [Rx Last Taken Unknown] Allergy/AdvReac Type Severity Reaction Status Date / Time erythromycin base AdvReac Vomiting Verified 04/29/21 11:35 gabapentin AdvReac Other Verified 04/29/21 11:35 [id number]-[id number]-Ccd Reductase AdvReac Unknown Verified 04/29/21 11:35 Inhibitor Family History Mother Arthritis Hypertension Father Lung cancer Heart disease Diabetes Hypertension Surgical History Hx of cholecystectomy Social History (Updated 10/08/18 @ 13:[address] Vianca Madison MD) Smoking Status: Current every day smoker tobacco type: cigarettes second hand exposure: Yes alcohol intake: current alcohol intake frequency: holidays/special occasions only substance use type: does not use caffeine: Yes what type of physical activity do you participate in: walking frequency: 3-4 times per week seatbelt use: always ROS ROS ED Constitutional Constitutional ED: Reports systems reviewed and no addt'l complaints, except as documented; Denies body ache(s), change in weight or chills Eyes Eyes: Denies acute decrease in peripheral vision, change in vision, double vision or loss of vision ENT ENT ED: Reports none; Denies ear pain, lip swelling, loss taste/smell, neck pain, otalgia or sore throat Cardiovascular Cardiovascular: Reports none; Denies abdominal pain, chest pain with activity, leg edema, lightheadedness, palpitations, rapid heart rate or syncope Respiratory/Chest Respiratory/Chest: Reports none; Denies change in mental status, dry cough, dyspnea, hemoptysis, shortness of breath at rest or shortness of breath with exertion Gastrointestinal Gastrointestinal: Reports none and constipation; Denies abdominal pain, change in stool character, diarrhea, hematemesis, hematochezia, melena, rectal bleeding or vomiting Genitourinary Genitourinary ED: Reports none; Denies abdominal discomfort, anuria, dysuria, genital pain or polyuria Musculoskeletal Musculoskeletal: Reports none; Denies arthralgias, back pain, difficulty walking, extremity pain, muscle weakness or myalgias Integumentary Reports none; Denies abscess or rash Neurologic Neurologic: Reports none; Denies abnormal gait, confusion, focal weakness, frequent falls, headache(s), loss of vision, numbness, paresthesias, radicular pain, vertigo or weakness Psychiatric Psychiatric: Reports systems reviewed and no addt'l complaints, except as documented and none; Denies behavioral changes, confusion, difficulty concentrating, hallucinations, suicidal ideation, tactile hallucinations or visual hallucinations Endocrine Endocrinology: Denies none, cold intolerance, excessive sweating, fatigue or heat intolerance Hematologic/Lymphatic Hematologic/Lymphatic: Reports none; Denies anemia, easy bleeding or easy bruising Allergic/Immunologic Allergic/Immunologic ED: Denies as per HPI, none, lip swelling, mouth swelling, throat swelling, tongue swelling or hives EXAM Physical Exam Const Vital Signs: 04/29/21 11:36 Temperature 98.9 F Temperature Source Temporal Pulse Rate 81 Respiratory Rate 16 Blood Pressure 119/65 Blood Pressure Mean 83 Pulse Ox 98 Oxygen Delivery Method Room Air Positive well nourished and well developed General Appearance ED: well developed and NAD HEENT Reports TM's clear and moist mucous membranes normocephalic and atraumatic; Negative for trauma or tenderness Tympanic Membrane ED: Yes TM's clear Eyes PERRL and EOMs intact bilaterally General Eye ED: Negative for pale conjunctiva or scleral icterus Neck no lymphadenopathy, supple and no JVD General: Negative for tenderness Chest Wall inspection of chest normal and palpation of chest normal Chest: Negative for tenderness Resp normal respiratory effort and clear to auscultation bilaterally Effort and Inspection: Negative for respiratory distress or pain with movement Auscultation: Negative for rhonchi, wheezes or diminished lung sounds Cardio regular rate, regular rhythm, S1 normal heart sound, S2 normal heart sound and no murmurs Peripheral Pulses: pulses 2+ throughout GI normal to inspection, nondistended, normoactive bowel sounds, soft to palpation, non-tender, non-distended and no masses GI Narrative: Rectal exam performed showed no stool within the rectal vault. No masses palpated. Back/Spine no CVA tenderness and no thoracic nor lumbar tenderness Extremity normal to inspection General Extremety ED: Negative for edema General Extremity: Negative for edema Neuro oriented x3, CN's II-XII intact bilaterally, no sensory deficits noted and gait normal Sensorium / Orientation: awake, alert, oriented to person, oriented to place and oriented to time Motor Exam: strength 5/5 throughout and strength abnormal Psych mental status grossly normal Skin no rashes or lesions noted and no wounds MDM MDM MDM Narrative Medical decision making narrative: Patient receives a soapsuds enema and had some results with that. I will feel any further imaging is indicated at this time as she just had plain x-rays 2 days ago that showed no evidence of bowel obstruction and clinically I do not feel patient has a bowel obstruction. I suspect constipation is related to her use of hydrocodone. I will send her home with magnesium citrate. Her lab work here is unremarkable. Patient to continue with MiraLAX. Lab Data Attestation: I reviewed the patient's lab results. Labs: Laboratory Results - last 24 hr 04/29/21 04/29/21 12:20 12:20 WBC 12.1 H RBC 5.34 Hgb 14.8 Hct 44.9 MCV 84.1 MCH 27.7 MCHC 33.0 RDW Std Deviation 44.4 H RDW Coeff of [place] 14.6 Plt Count 285 MPV 9.4 Immature Gran % (Auto) 0.400 Neut % (Auto) 74.0 H Lymph % (Auto) 16.8 L [place] % (Auto) 7.3 Eos % (Auto) 1.1 Baso % (Auto) 0.4 Absolute Neuts (auto) 9.0 H Absolute Lymphs (auto) 2.04 Nucleated RBC % 0 Sodium 137 Potassium 3.9 Chloride 105 Carbon Dioxide 27.0 Anion Gap 5 BUN 13 Creatinine 0.88 Estim Creat Clear Calc 47.72 Est GFR (MDRD) Af Amer 82 Est GFR (MDRD) Non-Af 68 BUN/Creatinine Ratio 14.8 Glucose 137 H Calcium 9.3 Discharge Plan Triage Chief Complaint: Constipation ED Provider: Mell Dickens Dx/Rx/DC Orders Clinical Impression: Constipation Instructions: ED Constipation (Adult) Prescriptions: No Action hydroxyzine pamoate 100 mg capsule 100 mg PO QHS RF: 0 atenolol 50 MG tablet 50 mg PO BID RF: 0 clonazepam 1 MG tablet 0.5 mg PO TID RF: 0 zolpidem 12.5 MG tablet,ext release multiphase 12.5 mg PO QHS PRN PRN (Reason: Sleep) RF: 0 amlodipine 10 MG tablet 5 mg PO DAILY RF: 0 baclofen 10 MG tablet 10 mg PO TID RF: 0 Cholecalciferol (Vitamin D3) [Vitamin D3] 5,000 UNIT capsule 1 tab PO DAILY RF: 0 atorvastatin 40 MG tablet 40 mg PO QHS Qty: 30 RF: 0 meclizine 25 MG tablet 25 mg PO TID PRN (Reason: Vertigo) Qty: 20 RF: 0 Primary Care Provider: Josh Greene Referrals: Josh Greene MD [Primary Care Provider] - 3-5 Days Disposition Disposition: Home, Self Care
[2021-04-29 12:33] LABS: Absolute Lymphocyte Count 2.04 X10^3/uL (0.83-4.51); Basophil# 0.05 X10^3/uL; Basophil% 0.4 % (0-1); Eosinophil# 0.13 X10^3/uL; Eosinophils% 1.1 % (0-5); Hematocrit 44.9 % (37-47); Hemoglobin 14.8 g/dL (12.0-15.0); Lymphocyte # 2.04 X10^3/ul (0.83-4.51); Lymphocyte % 16.8 % (19-41); Mean Corpuscular Hgb 27.7 pg (27.0-32.0); Mean Corpuscular Volume 84.1 fL (81-99); Mean Platelet Vol. 9.4 fl (6.2-12.0); Monocyte# 0.89 X10^3/uL; Monocyte% 7.3 % (0-10); NRBC Flagged by Analyzer 0 % (0-5); Neutrophil # 8.96 X10^3/uL (2.7-7.7); Platelet Count 285 K/mm3 (150-450); RBC Distribution Width CV 14.6 % (11.6-14.6); RBC Distribution Width SD 44.4 fl (35.1-43.9); Red Blood Count 5.34 M/mm3 (4.2-5.4); White Blood Count 12.1 K/mm3 (4.4-11.0)
[2021-04-29 12:44] LABS: Anion Gap 5 (5-15); BUN 13 mg/dL (7-18); BUN/Creat Ratio 14.8 RATIO (10-20); Calcium,Total 9.3 mg/dL (8.5-10.1); Chloride 105 mmol/L (98-107); Creatinine, Serum 0.88 mg/dL (0.55-1.02); EST Glomerular Filtration Rate 68 mL/min (>60); Est Glom Filt Rate - Afr Amer 82 mL/min (>60); Estimated Creatinine Clearance 47.72 ml/min; Glucose 137 mg/dL (74-106); Potassium 3.9 mmol/L (3.5-5.1); Sodium Level 137 mmol/L (136-145)
[2021-04-29] MEDS: Magnesium Citrate 300 ML PO (14:11)
== END 2021-04-29 14:11 | disposition home or self-care (01) ==
PROVIDERS: Emergency Provider Emergency Medicine; PCP Family Medicine
DX: K59.00 Constipation, unspecified (principal); F17.210 Nicotine dependence, cigarettes, uncomplicated
CPT/HCPCS: 80048; 85025; 99285

== ENCOUNTER → 2021-07-16 11:54 | Outpatient (CLI) | payer MEDICARE, OTHER, SELFPAY ==
[2021-07-16 13:27] LABS: Amphetamine Urine VISTA NEGATIVE (<1000 ng/mL); Barbiturate Urine VISTA NEGATIVE (< 200 ng/mL); Benzodiazepine Urine VISTA NEGATIVE (< 200 ng/mL); Cocaine Urine VISTA NEGATIVE (< 300 ng/mL); Ecstacy Urine VISTA NEGATIVE (< 500 ng/mL); Methadone Urine VISTA NEGATIVE (< 300 ng/mL); PCP Urine VISTA NEGATIVE (< 25 ng/mL); THC Urine VISTA POSITIVE (< 50 ng/mL); Vista UDS pH Range 5
== END ==
PROVIDERS: PCP Family Medicine; Referring Provider Anesthesiology Pain Medicine; Visit Provider Anesthesiology Pain Medicine
DX: F11.20 Opioid dependence, uncomplicated (principal)
CPT/HCPCS: 80307

== ENCOUNTER 2021-09-13 16:01 | Outpatient (CLI) | payer MEDICARE, OTHER, SELFPAY | END 2021-09-13 23:59 | disposition short-term general hospital (02) | PROVIDERS: Nurse Practitioner Family; PCP Family Medicine; Referring Provider Family Medicine; Visit Provider Family Medicine | DX: Z11.52 Encounter for screening for COVID-19 (principal) | CPT/HCPCS: 87635; U0003; U0005 ==

== ENCOUNTER 2021-10-25 19:48 | Emergency (ER) | payer MEDICARE, OTHER, SELFPAY ==
[2021-10-25] VITALS (7 sets, daily range): BP systolic 101–153; BP diastolic 50–89; PULSE 89–99; RESP 18–27; TEMP 36.8–39.6; O2SAT 91–98; BMI 27.3
--- NOTE | 2021-10-25 19:51 | CT_ITS ---
INDICATION: Neuro deficit, acute, stroke suspected EXAMINATION: CT BRAIN - CT Head Stroke Protocol W/O Contrast Injection TECHNIQUE: Multiple axial images were obtained of the head without intravenous contrast. A radiation dose optimization technique was used for this scan. IV Contrast dosage and agent: None. Radiation Dose (provided by facility) CTDIvol (NA ) mGy, DLP ( NA) mGy-cm COMPARISON: MRI examination of 01/03/2019 FINDINGS: HEMISPHERES: 1. The cerebral parenchyma, ventricular system, subarachnoid spaces have normal configuration. Chronic microvascular deep white matter changes are present. 2. No intraparenchymal mass, hemorrhage, or acute territorial infarct. CEREBELLUM - BRAINSTEM: The cerebellum, brainstem, basilar and suprasellar cisterns have normal appearance. No Chiari malformation. PITUITARY: Infundibulum and pituitary have normal configuration. Midline structures appear normal. VESSELS: 1. Moderate to extensive vascular calcifications and cavernous carotid vessels. 2. No hyperdense vascular signs noted.. ORBITS AND PARANASAL SINUSES: 1. Normal appearance of the bony orbits. Normal appearance of the globes and retrobulbar soft tissues.. 2. Paranasal sinuses are clear. BONY ELEMENTS: Bony elements of the cranial vault, facial skeleton and skull base have normal appearance. SCALP AND SOFT TISSUES: Normal appearance of the soft tissues of the scalp and the visualized face OTHER: None CT/STROKE Brain/Head without Cont IMPRESSION: 1. Stable exam. 2. Mild chronic microvascular deep white matter disease. 3. No mass, hemorrhage, or acute territorial infarct. 4. No radiographically significant sinus disease. N.B. : The above Results were Read Back by Phill Fried MD to MAX PATHAK PA, and understanding confirmed on 10/25/2021 20:13:46 (ET). Electronically Signed: Phill Fried MD at 20:14 EST ,
--- NOTE | 2021-10-25 19:51 | EKG12_ITS ---
Test Reason : STROKE Blood Pressure : / mmHG Vent. Rate : 098 BPM Atrial Rate : 098 BPM P-R Int : 166 ms QRS Dur : 118 ms QT Int : 378 ms P-R-T Axes : 067 047 -14 degrees QTc Int : 482 ms Sinus rhythm with Premature atrial complexes ST & T wave abnormality, consider inferior ischemia Incomplete right bundle branch block Prolonged QT Abnormal ECG Confirmed by KAYLIN ANTUNEZ, JAYSON ([id number]), society editor VASHTI TALBOT ([id number]) on 10/31/2021 8:16:29 AM Referred By: OLEG Confirmed By:JAYSON EWING MD
--- NOTE | 2021-10-25 19:57 | EDS_ITS ---
HPI <CLIF Coronel - Last Filed: 10/25/21 21:43> History of Present Illness Chief Complaint: Neuro S/Sx Narrative Narrative: 71-year-old female with PMH of HTN, HLD, COPD, GERD, anxiety presents with altered mental status. Initially there was concern for stroke. According to the paramedics her last known normal was last night around midnight when she went to bed. Said this morning she was confused and took a nap. When her daughter came over this afternoon she was sitting at a chair slumped to the left so she called EMS concerned she was having a stroke. The patient has no acute complaints. She states she has had a cough and fever since this morning. She denies chest pain, shortness of breath, N/V/D, or dysuria or frequency. Once her arrived he states that she woke up this morning with a fever of 101F and took ibuprofen. He denies strokelike symptoms. PFSH <CLIF Coronel - Last Filed: 10/25/21 21:43> [facility] Medical History (Updated 10/25/21 @ 21:49 by Yves Hollins MD) Anxiety disorder Arthritis Chronic pain COPD (chronic obstructive pulmonary disease) Depression GERD (gastroesophageal reflux disease) Hyperinflation of lungs Hyperlipidemia Hypertension Polycythemia secondary to smoking Tobacco dependence Vocal cord dysfunction Home Medications atenolol 50 mg PO BID 10/17/14 [History Last Taken 01/06/17] clonazepam 0.5 mg PO TID 06/20/16 [History Last Taken 01/06/17] amlodipine 5 mg PO DAILY 01/06/17 [History Last Taken 01/06/17] zolpidem 12.5 mg PO QHS PRN PRN 02/03/18 [History Last Taken Unknown] hydroxyzine pamoate 100 mg capsule 100 mg PO QHS 05/21/18 [History Last Taken Unknown] Cholecalciferol (Vitamin D3) [Vitamin D3] 1 tab PO DAILY 01/02/19 [History Last Taken Unknown] baclofen 10 mg PO TID 01/02/19 [History Last Taken Unknown] atorvastatin 40 mg PO QHS #30 tablet 01/04/19 [Rx Last Taken Unknown] meclizine 25 mg PO TID PRN #20 tab 01/04/19 [Rx Last Taken Unknown] buprenorphine 20 mcg TRANSDERMAL X1 10/25/21 [History Last Taken Unknown] hydrocodone-acetaminophen 5 - 325 tab PO 10/25/21 [History Last Taken Unknown] levofloxacin 750 mg PO DAILY #4 tab 10/25/21 [Rx Last Taken Unknown] Allergy/AdvReac Type Severity Reaction Status Date / Time erythromycin base AdvReac Vomiting Verified 04/29/21 11:35 gabapentin AdvReac Other Verified 04/29/21 11:35 [id number]-VLD-[id number] Reductase AdvReac Unknown Verified 04/29/21 11:35 Inhibitor [Wrsuhsw-Tfy-Xbo Reductase Inhibitor] Family History Mother Arthritis Hypertension Father Lung cancer Heart disease Diabetes Hypertension Surgical History Hx of cholecystectomy Social History (Updated 10/08/18 @ 13:[address] Vianca Madison MD) Smoking Status: Current every day smoker tobacco type: cigarettes second hand exposure: Yes alcohol intake: current alcohol intake frequency: holidays/special occasions only substance use type: does not use caffeine: Yes what type of physical activity do you participate in: walking frequency: 3-4 times per week seatbelt use: always ROS <CLIF Coronel - Last Filed: 10/25/21 21:43> ROS ED ROS Narrative Constitutional: Positive for fever, malaise. Negative for chills. Eyes: Negative for visual change. ENT: Negative for sore throat, ear pain, rhinorrhea. CVS: Negative for palpitations, chest pain, syncope. Respiratory: Positive for cough. Negative for shortness of breath, orthopnea. GI: Negative for abdominal pain, nausea, vomiting, diarrhea, constipation, melena, hematochezia. : Negative for dysuria, hematuria or frequency. Neuro: Negative for headache, motor/sensory dysfunction. Skin: Negative for rash, abscess, or wound. Musc: Negative for joint pain, swelling, trauma. Heme: Negative for easy bruising, bleeding, lymphadenopathy. EXAM <CLIF oCronel - Last Filed: 10/25/21 21:43> Physical Exam Narrative Exam Narrative: CONST: Patient sitting in no acute distress. EYES: Normal inspection. ENT: Normal inspection, dry mucous membranes. NECK: Normal inspection. RESP: No respiratory distress, CTAB. CVS: Regular rate and rhythm, no murmur, no gallop. ABD: Soft and nontender, no guarding or rebound, nondistended. Back: Normal inspection, no CVA tenderness. SKIN: Color normal, no rash, warm, dry, intact. EXTREMITIES: Normal appearance, no pedal edema. NEURO: Oriented x4. Symmetric smile, no upper or lower extremity drift, 5/5 upper and lower extremity strength, normal sensation to light touch, 2+ radial and DP pulses. Normal [id number]-[id number] and ewzb-zl-cfra testing bilaterally. PSYCH: Normal affect. Const Vital Signs: 10/25/21 19:51 10/25/21 20:01 10/25/21 20:28 Temperature 103.2 F H Temperature Source Oral Pulse Rate 99 98 Respiratory Rate 18 Blood Pressure 153/89 H Blood Pressure Mean 110 Pulse Ox 98 Oxygen Delivery Method Room Air Room Air Oxygen Flow Rate (L/min) 10/25/21 20:30 10/25/21 20:48 10/25/21 21:07 Temperature Temperature Source Pulse Rate 98 96 91 Respiratory Rate 27 H 21 H 19 H Blood Pressure 118/75 124/56 H 107/50 L Blood Pressure Mean 89 78 69 Pulse Ox 92 96 95 Oxygen Delivery Method Nasal Cannula Nasal Cannula Nasal Cannula Oxygen Flow Rate (L/min) 2 2 2 10/25/21 21:41 Temperature Temperature Source Pulse Rate 89 Respiratory Rate 20 H Blood Pressure 101/53 L Blood Pressure Mean Pulse Ox 91 Oxygen Delivery Method Oxygen Flow Rate (L/min) <Yves Hollins MD - Last Filed: 10/25/21 21:52> Physical Exam Const Vital Signs: 10/25/21 19:51 10/25/21 20:01 10/25/21 20:28 Temperature 103.2 F H Temperature Source Oral Pulse Rate 99 98 Respiratory Rate 18 Blood Pressure 153/89 H Blood Pressure Mean 110 Pulse Ox 98 Oxygen Delivery Method Room Air Room Air Oxygen Flow Rate (L/min) 10/25/21 20:30 10/25/21 20:48 10/25/21 21:07 Temperature Temperature Source Pulse Rate 98 96 91 Respiratory Rate 27 H 21 H 19 H Blood Pressure 118/75 124/56 H 107/50 L Blood Pressure Mean 89 78 69 Pulse Ox 92 96 95 Oxygen Delivery Method Nasal Cannula Nasal Cannula Nasal Cannula Oxygen Flow Rate (L/min) 2 2 2 10/25/21 21:41 Temperature Temperature Source Pulse Rate 89 Respiratory Rate 20 H Blood Pressure 101/53 L Blood Pressure Mean Pulse Ox 91 Oxygen Delivery Method Oxygen Flow Rate (L/min) [facility] <CLIF Coronel - Last Filed: 10/25/21 21:43> [facility] Narrative Medical decision making narrative: Patient presents for altered mental status. Initially there was reported concern for stroke from her daughter and EMS. I evaluated her immediately upon arrival in the hallway and she is neurologically intact with NIH of 0. She was immediately taken to CAT scan for a CT brain which was negative for acute findings. On reexamination she appears ill but nontoxic. She is febrile with otherwise normal vital signs. She has dry mucous membranes. Heart is regular, lungs are clear, abdomen soft and nontender. Labs show a white count of 21 with normal lactate at 1.5. Electrolytes and renal function are WNL. Chest x-ray and urinalysis are negative for infection. COVID-19 test is negative. At this time the source for her fever and leukocytosis is unknown. With how weak she is I recommended admission but patient adamantly refuses stating she wants to go home. She will be covered empirically with Levaquin for possible developing pneumonia since she has an increased cough and history of smoking. First dose was given here. She is leaving AGAINST MEDICAL ADVICE and we discussed she is at risk for developing sepsis, endorgan damage, and possibility of . She should return for any new or worsening symptoms. She left in stable condition. Diagnoses 1. Generalized weakness 2. Fever 3. Leukocytosis 4. Cough Lab Data Labs: Laboratory Results - last 24 hr 10/25/21 10/25/21 10/25/21 20:00 20:00 20:00 WBC 21.7 H RBC 5.76 H Hgb 15.9 H Hct 47.2 H MCV 81.9 MCH 27.6 MCHC 33.7 RDW Std Deviation 41.8 RDW Coeff of Santana 14.3 Plt Count 247 MPV 10.1 Immature Gran % (Auto) 0.600 Neut % (Auto) 80.0 H Lymph % (Auto) 11.0 L Sandoval % (Auto) 8.0 Eos % (Auto) 0.0 Baso % (Auto) 0.4 Absolute Neuts (auto) 17.4 H Absolute Lymphs (auto) 2.39 Nucleated RBC % 0 Differential Comment SEE COMMENT Diff Path Review May foll Platelet Estimate ADEQUATE RBC Morphology N CHROM Anisocytosis RARE PT 13.7 INR 1.1 APTT 31.0 Sodium 137 Potassium 3.6 Chloride 104 Carbon Dioxide 26.0 Anion Gap 7 BUN 20 H Creatinine 0.95 Estim Creat Clear Calc 44.20 Est GFR (MDRD) Af Amer 75 Est GFR (MDRD) Non-Af 62 BUN/Creatinine Ratio 21.0 H Glucose 141 H Lactic Acid Calcium 9.3 Troponin I High Sens 9 Urine Color Urine Clarity Urine pH Ur Specific [place] Urine Protein Urine Glucose (UA) Urine Ketones Urine Occult Blood Urine Nitrite Urine Bilirubin Urine Urobilinogen Ur Leukocyte Esterase Urine RBC Urine WBC Ur Squamous Epith Cells Urine Bacteria Urine Mucus 10/25/21 10/25/21 20:00 20:25 WBC RBC Hgb Hct MCV MCH MCHC RDW Std Deviation RDW Coeff of Santana Plt Count MPV Immature Gran % (Auto) Neut % (Auto) Lymph % (Auto) Sandoval % (Auto) Eos % (Auto) Baso % (Auto) Absolute Neuts (auto) Absolute Lymphs (auto) Nucleated RBC % Differential Comment Diff Path Review Platelet Estimate RBC Morphology Anisocytosis PT INR APTT Sodium Potassium Chloride Carbon Dioxide Anion Gap BUN Creatinine Estim Creat Clear Calc Est GFR (MDRD) Af Amer Est GFR (MDRD) Non-Af BUN/Creatinine Ratio Glucose Lactic Acid 1.5 Calcium Troponin I High Sens Urine Color Yellow Urine Clarity Clear Urine pH 6.5 Ur Specific [place] 1.010 Urine Protein 30 H Urine Glucose (UA) Normal Urine Ketones Negative Urine Occult Blood 25 H Urine Nitrite Negative Urine Bilirubin Negative Urine Urobilinogen Normal Ur Leukocyte Esterase Negative Urine RBC 0 SEEN Urine WBC 0 SEEN Ur Squamous Epith Cells 0 SEEN Urine Bacteria 0 SEEN Urine Mucus 0 SEEN Radiography Diagnostic Testing: Clinical Impression(s) from Imaging Studies Brain CT 10/25/21 19:51 IMPRESSION: 1. Stable exam. 2. Mild chronic microvascular deep white matter disease. 3. No mass, hemorrhage, or acute territorial infarct. 4. No radiographically significant sinus disease. N.B. : The above Results were Read Back by Phill Fried MD to CARMEN PATHAK PA, and understanding confirmed on 10/25/2021 20:13:46 (ET). Electronically Signed: Phill Fried MD at 20:14 EST , ADDENDUM: 10/25/212020 IMPRESSION: 1. Stable exam. 2. Mild chronic microvascular deep white matter disease. 3. No mass, hemorrhage, or acute territorial infarct. 4. No radiographically significant sinus disease. N.B. : The above Results were Read Back by Phill Fried MD to CARMEN PATHAK PA, and understanding confirmed on 10/25/2021 20:13:46 (ET). Electronically Signed: Phill Fried MD at 20:14 EST , Chest X-Ray 10/25/21 21:10 IMPRESSION: 1. Minimal area of pleural-parenchymal scar and atelectasis at the LEFT lung base. 2. Remaining lung zones clear, no consolidation. 3. No congestive failure. Electronically Signed: Phill Fried MD at 21:41 EST , EKG Initial EKG: Attestation: I personally reviewed and interpreted this EKG as follows: Interpretation: Sinus Rhythm Comments: Sinus rhythm with PACs, prolonged QT <Yves Hollins MD - Last Filed: 10/25/21 21:52> MDM MDM Narrative Medical decision making narrative: ATTENDING NOTE: Dr. Hollins: The patient was seen in conjunction with the PA-C/nurse practitioner. I performed a history and physical, and agree with the management of this patient. I agree with noted documentation and plan. I discussed the plan of care and final disposition with the physician associate/nurse practitioner. Initially arrived with strokelike symptoms, reported confusion and leaning to the left. Per , patient has had generalized weakness and unable to sit up. She was slumped over in a chair and leaning towards the left. She had a fever. Stroke team initially called, but her NIH stroke scale is zero. Positive fever. Abdomen soft and nontender. Neurological examination nonfocal and nonlateralizing. Check labs. Check chest x-ray. Check UA. Patient with leukocytosis and generalized weakness. Lactic acid is normal. Patient would like to sign out AGAINST MEDICAL ADVICE. I feel she has a capacity to make this decision. She will be placed on Levaquin given her leukocytosis and upper respiratory infection type symptoms. Disposition: Signed out AGAINST MEDICAL ADVICE. Return instructions were reviewed. Lab Data Labs: Laboratory Results - last 24 hr 10/25/21 10/25/21 10/25/21 20:00 20:00 20:00 WBC 21.7 H RBC 5.76 H Hgb 15.9 H Hct 47.2 H MCV 81.9 MCH 27.6 MCHC 33.7 RDW Std Deviation 41.8 RDW Coeff of Santana 14.3 Plt Count 247 MPV 10.1 Immature Gran % (Auto) 0.600 Neut % (Auto) 80.0 H Lymph % (Auto) 11.0 L Sandoval % (Auto) 8.0 Eos % (Auto) 0.0 Baso % (Auto) 0.4 Absolute Neuts (auto) 17.4 H Absolute Lymphs (auto) 2.39 Nucleated RBC % 0 Differential Comment SEE COMMENT Diff Path Review May foll Platelet Estimate ADEQUATE RBC Morphology N CHROM Anisocytosis RARE PT 13.7 INR 1.1 APTT 31.0 Sodium 137 Potassium 3.6 Chloride 104 Carbon Dioxide 26.0 Anion Gap 7 BUN 20 H Creatinine 0.95 Estim Creat Clear Calc 44.20 Est GFR (MDRD) Af Amer 75 Est GFR (MDRD) Non-Af 62 BUN/Creatinine Ratio 21.0 H Glucose 141 H Lactic Acid Calcium 9.3 Troponin I High Sens 9 Urine Color Urine Clarity Urine pH Ur Specific [place] Urine Protein Urine Glucose (UA) Urine Ketones Urine Occult Blood Urine Nitrite Urine Bilirubin Urine Urobilinogen Ur Leukocyte Esterase Urine RBC Urine WBC Ur Squamous Epith Cells Urine Bacteria Urine Mucus 10/25/21 10/25/21 20:00 20:25 WBC RBC Hgb Hct MCV MCH MCHC RDW Std Deviation RDW Coeff of Santana Plt Count MPV Immature Gran % (Auto) Neut % (Auto) Lymph % (Auto) Sandoval % (Auto) Eos % (Auto) Baso % (Auto) Absolute Neuts (auto) Absolute Lymphs (auto) Nucleated RBC % Differential Comment Diff Path Review Platelet Estimate RBC Morphology Anisocytosis PT INR APTT Sodium Potassium Chloride Carbon Dioxide Anion Gap BUN Creatinine Estim Creat Clear Calc Est GFR (MDRD) Af Amer Est GFR (MDRD) Non-Af BUN/Creatinine Ratio Glucose Lactic Acid 1.5 Calcium Troponin I High Sens Urine Color Yellow Urine Clarity Clear Urine pH 6.5 Ur Specific [place] 1.010 Urine Protein 30 H Urine Glucose (UA) Normal Urine Ketones Negative Urine Occult Blood 25 H Urine Nitrite Negative Urine Bilirubin Negative Urine Urobilinogen Normal Ur Leukocyte Esterase Negative Urine RBC 0 SEEN Urine WBC 0 SEEN Ur Squamous Epith Cells 0 SEEN Urine Bacteria 0 SEEN Urine Mucus 0 SEEN Radiography Diagnostic Testing: Clinical Impression(s) from Imaging Studies Brain CT 10/25/21 19:51 IMPRESSION: 1. Stable exam. 2. Mild chronic microvascular deep white matter disease. 3. No mass, hemorrhage, or acute territorial infarct. 4. No radiographically significant sinus disease. N.B. : The above Results were Read Back by Phill Fried MD to CARMEN PATHAK PA, and understanding confirmed on 10/25/2021 20:13:46 (ET). Electronically Signed: Phill Fried MD at 20:14 EST , ADDENDUM: 10/25/212020 IMPRESSION: 1. Stable exam. 2. Mild chronic microvascular deep white matter disease. 3. No mass, hemorrhage, or acute territorial infarct. 4. No radiographically significant sinus disease. N.B. : The above Results were Read Back by Phill Fried MD to CARMEN PATHAK PA, and understanding confirmed on 10/25/2021 20:13:46 (ET). Electronically Signed: Phill Fried MD at 20:14 EST , Chest X-Ray 10/25/21 21:10 IMPRESSION: 1. Minimal area of pleural-parenchymal scar and atelectasis at the LEFT lung base. 2. Remaining lung zones clear, no consolidation. 3. No congestive failure. Electronically Signed: Phill Fried MD at 21:41 EST , Discharge Plan Triage Chief Complaint: Neuro S/Sx ED Provider: Carmen Pathak Dx/Rx/DC Orders Clinical Impression: Weakness, Cough, Fever, Left against medical advice Instructions: ED FUO Adult, ED Weakness (Uncertain Cause) Prescriptions: New levofloxacin 750 mg tablet 750 mg PO DAILY Qty: 4 RF: 0 No Action hydroxyzine pamoate 100 mg capsule 100 mg PO QHS RF: 0 atenolol 50 MG tablet 50 mg PO BID RF: 0 clonazepam 1 MG tablet 0.5 mg PO TID RF: 0 zolpidem 12.5 MG tablet,ext release multiphase 12.5 mg PO QHS PRN PRN (Reason: Sleep) RF: 0 amlodipine 10 MG tablet 5 mg PO DAILY RF: 0 baclofen 10 MG tablet 10 mg PO TID RF: 0 Cholecalciferol (Vitamin D3) [Vitamin D3] 5,000 UNIT capsule 1 tab PO DAILY RF: 0 atorvastatin 40 MG tablet 40 mg PO QHS Qty: 30 RF: 0 meclizine 25 MG tablet 25 mg PO TID PRN (Reason: Vertigo) Qty: 20 RF: 0 hydrocodone-acetaminophen 5-325 mg tablet 5 - 325 tab PO RF: 0 buprenorphine 20 mcg/hour patch weekly 20 mcg transdermal X1 RF: 0 Primary Care Provider: Josh Greene Referrals: Josh Greene MD [Primary Care Provider] - Activity Restrictions/Additional Instructions: You were seen for weakness and have a fever. Your blood work shows high white blood cells which means you are developing an infection. Your chest x-ray was normal and there is no UTI. At this time the cause of your fever is unknown. With how weak you are I advised being admitted to the hospital but you are leavign AGAINST MEDICAL advice. Risks include worsening symptoms, developing sepsis, end organ damage, and . I prescribed an antibiotic. Please come b ack to the ER at any time for new or worsening symptoms. Disposition Disposition: Against Medical Advice
[2021-10-25 20:17] LABS: Absolute Lymphocyte Count 2.39 X10^3/uL (0.83-4.51); Absolute Neutrophil Count 17.4 X10^3/uL (2.0-7.7); Basophil# 0.08 X10^3/uL; Basophil% 0.4 % (0-1); Hematocrit 47.2 % (37-47); Hemoglobin 15.9 g/dL (12.0-15.0); Lymphocyte # 2.39 X10^3/ul (0.83-4.51); Mean Corp Hgb Conc 33.7 g/dL (32-36); Mean Corpuscular Hgb 27.6 pg (27.0-32.0); Mean Corpuscular Volume 81.9 fL (81-99); Mean Platelet Vol. 10.1 fl (6.2-12.0); Monocyte# 1.74 X10^3/uL; NRBC Flagged by Analyzer 0 % (0-5); Neutrophil # 17.36 X10^3/uL (2.7-7.7); POSITIVE DIFFERENTIAL YES; Platelet Count 247 K/mm3 (150-450); RBC Distribution Width CV 14.3 % (11.6-14.6); RBC Distribution Width SD 41.8 fl (35.1-43.9); Red Blood Count 5.76 M/mm3 (4.2-5.4); White Blood Count 21.7 K/mm3 (4.4-11.0)
[2021-10-25 20:20] LABS: Differential Indicated SCAN CRITERIA MET
[2021-10-25 20:26] LABS: International Normalized Ratio 1.1; Prothrombin Time (Protime)PT. 13.7 SECONDS (11.7-14.9)
[2021-10-25] MEDS: Acetaminophen 500 MG Tablet 1000 MG PO (20:27)
[2021-10-25 20:31] LABS: Bacteria 0 SEEN /hpf (None Seen); Mucous, Urine 0 SEEN /hpf (<or=2+); Red Blood Cells-Urine 0 SEEN /hpf (0-5); Squamous Epithelial Cells - UA 0 SEEN /hpf (5-10); White Blood Cells 0 SEEN /hpf (0-5)
[2021-10-25 20:32] LABS: Color, Urine Yellow (Yellow); Glucose, Dipstick Normal (Normal); Ketone-Dipstick Negative (Negative); Leukocyte Esterase-Dipstick Negative /ul (Negative); Nitrite-Dipstick Negative (Negative); Occult Blood-Urine 25 /ul (Negative); Protein-Dipstick 30 mg/dl (Negative); Urine Bilirubin Dipstick Negative (Negative); Urine Clarity Clear (Clear); Urine Urobilinogen Normal (Normal); Urine pH 6.5 (5.0 - 8.0)
[2021-10-25 20:44] LABS: Anion Gap 7 (5-15); BUN 20 mg/dL (7-18); Calcium,Total 9.3 mg/dL (8.5-10.1); Chloride 104 mmol/L (98-107); Creatinine, Serum 0.95 mg/dL (0.55-1.02); EST Glomerular Filtration Rate 62 mL/min (>60); Est Glom Filt Rate - Afr Amer 75 mL/min (>60); Glucose 141 mg/dL (74-106); Potassium 3.6 mmol/L (3.5-5.1); Sodium Level 137 mmol/L (136-145); Troponin-I HS 9 pg/mL (3.0-54.0)
--- NOTE | 2021-10-25 20:55 | CM.ED ---
SW Note Referral Source: Stroke Alert Referral Reason: Stroke Alert SW responded to stroke alert. MORALES advised by the MD that this is NOT stroke alert anymore as patient has a fever. SW remains availabe if needs arise. Plan: TO be determined by MD Kamryn OQUENDO
[2021-10-25 21:03] LABS: Anisocytosis RARE; Platelet Estimate ADEQUATE (ADEQ); Red Cell Morphology N CHROM NORMAL (NORM C&C)
[2021-10-25 21:04] LABS: Lactic Acid 1.5 mmol/L (0.4-1.9)
--- NOTE | 2021-10-25 21:10 | RAD_ITS ---
INDICATION: Neuro deficit, acute, stroke suspected EXAMINATION/TECHNIQUE: X-RAY - XR Chest 1 View COMPARISON: 01/06/2017 FINDINGS: LIFE-SUPPORT AND LINES: 1. None HEART AND VESSELS: The cardiac silhouette, pulmonary vasculature have normal appearance. No evidence of congestive failure. LUNGS AND PLEURAL SPACES: Lungs are clear. No focal infiltrate, consolidation or effusions. No evidence of pneumothorax. Minimal pleural-parenchymal scar and interstitial prominence at the LEFT lung base. No consolidation. MEDIASTINUM AND HILAR REGIONS: No masses adenopathy noted. No areas of calcification. Visualized upper airway is normal in position. BONY ELEMENTS: No acute bony changes noted. RAD/Chest 1 View IMPRESSION: 1. Minimal area of pleural-parenchymal scar and atelectasis at the LEFT lung base. 2. Remaining lung zones clear, no consolidation. 3. No congestive failure. Electronically Signed: Phill Fried MD at 21:41 EST ,
--- NOTE | 2021-10-25 21:40 | ED.RN ---
Patient verbalized to CLIF Morales that she would like to leave AMA. CLIF Morales has explained to patient and the risks of leaving AMA and benefits of staying for further testing. Patient and expressed concern about patient not being able to sleep in hospitals and would like to sleep in her own bed. AMA paperwork signed by patient, this RN, and CLIF Morales. Copy has been given to patients for her own medical records. RN verbalized to and patient that she can still return to ED if symptoms are worsening or if she would like to be re-evaluated. Neither the patient or spouse has further questions at this time.
[2021-10-25] MEDS: levoFLOXacin 750 MG Tablet PO (21:49)
[2021-10-29 12:40] LABS: Pathologist Review Reviewed
== END 2021-10-25 21:52 | disposition left against medical advice (07) ==
PROVIDERS: Emergency Provider Physician Assistant; PCP Family Medicine; Visit Provider Physician Assistant
DX: R53.1 Weakness (principal); J44.9 Chronic obstructive pulmonary disease, unspecified; R50.9 Fever, unspecified; D72.829 Elevated white blood cell count, unspecified; R05.9 Cough, unspecified; I10 Essential (primary) hypertension; E78.5 Hyperlipidemia, unspecified; F41.9 Anxiety disorder, unspecified; R41.82 Altered mental status, unspecified; F17.210 Nicotine dependence, cigarettes, uncomplicated; M19.90 Unspecified osteoarthritis, unspecified site; F32.A Depression, unspecified; Z79.899 Other long term (current) drug therapy
CPT/HCPCS: 70450; 71045; 80048; 81001; 83605; 84484; 85025; 85610; 85730; 87426; 93005; 96360; 99285; J7030; P9612; A4216

== ENCOUNTER 2021-10-31 12:56 | Outpatient (CLI) | payer MEDICARE, OTHER, SELFPAY ==
[2021-10-31 14:02] LABS: Cholesterol 220 mg/dL (200); High Density Lipoprotein 27 mg/dL; Triglycerides 310 mg/dL; Very Low Density Lipoprotein 62 mg/dL (5-40)
== END 2021-10-31 23:59 | disposition home or self-care (01) ==
PROVIDERS: PCP Family Medicine; Referring Provider Family Medicine; Visit Provider Family Medicine
DX: G45.9 Transient cerebral ischemic attack, unspecified (principal)
CPT/HCPCS: 36415; 80061

== ENCOUNTER 2021-11-07 12:54 | Outpatient (CLI) | payer MEDICARE, OTHER, SELFPAY ==
--- NOTE | 2021-11-07 13:07 | CDU_ITS ---
Reason For Study: TIA Rt. Velocities/BP Lt. Velocities/BP Prox CCA 76/9.5 cm/sec. Prox CCA 82.7/13.3 cm/sec. Mid CCA 74.7/9.5 cm/sec. Mid CCA 90/15.1 cm/sec. Dist CCA 76/14.7 cm/sec. Dist CCA 84.5/15.1 cm/sec. Prox ICA 70/17 cm/sec. Prox ICA 79/17 cm/sec. Mid ICA 64.5/15.2 cm/sec. Mid ICA 73.6/15.2 cm/sec. Dist ICA 91.9/15.2 cm/sec. Dist ICA 66.3/18.8 cm/sec. Rt. ICA/CCA = 1.21. Lt. ICA/CCA = 0.93. Prox ECA 126.6/7.9 cm/sec. Prox ECA 108.3/7.9 cm/sec. Rt. Vert. 86.4/18.8 cm/sec. Lt. Vert. 100.9/15.1 cm/sec. Right Extracranial There is homogeneous, smooth atherosclerotic plaque noted in the right common carotid artery. There is heterogeneous, irregular atherosclerotic plaque noted in the right internal carotid artery. There is intimal thickening but no significant atherosclerotic plaque noted in the right external carotid artery. Antegrade flow is noted in the right vertebral artery. Left Extracranial There is homogeneous, smooth atherosclerotic plaque noted in the left common carotid artery. There is heterogeneous, irregular atherosclerotic plaque noted in the left internal carotid artery. There is intimal thickening but no significant atherosclerotic plaque noted in the left external carotid artery. Antegrade flow is noted in the left vertebral artery. Procedure Carotid Duplex [id number]. This is a Carotid Duplex examination using B-mode, color flow and specral Doppler. Exam performed in department. VL/Carotid Duplex Ultrasound Interpretation Summary Minimal irregular plaque at the proximal right internal carotid artery with les s than 50% stenosis Less than 50% stenosis right external carotid artery Irregular calcific plaque with shadowing at the proximal left internal carotid artery with less than 50% stenosis. Less than 50% stenosis left external carotid artery Patent and antegrade vertebrals bilaterally Ordering Physician: Josh Greene Referring Physician: Josh Greene Performed By: Stella Fernández RVT
== END 2021-11-07 23:59 | disposition home or self-care (01) ==
PROVIDERS: PCP Family Medicine; Referring Provider Family Medicine; Visit Provider Family Medicine
DX: G45.9 Transient cerebral ischemic attack, unspecified (principal); I65.23 Occlusion and stenosis of bilateral carotid arteries
CPT/HCPCS: 93880

== ENCOUNTER 2021-12-26 15:01 | Outpatient (CLI) | payer MEDICARE, OTHER, SELFPAY | END 2021-12-26 23:59 | disposition home or self-care (01) | LOC: LABSPEC 15:03 | PROVIDERS: PCP Family Medicine; Visit Provider Nurse Practitioner Family | DX: N39.0 Urinary tract infection, site not specified (principal) | CPT/HCPCS: 87086; 87088; 87186 ==

== ENCOUNTER → 2022-01-07 | Outpatient (CLI) | payer MEDICARE, OTHER, SELFPAY ==
--- NOTE | 2022-01-07 14:23 | RAD_ITS ---
STUDY: X-RAY - PELVIS AND LEFT HIP REASON FOR EXAM: Female, 71 years old. Left leg and groin pain. TECHNIQUE: 3 views of the pelvis and hip. COMPARISON: 02/10/2017. FINDINGS: There is a non-specific bowel gas pattern. Stable phleboliths and vascular calcification. Osteopenia. Normal bilateral iliac wings, sacroiliac joints and visualized sacrum. Normal bilateral superior and inferior pubic rami. Normal pubic symphysis. Normal bilateral ischial tuberosities. Normal visualized femoral head. Normal acetabulum. Normal hip joint. RAD/HIP, UNI W/ Pelvis 2-3 Views IMPRESSION: Osteopenia. No other abnormality present. Electronically Signed: Buddy Lowery MD at 11:19 EDT ,
[2022-01-07 15:31] LABS: Hematocrit 45.4 % (37-47); Hemoglobin 14.7 g/dL (12.0-15.0); Mean Corp Hgb Conc 32.4 g/dL (32-36); Mean Corpuscular Hgb 27.3 pg (27.0-32.0); Mean Corpuscular Volume 84.2 fL (81-99); Mean Platelet Vol. 10.1 fl (6.2-12.0); Platelet Count 316 K/mm3 (150-450); RBC Distribution Width CV 14.8 % (11.6-14.6); RBC Distribution Width SD 45.1 fl (35.1-43.9); Red Blood Count 5.39 M/mm3 (4.2-5.4); White Blood Count 11.6 K/mm3 (4.4-11.0)
== END | disposition home or self-care (01) ==
LOC: MTLAB 14:21
PROVIDERS: PCP Family Medicine; Referring Provider Registered Nurse; Visit Provider Registered Nurse
DX: M79.605 Pain in left leg (principal); D75.1 Secondary polycythemia
CPT/HCPCS: 36415; 73502; 85027

== ENCOUNTER → 2022-01-21 | Outpatient (CLI) | payer MEDICARE, OTHER, SELFPAY ==
--- NOTE | 2022-01-21 11:07 | ART_ITS ---
Reason For Study: LLE pain Procedure A bilateral lower extremity continuous wave Doppler with analog waveform analysis and ankle brachial indexes. Left Segmental Pressures Left brachial= 163mmHg. Left posterior tibial artery = 100mmHg. Left dorsalis pedis artery = 95mmHg. The left dorsalis pedis waveforms are monophasic. The left posterior tibial artery waveforms are monophasic. Right Segmental Pressures Right brachial= 169mmHg. Right posterior tibial artery = 177mmHg. Right dorsalis pedis artery = 168mmHg. The right dorsalis pedis waveforms are triphasic. The right posterior tibial artery waveforms are triphasic. Indices The right ankle brachial index by the dorsalis pedis is .99. The right ankle brachial index by the posterior tibial artery is 1.05. The left ankle brachial index by the dorsalis pedis is .56. The left ankle brachial index by the posterior tibial artery is .59. VL/Ankle Brachial Index Interpretation Summary Triphasic Doppler waveforms are noted at ankle level on the right. Monophasic D oppler waveforms are noted at ankle level on the left. Pulse-volume recordings appear diminished at ankle level on the left. The resting right ankle-brachial index is normal. The resting left ankle- brachial index is moderately diminished. Arterial flow appears normal at ankle level on the right. There is evidence of moderate arterial occlusive disease at ankle level on the left. Ordering Physician: Keena Mayes Performed By: Janes Dominguez RVT
== END | disposition home or self-care (01) ==
PROVIDERS: PCP Family Medicine; Visit Provider Registered Nurse
DX: M79.605 Pain in left leg (principal); I79.8 Other disorders of arteries, arterioles and capillaries in diseases classified elsewhere; Z87.891 Personal history of nicotine dependence; Z82.49 Family history of ischemic heart disease and other diseases of the circulatory system
CPT/HCPCS: 93922

== ENCOUNTER → 2022-01-24 | Outpatient (CLI) | payer MEDICARE, OTHER, SELFPAY ==
--- NOTE | 2022-01-24 13:54 | RAD_ITS ---
STUDY: X-RAY - LUMBAR SPINE REASON FOR EXAM: Female, 72 years old. Low back pain TECHNIQUE: 3 view(s) of the lumbar spine were obtained. COMPARISON: None FINDINGS: Normal lumbar lordosis. There is no substantial scoliosis. There is a normal alignment of the vertebrae. There is multilevel endplate spondylosis of the lumbar vertebrae. There is multi-level degenerative disc disease with multi-level disc space narrowing. There is no demonstrated fracture. There is atherosclerotic calcification of the abdominal aorta without a demonstrated aneurysm. RAD/Lumbar Spine 2 or 3 Views IMPRESSION: Degenerative changes of the spine, as detailed above. Electronically Signed: Cortez Hatch MD at 8:32 EDT ,
== END | disposition home or self-care (01) ==
LOC: MTRAD 13:51
PROVIDERS: PCP Family Medicine; Referring Provider Anesthesiology Pain Medicine; Visit Provider Anesthesiology Pain Medicine
DX: M96.1 Postlaminectomy syndrome, not elsewhere classified (principal)
CPT/HCPCS: 72100

== ENCOUNTER → 2022-02-05 | Outpatient (CLI) | payer MEDICARE, OTHER, SELFPAY ==
--- NOTE | 2022-02-05 11:30 | MRI_ITS ---
STUDY: MRI THORACIC SPINE WITHOUT CONTRAST REASON FOR EXAM: Female, 72 years old. thoracic radiculopathy, mid back pain TECHNIQUE: Standardized fat and water weighted pulse sequences were obtained in the sagittal and axial planes. COMPARISON: 04/11/2015 FINDINGS: Normal kyphosis of the thoracic spine. There is no substantial scoliosis. No evidence for acute fracture or subluxation. No evidence for intramedullary bone marrow edema or other nonspecific infiltrative marrow process. There is multilevel disc degeneration and mild multilevel narrowing of the disc spaces. There is tiny central disc protrusion at T11-12 without significant spinal stenosis There is a tiny left paracentral disc protrusion at T7-8 mildly narrowing the central canal. There is a small right paracentral disc protrusion at T6-7 mildly impinging upon the cord. Normal visualized thoracic cord. Normal conus medullaris that terminates at T12-L1 The soft tissue structures are unremarkable. There is very slight interval progression of the disc disease when compared with previous study MRI/Spine Thoracic (Routine) IMPRESSION: Spondylosis and multilevel degenerative changes with disc degeneration. Disc protrusions at T11-12, T7-8 and most pronounced at T6-7 mildly narrowing the central canal and impinging upon the cord. Electronically Signed: Pieter Jane MD at 21:10 EDT ,
== END | disposition home or self-care (01) ==
LOC: MRI 11:07
PROVIDERS: PCP Family Medicine; Referring Provider Anesthesiology Pain Medicine; Visit Provider Anesthesiology Pain Medicine
DX: M54.14 Radiculopathy, thoracic region (principal)
CPT/HCPCS: 72146

== ENCOUNTER → 2022-02-08 | Outpatient (CLI) | payer MEDICARE, OTHER, SELFPAY ==
--- NOTE | 2022-02-08 14:46 | CT_ITS ---
STUDY: CTA OF THE ABDOMINAL AORTA AND BILATERAL LOWER EXTREMITIES REASON FOR EXAM: Female, 72 years old. RUNOFF claudication RADIATION DOSAGE (If Supplied By Facility): CTDIvol = ( 8.04 ) mGy, DLP = ( 1007.10 ) mGycm TECHNIQUE: Axial CT angiography multi-detector data acquisition was obtained from the to the following intravenous administration of IV 100mL Isovue-370. Axial images and MIP images were reconstructed from the axial data set. Post-processing of the angiographic images was performed, with multiplanar reformation and 3D reconstruction. Individualized dose optimization techniques were used for this CT. TECHNICAL QUALITY: Good COMPARISON: None. Descriptors of Narrowing: None (0%) Mild (< 50%) Moderate (50-70%) Severe (70-90%) Subtotal/Total Occlusion (90-100%) Non-Evaluable (technically non-diagnostic FINDINGS: Abdominal aorta: There is mild diffuse narrowing. Celiac and superior mesenteric arteries: There is mild diffuse narrowing. Inferior mesenteric artery: No demonstrated narrowing. Right renal artery(arteries): No demonstrated narrowing. Left renal artery(arteries): No demonstrated narrowing. Right common iliac artery: There is mild diffuse narrowing. Right external iliac artery: There is mild diffuse narrowing. Right internal iliac artery: There is mild diffuse narrowing. Left common iliac artery: There is mild diffuse narrowing. Left external iliac artery: There is mild diffuse narrowing. Left internal iliac artery: There is mild diffuse narrowing. RIGHT LOWER EXTREMITY Right common femoral artery: There is mild diffuse narrowing. Right profundus femoris: No demonstrated narrowing. Right superficial femoral: Focal calcified plaque at the adductor canal produces a mild stenosis. Right popliteal artery: No demonstrated narrowing. Right tibioperoneal trunk: No demonstrated narrowing. Right anterior tibial artery: No demonstrated narrowing. Right posterior tibial artery: No demonstrated narrowing. Right peroneal artery: No demonstrated narrowing. LEFT LOWER EXTREMITY Left common femoral artery: There is mild diffuse narrowing. Left profundus femoris: No demonstrated narrowing. Left superficial femoral: Focal plaque at the adductor canal producing mild stenosis. Left popliteal artery: No demonstrated narrowing. Left tibioperoneal trunk: No demonstrated narrowing. Left anterior tibial artery: No demonstrated narrowing. Left posterior tibial artery: No demonstrated narrowing. Left peroneal artery: No demonstrated narrowing. CT/CTA Abd w/Runoff W/WO Contrast IMPRESSION: 1. Mild amount plaque in the abdominal aorta but no aortic stenosis or abdominal aortic aneurysm. 2. Mild stenoses of the origins of the celiac axis and superior mesenteric artery but no chronic mesenteric ischemia or renal artery stenosis. 3. Mildly diseased iliac arteries and common femoral arteries without focal significant stenosis. 4. Mild stenoses at the adductor canal of the superficial femoral arteries bilaterally with no severe stenosis. Widely patent popliteal arteries and three-vessel runoff bilaterally. Electronically Signed: Phill Macario MD at 7:10 EDT ,
[2022-02-08 15:05] LABS: CREATININE FINGERSTICK < 0.9 mg/dL (0.55-1.02); EGFR FINGERSTICK > 60.0000 mL/min (>60)
== END | disposition home or self-care (01) ==
LOC: CT 14:43
PROVIDERS: PCP Family Medicine; Referring Provider Surgery Vascular Surgery; Visit Provider Surgery Vascular Surgery
DX: I70.213 Atherosclerosis of native arteries of extremities with intermittent claudication, bilateral legs (principal); I77.1 Stricture of artery; I70.0 Atherosclerosis of aorta; F41.9 Anxiety disorder, unspecified; I10 Essential (primary) hypertension; F17.200 Nicotine dependence, unspecified, uncomplicated; E78.00 Pure hypercholesterolemia, unspecified; M81.0 Age-related osteoporosis without current pathological fracture
CPT/HCPCS: 75635; Q9967

== ENCOUNTER → 2022-02-20 | Outpatient (CLI) | payer MEDICARE, OTHER, SELFPAY ==
[2022-02-20 15:30] LABS: Amphetamine Urine VISTA NEGATIVE (<1000 ng/mL); Barbiturate Urine VISTA NEGATIVE (< 200 ng/mL); Benzodiazepine Urine VISTA NEGATIVE (< 200 ng/mL); Cocaine Urine VISTA NEGATIVE (< 300 ng/mL); Ecstacy Urine VISTA NEGATIVE (< 500 ng/mL); Methadone Urine VISTA NEGATIVE (< 300 ng/mL); PCP Urine VISTA NEGATIVE (< 25 ng/mL); THC Urine VISTA NEGATIVE (< 50 ng/mL); Vista UDS pH Range 5
== END | disposition home or self-care (01) ==
PROVIDERS: PCP Family Medicine; Referring Provider Anesthesiology Pain Medicine; Visit Provider Anesthesiology Pain Medicine
DX: F11.20 Opioid dependence, uncomplicated (principal)
CPT/HCPCS: 80307

== ENCOUNTER → 2022-06-21 | Outpatient (CLI) | payer MEDICARE, OTHER, SELFPAY ==
--- NOTE | 2022-06-21 12:58 | RAD_ITS ---
STUDY: X-RAY CHEST REASON FOR EXAM: Female, 72 years old. chest pain TECHNIQUE: XR Chest 2 Views COMPARISON: 10.25.21 FINDINGS: There is atherosclerotic calcification of the aortic arch with tortuosity. There are diffuse degenerative changes of the visualized thoracic spine. There is degenerative osteoarthritis of the bilateral shoulders. There is no demonstrated pleural abnormality. Normal size heart. Normal mediastinum and darlyn. Normal visualized pulmonary arteries. There is no demonstrated abnormality of the visualized soft tissue structures of the upper abdomen. RAD/Chest PA and Lateral IMPRESSION: There are no acute findings. Electronically Signed: Cooper Thrasher MD at 16:49 EDT ,
[2022-06-21 13:37] LABS: Absolute Lymphocyte Count 3.08 X10^3/uL (0.83-4.51); Absolute Neutrophil Count 7.2 X10^3/uL (2.0-7.7); Basophil# 0.05 X10^3/uL; Basophil% 0.4 % (0-1); Eosinophil# 0.24 X10^3/uL; Eosinophils% 2.1 % (0-5); Hematocrit 46.3 % (37-47); Lymphocyte # 3.08 X10^3/ul (0.83-4.51); Lymphocyte % 27.5 % (19-41); Mean Corp Hgb Conc 32.4 g/dL (32-36); Mean Corpuscular Hgb 27.5 pg (27.0-32.0); Mean Corpuscular Volume 84.8 fL (81-99); Mean Platelet Vol. 9.3 fl (6.2-12.0); Monocyte% 5.4 % (0-10); NRBC Flagged by Analyzer 0 % (0-5); Neutrophil # 7.16 X10^3/uL (2.7-7.7); Neutrophil % 64.2 % (47-70); Platelet Count 312 K/mm3 (150-450); RBC Distribution Width CV 14.1 % (11.6-14.6); RBC Distribution Width SD 43.1 fl (35.1-43.9); Red Blood Count 5.46 M/mm3 (4.2-5.4); White Blood Count 11.2 K/mm3 (4.4-11.0)
[2022-06-21 14:00] LABS: Anion Gap 3 (5-15); BUN 20 mg/dL (7-18); BUN/Creat Ratio 21.3 RATIO (10-20); Calcium,Total 9.5 mg/dL (8.5-10.1); Chloride 108 mmol/L (98-107); Creatinine, Serum 0.94 mg/dL (0.55-1.02); EST Glomerular Filtration Rate 63 mL/min (>60); Est Glom Filt Rate - Afr Amer 76 mL/min (>60); Glucose 94 mg/dL (74-106); Potassium 4.5 mmol/L (3.5-5.1); Sodium Level 141 mmol/L (136-145)
[2022-06-21 14:05] LABS: Prothrombin Time (Protime)PT. 13.2 SECONDS (11.7-14.9)
[2022-06-21 14:07] LABS: Partial Thromboplast Time 28.3 Seconds (24.1-36.2)
== END | disposition home or self-care (01) ==
LOC: RAD 12:57
PROVIDERS: PCP Family Medicine; Referring Provider Internal Medicine Cardiovascular Disease; Visit Provider Internal Medicine Cardiovascular Disease
DX: I20.9 Angina pectoris, unspecified (principal); I73.9 Peripheral vascular disease, unspecified; R00.2 Palpitations; E78.00 Pure hypercholesterolemia, unspecified; I10 Essential (primary) hypertension; K21.9 Gastro-esophageal reflux disease without esophagitis; D75.1 Secondary polycythemia; Z95.828 Presence of other vascular implants and grafts
CPT/HCPCS: 71046; 80048; 85025; 85610; 85730

== ENCOUNTER → 2022-06-28 | Outpatient (CLI) | payer MEDICARE, OTHER, SELFPAY ==
--- NOTE | 2022-06-28 09:08 | ECHOD_ITS ---
Reason For Study: Chest pain Procedure This was a 2D Doppler, Color Flow transthoracic echocardiogram. The study was technically difficult. Exam performed in department. Left Ventricle Normal LV size. Left ventricular systolic function is normal. The estimated ejection fraction is 65 %. No evidence for diastolic dysfunction. No regional wall motion abnormalities noted. Right Ventricle Normal RV size. Normal systolic function. Atria Normal left atrium. Normal right atrium. No doppler evidence for ASD. Mitral Valve There is no mitral annular calcification. Normal mitral valve. Mild (1+) mitral valve insufficiency. Tricuspid Valve Normal tricuspid valve. Trivial tricuspid valve insufficiency. Right ventricular systolic pressure estimated to be 24 mmHg. Aortic Valve Trisinus/trileaflet aortic valve. Normal aortic valve. Pulmonic Valve The pulmonic valve is not well visualized. Great Vessels Normal sized aortic root. Pericardium/Pleural No pericardial effusion. MMode/2D Measurements & Calculations LVIDd: 3.8 cm IVSd: 1.1 cm Ao root diam: 2.8 cm LVIDs: 2.4 cm LVPWd: 0.86 cm RVDd: 2.8 cm FS: 38.0 % LAV(MOD-bp): 33.3 ml LVAd ap4: 18.8 cm2 SV(MOD-sp4): 30.0 ml LAV(MOD-bp) Indexed: 20.2 ml/m2 LVLd ap4: 6.9 cm LAV(MOD-sp2): 41.9 ml EDV(MOD-sp4): 43.7 ml LAV(MOD-sp4): 22.7 ml EDV(sp4-el): 43.7 ml LVAs ap4: 9.4 cm2 LVLs ap4: 5.9 cm ESV(MOD-sp4): 13.7 ml ESV(sp4-el): 12.8 ml EF(MOD-sp4): 68.7 % EF(sp4-el): 70.8 % SV(sp4-el): 31.0 ml LA A4 area: 11.0 cm2 LA dimension(2D): 3.4 cm RA A4 area: 11.0 cm2 Time Measurements MV dec time: 0.19 sec Doppler Measurements & Calculations MV E max solo: 85.7 cm/sec Lat Peak E' Solo: 8.0 cm/sec Med Peak E' Solo: 6.3 cm/sec MV A max solo: 70.2 cm/sec E/E' lat: 10.7 E/E' med: 13.6 MV E/A: 1.2 Ao V2 max: 118.4 cm/sec LV V1 max: 79.9 cm/sec MV dec slope: 445.9 cm/sec2 Ao max P.6 mmHg LV V1 max P.6 mmHg Ao V2 mean: 86.8 cm/sec LV V1 mean P.6 mmHg Ao mean P.4 mmHg LV V1 mean: 60.2 cm/sec Ao V2 VTI: 32.4 cm LV V1 VTI: 21.8 cm PA V2 max: 59.2 cm/sec TR max solo: 228.4 cm/sec TR max P.9 mmHg ECHO/Echo Complete Interpretation Summary The study was technically difficult. Left ventricular systolic function is normal. The estimated ejection fraction is 65 %. Mild (1+) mitral valve insufficiency. Trivial tricuspid valve insufficiency. Right ventricular systolic pressure estimated to be 24 mmHg. No evidence for diastolic dysfunction. Ordering Physician: Josh Arroyo Referring Physician: Josh Greene Performed By: Mariela Hanley RDCS
== END | disposition home or self-care (01) ==
LOC: CVS 09:07
PROVIDERS: PCP Family Medicine; Referring Provider Internal Medicine Cardiovascular Disease; Visit Provider Internal Medicine Cardiovascular Disease
DX: R07.9 Chest pain, unspecified (principal); I70.0 Atherosclerosis of aorta; I20.9 Angina pectoris, unspecified; R00.2 Palpitations; E78.00 Pure hypercholesterolemia, unspecified; I10 Essential (primary) hypertension
CPT/HCPCS: 93306

== ENCOUNTER 2022-07-02 13:00 | Observation (INO) | payer MEDICARE, OTHER, SELFPAY ==
[2022-07-01 07:25] VITALS: BMI 26.6
--- NOTE | 2022-07-01 12:40 | PCM.HP.BLA ---
History and Physical Date of Admission: 07/02/22 [facility] [address] [place], [place] [address] OFFICE VISIT Date of Service:? 06/21/22 MR#: [id number] Acct: [id number] Name:KORTNEY PANTOJA Rep #: [id number] : 1950 ?Provider: Dr. Josh Arroyo MD Age/Sex:? 72/F Location: [facility] [place] Status: Signed HPI HPI History of Present Illness Surgical H&P: Yes Details: This is a 72-year-old white female who presents today for outpatient cardiovascular consultation based upon concerns of chest discomfort concerning for angina pectoris superimposed upon a history of underlying PAD status post left iliac artery stent, hyperlipidemia, and hypertension.? She states that she does have exertional chest discomfort which she describes as chest tightness which radiates to her left shoulder and left upper extremity.? It can be associated with a sensation of not having as much breath and feeling potentially more tired and fatigued.? She has not necessarily noted associated nausea, emesis, or becoming diaphoretic.? There has been no orthopnea or PND or peripheral pitting edema.? She has not had any near-syncope or syncope. She does note that she has had palpitations in the past.? She states they have been relatively well controlled before.? However she believes they are increasing which she believes may be a concern for progression of underlying cardiovascular disease. She has been diagnosed with PAD.? In February of this year she underwent a left iliac artery stent in [facility] in [place], [place].? She states she has been very concerned based upon her risk factors and her symptoms and taking into consideration her family history were 2 brothers also were diagnosed with PAD and subsequently were diagnosed with CAD ending in coronary artery bypass grafting surgery. She has undergone previous noninvasive cardiovascular evaluation in the past.? This is included transthoracic echocardiogram and a pharmacologic stress nuclear imaging study.? She has never undergone diagnostic cardiac catheterization.? Her studies were noted below. Today she had an ECG.? She was noted to be in sinus rhythm with an incomplete right bundle branch block pattern. Intake Vital Signs ? 10/25/2219:02 06/21/2211:28 06/21/2211:37 Height 5 ft 2 in 5 ft 2 in 5 ft 2 in Weight: ? ? 146 lb 7 oz BMI ? ? 26.7 BP ? ? 124/82 H Blood Pressure Location ? ? Lt brachial Position ? ? Sitting Respiration ? ? 18 Pulse ? ? 64 Pulse Source ? ? 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 Accompanied by: Self Allergies prednisone Allergy (Unknown, Verified 06/21/22 11:37) Hivespregabalin [From Lyrica] Allergy (Unknown, Verified 06/21/22 11:37) Facial and hand swellingerythromycin base Adverse Reaction (Verified 06/21/22 11:37) Vomitinggabapentin Adverse Reaction (Verified 06/21/22 11:37) BtzyxFkqmeik-DDK-XyD Reductase Inhibitor [Kwdjlsr-Aps-Rwb Reductase Inhibitor] Adverse Reaction (Verified 06/21/22 11:37) Unknown Medications atenolol 50 mg tablet 50 mg PO BID heart rate 10/17/14 [History Confirmed 06/21/22] zolpidem 12.5 mg tablet,extended release,multiphase 12.5 mg PO QHS PRN PRN Sleep 02/03/18 [History Confirmed 06/21/22] hydroxyzine pamoate 100 mg capsule 100 mg PO QHS sleep 05/21/18 [History Confirmed 06/21/22] buprenorphine 20 mcg/hour weekly transdermal patch 20 mcg transdermal X1 10/25/21 [History Confirmed 06/21/22] amlodipine 5 mg tablet 5 mg PO DAILY 06/17/22 [History Confirmed 06/21/22] cholecalciferol (vitamin D3) 1,250 mcg (50,000 unit) tablet 1,250 mcg PO QWEEK 06/17/22 [History Confirmed 06/21/22] clonazepam 0.5 mg tablet 0.5 mg PO TID PRN 06/17/22 [History Confirmed 06/21/22] clopidogrel 75 mg tablet 75 mg PO DAILY 06/17/22 [History Confirmed 06/21/22] aspirin 81 mg tablet,delayed release 81 mg PO DAILY #1 TAB 06/21/22 [Rx Confirmed 06/21/22] atorvastatin 10 mg tablet 10 mg PO QHS 06/21/22 [History Confirmed 06/21/22] baclofen 10 mg tablet 10 mg PO Q6H spasms 06/21/22 [History Confirmed 06/21/22] hydrocodone-acetaminophen 5-325mg 5mg-325mg 5 - 325 tab PO TID 06/21/22 [History Confirmed 06/21/22] PFSH Medical History? Anxiety disorder Arthritis Atherosclerosis of aorta Atherosclerosis of [place] arteries of extremities with intermittent claudication, bilateral legs Chronic pain COPD (chronic obstructive pulmonary disease) Depression Essential hypertension GERD (gastroesophageal reflux disease) Hyperinflation of lungs Hyperlipidemia Hypertension PAD (peripheral artery disease) Palpitations Polycythemia secondary to smoking Pure hypercholesterolemia Tobacco dependence Vocal cord dysfunction Surgical History? History of right breast biopsy Hx of cholecystectomy Status post insertion of iliac artery stent (~02/28/22) Family History?(Updated 06/21/22 @ 11:47 by Patricia Valdivia) Mother Arthritis Hypertension AsthmaFather?? Lung cancer Heart disease,? Onset Age: 52 Diabetes HypertensionBrother CAD (coronary artery disease) History of coronary artery bypass surgery PAD (peripheral artery disease)Brother CAD (coronary artery disease) History of coronary artery bypass surgery PAD (peripheral artery disease) Social History? Smoking Status:? Current every day smoker tobacco type: cigarettes second hand exposure:? Yes alcohol intake:? current alcohol intake frequency: holidays/special occasions only substance use type:? does not use caffeine:? Yes what type of physical activity do you participate in:? walking frequency:? 3-4 times per week seatbelt use:? always ROS Const Const: Positive for fatigue and weakness; Negative for body ache, fever(s), headache(s), chills, frequent falls, night sweats, daytime sleepiness, difficulty sleeping, excessive sweating, weight gain, weight loss, increased appetite, poor appetite, anorexia or other Eyes Eyes: Negative for blurry vision or double vision ENT ENT: Positive for dizziness (occasional random) and balance problems; Negative for headache(s) Cardio Chest Pain: Yes Character: tightness Onset: exercise Location: mid sternal Duration: brief Relieving: rest Palpitations: Yes (rare; controlled with medication) Edema: Bilateral (ankles by evening) Muscle aches with walking: None Resp Respiratory: Negative for SOB with activity, SOB at rest, SOB orthopnea\SOB lying down, Cough, Coughing up blood/hemoptysis, chest congestion, pain on inspiration, snoring, stridor, wheezing, crackles, paroxysmal nocturnal dyspnea or other Musc Musc: Positive for balance problems; Negative for muscle aches/ myalgia, muscle weakness or joint pain Neuro Neuro: Positive for dizziness (occasional random), lightheadedness (occasional random) and weakness; Negative for near syncope, syncope, orthostatic symptoms, frequent falls, headache(s), confusion, memory loss, restless legs, blurry vision, double vision, vertigo, seizures, lack of coordination or other Endo Endo: Positive for fatigue; Negative for excessive sweating Cardiology Exam Const Appearance: cooperative, healthy appearing, comfortable, no acute distress and well developed Nutritional Appearance: overweight Orientation: alert, awake and oriented x3 Head Head: normal to inspection, normocephalic and atraumatic Ears: hearing grossly normal bilaterally Nose: external nose normal Face and Sinus: face symmetric Eyes Eyelids: eyelids normal Conjunctivae: conjunctivae normal Pupils: PERRL EOM: EOM intact bilaterally Neck Neck: normal visual inspection and full ROM Carotids: normal carotid upstroke Chest Chest inspection: normal inspection of the chest, symmetric chest movement and normal respiratory effort Auscultation: Bilateral: Clear to Auscultation Cardio Palpation: normal PMI Rate: regular rate Rhythm: regular rhythm Heart sounds: S1 normal and S2 normal GI GI: normal to inspection, soft and bowel sounds present Neuro General: patient alert, patient awake, patient oriented x3 and moves all extremities Skin Skin: no rashes or lesions noted Extremities Pulses: Normal: Right Femoral Pulse, Right Radial Pulse and Left Radial Pulse and Diminished: Left Femoral Pulse, Right Dorsalis Pedis Pulse, Left Dorsalis Pedis Pulse, Right Posterior Tibial Pulse and Left Posterior Tibial Pulse Lower Extremity Edema: None: Bilateral Psych Psychological: normal affect Supplemental Info Supplemental Information Transthoracic echocardiogram: 01-12-2015 Interpretation Summary The estimated ejection fraction is 65 %. Unable to estimate RV systolic pressure. Normal diastology for age. A complete two-dimensional transthoracic echocardiogram was performed (2D, M-mode, Doppler and color flow Doppler). There is no comparison study available. DATE OF SERVICE:? 01/07/2017 EXERCISE TOLERANCE TEST: The patient underwent pharmacologic (regadenoson) evaluation with a peak heart rate of 109 beats per minute (69% predicted maximum heart rate) and a peak blood pressure of 164/82 mmHg. The baseline ECG demonstrated normal sinus rhythm.? The peak pharmacologic ECG demonstrated no obvious ECG changes. There were no cardiac dysrhythmias pretest, during pharmacologic infusion, or recovery. There was no complaint of chest discomfort during pharmacologic infusion or recovery. The examination was discontinued secondary to completion of protocol. IMPRESSION: 1.? Pharmacologic (regadenoson) evaluation. 2.? Peak pharmacologic ECG with no obvious ECG changes. 3.? Nuclear images pending. MYOCARDIAL PERFUSION IMAGING STUDY: TECHNIQUE: The patient was injected with 11.4 mCi of Tc99m Cardiolite and subsequently rest SPECT Cardiolite nuclear imaging was obtained in the horizontal long, vertical long, and short axes views.? The patient underwent pharmacologic (regadenoson) evaluation with a peak heart rate of 109 beats per minute (69% predicted maximum heart rate) and a peak blood pressure of 164/82 mmHg.? The patient was injected with 33.7 mCi of Tc99m Cardiolite and subsequently stress SPECT Cardiolite nuclear imaging was obtained in the horizontal long, vertical long, and short axes views.? A gated Cardiolite study at peak stress was obtained. INTERPRETATION: Rest and stress SPECT Cardiolite nuclear imaging status post realignment, normalization, and attenuation correction demonstrates the appearance of an area of extracardiac/hepatic and gastrointestinal tracer uptake near the inferolateral segments.? Otherwise, there appears to be relative uniform tracer uptake.? There is end systolic thickening and brightening.? The gated Cardiolite study demonstrates myocardial thickening and inward wall motion.? The reported LVEF is 90%.? There are no myocardial perfusion changes noted on the resting or stress polar map images. IMPRESSION: 1.? Rest and stress SPECT Cardiolite nuclear imaging demonstrate relative uniform tracer uptake and myocardial perfusion appearing within normal limits. 2.? The gated Cardiolite study reports an LVEF of 90%. Labs: ?? ? LDL Cholesterol 131 mg/dL (0-130)? H ?? ? HDL Cholesterol 27 mg/dL (40-) L ?? ? Triglycerides 310 mg/dL (-199) H ?? ? VLDL Cholesterol 62 mg/dL (5-40)? H Diagnostics: ?? ? Electrocardiogram ? Echocardiogram ? Stress Test NM ? Abdomen US ? Chest X-Ray ? Pulmonary: ?? ? No Data to Display Assessment and Plan Assessment and Plan (1) Angina pectoris: ?Status:?Acute ?Plan: She does have symptoms concerning for angina pectoris. She does have cardiovascular risk factors. She has undergone previous noninvasive studies in the past. Based upon her symptoms and her concern as to how they are progressing superimposed upon her risk factors including her family history it would not be unreasonable to reassess her from a cardiac standpoint. This would be with a transthoracic echocardiogram to evaluate for any obvious new left ventricular wall motion abnormalities or diminished LV systolic function. It would also include a diagnostic cardiac catheterization to evaluate for CAD which may require revascularization therapy.? The procedure and risk were discussed with her.? She was agreeable to this approach. In the interim she will initiate additional medical therapy with aspirin 81 mg p.o. daily. (2) Status post insertion of iliac artery stent: ?Status:?Acute ?Comment: PCI/[place] to proximal external iliac artery Dr. Mallory 02/28/22 ?Plan: She does have a left iliac stent.? This does increase the risk of her having coronary artery disease as well. She will continue evaluation and care as noted. (3) Palpitations: ?Status:?Acute ?Plan: She states she has a history of palpitations. She has been on beta-blockers.? She believes they have helped in the past. She does note an increase in her palpitations which also has her concerned as to whether there is a change in her cardiovascular status. She will continue medical therapy and evaluation as noted. (4) Pure hypercholesterolemia: ?Status:?Acute ?Plan: She is on lipid-lowering therapy.? This will be continued. (5) Essential hypertension: ?Status:?Acute ?Plan: She will continue medication with adjustment regarding her blood pressure as deemed appropriate. ? ? ? Orders: Orders 12 Lead EKG performed by BMS Today E78.00 - Pure hypercholesterolemia, unspecified, I10 - Essential (primary) hypertension, R00.2 - Palpitations ? Left Heart Cath/COR/LV Percut Today E78.00 - Pure hypercholesterolemia, unspecified, I10 - Essential (primary) hypertension, I20.9 - Angina pectoris, unspecified, R00.2 - Palpitations, R07.9 - Chest pain, unspecified, Z95.828 - Presence of other vascular implants and grafts ? Basic Metabolic Profile (BMP) Today E78.00 - Pure hypercholesterolemia, unspecified, I10 - Essential (primary) hypertension, I20.9 - Angina pectoris, unspecified, R00.2 - Palpitations, Z95.828 - Presence of other vascular implants and grafts ? Partial Thromboplast Time Today D75.1 - Secondary polycythemia, E78.00 - Pure hypercholesterolemia, unspecified, I10 - Essential (primary) hypertension, I20.9 - Angina pectoris, unspecified, R00.2 - Palpitations, Z95.828 - Presence of other vascular implants and grafts ? Prothrombin Time w/INR Today E78.00 - Pure hypercholesterolemia, unspecified, I10 - Essential (primary) hypertension, I20.9 - Angina pectoris, unspecified, I73.9 - Peripheral vascular disease, unspecified, R00.2 - Palpitations, Z95.828 - Presence of other vascular implants and grafts ? Echo Complete Today E78.00 - Pure hypercholesterolemia, unspecified, I10 - Essential (primary) hypertension, I20.9 - Angina pectoris, unspecified, I70.0 - Atherosclerosis of aorta, R00.2 - Palpitations, Z95.828 - Presence of other vascular implants and grafts ? CBC W/Diff, Automated Today E78.00 - Pure hypercholesterolemia, unspecified, I10 - Essential (primary) hypertension, I20.9 - Angina pectoris, unspecified, K21.9 - Gastro-esophageal reflux disease without esophagitis, R00.2 - Palpitations, Z95.828 - Presence of other vascular implants and grafts ? Chest PA and Lateral Today E78.00 - Pure hypercholesterolemia, unspecified, I10 - Essential (primary) hypertension, I20.9 - Angina pectoris, unspecified, R00.2 - Palpitations, Z95.828 - Presence of other vascular implants and grafts ? Medications: New aspirin 81 mg? PO DAILY 1 TAB 0RF ? ? Plan Details Additional Comments: Thank you for allowing me to participate in the care of your patient.? Please don't hesitate to call if any issues arise. This note was generated using a voice recognition system and there may be incorrect words, spelling or punctuation that were not noted when reviewing the office note prior to saving. Follow Up: ? ? 3 Months (PFM ) COVID (Procedure Consent) Procedure Criteria Procedure Criteria: Yes Elective The surgeon/proceduralist and patient have discussed in detail the risk of exposure to and/or potential harm posed by the COVID-19 virus with having a surgery/procedure at this time versus the risk of? delaying the surgery/procedure. It is not possible to know either the risk of delaying the surgery or procedure or chance of getting an infection with perfect accuracy, but a joint decision was made between the patient and the surgeon/proceduralist ?to proceed at this time with the scheduled surgery/procedure as indicated on the consent form. Coding Level of Care Code Off vis,new,level 5 Diagnoses Angina pectoris? I20.9 Status post insertion of iliac artery stent? Z95.828 Palpitations? R00.2 Pure hypercholesterolemia? E78.00 Essential hypertension? I10 Coding Level of Care Code Off vis,new,level 5 Diagnoses Angina pectoris? I20.9 Status post insertion of iliac artery stent? Z95.828 Palpitations? R00.2 Pure hypercholesterolemia? E78.00 Essential hypertension? I10 06/21/22 1349 <Electronically signed by Josh Arroyo MD> Date Josh Arroyo MD Cosigner Signature: Date (if applicable) CC:? Dr. Josh Greene MD ~ Assessment & Plan Addt'l Comments Addendum: The patient underwent transthoracic echocardiogram on 06-28-2022. The results are noted below. Interpretation Summary The study was technically difficult. ? Left ventricular systolic function is normal. The estimated ejection fraction is 65 %. Mild (1+) mitral valve insufficiency. Trivial tricuspid valve insufficiency. Right ventricular systolic pressure estimated to be 24 mmHg. No evidence for diastolic dysfunction. Addendum: 07/02/2022: I have re-examined the patient. There are no clinical changes since date of exam. This note was generated using a voice recognition system and there may be incorrect words, spelling or punctuation that were not noted when reviewing the office note prior to saving.
--- NOTE | 2022-07-02 11:43 | CL.D_ITS ---
Patient Name: KORTNEY CRUZ Study Date: 07/02/2022 Performing: Josh Arroyo MD Ht: 62 inches 157.48 cm : 1950 Wt: 146.2 lbs 66.22 kg Age: 72 Gender: female BSA: 1.67 PROCEDURE(S) PERFORMED DC02-(21594)[facility] CL[facility]ICAL PROFILE AND INDICATIONS Indications: Worsening Angina, Suspected CAD Heart Failure: None Stress/Imaging Date: 01/07/2017Stress Test with SPECT MPI: Negative Angina Classification Anginal Classification w/in 2 Weeks: CCS III CAD Presentations: Other: worsening angina CONCLUSIONS [place] Multivessel CAD RECOMMENDATIONS Risk factor modification Medical therapy Surgery consult for coronary revascularization Case discussed / reviewed with Dr. Brower of Interventional Cardiology DESCRIPTION OF PROCEDURE The patient arrived to the procedure lab. The risks and benefits of the procedure as well as a full description of our services here and current unavailability of surgical backup were fully explained to the patient and/or their significant other prior to the catheterization. The Timeout was completed, verifying the correct patient and procedure. The patient's procedural site was prepped and draped in the usual fashion. Local anesthetic was given subcutaneously to right radial region with Lidocaine 2%. Using a modified Seldinger technique, arterial access was obtained via the right radial artery, a 6Fr sheath was inserted. Left Coronary Artery selective angiography was performed in multiple views using a 5 Fr. 4.0 [place] catheter. Right Coronary Artery selective angiography was then performed in multiple views using a 5 Fr. 4.0 [place] catheter.The arterial sheath was pulled and a TR Band was applied for hemostasis CORONARY ANGIOGRAPHY DOMINANCE: Right Dominant LEFT MAIN: Moderate calcification, distal: eccentric: hazy: 75 % Stenosis LEFT ANTERIOR DESCENDING ARTERY: OSTIAL LAD: hazy: 75 % Stenosis MID LAD: Mild luminal irregularities DISTAL LAD: Mild luminal irregularities CIRCUMFLEX ARTERY: Mild luminal irregularities RAMUS: Mild luminal irregularities RIGHT CORONARY ARTERY: diffuse: 50 % Stenosis MID RCA: 85 % Stenosis RIGHT AV SEGMENT: is occluded COLLATERAL FLOW: Collateral flow from Left to Right COMPLICATIONS No Complications PROCEDURE MEDICATIONS Versed 1 mg IV Fentanyl 50 mcg IV Fentanyl 50 mcg IV Versed 1 mg IV Oxygen: 2 L/min via nasal cannula Baby Aspirin (81mg) 1 Tabs PO @ 07/02/2022 08:47:23 Heparin given IA 07/02/2022 11:07:07 Plavix 75 mg PO 07/02/2022 08:47:30 Verapamil 2.5mg, Ntg 100mcgs, 3000 units of Heparin given IA 07/02/2022 11:07:07 SUMMARY OF HEMODYNAMIC DATA Time AIR REST ECG 08:54:31 AO 133/55 (90) SA 11:08:49 Signed By Josh Arroyo MD On 07/02/2022 11:43:24 Josh Arroyo MD
[2022-07-02] MEDS: HYDROcodone Bitartrate/Apap 5/325 Tablet PO (14:45)
[2022-07-02] MEDS: clonazePAM 0.5 MG Tablet PO (14:45)
[2022-07-02] MEDS: Baclofen 10 MG Tablet PO (14:45)
[2022-07-02] MEDS: HEPARIN/D5w 25,000 UNITS 25,000 UNITS/250 ML IV.SOLN. 0.1 UNITS CONT INF (16:30)
[2022-07-02 16:35] VITALS: BP 101/65; PULSE 78; RESP 18; TEMP 36.3; O2SAT 94
[2022-07-02 17:10] LABS: International Normalized Ratio 1.1; Partial Thromboplast Time 28.8 Seconds (24.1-36.2); Prothrombin Time (Protime)PT. 13.5 SECONDS (11.7-14.9)
--- NOTE | 2022-07-02 17:26 | NURSING ---
Report called to nurse Hatch for pt transfer to [facility].
[2022-07-02 17:27] VITALS: BP 101/65; PULSE 78; RESP 18; TEMP 36.3; O2SAT 94
== END 2022-07-02 18:48 | disposition short-term general hospital (02) ==
LOC: PCU 15:31
PROVIDERS: Admitting Provider Internal Medicine Cardiovascular Disease; PCP Family Medicine; Referring Provider Internal Medicine Cardiovascular Disease; Visit Provider Internal Medicine Cardiovascular Disease
DX: I25.119 Atherosclerotic heart disease of native coronary artery with unspecified angina pectoris (principal); J44.9 Chronic obstructive pulmonary disease, unspecified; I73.9 Peripheral vascular disease, unspecified; I10 Essential (primary) hypertension; I45.19 Other right bundle-branch block; E78.00 Pure hypercholesterolemia, unspecified; R00.2 Palpitations; R07.89 Other chest pain; Z79.899 Other long term (current) drug therapy; Z79.02 Long term (current) use of antithrombotics/antiplatelets; Z79.82 Long term (current) use of aspirin; M19.90 Unspecified osteoarthritis, unspecified site; K21.9 Gastro-esophageal reflux disease without esophagitis; F17.210 Nicotine dependence, cigarettes, uncomplicated
CPT/HCPCS: 85610; 85730; 93454; 96374; 99152; 99153; J7030; C1769; C1894; Q9967

== ENCOUNTER → 2022-08-28 | Outpatient (CLI) | payer MEDICARE, OTHER, SELFPAY ==
--- NOTE | 2022-08-28 10:39 | CR.ITP_ITS ---
Diagnosis - General Information Admitting Diagnosis: CABG Personal Learning Style:: Audio/Visual, Written Barriers to Learning: Vision Impairment Stage of change r/t lifestyle modifications:: Action Gave educational material for:: Treating Heart Disease, Emotions & Heart Disease, Stress Management & Relaxation, Sleep Disorders & Heart Disease, How The Heart Works, What it means to have Heart Disease, How Coronary Artery Disease is Diagnosed, Heart Procedures, What Heart Medications Do, Risk Factors & Modifications, Living an Active Life, Nutrition - Education/Goals Individual Counseling: Initial Assessment: Nicotine/Smoking, Abnormal Cholesterol Levels, High Blood Pressure Cardiac Rehabilitation Goals: 1. Maintain the individual as the primary focus of care. 2. To improve the patient's quality of life. 3. Identification of cardiac risk factors and provide cardiac risk factor management. 4. Enhance the psychosocial status of the patient. 5. Reconditioning enough to allow the patient to resume customary activities. 6. Control symptoms of cardiac disease Personal Goals: Initial Assessment: Quit smoking (participate in smoking cessation - Interested in Smoking Cessation Counseling to remain quit., Improve management of stress and emotions, Improve energy level, Improve muscle strength and endurance Scale for measuring improvement of personal goals: Enter appropriate number in Comments. 2 = Unchanged. 3 = Slightly Better. 4 = Moderate Improvement. 5 = Met my Goal - Diagnosis & Disease Process Outcomes/Goals: Pt IDs own risk factors & lifestyle modifications by Session 10, Verbalizes symptoms of angina & response by session 3., Pt independently manages Plan/Interventions: Assist Pt to ID & engage in lifestyle modification to reduce CVD risk, Instruct on individual risk factors, Review symptoms of angina & laureano rgency actions, Review secondary diagnosis & identify educational needs. - Safety Referral to Physical Therapy: No Referral to [facility] Case Management: No Fall Risk Assessed:: Yes Assistive Devices:: None Exercise - Initial Assessment - Visit Date of Eval: 08/28/22 Session #:: 0 - Pre-Cardiac Rehab Evaluation Mets: Pre-: >5 METS for 30 minutes by discharge - Physician Prescribed Exercise Modalities: Treadmill, Airdyne, NuStep Frequency: 3x/week for 12 weeks [36 sessions] Intensity: 60-80% of age predicted maximum heart rate reserve Duration: 30 - 45 minutes Current METSs:: 3.0 Target Heart Rate:: 90-120 Resting Blood Pressure: 102/66 EKG Type: Sinus Rhythm Current Physical Activity or Exercising minutes: - Outcomes & Goals Goals:: Verbalizes understanding of THR, RPE & goal METS by session 6, Documents in home exercise log/reports 30 min aerobic 5 day/wk by DC, Demonstrates accura te pulse taking by DC - Intervention & Plan Exercise Program Goals: Instruct on personal THR & RPE, Instruct on MET level & personal MET goal, Show patient to take own pulse /validate performance until accurate, Instruct on home exercise - Physical Activity Home Exercise Physical Activity - Home Exercise: Safe Exercise, Warm-up, Self-monitoring, Cool-Down, Home Exercise > 30 min Daily, Sitting Time <3 hours/daily - Outcomes & Goals Outcomes/Goals: Demonstrates correct Warm-up/exercise Cool-Down (S3) if = 2.5 METs, Verbalizes symptoms of exercise intolerance by Session 3 (S3), Demonstrate safe equipment use (S3) & follows exercise prescrition (6) - Intervention & Plan Plan/Intervention: Instruct warm-up & cool-down if exercising at > 2 METs, Instruct on symptoms of exercise intolerance & actions to take, Instruct & monitor on saf, Assess intial functional capacity & safety risk Nutrition - Initial Assessment - Program Goals Nutrition Program Goals: LDL <100 optimal. 100 - 129 Near optimal. 130 - 159 Borderline High. 160 - 189 High. Total Cholesterol <200 desirable. 200 - 239 Borderline High. >/= 240 High. HDL < 40 Low >/=60 High. Triglycerides <150 desirable. <199 optimal. VlDL 5 - 40. HgbA1C <7%. BMI <25 Patient has diagnosis of Hyperlipidemia (ICD E78)?: Yes - Visit Date of Assessment:: 08/28/22 Session #:: 0 - Pre-Cardiac Rehab Evaluation - Cholesterol/Lipids (Other Core Measures) Triglycerides (mg/dL): 310 - 10/31/2021 Total Cholesterol (mg/dL): 220 LDL Cholesterol (mg/dL): 131 HDL Cholesterol (mg/dL): 27 Determine presence & major risk factors that modify LDL goal: Hypertension or hypertensive medication, Low HDL cholesterol <40 mg/dL*, Family history of premature CHD in Male < 55 years: female <65 yearsFa, Age men > 45 years; women >/= 55 years Outcomes/Goals: Pt IDs own risk factors & lifestyle modifications by Session 10, Verbalizes symptoms of angina & response by session 3., Pt independently manages Intervention/Plan: Instruct on personal lipid levels & lipid goals/NCEP guidelines, Instruct on cholesterol Referral to dietitian:: Yes - Medical Nutrition Therapy - Diabetes (Other Core Measures) Diabetes Type: Not Applicable - Weight Mgt (Other Care) Not Applicable: Yes Height: 5 ft 2 in Weight:: 140 lb BMI: 25.6 Diagnosis Overweight/Obesity BMI> 30% ICD-10 E66: No Diagnosis High BMI/Morbid Obesity BMI> 35% ICD-10 Z68: No Outcomes/Goals: Pt sets, maintains & shows weight loss goal & trend during rehab Intervention/Plan: Instruct on ideal BMI & set weight loss goal w/patient - Healthy Eating Habits Will attend diet classes:: Yes Outcomes/Goals:: Consume diet rich in vegs,fruits,whole grain/high fiber,fish,lean meat, Limit sat/trans fats,cholesterol & added salts & sugars Intervention/Plan:: Assess current eating habits - Education Gave educational materials for:: Healthy eating Nutrition - 30-Day Assessment Nutrition - 60-Day Assessment Nutrition - 90-Day Assessment Nutrition - Final Assessment Core - Initial Assessment - Visit Date of Eval: 08/28/22 Session #:: 0 - Pre-Cardiac Rehab Evaluation - Medication Compliance Preventative Medication(s):: Aspirin, Statin/lipid, Beta ayesha H/O mental health issues: depression, anxiety, or addiction?: Yes Doesn?t believe in the benefits of treatment?: No Believes medications are unnecessary or harmful?: No Has a concern about medication side effects?: No Expresses concern over the cost of medications?: No Outcomes/Goals: Verbalizes medications,desired effect & common side effects @ DC, Pt self-reports following medication regimen, Keeps card in wallet w/medications listed by DC Interventions/plans: Instruct on medication effects & side effects, Review me dication list w/patient every two weeks, Instruct importance of taking meds as ordered & assist problem solving - Tobacco Use Tobacco Use: Cigarettes How long ago did you quit using tobacco products?: Less than 6 months ago Do you use smokeless tobacco?: No Outcomes/Goals: Smoking cessation achieved or maintained by discharge, Identify aids/strategies for achieving smoking cessation by session 6 Interventions/plan: Instruct on effects of smoking & provide smoking cessation resource, Assist pt to set quit date & provide encouragement, Assist pt to develop strategies to achieve/maintain quit date, Assist pt w/nicotine replacement & medication for cessation success - Hypertension Hypertension Diagnosis:: Hypertension ICD-10 I10 Resting Blood Pressure:: 102/66 [place] [employer] Hypertension Guidelines: [place] [employer] Hypertension Guidelines. Normal BP Less than 120/80. Elevated BP 120/80. Hypertension Stage 1: BP 130-139/80-89. Hypertesnion Stage 2: BP 140 or higher/90 or higher. Hypertension Crisis: BP higher than 180/120 Outcomes/Goals: Able to verbalize/achieve optimal blood pressure <130/80, Incorporates diet changes & exercise for blood pressure control by DC Interventions/plan: Instruct on optimal blood pressure, hypertension & medications, Instruct on effects of sodium, alcohol, stress, exercise &hypertension - Tobacco Cessation Referral Smoking Cessation Referral:: Yes - Wants to remain quit, currently using NRT Individual Education/Counseling:: No Education Schedule Given:: Yes Core - 30-Day Assessment Core - 60-Day Assessment Core - 90 Day Assessment Core - Final Assessment Psychosocial - Initial Assess - VIsit Date of Eval: 08/28/22 Session #:: 0 - Pre-Cardiac Rehab Evaluation Not Applicable: No History of previous Mental disease:: Yes History of Emotional Disorders: Anxious, Depression - Psychosocial Test Tool Used:: Pin[employer] QOL Cardiac, PHQ-9 Questionnaire phq-9 Severity: Severity. 1-4 Minimal Depression. 5-9 Mild Depression. 10-14 Moderate Depression. 15-19 Moderately Sever Depression. 20-27 Severe Depression. Rule: - Referral to Behavioral Health PS - Interventions: Yes Referral to Physician if PHQ-9 if score is 5-9:, Yes Attend Stress Management Classes, No Referral to Behavioral Health if PHQ-9 score >9:, No Referral to [facility] - Outcomes/Goals: See list Psychosocial Outcomes/Goals:: ID's personal stressors & 2 strategies to manage stress by discharge - Intervention/Plan: See List Interventions/Plan:: Assess stressors,coping strategies & signs of derpression on admission, Instruct/assist pt to develop coping & personal stress Mgt strategies, Refer to Physician if appropriate, Instruct patient to recognize signs & symptoms of depression, Instruct patient to recog Psychosocial - 30-Day Assess Psychosocial - 60-Day Assess Psychosocial - 90-Day Assess Psychosocial - Final Assessmen Patient Health Questionnaire Initial Assessment 1. Little interest or pleasure in doing things: Several days 2. Feeling down, depressed, or hopeless: More than half the days 3. Trouble falling or staying asleep, or sleeping too much: More than half the days 4. Feeling tired or having little energy: More than half the days 5. Poor appetite or overeating: More than half the days 6. Feeling bad about yourself -- or that you are a failure or have let yourself or your family down: Nearly every day 7. Trouble concentrating on things, such as reading the newspaper or watching television: Several days 8. Moving or speaking so slowly that other people could have noticed. Or the opposite - being so fidgety or restless that you have been moving around a lot more than usual: Not at all 9. Thoughts that you would be better off , or of hurting yourself in some way: Several days How difficult have these problems made it for you to do your work, take care of things at home, or get along with other people?: Very difficult - Report back to Dr. Josh Greene Total Score: 14 BROWN-Q SV Test - Statements CAD is a disease of the arteries in the heart: False Examples of risk factors for heart disease: True Angina is chest pain or discomfort: True The benefits of resistance training include: True Eating more meat and dairy products: True Anti-platelet medications such as aspirin are important: True The only effective way to manage stress: False An exercise warm-up slowly increases heart rate: True Prepared, processed foods usually have high sodium: True Depression is common after a heart attack: True The statin medications lower cholesterol: True To control blood pressure, lower the amount of sodium: True If someone gets chest discomfort during walking: False Transfats are partially hydrogenated vegetable oils: True Sleep apnea that is not treated increases the risk: True To control cholesterol, one should become a vegetarian: False Someone knows if he/she is exercising at the right level: True Diabetes cannot be prevented with exercise & health eating: False Stress is a large risk for heart attack: True A diet that can help lower blood pressure is rich in: True - Total Score Total Correct Responses: 18 Self-Efficacy Initial Assessment We would like to know how confident you are in doing certain activities. Please select your confidence level for:: Select your confidence level for the following using the scale 1-10 where 1 is not at all confident and 10 is totally confident. Your score is the average of all 6 responses. Fatigue: How confident are you that you can keep the fatigue caused by your disease from interfering with the things you want to do? Select Number: 4 Physical Discomfort or Pain: How confident are you that you can keep the physical discomfort or pain of your disease from interfering with the things you want to do? Select Number: 1 Emotional Distress: How confident are you that you can keep the emotional distress caused by your disease from interfering with the things you want to do? Select Number: 2 Other Symptoms or Health Problems: How confident are you that you can keep other symptoms or health problems from interfering with the things you want to do? Select Number: 5 Different Tasks and Activities: How confident are you that you can do the different tasks and activities needed to manage your health condition so as to reduce your need to see a doctor? Select Number: 2 Medication: How confident are you that you can do things other than just taking medication to reduce how much your illness affects your everyday life? Select Number: 2 Total Score:: 2 Nutrition Survey - Nutrition Survey Initial Have you lost >10 lbs over the past 2 months without trying?: No Are you following a special diet at home for diabetes, low fat, or low salt?: Yes Are you interested in meeting with a dietitian for help understanding your diet?: No Do you eat less than 3 meals a day?: Yes Do you eat fatty meats (plata, sausage, ribs, etc), fried foods, desserts, large amounts of salad dressings, margarine, butter, or cheese most days?: No Do you have food allergies? [Enter types in comment field]: No Do you eat in restaurants more than 3 times a week?: No Do you season food with salt, seasoning salt, or garlic salt?: No Do you used canned, boxed, frozen meals, or soups, seasoning packets?: Yes Total Score:: 3
--- NOTE | 2022-08-28 10:40 | CR.HP_ITS ---
CR - History & Physical - General Arrival date:: 08/28/22 Arrival time:: 10:30 Date of Referral:: 08/22/22 Date of CR Evaluation:: 08/28/22 Referring Physician: Dr. Josh Arroyo Primary Diagnosis: S/P CABG - History of Present Cardiac Event Onset Date: Enter Onset Date of cardiac illnesses in Comment field below Coronary Artery Bypass Graft:: Yes - S/P Aortocoronary artery bypass graft 07/23/2022 Vessel: CAMACHO to mid LAD, SVG to RCA, and SVG to obtuse marginal [address] Mccauley Interventions with present event:: Triple artery bypass Were there any complications?: Fluid overload, given Lasix post operative. DC'd w/supportive chest brace - Sleep Disorder Evaluation Hx of Sleep Apnea: No Do you snore loudly (louder than talking or can be heard through closed doors)?: No - History of insomnia Do you often feel tired/ fatigued/ sleepy during daytime?: Yes Has anyone observed you stop breathing during sleep?: No History of Hypertension (for STOP score): Yes STOP Results: Positive - Medications Home Medications: Ambulatory Orders Medication Instructions Recorded zolpidem 12.5 mg tablet,extended 12.5 mg PO QHS PRN PRN Sleep 02/03/18 release,multiphase buprenorphine 20 mcg/hour weekly 20 mcg transdermal X1 10/25/21 transdermal patch amlodipine 5 mg tablet 5 mg PO DAILY 06/17/22 clonazepam 0.5 mg tablet 0.5 mg PO TID PRN Anxiety 06/17/22 baclofen 10 mg tablet 10 mg PO Q6H spasms 06/21/22 hydrocodone-acetaminophen 5-325mg 5 - 325 tab PO TID 06/21/22 5mg-325mg aspirin 81 mg tablet,delayed 162 mg PO DAILY 07/05/22 release hydroxyzine pamoate 25 mg capsule 25 mg PO DAILY PRN anxiety 07/05/22 (Vistaril) magnesium oxide 400 mg (241.3 mg 400 mg PO DAILY 08/07/22 magnesium) tablet meclizine 25 mg tablet 25 mg PO TID 08/07/22 ergocalciferol (vitamin D2) 1,250 1,250 mcg PO QWEEK 08/22/22 mcg (50,000 unit) capsule ezetimibe 10 mg tablet (Zetia) 10 mg PO DAILY #90 tabs 08/22/22 metoprolol tartrate 25 mg tablet 50 mg PO BID 08/22/22 - Allergies Allergies/Adverse Reactions: Allergies prednisone Allergy (Unknown, Verified 08/22/22 13:35) Hives pregabalin [From Lyrica] Allergy (Unknown, Verified 08/22/22 13:35) Facial and hand swelling erythromycin base Adverse Reaction (Verified 08/22/22 13:35) Vomiting gabapentin Adverse Reaction (Verified 08/22/22 13:35) Other Became severely dizzy. Puwdmgk-XRW-VhC Reductase Inhibitor [Kewejtk-Klr-Mra Reductase Inhibitor] Adverse Reaction (Verified 08/22/22 13:35) Unknown Advanced Directives - Advanced Directives Power of Marine Fire Fighter: No Living Will: No Advance Directives Information Provided: Yes Advance Directives on File: No DNR Order?:: No - MOLST See MOLST form: No Past Medical History - Covid-19 Screening Fever: No Unexplained muscle aches: No Current respiratory symptoms: Yes - H/O COPD, nicotine dependence Upper respiratory infections symptoms: No Gastro-intestinal symptoms: No Bhb-Kdrk-Wlanln symptoms: No Has tested positive for COVID-19 in last 30 days: No Had contact w/person w/symptoms or Covid-19 (+) last 14 days: No Has High Risk Exposures ID'd by Health dept/Inf Control team: No 65 years or older:: Yes Lives in Assisted Living facility:: No Has a chronic lung disease or moderate to severe asthma:: Yes Has a serious heart condition:: Yes Immunocompromised:: No Severely obese (Body Mass Index of 40 or higher):: No Diabetic:: No Has chronic kidney disease undergoing dialysis:: No Has liver disease:: No - Past Medical Illness Medical History: Past Medical History (Last Reviewed 08/22/22 @ 14:10 by Vijay Bridges [employer], [employer]) Anxiety disorder F41.9 Arthritis M19.90 Atherosclerosis of aorta I70.0 Atherosclerosis of [place] arteries of extremities with intermittent claudication, bilateral legs I70.213 Chronic pain G89.29 COPD (chronic obstructive pulmonary disease) J44.9 Depression F32.9 Essential hypertension I10 GERD (gastroesophageal reflux disease) K21.9 History of left heart catheterization (LHC) Onset Date: ~10/25/22 Z98.890 LEFT MAIN: Moderate calcification, distal: eccentric: hazy: 75 % Stenosis; LEFT ANTERIOR DESCENDING ARTERY: OSTIAL LAD: hazy: 75 % Stenosis, MID LAD: Mild luminal irregularities, DISTAL LAD: Mild luminal irregularities; CIRCUMFLEX ARTERY: Mild luminal irregularities; RAMUS: Mild luminal irregularities; RIGHT CORONARY ARTERY: diffuse: 50 % Stenosis, MID RCA: 85 % Stenosis; RIGHT AV SEGMENT: is occluded; COLLATERAL FLOW: Collateral flow from Left to Right: RECOMMENDATIONS: Surgery consult for coronary revascularization Case discussed / reviewed with Dr. Brower of Interventional Cardiology per cardiac cath Dr. 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 Mccauley 07/23/22 History of right breast biopsy Z98.890 Hx of cholecystectomy Z90.49 05/2014 Status post insertion of iliac artery stent Onset Date: ~02/28/22 Z95.828 [place] to proximal external iliac artery Dr. Pepper 02/28/22 Surgical History: cholecystectomy - Family History Summary Family History: Family History (Last Reviewed 08/22/22 @ 14:10 by Vijay Bridges NP, [employer]) Mother Arthritis Hypertension Asthma Father Lung cancer Heart disease, Onset Age: 52 Diabetes Hypertension Brother CAD (coronary artery disease) History of coronary artery bypass surgery PAD (peripheral artery disease) Brother CAD (coronary artery disease) History of coronary artery bypass surgery PAD (peripheral artery disease) Social History - Smoking History Smoking Status: Current every day smoker - Recently quit smoking at time of CABG, sent home with Nicotine Replacement Therapy patches Years Smokin - 100 Pack Years Packs Smoked per Day: 2 Hx Smoking Cessation Date: 08/02/22 Hx Tobacco Use: Yes Hx Smoking Exposure: Yes - Substance Abuse Hx Substance Use: No - Occupation Occupation (List type of work in comments):: Retired - Hobbies, Recreation, Social Activities Hobbies: Sewing - crocheting, Other - card games Recreational Activities: I can hardly do any recreational activities - related to her chronic pain mid thoracic back issues Social Environment - Status Marital Status: - Current Living Arrangements Living Environment:: Spouse - Children How many children do you have?: 3 Do any of your children live nearby?: Yes - 2 live close, other 90 minutes away - Safety Do you feel safe in your surroundings?: Yes - Assistance Do you need any assistance at home?: No Review of Systems - Review of Systems Hints: Right click = Denies (Slash). Left click = Reports (Solomon) Review of Present Symptoms: Reports: PVD, Operative Discomfort - left side of her chest area and rib area from being on the table for nearly 5 hours., Wound Healing, Fatigue - history of insomnia for years, Appetite - Special Diet - low sodium diet <2,000. Denies: Shortness of Breath at Rest, Shortness of Breath with Exertion, Dizziness/Lightheadedness, Heart Arrhythmia/Irregularities, Appetite - Normal - loss of appetite since the surgery, food just doesn't taste good., Sleep - Normal, Sexual Changes - Pain Is Patient Pain Free?: No Pain Location: back Pain Level: 10/10 - 10 every day, has been worse since the heart surgery having to lay on her back. She sees Dr. Saavedra for Chronic Pain Management regularly. Is on pain medication and has regular injections. Risk Factor Assessment - Chief Complaint Chief Complaint: S/P CABG - Vital Signs Temperature: 97.6 F Respiratory Rate: 16 Pulse Ox: 93 Blood Pressure: 102/66 - Pulse Pulse Rate: 73 Pulse Rhythm: Regular - Hypertension On medication(s)?: yes - amlodipine Blood Pressure Sitting - Left Arm: 102/66 - Stress Stress: Recent - Medical condition - Blood Cholesterol/Lipids Total Cholesterol (mg/dL) Goal = less than 200 mg/dL: 220 HDL Cholesterol (mg/dL) Goal = less than 40 mg/dL: 27 LDL Cholesterol (mg/dL) Goal = less than 70 mg/dL: 131 Triglycerides (mg/dL) Goal = less than 150 mg/dL: 310 - Obesity Height: 5 ft 2 in Weight:: 140 lb Weight in Pounds: 140.0 lbs Weight Source: Estimated by Patient Body Mass Index (BMI): 25.6 - Physical Inactivity Physical Inactivity: None - Risk Stratification Risk Guidelines: Lowest Risk: Risk Factor for Diabetes, Risk Factor for Obesity, Risk Factor for Hypertension, Moderate Risk: Risk Factor for Smoking - Recent quit w/surgery, Risk Factor for Dyslipidemia, Risk Factor for Sedentary Lifestyle, Risk Factor for Depression, Highest Risk: Risk Factor for Sedentary Lifestyle, Risk Factor for Depression - Family History Family History: Family History (Last Reviewed 08/22/22 @ 14:10 by Vijay Bridges [employer], [employer]) Mother Arthritis Hypertension Asthma Father Lung cancer Heart disease, Onset Age: 52 Diabetes Hypertension Brother CAD (coronary artery disease) History of coronary artery bypass surgery PAD (peripheral artery disease) Brother CAD (coronary artery disease) History of coronary artery bypass surgery PAD (peripheral artery disease) Motivation - Motivation to Participate On a scale of 1 to 10, how prepared are you to commit to attending program?: 10 What do you see as barriers to successfully being able to complete the program?: chronic back pain will be the major barrier What do you see as the benefits of succesfully completing the program? In other words, what do you hope to get out of participating in the program?: Back in regular condition Are there issues you are dealing with that will interfere with completing the program?: Chronic mid thoracic back surgery Do you have a spouse or signficant other, family or friends who will help support you to complete the program?: Yes
[2022-08-28 11:14] VITALS: BP 102/66; BMI 25.6
[2022-08-28 11:25] VITALS: BP 102/66; PULSE 73; RESP 16; TEMP 36.4; O2SAT 93; BMI 25.6
== END | disposition home or self-care (01) ==
PROVIDERS: PCP Family Medicine; Visit Provider Internal Medicine Cardiovascular Disease
DX: Z95.1 Presence of aortocoronary bypass graft (principal)

== ENCOUNTER 2022-08-31 23:22 | Emergency (ER) | payer MEDICARE, OTHER, SELFPAY ==
[2022-08-28 11:14] VITALS: BMI 25.6
--- NOTE | 2022-08-31 00:02 | RAD_ITS ---
EXAM: XR CHEST, 1 VIEW CLINICAL INDICATION: chest pain TECHNIQUE: Frontal view of the chest. This report was created using [employer] report generation technology. COMPARISON: 06/21/2022 FINDINGS: LUNGS AND PLEURAL SPACES: Unremarkable. No consolidation or edema. No pneumothorax. No effusion. HEART: Unremarkable. Cardiac silhouette not enlarged. MEDIASTINUM: Surgical changes of the mediastinum. BONES/JOINTS: Unremarkable. SOFT TISSUES: Unremarkable. RAD/Chest 1 View (Portable) IMPRESSION: No acute findings in the chest. Electronically Signed: Cooper Lainez MD at 0:43 EST ,
[2022-08-31 23:27] VITALS: BP 160/83; PULSE 87; RESP 16; TEMP 36.3; O2SAT 95; BMI 26.9
[2022-08-31 23:30] VITALS: BMI 26.9
--- NOTE | 2022-08-31 23:38 | CT_ITS ---
EXAM: CT HEAD WITHOUT INTRAVENOUS CONTRAST CLINICAL INDICATION: confusion TECHNIQUE: Multiple axial images were obtained of the head without intravenous contrast. This CT exam was performed using one or more of the following dose reduction techniques: automated exposure control, adjustment of the mA and/or kV according to patient size, and/or use of iterative reconstruction technique. This report was created using [employer] report generation technology. COMPARISON: 10/25/2021 FINDINGS: BRAIN AND EXTRA-AXIAL SPACES: Diffuse cerebral volume loss. Periventricular small vessel ischemic changes. Small chronic left occipital lobe infarct. No intra- or extra-axial hemorrhage. No intracranial mass or mass effect. Posterior fossa structures are unremarkable. No hydrocephalus. Basal cisterns are patent. BONES/JOINTS: Unremarkable. No discrete lytic or blastic abnormalities. VASCULATURE: Vascular calcifications. SINUSES: Unremarkable as visualized. Clear. MASTOID AIR CELLS: Unremarkable. Clear. ORBITS: Visualized globes, extraocular muscles, optic nerves and retrobulbar fat appear unremarkable. CT/Brain/Head without Contrast IMPRESSION: 1. No acute intracranial abnormalities. 2. Age-related changes. Electronically Signed: Cooper Lainez MD at 0:46 EST ,
--- NOTE | 2022-08-31 23:41 | EDS_ITS ---
HPI History of Present Illness Chief Complaint: Neuro S/Sx Informant: patient and EMS Narrative Narrative: Patient states she did not want to come in. She was agitated that the called the squad. She does admit to having some chest pain ever since he called the squad. She cannot describe the chest pain. It also sounds like she has had chest pain since her bypass surgery 6 weeks ago. Per our nurse who got the story from EMS, this patient has had confusion and difficulty speaking ever since her surgery 6 weeks ago. She got more agitated tonight and stated he just cannot manage her at home anymore so EMS was called. I am not getting any report that something change different tonight other than more agitation. Patient really cannot tell me a lot of details. She seems to have some expressive aphasia. However, my best history is that that this started 6 weeks ago or so. [facility] Medical History Anxiety disorder Arthritis Atherosclerosis of aorta Atherosclerosis of [place] arteries of extremities with intermittent claudication, bilateral legs Chronic pain COPD (chronic obstructive pulmonary disease) Depression Essential hypertension GERD (gastroesophageal reflux disease) History of left heart catheterization (LHC) (~07/02/22) Hyperinflation of lungs Hyperlipidemia Hypertension PAD (peripheral artery disease) Palpitations Polycythemia secondary to smoking Pure hypercholesterolemia Tobacco dependence Vocal cord dysfunction Home Medications zolpidem 12.5 mg tablet,extended release,multiphase 12.5 mg PO QHS PRN PRN Sleep 02/03/18 [History Last Taken Unknown] buprenorphine 20 mcg/hour weekly transdermal patch 20 mcg transdermal X1 [History Last Taken Unknown] amlodipine 5 mg tablet 5 mg PO DAILY 06/17/22 [History Last Taken 07/02/22] clonazepam 0.5 mg tablet 0.5 mg PO TID PRN Anxiety 06/17/22 [History Last Taken 07/02/22] baclofen 10 mg tablet 10 mg PO Q6H spasms 06/21/22 [History Last Taken Unknown] hydrocodone-acetaminophen 5-325mg 5mg-325mg 5 - 325 tab PO TID 06/21/22 [History Last Taken 07/02/22] aspirin 81 mg tablet,delayed release 162 mg PO DAILY 07/05/22 [History Last Taken Unknown] hydroxyzine pamoate 25 mg capsule (Vistaril) 25 mg PO DAILY PRN anxiety 07/05/22 [History Last Taken Unknown] magnesium oxide 400 mg (241.3 mg magnesium) tablet 400 mg PO DAILY 08/07/22 [History Last Taken Unknown] meclizine 25 mg tablet 25 mg PO TID 08/07/22 [History Last Taken Unknown] ergocalciferol (vitamin D2) 1,250 mcg (50,000 unit) capsule 1,250 mcg PO QWEEK 08/22/22 [History Last Taken Unknown] ezetimibe 10 mg tablet (Zetia) 10 mg PO DAILY #90 tabs 08/22/22 [Rx Last Taken Unknown] metoprolol tartrate 25 mg tablet 50 mg PO BID 08/22/22 [History Last Taken Unknown] Allergy/AdvReac Type Severity Reaction Status Date / Time prednisone Allergy Unknown Hives Verified 08/22/22 13:35 pregabalin [From Lyrica] Allergy Unknown Facial and Verified 08/22/22 13:35 hand swelling atorvastatin [From Lipitor] AdvReac Other Verified 08/31/22 23:27 buspirone [From BuSpar] AdvReac NEEDS Verified 08/31/22 23:27 FOLLOW-UP cefaclor [From Ceclor] AdvReac Nausea Verified 08/31/22 23:27 codeine AdvReac NEEDS Verified 08/31/22 23:27 FOLLOW-UP erythromycin base AdvReac Vomiting Verified 08/22/22 13:35 gabapentin AdvReac Other Verified 08/22/22 13:35 hydrochlorothiazide AdvReac Nausea Verified 08/31/22 23:27 losartan [From Cozaar] AdvReac NEEDS Verified 08/31/22 23:27 FOLLOW-UP niacin AdvReac NEEDS Verified 08/31/22 23:27 FOLLOW-UP paroxetine [From Paxil] AdvReac Other Verified 08/31/22 23:27 propoxyphene [From Darvon] AdvReac NEEDS Verified 08/31/22 23:27 FOLLOW-UP rosuvastatin [From Crestor] AdvReac NEEDS Verified 08/31/22 23:27 FOLLOW-UP [id number] Reductase AdvReac Unknown Verified 08/22/22 13:35 Inhibitor [Afttrhz-Eou-Tym Reductase Inhibitor] Tricyclic Compounds AdvReac Other Verified 08/31/22 23:27 Family History Mother Arthritis Hypertension Asthma Father Lung cancer Heart disease, Onset Age: 52 Diabetes Hypertension Brother CAD (coronary artery disease) History of coronary artery bypass surgery PAD (peripheral artery disease) Brother CAD (coronary artery disease) History of coronary artery bypass surgery PAD (peripheral artery disease) Surgical History History of coronary artery bypass graft x 3 (~07/23/22) History of right breast biopsy Hx of cholecystectomy Status post insertion of iliac artery stent (~02/28/22) Social History Smoking Status: Former smoker quit date: 08/02/22 pack-years: 100 second hand exposure: Yes alcohol intake: current alcohol intake frequency: holidays/special occasions only substance use type: does not use caffeine: Yes what type of physical activity do you participate in: walking frequency: 3-4 times per week seatbelt use: always ROS ROS ED ROS Narrative Review of systems is really not obtainable. Patient answer some questions but others I just cannot get the answer from her. She seems to have a lot of trouble finding words to explain symptoms. Cardiovascular Cardiovascular: Reports chest pain Respiratory/Chest Respiratory/Chest: Denies dyspnea Gastrointestinal Gastrointestinal: Denies vomiting Psychiatric Psychiatric: Reports other Details: Agitation. EXAM Physical Exam Const Vital Signs: 08/31/22 23:27 09/01/22 00:19 09/01/22 01:00 Temperature 97.3 F L Temperature Source Temporal Pulse Rate 87 85 102 H Respiratory Rate 16 13 16 Blood Pressure 160/83 H 149/92 H 118/55 L Blood Pressure Mean 108 111 76 Pulse Ox 95 92 93 Oxygen Delivery Method Room Air Room Air Room Air 09/01/22 02:00 09/01/22 03:00 Temperature Temperature Source Pulse Rate 107 H 100 Respiratory Rate 19 H 16 Blood Pressure 126/88 H 124/82 H Blood Pressure Mean 100 96 Pulse Ox 93 96 Oxygen Delivery Method Room Air Room Air Positive well nourished General Appearance ED: NAD HEENT Reports moist mucous membranes Eyes General Eye ED: Negative for scleral icterus Neck supple and no JVD Chest Wall Chest Narrative: Midline sternotomy looks like it is healing well. No sign of infection. Minimal tenderness along the wound that I would expect. Resp normal respiratory effort and clear to auscultation bilaterally Cardio regular rate and regular rhythm GI normal to inspection, nondistended, normoactive bowel sounds and non-tender Back/Spine no CVA tenderness Neuro Neuro Narrative: Patient is awake. She is alert. She is oriented to person and place. She tells me that is 2002. She cannot tell me the president but states that she does not like him. She states its not Obama who she also does not like. She states the president is the mckinley who came before Obama. I do not get any specific lateralizing weakness. No visual field cut. No sensory changes. She does appear to have mild expressive aphasia but no dysarthria. But its more difficulty explaining concepts and specific words that describe her mood or feeling. Most of what she states is fluent. NIH is 2 for aphasia and orientation. Psych Psych Narrative: Patient is mildly agitated. Skin no rashes or lesions noted MDM MDM MDM Narrative Medical decision making narrative: 23:47 I attempted to call at [phone]. Name was Gregory which is apparently correct. But he did not apple picking supervisor. A message was \ did call back. He states that she was out of it mentally. She has been having problems with his confusion and agitation ever since her surgery. She had CABG on 23 July and was discharged on 02 August. He is not sure why they kept her that long. He does state that the night before she just charged from the hospital, she had called him many times on the phone comp laining that the nurses and people were trying to kill her. He was surprised when he got a call the next day about her coming home. She was on oxygen for a few days but has been off of it since. He describes her as and not really getting with the program. This seems to have been waxing and waning. With it got worse tonight. They had dinner over at their son's house. She had been pretty good there. But after getting home she seemed more confused. She started get more agitated. She was looking for her contact lenses that she has not worn in weeks or months. She was looking in the dryer in other areas. She was screaming at me. He states he just did not know what to do as she just would not calm down and was very confused. This is evidently all new since her surgery. He has been getting her all her medicines. She is on a lot of medicines for anxiety and sleep at night. She has not run out of these or missed doses. Chest x-ray and CT showed no acute process. CBC including platelets hemoglobin and white count are normal. Electrolytes are normal. Glucose is minimally elevated 131. Alk phos is 126 but rest of liver function test is normal. Negative alcohol. Tox is positive for opiates but she is on 4 Vicodin a day for pain. I talked with the again. He now states that it is possible she got into a muscle relaxer or one of her other medicines tonight. He also thinks that the stress of going over to son's house for a social event that got longer than the expected may have stressed her. She does have a lot of anxiety. He notes that [place] she did the same thing after her follow-up visit up in [place]. They thought it was due to just a long drive up there the waiting and then coming back and it just took a lot out of her. I discussed with him that were not finding any acute issues. He really would prefer not to have her in the hospital unless we have to. He states she has been doing the same thing ever since surgery this night was just a little worse than normal. He will come in and see here. I explained that if she seems more different than her baseline or he has concerns we could certainly discuss possibly admitting her. But this may also include eventual placement in a rehab facility or [facility] psych eval depending on her response. Again, he would much prefer to take her home. He states she is waxing and waning but generally trending toward improvement. Patient woke up. She is walk to the bathroom. She is much calmer now. showed up. She is evidently at baseline. They have been dealing with the intermittent agitation and mild confusion ever since surgery. Plan will be to go home and have follow-up. Lab Data Attestation: I reviewed the patient's lab results. Labs: Laboratory Results - last 24 hr 08/31/22 08/31/22 08/31/22 23:50 23:50 23:50 WBC 10.4 RBC 4.96 Hgb 13.3 Hct 42.4 MCV 85.5 MCH 26.8 L MCHC 31.4 L RDW Std Deviation 47.7 H RDW Coeff of Santana 15.3 H Plt Count 398 MPV 9.5 Immature Gran % (Auto) 0.300 Neut % (Auto) 65.1 Lymph % (Auto) 24.1 Shannon % (Auto) 6.0 Eos % (Auto) 3.9 Baso % (Auto) 0.6 Absolute Neuts (auto) 6.8 Absolute Lymphs (auto) 2.51 Nucleated RBC % 0 Sodium 139 Potassium 3.8 Chloride 108 H Carbon Dioxide 25.0 Anion Gap 6 BUN 18 Creatinine 0.80 Estim Creat Clear Calc 51.75 Est GFR (MDRD) Af Amer 92 Est GFR (MDRD) Non-Af 76 BUN/Creatinine Ratio 22.6 H Glucose 131 H Calcium 9.3 Total Bilirubin 0.20 AST 26 ALT 39 Alkaline Phosphatase 126 H Troponin I High Sens 7 Total Protein 7.6 Albumin 3.5 Globulin 4.1 Albumin/Globulin Ratio 0.9 Urine Color Urine Clarity Urine pH Ur Specific [place] Urine Protein Urine Glucose (UA) Urine Ketones Urine Occult Blood Urine Nitrite Urine Bilirubin Urine Urobilinogen Ur Leukocyte Esterase Urine RBC Urine WBC Ur Squamous Epith Cells Urine Bacteria Urine Mucus Urine Opiates Screen Urine Methadone Screen Ur Barbiturates Screen Ur Phencyclidine Scrn Ur Amphetamines Screen MDMA (Ecstasy) Screen U Benzodiazepines Scrn Urine Cocaine Screen U Cannabinoids Screen Ur Drug Screen Comment Ethyl Alcohol < 3.0 09/01/22 09/01/22 01:36 01:36 WBC RBC Hgb Hct MCV MCH MCHC RDW Std Deviation RDW Coeff of [place] Plt Count MPV Immature Gran % (Auto) Neut % (Auto) Lymph % (Auto) Shannon % (Auto) Eos % (Auto) Baso % (Auto) Absolute Neuts (auto) Absolute Lymphs (auto) Nucleated RBC % Sodium Potassium Chloride Carbon Dioxide Anion Gap BUN Creatinine Estim Creat Clear Calc Est GFR (MDRD) Af Amer Est GFR (MDRD) Non-Af BUN/Creatinine Ratio Glucose Calcium Total Bilirubin AST ALT Alkaline Phosphatase Troponin I High Sens Total Protein Albumin Globulin Albumin/Globulin Ratio Urine Color Yellow Urine Clarity Clear Urine pH 6.0 Ur Specific [place] 1.015 Urine Protein Negative Urine Glucose (UA) Normal Urine Ketones Negative Urine Occult Blood Negative Urine Nitrite Negative Urine Bilirubin Negative Urine Urobilinogen Normal Ur Leukocyte Esterase 25 H Urine RBC 0 SEEN Urine WBC 0-5 SEEN Ur Squamous Epith Cells 0 SEEN Urine Bacteria 0 SEEN Urine Mucus 0 SEEN Urine Opiates Screen POSITIVE H Urine Methadone Screen NEGATIVE Ur Barbiturates Screen NEGATIVE Ur Phencyclidine Scrn NEGATIVE Ur Amphetamines Screen NEGATIVE MDMA (Ecstasy) Screen NEGATIVE U Benzodiazepines Scrn NEGATIVE Urine Cocaine Screen NEGATIVE U Cannabinoids Screen NEGATIVE Ur Drug Screen Comment Ethyl Alcohol Radiography Diagnostic Testing: Clinical Impression(s) from Imaging Studies Chest X-Ray 08/31/22 00:02 IMPRESSION: No acute findings in the chest. Electronically Signed: Cooper Lainez MD at 0:43 EST Reading Location ID and State: [facility] / ID Tel , Service support , Brain CT 08/31/22 23:38 IMPRESSION: 1. No acute intracranial abnormalities. 2. Age-related changes. Electronically Signed: Cooper Lainez MD at 0:46 EST Reading Location ID and State: [facility] / ID Tel , Service support , Chest x-ray and CT showed no acute change. EKG Initial EKG: Comments: EKG done for evaluation of neurodeficit and status post bypass surgery read by me shows normal sinus rhythm with overall rate of 88. There does appear to be right bundle branch block with some nonspecific ST and T wave changes. No acute ST elevation. CA interval and QRS duration are normal. QTc is a bit toward the longer end at 474 ms. Discharge Plan Triage Chief Complaint: Neuro S/Sx ED Provider: Sandor Ramirez Dx/Rx/DC Orders Clinical Impression: Agitation, Status post coronary artery bypass graft Instructions: ED Confusion Prescriptions: No Action clonazepam 0.5 mg tablet 0.5 mg PO TID PRN (Reason: Anxiety) amlodipine 5 mg tablet 5 mg PO DAILY aspirin 81 mg tablet,delayed release (DR/EC) 162 mg PO DAILY hydroxyzine pamoate [Vistaril] 25 mg capsule 25 mg PO DAILY PRN (Reason: anxiety) ergocalciferol (vitamin D2) 1,250 mcg (50,000 unit) capsule 1,250 mcg PO QWEEK metoprolol tartrate 25 mg tablet 50 mg PO BID ezetimibe [Zetia] 10 mg tablet 10 mg PO DAILY Qty: 90 3RF magnesium oxide 400 mg (241.3 mg magnesium) tablet 400 mg PO DAILY meclizine 25 mg tablet 25 mg PO TID zolpidem 12.5 MG tablet,ext release multiphase 12.5 mg PO QHS PRN PRN (Reason: Sleep) baclofen 10 mg tablet 10 mg PO Q6H Label Comments: Take 1 Tablet three times daily buprenorphine 20 mcg/hour patch weekly 20 mcg transdermal X1 hydrocodone-acetaminophen 5-325 mg tablet 5 - 325 tab PO TID Primary Care Provider: Josh Greene Referrals: Josh Greene MD [Primary Care Provider] - 3-5 Days Disposition Disposition: Home, Self Care
[2022-08-31 23:59] LABS: Absolute Lymphocyte Count 2.51 X10^3/uL (0.83-4.51); Absolute Neutrophil Count 6.8 X10^3/uL (2.0-7.7); Basophil# 0.06 X10^3/uL; Basophil% 0.6 % (0-1); Eosinophil# 0.41 X10^3/uL; Eosinophils% 3.9 % (0-5); Hematocrit 42.4 % (37-47); Hemoglobin 13.3 g/dL (12.0-15.0); Lymphocyte # 2.51 X10^3/ul (0.83-4.51); Lymphocyte % 24.1 % (19-41); Mean Corp Hgb Conc 31.4 g/dL (32-36); Mean Corpuscular Hgb 26.8 pg (27.0-32.0); Mean Corpuscular Volume 85.5 fL (81-99); Mean Platelet Vol. 9.5 fl (6.2-12.0); Monocyte# 0.63 X10^3/uL; NRBC Flagged by Analyzer 0 % (0-5); Neutrophil # 6.79 X10^3/uL (2.7-7.7); Neutrophil % 65.1 % (47-70); Platelet Count 398 K/mm3 (150-450); RBC Distribution Width CV 15.3 % (11.6-14.6); RBC Distribution Width SD 47.7 fl (35.1-43.9); Red Blood Count 4.96 M/mm3 (4.2-5.4); White Blood Count 10.4 K/mm3 (4.4-11.0)
[2022-09-01 00:12] LABS: Alcohol, Blood (Medical)-Serum < 3.0 mg/dL
[2022-09-01 00:14] LABS: ALB/GLOB Ratio 0.9 RATIO (0.9-2.4); AST(SGOT) 26 U/L (15-37); Alanine Aminotransfer ALT/SGPT 39 U/L (13-56); Albumin, Serum 3.5 g/dL (3.2-5.0); Alkaline Phosphatase 126 U/L (45-117); Anion Gap 6 (5-15); BUN 18 mg/dL (7-18); BUN/Creat Ratio 22.6 RATIO (10-20); Calcium,Total 9.3 mg/dL (8.5-10.1); Chloride 108 mmol/L (98-107); EST Glomerular Filtration Rate 76 mL/min (>60); Est Glom Filt Rate - Afr Amer 92 mL/min (>60); Estimated Creatinine Clearance 51.75 ml/min; Globulin 4.1 g/dL (2.2-4.2); Glucose 131 mg/dL (74-106); Potassium 3.8 mmol/L (3.5-5.1); Protein, Total 7.6 g/dL (6.4-8.2); Sodium Level 139 mmol/L (136-145); Troponin-I HS 7 pg/mL (3.0-54.0)
[2022-09-01 00:19] VITALS: BP 149/92; PULSE 85; RESP 13; O2SAT 92
[2022-09-01 01:00] VITALS: BP 118/55; PULSE 102; RESP 16; O2SAT 93
[2022-09-01 01:42] LABS: Bacteria 0 SEEN /hpf (None Seen); Color, Urine Yellow (Yellow); Glucose, Dipstick Normal (Normal); Ketone-Dipstick Negative (Negative); Leukocyte Esterase-Dipstick 25 /ul (Negative); Mucous, Urine 0 SEEN /hpf (<or=2+); Nitrite-Dipstick Negative (Negative); Occult Blood-Urine Negative /ul (Negative); Protein-Dipstick Negative (Negative); Red Blood Cells-Urine 0 SEEN /hpf (0-5); Specific Gravity, Urine 1.015 (1.002-1.030); Squamous Epithelial Cells - UA 0 SEEN /hpf (5-10); Urine Bilirubin Dipstick Negative (Negative); Urine Clarity Clear (Clear); Urine Urobilinogen Normal (Normal)
[2022-09-01 01:58] LABS: Amphetamine Urine VISTA NEGATIVE (<1000 ng/mL); Barbiturate Urine VISTA NEGATIVE (< 200 ng/mL); Benzodiazepine Urine VISTA NEGATIVE (< 200 ng/mL); Cocaine Urine VISTA NEGATIVE (< 300 ng/mL); Ecstacy Urine VISTA NEGATIVE (< 500 ng/mL); Methadone Urine VISTA NEGATIVE (< 300 ng/mL); PCP Urine VISTA NEGATIVE (< 25 ng/mL); THC Urine VISTA NEGATIVE (< 50 ng/mL); Vista UDS pH Range 6
[2022-09-01 02:00] VITALS: BP 126/88; PULSE 107; RESP 19; O2SAT 93
[2022-09-01 02:05] LABS: White Blood Cells 0-5 SEEN /hpf (0-5)
[2022-09-01 03:00] VITALS: BP 124/82; PULSE 100; RESP 16; O2SAT 96
== END 2022-09-01 03:41 | disposition home or self-care (01) ==
PROVIDERS: Emergency Provider Emergency Medicine; PCP Family Medicine; Visit Provider Emergency Medicine
DX: R45.1 Restlessness and agitation (principal); J44.9 Chronic obstructive pulmonary disease, unspecified; F41.9 Anxiety disorder, unspecified; Z95.1 Presence of aortocoronary bypass graft; I10 Essential (primary) hypertension; R47.9 Unspecified speech disturbances; R41.0 Disorientation, unspecified; E78.5 Hyperlipidemia, unspecified; R73.9 Hyperglycemia, unspecified; Z87.891 Personal history of nicotine dependence; Z79.899 Other long term (current) drug therapy
CPT/HCPCS: 70450; 71045; 80053; 80307; 81001; 82077; 84484; 85025; 93005; 99285

== ENCOUNTER 2022-10-07 13:00 | Outpatient (RCR) | payer MEDICARE, OTHER, SELFPAY ==
[2022-08-28 11:14] VITALS: BMI 25.6
== END 2022-10-08 23:59 ==
LOC: CR 13:00
PROVIDERS: PCP Family Medicine; Referring Provider Internal Medicine Cardiovascular Disease; Visit Provider Internal Medicine Cardiovascular Disease
DX: Z95.1 Presence of aortocoronary bypass graft (principal); I70.213 Atherosclerosis of native arteries of extremities with intermittent claudication, bilateral legs
CPT/HCPCS: 93798

== ENCOUNTER 2022-11-04 13:00 | Outpatient (RCR) | payer MEDICARE, OTHER, SELFPAY ==
[2022-08-28 11:14] VITALS: BMI 25.6
--- NOTE | 2022-10-29 09:17 | CR.ITP_ITS ---
Diagnosis Exercise - 60-day Assessment - Visit Date of Eval: 10/29/22 Session #:: 17 Comments:: Patient was absent for one week due to cold symptoms, R/O COVID-19 which had negative test results. - Physician Prescribed Exercise Modalities: Treadmill, NuStep, Lateral [employer] Frequency: 3x/week for 12 weeks [36 sessions] Intensity: 60-80% of age predicted maximum heart rate reserve Duration: 30 - 45 minutes Current METSs:: 4.0 unchanged due to limitations of lower back pain/discomfort day-to-day Target Heart Rate:: 90-120 Current RPE:: 13 Maximum Excercise HR:: 77 Resting Blood Pressure: 124/64 Maximum Exercise Blood Pressure: 128/68 EKG Type: Sinus ana to sinus rhythm with rare PAC - Outcomes & Goals Goals:: Verbalizes understanding of THR, RPE & goal METS by session 6, Documents in home exercise log/reports 30 min aerobic 5 day/wk by DC, Demonstrates accurate pulse taking by DC - Intervention & Plan Exercise Program Goals: Instruct on personal THR & RPE, Instruct on MET level & personal MET goal, Show patient to take own pulse /validate performance until accurate, Instruct on home exercise - 30-day Reassessments 30 day Reassessments:: Met - Physical Activity Home Exercise Physical Activity - Home Exercise: Safe Exercise, Warm-up, Self-monitoring, Cool-Down, Home Exercise > 30 min Daily, Sitting Time <3 hours/daily - Outcomes & Goals Outcomes/Goals: Demonstrates correct Warm-up/exercise Cool-Down (S3) if = 2.5 METs, Verbalizes symptoms of exercise intolerance by Session 3 (S3), Demonstrate safe equipment use (S3) & follows exercise prescrition (6) - Intervention & Plan Plan/Intervention: Instruct warm-up & cool-down if exercising at > 2 METs, Instruct on symptoms of exercise intolerance & actions to take, Instruct & monitor on saf, Assess intial functional capacity & safety risk - 30-day Reassessments 30 day Reassessments:: Met Nutrition - Initial Assessment Nutrition - 30-Day Assessment Nutrition - 60-Day Assessment - Program Goals Nutrition Program Goals: LDL <100 optimal. 100 - 129 Near optimal. 130 - 159 Borderline High. 160 - 189 High. Total Cholesterol <200 desirable. 200 - 239 Borderline High. >/= 240 High. HDL < 40 Low >/=60 High. Triglycerides <150 desirable. <199 optimal. VlDL 5 - 40. HgbA1C <7%. BMI <25 Patient has diagnosis of Hyperlipidemia (ICD E78)?: Yes - Visit Date of Assessment:: 10/29/22 Session #:: 17 - Cholesterol/Lipids (Other Core Measures) Determine presence & major risk factors that modify LDL goal: Hypertension or hypertensive medication, Family history of premature CHD in Male < 55 years: female <65 yearsFa, Age men > 45 years; women >/= 55 years Outcomes/Goals: Pt IDs own risk factors & lifestyle modifications by Session 10, Verbalizes symptoms of angina & response by session 3., Pt independently manages Intervention/Plan: Instruct on personal lipid levels & lipid goals/NCEP guidelines, Instruct on cholesterol 30-day Reassessments:: Progressing - Diabetes (Other Core Measures) Diabetes Type: Not Applicable - Weight Mgt (Other Care) Not Applicable: Yes Height: 5 ft 2 in Weight:: 139 lb BMI: 25.4 Diagnosis Overweight/Obesity BMI> 30% ICD-10 E66: No Diagnosis High BMI/Morbid Obesity BMI> 35% ICD-10 Z68: No Outcomes/Goals: Pt sets, maintains & shows weight loss goal & trend during rehab Intervention/Plan: Instruct on ideal BMI & set weight loss goal w/patient 30 day Reassessments:: Met - Healthy Eating Habits Will attend diet classes:: Yes Outcomes/Goals:: Consume diet rich in vegs,fruits,whole grain/high fiber,fish,lean meat, Limit sat/trans fats,cholesterol & added salts & sugars Intervention/Plan:: Assess current eating habits 30-day Reassessments:: Met - Education Gave educational materials for:: Healthy eating Nutrition - 90-Day Assessment Nutrition - Final Assessment Core - Initial Assessment Core - 30-Day Assessment Core - 60-Day Assessment - Visit Date of Eval: 10/29/22 Session #:: 17 - Medication Compliance Preventative Medication(s):: Aspirin, Statin/lipid, Beta ayesha H/O mental health issues: depression, anxiety, or addiction?: No Doesn?t believe in the benefits of treatment?: No Believes medications are unnecessary or harmful?: No Has a concern about medication side effects?: No Expresses concern over the cost of medications?: No Outcomes/Goals: Verbalizes medications,desired effect & common side effects @ DC, Pt self-reports following medication regimen, Keeps card in wallet w/medications listed by DC Interventions/plans: Instruct on medication effects & side effects, Review me dication list w/patient every two weeks, Instruct importance of taking meds as ordered & assist problem solving 30-day Reassessments:: Met - Tobacco Use Tobacco Use: Non-smoker - Hypertension Hypertension Diagnosis:: Hypertension ICD-10 I10 Resting Blood Pressure:: 124/64 [employer] Hypertension Guidelines: [employer] [employer] Hypertension Guidelines. Normal BP Less than 120/80. Elevated BP 120/80. Hypertension Stage 1: BP 130-139/80-89. Hypertesnion Stage 2: BP 140 or higher/90 or higher. Hypertension Crisis: BP higher than 180/120 Peak Exercise Blood Pressure:: 128/68 Outcomes/Goals: Able to verbalize/achieve optimal blood pressure <130/80, Incorporates diet changes & exercise for blood pressure control by DC Interventions/plan: Instruct on optimal blood pressure, hypertension & medications, Instruct on effects of sodium, alcohol, stress, exercise &hypertension 30 day Reassessments:: Met - Tobacco Cessation Referral Smoking Cessation Referral:: No Individual Education/Counseling:: No Education Schedule Given:: Yes Core - 90 Day Assessment Core - Final Assessment Psychosocial - Initial Assess Psychosocial - 30-Day Assess Psychosocial - 60-Day Assess - VIsit Date of Eval: 10/29/22 Session #:: 17 Not Applicable: No History of previous Mental disease:: Yes History of Emotional Disorders: Anxious, Depression - Psychosocial Test Tool Used:: PHQ-9 Questionnaire phq-9 Severity: Severity. 1-4 Minimal Depression. 5-9 Mild Depression. 10-14 Moderate Depression. 15-19 Moderately Sever Depression. 20-27 Severe Depression. Rule: - Referral to Behavioral Health PS - Interventions: Yes Referral to Physician if PHQ-9 if score is 5-9:, Yes Attend Stress Management Classes, No Referral to Behavioral Health if PHQ-9 score >9:, No Referral to [facility] - Outcomes/Goals: See list Psychosocial Outcomes/Goals:: ID's personal stressors & 2 strategies to manage stress by discharge - Intervention/Plan: See List Interventions/Plan:: Assess stressors,coping strategies & signs of derpression on admission, Instruct/assist pt to develop coping & personal stress Mgt strategies, Instruct patient to recognize signs & symptoms of depression, Instru ct patient to recog - 30-day Reassessments: 30 day Reassessments:: Progressing Psychosocial - 90-Day Assess Psychosocial - Final Assessmen Patient Health Questionnaire 60-Day Re-eval Assessment 1. Little interest or pleasure in doing things: Several days 2. Feeling down, depressed, or hopeless: Several days 3. Trouble falling or staying asleep, or sleeping too much: More than half the days 4. Feeling tired or having little energy: More than half the days 5. Poor appetite or overeating: Several days 6. Feeling bad about yourself -- or that you are a failure or have let yourself or your family down: More than half the days 7. Trouble concentrating on things, such as reading the newspaper or watching television: Not at all 8. Moving or speaking so slowly that other people could have noticed. Or the opposite - being so fidgety or restless that you have been moving around a lot m ore than usual: Not at all 9. Thoughts that you would be better off , or of hurting yourself in some way: Not at all How difficult have these problems made it for you to do your work, take care of things at home, or get along with other people?: Very difficult Total Score: 9 Self-Efficacy 60-Day Re-eval Assessment We would like to know how confident you are in doing certain activities. Please select your confidence level for:: Select your confidence level for the following using the scale 1-10 where 1 is not at all confident and 10 is totally confident. Your score is the average of all 6 responses. Fatigue: How confident are you that you can keep the fatigue caused by your disease from interfering with the things you want to do? Select Number: 7 Physical Discomfort or Pain: How confident are you that you can keep the physical discomfort or pain of your disease from interfering with the things you want to do? Select Number: 4 Emotional Distress: How confident are you that you can keep the emotional distress caused by your disease from interfering with the things you want to do? Select Number: 4 Other Symptoms or Health Problems: How confident are you that you can keep other symptoms or health problems from interfering with the things you want to do? Select Number: 6 Different Tasks and Activities: How confident are you that you can do the different tasks and activities needed to manage your health condition so as to reduce your need to see a doctor? Select Number: 4 Medication: How confident are you that you can do things other than just taking medication to reduce how much your illness affects your everyday life? Select Number: 5 Total Score:: 5 Nutrition Survey
[2022-10-29 09:25] VITALS: BP 124/64; BP 128/68; BMI 25.4
== END 2022-11-05 23:59 ==
LOC: CR 13:00
PROVIDERS: PCP Family Medicine; Referring Provider Internal Medicine Cardiovascular Disease; Visit Provider Internal Medicine Cardiovascular Disease
DX: Z95.1 Presence of aortocoronary bypass graft (principal); I70.213 Atherosclerosis of native arteries of extremities with intermittent claudication, bilateral legs
CPT/HCPCS: 93798

== ENCOUNTER → 2022-11-07 | Outpatient (CLI) | payer MEDICARE, OTHER, SELFPAY ==
[2022-10-29 09:25] VITALS: BMI 25.4
[2022-11-07 12:00] LABS: AST(SGOT) 39 U/L (15-37); Alanine Aminotransfer ALT/SGPT 72 U/L (13-56); Alkaline Phosphatase 129 U/L (45-117); Bilirubin, Direct 0.07 mg/dL (0.00-0.30); Cholesterol 236 mg/dL (200); Globulin 3.7 g/dL (2.2-4.2); High Density Lipoprotein 41 mg/dL; Protein, Total 6.7 g/dL (6.4-8.2); Triglycerides 338 mg/dL; Very Low Density Lipoprotein 68 mg/dL (5-40)
== END | disposition home or self-care (01) ==
LOC: LAB 11:04
PROVIDERS: PCP Family Medicine; Referring Provider Nurse Practitioner Family; Visit Provider Nurse Practitioner Family
DX: I10 Essential (primary) hypertension (principal); E78.00 Pure hypercholesterolemia, unspecified
CPT/HCPCS: 36415; 80061; 80076

== ENCOUNTER → 2022-11-11 | Outpatient (CLI) | payer MEDICARE, OTHER, SELFPAY ==
[2022-10-29 09:25] VITALS: BMI 25.4
[2022-11-11 13:23] LABS: BUP Internal Control LINE = VALID (VALID); Buprenorphine Drug Screen Negative (<10 ng/mL)
[2022-11-11 13:27] LABS: Amphetamine Urine VISTA NEGATIVE (<1000 ng/mL); Barbiturate Urine VISTA NEGATIVE (< 200 ng/mL); Benzodiazepine Urine VISTA NEGATIVE (< 200 ng/mL); Cocaine Urine VISTA NEGATIVE (< 300 ng/mL); Ecstacy Urine VISTA NEGATIVE (< 500 ng/mL); Methadone Urine VISTA NEGATIVE (< 300 ng/mL); PCP Urine VISTA NEGATIVE (< 25 ng/mL); THC Urine VISTA NEGATIVE (< 50 ng/mL); Vista UDS pH Range 5
== END | disposition home or self-care (01) ==
LOC: LAB 12:25
PROVIDERS: PCP Family Medicine; Referring Provider Anesthesiology Pain Medicine; Visit Provider Anesthesiology Pain Medicine
DX: F11.20 Opioid dependence, uncomplicated (principal)
CPT/HCPCS: 80307

== ENCOUNTER 2022-11-22 13:00 | Outpatient (RCR) | payer MEDICARE, OTHER, SELFPAY ==
[2022-10-29 09:25] VITALS: BMI 25.4
[2022-11-06 00:11] VITALS: BP 124/64; BP 128/68
--- NOTE | 2022-11-25 09:18 | PCM.CR.ITP ---
Diagnosis Exercise - 90-day Assessment - Visit Date of Eval: 11/25/22 Session #:: 26 - Physician Prescribed Exercise Modalities: Treadmill, NuStep Frequency: 3x/week for 12 weeks [36 sessions] Intensity: 60-80% of age predicted maximum heart rate reserve Duration: 30 - 45 minutes METs - Progression 0.5-1.0 weekly:: unchanged due to her chronic back problems Current METSs:: 4.0 Target Heart Rate:: 90-120 Current RPE:: 4.0 Maximum Excercise HR:: 94 Resting Blood Pressure: 120/70 Maximum Exercise Blood Pressure: 136/64 EKG Type: NSR to sinus tach with rare PVC Current Physical Activity or Exercising minutes: 39:56 - Outcomes & Goals Goals:: Verbalizes understanding of THR, RPE & goal METS by session 6, Documents in home exercise log/reports 30 min aerobic 5 day/wk by DC, Demonstrates accurate pulse taking by DC - Intervention & Plan Exercise Program Goals: Instruct on personal THR & RPE, Instruct on MET level & personal MET goal, Show patient to take own pulse /validate performance until accurate, Instruct on home exercise - 30-day Reassessments 30 day Reassessments:: Met - Physical Activity Home Exercise Physical Activity - Home Exercise: Safe Exercise, Warm-up, Self-monitoring, Cool-Down, Home Exercise > 30 min Daily, Sitting Time <3 hours/daily - Outcomes & Goals Outcomes/Goals: Demonstrates correct Warm-up/exercise Cool-Down (S3) if = 2.5 METs, Verbalizes symptoms of exercise intolerance by Session 3 (S3), Demonstrate safe equipment use (S3) & follows exercise prescrition (6) - Intervention & Plan Plan/Intervention: Instruct warm-up & cool-down if exercising at > 2 METs, Instruct on symptoms of exercise intolerance & actions to take, Instruct & monitor on saf, Assess intial functional capacity & safety risk - 30-day Reassessments 30 day Reassessments:: Met Nutrition - Initial Assessment Nutrition - 30-Day Assessment Nutrition - 60-Day Assessment Nutrition - 90-Day Assessment - Program Goals Nutrition Program Goals: LDL <100 optimal. 100 - 129 Near optimal. 130 - 159 Borderline High. 160 - 189 High. Total Cholesterol <200 desirable. 200 - 239 Borderline High. >/= 240 High. HDL < 40 Low >/=60 High. Triglycerides <150 desirable. <199 optimal. VlDL 5 - 40. HgbA1C <7%. BMI <25 Patient has diagnosis of Hyperlipidemia (ICD E78)?: Yes - Visit Date of Assessment:: 11/25/22 Session #:: 26 - Cholesterol/Lipids (Other Core Measures) Triglycerides (mg/dL): 310 - 10/31/2021 Total Cholesterol (mg/dL): 220 LDL Cholesterol (mg/dL): 131 HDL Cholesterol (mg/dL): 27 Determine presence & major risk factors that modify LDL goal: Hypertension or hypertensive medication, Low HDL cholesterol <40 mg/dL*, Family history of premature CHD in Male < 55 years: female <65 yearsFa, Age men > 45 years; women >/= 55 years Outcomes/Goals: Pt IDs own risk factors & lifestyle modifications by Session 10, Verbalizes symptoms of angina & response by session 3., Pt independently manages Intervention/Plan: Instruct on personal lipid levels & lipid goals/NCEP guidelines, Instruct on cholesterol Referral to dietitian:: No - Nutrtional Consult done on 11/11/2022 30-day Reassessments:: Progressing - Diabetes (Other Core Measures) Diabetes Type: Not Applicable - Weight Mgt (Other Care) Not Applicable: Yes Height: 5 ft 2 in Weight:: 146 lb BMI: 26.6 Diagnosis Overweight/Obesity BMI> 30% ICD-10 E66: No Diagnosis High BMI/Morbid Obesity BMI> 35% ICD-10 Z68: No Outcomes/Goals: Pt sets, maintains & shows weight loss goal & trend during rehab Intervention/Plan: Instruct on ideal BMI & set weight loss goal w/patient, Assist pt to ID & incorporate diet changes for weight loss by S9 30 day Reassessments:: Met - Healthy Eating Habits Will attend diet classes:: Yes Outcomes/Goals:: Consume diet rich in vegs,fruits,whole grain/high fiber,fish,lean meat, Limit sat/trans fats,cholesterol & added salts & sugars Intervention/Plan:: Assess current eating habits 30-day Reassessments:: Met - Education Gave educational materials for:: Healthy eating Nutrition - Final Assessment Core - Initial Assessment Core - 30-Day Assessment Core - 60-Day Assessment Core - 90 Day Assessment - Visit Date of Eval: 11/25/22 Session #:: 26 - Medication Compliance Preventative Medication(s):: Aspirin, Statin/lipid, Beta ayesha H/O mental health issues: depression, anxiety, or addiction?: No Doesn?t believe in the benefits of treatment?: No Believes medications are unnecessary or harmful?: No Has a concern about medication side effects?: No Expresses concern over the cost of medications?: No Outcomes/Goals: Verbalizes medications,desired effect & common side effects @ DC, Pt self-reports following medication regimen, Keeps card in wallet w/medications listed by DC Interventions/plans: Instruct on medication effects & side effects, Review medication list w/patient every two weeks, Instruct importance of taking meds as ordered & assist problem solving 30-day Reassessments:: Met - Tobacco Use Tobacco Use: Non-smoker - Hypertension Hypertension Diagnosis:: Hypertension ICD-10 I10 Resting Blood Pressure:: 120/70 [place] [employer] Hypertension Guidelines: [place] [employer] Hypertension Guidelines. Normal BP Less than 120/80. Elevated BP 120/80. Hypertension Stage 1: BP 130-139/80-89. Hypertesnion Stage 2: BP 140 or higher/90 or higher. Hypertension Crisis: BP higher than 180/120 Peak Exercise Blood Pressure:: 152/64 Outcomes/Goals: Able to verbalize/achieve optimal blood pressure <130/80, Incorporates diet changes & exercise for blood pressure control by DC Interventions/plan: Instruct on optimal blood pressure, hypertension & medications, Instruct on effects of sodium, alcohol, stress, exercise &hypertension 30 day Reassessments:: Met - Tobacco Cessation Referral Smoking Cessation Referral:: No Individual Education/Counseling:: No Education Schedule Given:: Yes Core - Final Assessment Psychosocial - Initial Assess Psychosocial - 30-Day Assess Psychosocial - 60-Day Assess Psychosocial - 90-Day Assess - VIsit Date of Eval: 11/25/22 Session #:: 26 Not Applicable: No History of previous Mental disease:: Yes History of Emotional Disorders: Anxious, Depression - Psychosocial Test Tool Used:: PHQ-9 Questionnaire phq-9 Severity: Severity. 1-4 Minimal Depression. 5-9 Mild Depression. 10-14 Moderate Depression. 15-19 Moderately Sever Depression. 20-27 Severe Depression. Rule: - Referral to Behavioral Health PS - Interventions: Yes Attend Stress Management Classes, No Referral to Behavioral Health if PHQ-9 score >9:, No Referral to [facility], No Referral to Physician if PHQ-9 if score is 5-9: - Outcomes/Goals: See list Psychosocial Outcomes/Goals:: ID's personal stressors & 2 strategies to manage stress by discharge - Intervention/Plan: See List Interventions/Plan:: Assess stressors,coping strategies & signs of derpression on admission, Instruct/assist pt to develop coping & personal stress Mgt strategies, Instruct patient to recognize signs & symptoms of depression, Instruct patient to recog - 30-day Reassessments: 30 day Reassessments:: Met Psychosocial - Final Assessmen Patient Health Questionnaire 90-Day Re-eval Assessment 1. Little interest or pleasure in doing things: Not at all 2. Feeling down, depressed, or hopeless: Several days 3. Trouble falling or staying asleep, or sleeping too much: Several days 4. Feeling tired or having little energy: Several days 5. Poor appetite or overeating: Several days 6. Feeling bad about yourself -- or that you are a failure or have let yourself or your family down: More than half the days 7. Trouble concentrating on things, such as reading the newspaper or watching television: Not at all 8. Moving or speaking so slowly that other people could have noticed. Or the opposite - being so fidgety or restless that you have been moving around a lot more than usual: Not at all 9. Thoughts that you would be better off , or of hurting yourself in some way: Not at all How difficult have these problems made it for you to do your work, take care of things at home, or get along with other people?: Somewhat difficult Total Score: 6 Self-Efficacy 90-Day Re-eval Assessment We would like to know how confident you are in doing certain activities. Please select your confidence level for:: Select your confidence level for the following using the scale 1-10 where 1 is not at all confident and 10 is totally confident. Your score is the average of all 6 responses. Fatigue: How confident are you that you can keep the fatigue caused by your disease from interfering with the things you want to do? Select Number: 8 Physical Discomfort or Pain: How confident are you that you can keep the physical discomfort or pain of your disease from interfering with the things you want to do? Select Number: 4 Emotional Distress: How confident are you that you can keep the emotional distress caused by your disease from interfering with the things you want to do? Select Number: 5 Other Symptoms or Health Problems: How confident are you that you can keep other symptoms or health problems from interfering with the things you want to do? Select Number: 9 Different Tasks and Activities: How confident are you that you can do the different tasks and activities needed to manage your health condition so as to reduce your need to see a doctor? Select Number: 5 Medication: How confident are you that you can do things other than just taking medication to reduce how much your illness affects your everyday life? Select Number: 6 Total Score:: 6 Nutrition Survey
[2022-11-25 09:26] VITALS: BP 120/70; BP 152/64; BMI 26.6
== END 2022-12-06 23:59 ==
LOC: CR 13:00
PROVIDERS: PCP Family Medicine; Referring Provider Internal Medicine Cardiovascular Disease; Visit Provider Internal Medicine Cardiovascular Disease
DX: I70.213 Atherosclerosis of native arteries of extremities with intermittent claudication, bilateral legs (principal); Z95.1 Presence of aortocoronary bypass graft
CPT/HCPCS: 93798

== ENCOUNTER 2022-11-28 12:35 | Inpatient (IN) | payer MEDICARE, OTHER, SELFPAY ==
[2022-11-28 12:36] VITALS: BP 120/59; PULSE 75; RESP 14; TEMP 36.5; O2SAT 94; BMI 25.6
--- NOTE | 2022-11-28 13:43 | EKG12_ITS ---
Test Reason : GENERAL Blood Pressure : / mmHG Vent. Rate : 076 BPM Atrial Rate : 076 BPM P-R Int : 178 ms QRS Dur : 120 ms QT Int : 422 ms P-R-T Axes : 057 035 -08 degrees QTc Int : 474 ms Sinus rhythm with Premature atrial complexes Low voltage QRS Right bundle branch block Abnormal ECG Confirmed by GABRIELLE ANTUNEZ, LANE ([id number]), makeup editor VASHTI TALBOT ([id number]) on 11/29/2022 10:51:16 AM Referred By: Confirmed By:LANE ANTHONY MD
--- NOTE | 2022-11-28 13:45 | CT_ITS ---
STUDY: CT BRAIN WITHOUT CONTRAST REASON FOR EXAM: Female, 72 years old. Altered Mental Status. Confusion and hypertension. RADIATION DOSAGE (If Supplied By Facility): CTDIvol = ( 44.99 ) mGy, DLP = ( 812.98 ) mGycm TECHNIQUE: Transaxial CT imaging of the brain was performed without administration of intravenous contrast material. Individualized dose optimization techniques were used for this CT. COMPARISON: Comparison is made with prior study dated August 31, 2022. FINDINGS: Normal soft tissue structures. Normal calvarium. There is mild cerebral atrophy with widening of the extra-axial spaces and ventricular dilatation. Normal white matter tracts of the cerebral hemispheres. Subacute lacunar infarct in the right basal ganglia. Stable focal area of encephalomalacia in the medial posterior aspect of the left occipital lobe. Normal brainstem. Normal cerebellum. There is no intracranial hemorrhage. There are no findings of an acute ischemic infarction. Atherosclerotic calcification of the cavernous portions of the internal carotid arteries bilaterally. Normal visualized paranasal sinuses. CT/Brain/Head without Contrast IMPRESSION: Chronic involutional changes of the brain. Subacute right basal ganglion lacunar infarct. Electronically Signed: Modesto Butler MD at 14:29 EDT ,
--- NOTE | 2022-11-28 13:47 | EX.ED.DYSGE1 ---
HPI <NAVID Anthony - Last Filed: 11/28/22 15:58> History of Present Illness Chief Complaint: General Illness Narrative Narrative: Patient is a 72-year-old female with history of chronic back pain, CABG, anxiety, COPD, GERD, hyperlipidemia who is currently on Repatha presents to the emergency department from her PCPs office for altered mental status, intermittent fevers. Per the , the for the last 4 days, the patient has been having a fever in the morning, patient has been acting altered, she has been falling, once the fever is down, she feels better. She was seen by Dr. Greene today who called to have her worked up. Patient denies any significant pain, patient does have a new cough. Per the the patient has had a fever of greater than 101 at home. No fevers in the doctor's office or here today. Patient is alert and oriented x4 on arrival [facility] <NAVID Anthony - Last Filed: 11/28/22 15:58> [facility] Medical History (Reviewed 11/07/22 @ 10:26 by Vijay Bridges CRITICAL POWER TECHNICIAN, CRITICAL POWER TECHNICIAN-C) Anxiety disorder Arthritis Atherosclerosis of aorta Atherosclerosis of [place] arteries of extremities with intermittent claudication, bilateral legs Chronic pain COPD (chronic obstructive pulmonary disease) Depression Essential hypertension GERD (gastroesophageal reflux disease) History of left heart catheterization (LHC) (~07/02/22) Hyperinflation of lungs Hyperlipidemia Hypertension PAD (peripheral artery disease) Palpitations Polycythemia secondary to smoking Pure hypercholesterolemia Tobacco dependence Vocal cord dysfunction Home Medications zolpidem 12.5 mg tablet,extended release,multiphase 6.25 mg PO QHS INSOMNIA 02/03/18 [History Last Taken 11/27/22] amlodipine 5 mg tablet 5 mg PO DAILY BLOOD PRESSURE 06/17/22 [History Last Taken 11/28/22] clonazepam 0.5 mg tablet 0.5 mg PO TID PRN Anxiety 06/17/22 [History Last Taken 11/28/22] baclofen 10 mg tablet 20 mg PO TID MUSCLE SPASMS 06/21/22 [History Last Taken 11/28/22] hydrocodone-acetaminophen 5-325mg 5mg-325mg 5 - 325 tab PO 4X/DAY PAIN 06/21/22 [History Last Taken 11/28/22] aspirin 81 mg tablet,delayed release 162 mg PO DAILY [facility] 07/05/22 [History Last Taken 11/28/22] ergocalciferol (vitamin D2) 1,250 mcg (50,000 unit) capsule 1,250 mcg PO MO SUPPLEMENT 08/22/22 [History Last Taken 11/25/22] atenolol 50 mg tablet 50 mg PO BID BLOOD PRESSURE 11/28/22 [History Last Taken 11/28/22] azithromycin 250 mg tablet 250 mg PO UD ANTIBIOTIC 11/28/22 [History Last Taken 11/28/22] buprenorphine 10 mcg/hour weekly transdermal patch 10 mcg transdermal TU PRN PAIN 11/28/22 [History Last Taken 11/26/22] hydroxyzine pamoate 100 mg capsule 100 mg PO QHS ANXIETY 11/28/22 [History Last Taken 11/27/22] Allergy/AdvReac Type Severity Reaction Status Date / Time prednisone Allergy Unknown Hives Verified 11/28/22 12:39 pregabalin [From Lyrica] Allergy Unknown Facial and Verified 11/28/22 12:39 hand swelling metoprolol AdvReac Intermediate Restless Verified 11/28/22 12:39 Legs atorvastatin [From Lipitor] AdvReac Other Verified 11/28/22 12:39 buspirone [From BuSpar] AdvReac NEEDS Verified 11/28/22 12:39 FOLLOW-UP cefaclor [From Ceclor] AdvReac Nausea Verified 11/28/22 12:39 codeine AdvReac NEEDS Verified 11/28/22 12:39 FOLLOW-UP erythromycin base AdvReac Vomiting Verified 11/28/22 12:39 gabapentin AdvReac Other Verified 11/28/22 12:39 hydrochlorothiazide AdvReac Nausea Verified 11/28/22 12:39 losartan [From Cozaar] AdvReac NEEDS Verified 11/28/22 12:39 FOLLOW-UP niacin AdvReac NEEDS Verified 11/28/22 12:39 FOLLOW-UP paroxetine [From Paxil] AdvReac Other Verified 11/28/22 12:39 propoxyphene [From Darvon] AdvReac NEEDS Verified 11/28/22 12:39 FOLLOW-UP rosuvastatin [From Crestor] AdvReac NEEDS Verified 11/28/22 12:39 FOLLOW-UP Tijxbso-[id number] Reductase AdvReac Unknown Verified 11/28/22 12:39 Inhibitor [Hmethox-Blz-Axu Reductase Inhibitor] Tricyclic Antidepressants AdvReac Other Verified 11/28/22 12:39 and Tricy [Tricyclic Compounds] Family History Mother Arthritis Hypertension Asthma Father Lung cancer Heart disease, Onset Age: 52 Diabetes Hypertension Brother CAD (coronary artery disease) History of coronary artery bypass surgery PAD (peripheral artery disease) Brother CAD (coronary artery disease) History of coronary artery bypass surgery PAD (peripheral artery disease) Surgical History (Reviewed 11/07/22 @ 10:26 by Vijay Bridges CRITICAL POWER TECHNICIAN, CRITICAL POWER TECHNICIAN-C) History of coronary artery bypass graft x 3 (~07/23/22) History of right breast biopsy Hx of cholecystectomy Status post insertion of iliac artery stent (~02/28/22) Social History Smoking Status: Current some day smoker tobacco type: e-cigarettes second hand exposure: Yes alcohol intake: current alcohol intake frequency: holidays/special occasions only substance use type: does not use caffeine: Yes what type of physical activity do you participate in: walking frequency: 3-4 times per week seatbelt use: always ROS <NAVID Anthony - Last Filed: 11/28/22 15:58> ROS ED ROS Narrative Constitutional: Negative for weight loss, weakness. Positive for fever and chills Eyes: Negative for vision loss, vision change, double vision ENT: Negative for any sore throat, ear pain, congestion Cardiovascular: Negative for any chest pain, tightness, palpitations Respiratory: Negative for any sputum production, hemoptysis, dyspnea, dyspnea on exertion, orthopnea. Positive for cough Gastrointestinal: Negative for any abdominal pain, nausea, vomiting, diarrhea, constipation, blood in stool, blood in vomit : Negative for any urinary frequency, dysuria, blood in urine. Positive for intermittent urinary frequency Muscle skeletal: Negative for any muscle joint pain, stiffness, myalgias, arthralgias, neck pain, back pain Neurological: Negative for any headache, syncope, numbness or tingling, dizziness. Positive feeling of altered mental status Skin: Negative for any rashes, lumps, itching, abrasions, lacerations Psychiatric: Negative for any depression, anxiety, stress, suicidal ideation, homicidal ideation Hematologic: Negative for any easy bruising, excessive bruising, easy bleeding Allergies: Negative for any eczema, hives, rash EXAM <NAVID Anthony - Last Filed: 11/28/22 15:58> Physical Exam Narrative Exam Narrative: Vital signs reviewed. Pupils equal round reactive to light, patient is alert and orient x4 however is sometimes slow to respond. Patient does have difficulty obtaining a timeline. HEET: Head normocephalic atraumatic, TMs clear bilaterally. Posterior pharynx is clear, moist mucous membranes. Nares clear bilaterally. Neck: Supple with no lymphadenopathy or tenderness. No signs of meningismus, negative jolt sign. Cardiac: Regular rate and rhythm no murmurs gallops or rubs, equal peripheral pulses bilaterally. Respiratory: Lungs clear to auscultation bilaterally diminished sounds in the bases. No chest tenderness. Abdomen: Soft, nontender, nondistended. No abdominal bruit or pulsatile masses. No hepatosplenomegaly Extremities: No peripheral edema, no signs of gross trauma or deformity. Active full range of motion of all extremities. Neuro: Cranial nerves II through XII intact, no focal neurological deficits. Skin: Clean dry and intact with no rash, purpura, petechiae, vesicles or pustules. Backs/flank: No CVA tenderness, no midline spinal tenderness, no deformity. Psych: Normal mood and affect. No SI, HI or acute psychosis. Const Vital Signs: 11/28/22 12:36 11/28/22 13:47 11/28/22 15:29 Temperature 97.7 F L Temperature Source Temporal Pulse Rate 75 92 Respiratory Rate 14 16 Blood Pressure 120/59 L 118/67 Blood Pressure Mean 79 84 Pulse Ox 94 92 Oxygen Delivery Method Room Air Room Air Room Air 11/28/22 16:28 Temperature 97.9 F Temperature Source Temporal Pulse Rate 68 Respiratory Rate 18 Blood Pressure 122/73 H Blood Pressure Mean 89 Pulse Ox 98 Oxygen Delivery Method Room Air Positive well nourished and well developed General Appearance ED: well developed <Dr. Adebayo Main DO - Last Filed: 11/28/22 17:50> Physical Exam Const Vital Signs: 11/28/22 12:36 11/28/22 13:47 11/28/22 15:29 Temperature 97.7 F L Temperature Source Temporal Pulse Rate 75 92 Respiratory Rate 14 16 Blood Pressure 120/59 L 118/67 Blood Pressure Mean 79 84 Pulse Ox 94 92 Oxygen Delivery Method Room Air Room Air Room Air 11/28/22 16:28 Temperature 97.9 F Temperature Source Temporal Pulse Rate 68 Respiratory Rate 18 Blood Pressure 122/73 H Blood Pressure Mean 89 Pulse Ox 98 Oxygen Delivery Method Room Air [facility] <Josh Early CRITICAL POWER TECHNICIAN-C - Last Filed: 11/28/22 15:58> [facility] Lab Data Labs: Laboratory Results - last 24 hr 11/28/22 11/28/22 11/28/22 13:49 13:49 13:49 WBC 22.4 H RBC 4.39 Hgb 11.9 L Hct 36.5 L MCV 83.1 MCH 27.1 MCHC 32.6 RDW Std Deviation 55.6 H RDW Coeff of Santana 18.6 H Plt Count 243 MPV 10.8 Immature Gran % (Auto) 0.800 Neut % (Auto) 79.3 H Lymph % (Auto) 8.5 L Howard % (Auto) 10.7 H Eos % (Auto) 0.2 Baso % (Auto) 0.5 Absolute Neuts (auto) 17.8 H Absolute Lymphs (auto) 1.91 Nucleated RBC % 0 Differential Comment SCANNED PT 15.1 H INR 1.2 APTT 33.2 Sodium 133 L Potassium 3.6 Chloride 101 Carbon Dioxide 24.0 Anion Gap 8 BUN 21 H Creatinine 1.00 Estim Creat Clear Calc 41.40 Est GFR (MDRD) Af Amer 71 Est GFR (MDRD) Non-Af 58 L BUN/Creatinine Ratio 21.1 H Glucose 124 H Lactic Acid Calcium 9.0 Total Bilirubin 0.80 AST 105 H ALT 70 H Alkaline Phosphatase 134 H Total Protein 7.3 Albumin 2.9 L Globulin 4.4 H Albumin/Globulin Ratio 0.7 L Urine Color Urine Clarity Urine pH Ur Specific [place] Urine Protein Urine Glucose (UA) Urine Ketones Urine Occult Blood Urine Nitrite Urine Bilirubin Urine Urobilinogen Ur Leukocyte Esterase Urine RBC Urine WBC Ur Squamous Epith Cells Ur Renal Epithelial Cell Urine Bacteria Urine Mucus 11/28/22 11/28/22 13:49 14:30 WBC RBC Hgb Hct MCV MCH MCHC RDW Std Deviation RDW Coeff of [place] Plt Count MPV Immature Gran % (Auto) Neut % (Auto) Lymph % (Auto) Howard % (Auto) Eos % (Auto) Baso % (Auto) Absolute Neuts (auto) Absolute Lymphs (auto) Nucleated RBC % Differential Comment PT INR APTT Sodium Potassium Chloride Carbon Dioxide Anion Gap BUN Creatinine Estim Creat Clear Calc Est GFR (MDRD) Af Amer Est GFR (MDRD) Non-Af BUN/Creatinine Ratio Glucose Lactic Acid 1.3 Calcium Total Bilirubin AST ALT Alkaline Phosphatase Total Protein Albumin Globulin Albumin/Globulin Ratio Urine Color Yellow Urine Clarity Clear Urine pH 6.5 Ur Specific [place] 1.010 Urine Protein 30 H Urine Glucose (UA) Normal Urine Ketones Negative Urine Occult Blood Negative Urine Nitrite Negative Urine Bilirubin Negative Urine Urobilinogen Normal Ur Leukocyte Esterase 500 H Urine RBC 0 SEEN Urine WBC 0-5 SEEN Ur Squamous Epith Cells 5-10 SEEN Ur Renal Epithelial Cell 0-5 SEEN Urine Bacteria 0 SEEN Urine Mucus 0 SEEN Radiography Diagnostic Testing: Clinical Impression(s) from Imaging Studies Brain CT 11/28/22 13:45 IMPRESSION: Chronic involutional changes of the brain. Subacute right basal ganglion lacunar infarct. Electronically Signed: Modesto Butler MD at 14:29 EDT , Chest X-Ray 11/28/22 14:15 IMPRESSION: Infiltrate in the right upper lobe and lingular segment of the left upper lobe. Radiographic follow-up is recommended. Electronically Signed: Modesto Butler MD at 14:34 EDT , Differential Diagnosis Differential Diagnosis: Subarachnoid hemorrhage Why less likely: Negative CAT scan Differential Diagnosis: Urinary tract infection Why less likely: Negative urine Treatment and Re-Evaluation :: All radiologic examinations were read, reviewed by the emergency department attending. From these reads, a plan of care will be put in place. Patient arrives alert and oriented x4 however slightly lethargic, slow to respond, is having difficulty maintaining a timeline. Patient presents the emergency department from her PCP office for confusion, intermittent fever and chills. Patient did receive a full septic work-up with 2 sets of blood cultures. Patient's laboratory studies show a significant leukocytosis with a white blood count of 22.4, this is abnormal, patient baseline is 11. Patient's chemistries show slight elevation in liver enzymes however no concern for any acute cholecystitis secondary to no abdominal pain. Patient's CT scan of the brain to rule out any stroke or intracranial pathology, patient's CT of the brain showed chronic involutional change of the brain, subacute right basal ganglia lacunar infarct. Patient is negative for any COVID or flu. Urinalysis was negative for any infection. Patient's chest x-ray showed infiltrate in the right upper lobe and lingular segment of the left upper lobe. Patient was given IV Zithromax, Rocephin. This could be the patient's source of intermittent fevers as well as confusion and cough. Secondary to the patient's elevated white blood count, history of fevers, taking Zithromax outpatient, metabolic encephalopathy, I do believe the patient benefit from admission. She is currently not meet any sepsis criteria. I spoke with hospitalist who admit this patient. I spoke with the family, all questions answered. Patient be stable for admission to a observation status. <Dr. Adebayo Main, DO - Last Filed: 11/28/22 17:50> [facility] MDM Narrative Medical decision making narrative: Patient presenting from her PCPs office for some lethargy and confusion apparently with her timeline. She is reporting intermittent fevers and chills. Patient sent to the ED for septic work-up. Vital signs are stable and she was afebrile initially. Patient was pancultured. CBC shows leukocytosis 22.4 with left shift. Hemoglobin stable 11.9. Coagulation studies unremarkable. Creatinine 1.0. Electrolytes within normal limits. LFTs slightly elevated but indeterminate urinalysis negative for infection. Chest x-ray on my interpretation shows bilateral pneumonia. Lactic acid normal. This explains the patient's fevers. She did have a CT of the brain which shows a new subacute right basal ganglion infarct. COVID and flu are negative. Patient was discussed with the hospitalist for admission Impression: 1. Weakness 2. Confusion 3. Leukocytosis 4. Bilateral pneumonia 5. Subacute right basal ganglion infarct Lab Data Labs: Laboratory Results - last 24 hr 11/28/22 11/28/22 11/28/22 13:49 13:49 13:49 WBC 22.4 H RBC 4.39 Hgb 11.9 L Hct 36.5 L MCV 83.1 MCH 27.1 MCHC 32.6 RDW Std Deviation 55.6 H RDW Coeff of Santana 18.6 H Plt Count 243 MPV 10.8 Immature Gran % (Auto) 0.800 Neut % (Auto) 79.3 H Lymph % (Auto) 8.5 L Howard % (Auto) 10.7 H Eos % (Auto) 0.2 Baso % (Auto) 0.5 Absolute Neuts (auto) 17.8 H Absolute Lymphs (auto) 1.91 Nucleated RBC % 0 Differential Comment SCANNED PT 15.1 H INR 1.2 APTT 33.2 Sodium 133 L Potassium 3.6 Chloride 101 Carbon Dioxide 24.0 Anion Gap 8 BUN 21 H Creatinine 1.00 Estim Creat Clear Calc 41.40 Est GFR (MDRD) Af Amer 71 Est GFR (MDRD) Non-Af 58 L BUN/Creatinine Ratio 21.1 H Glucose 124 H Lactic Acid Calcium 9.0 Total Bilirubin 0.80 AST 105 H ALT 70 H Alkaline Phosphatase 134 H Total Protein 7.3 Albumin 2.9 L Globulin 4.4 H Albumin/Globulin Ratio 0.7 L Urine Color Urine Clarity Urine pH Ur Specific [place] Urine Protein Urine Glucose (UA) Urine Ketones Urine Occult Blood Urine Nitrite Urine Bilirubin Urine Urobilinogen Ur Leukocyte Esterase Urine RBC Urine WBC Ur Squamous Epith Cells Ur Renal Epithelial Cell Urine Bacteria Urine Mucus 11/28/22 11/28/22 13:49 14:30 WBC RBC Hgb Hct MCV MCH MCHC RDW Std Deviation RDW Coeff of Santana Plt Count MPV Immature Gran % (Auto) Neut % (Auto) Lymph % (Auto) Howard % (Auto) Eos % (Auto) Baso % (Auto) Absolute Neuts (auto) Absolute Lymphs (auto) Nucleated RBC % Differential Comment PT INR APTT Sodium Potassium Chloride Carbon Dioxide Anion Gap BUN Creatinine Estim Creat Clear Calc Est GFR (MDRD) Af Amer Est GFR (MDRD) Non-Af BUN/Creatinine Ratio Glucose Lactic Acid 1.3 Calcium Total Bilirubin AST ALT Alkaline Phosphatase Total Protein Albumin Globulin Albumin/Globulin Ratio Urine Color Yellow Urine Clarity Clear Urine pH 6.5 Ur Specific [place] 1.010 Urine Protein 30 H Urine Glucose (UA) Normal Urine Ketones Negative Urine Occult Blood Negative Urine Nitrite Negative Urine Bilirubin Negative Urine Urobilinogen Normal Ur Leukocyte Esterase 500 H Urine RBC 0 SEEN Urine WBC 0-5 SEEN Ur Squamous Epith Cells 5-10 SEEN Ur Renal Epithelial Cell 0-5 SEEN Urine Bacteria 0 SEEN Urine Mucus 0 SEEN Radiography Diagnostic Testing: Clinical Impression(s) from Imaging Studies Brain CT 11/28/22 13:45 IMPRESSION: Chronic involutional changes of the brain. Subacute right basal ganglion lacunar infarct. Electronically Signed: Modesto Butler MD at 14:29 EDT , Chest X-Ray 11/28/22 14:15 IMPRESSION: Infiltrate in the right upper lobe and lingular segment of the left upper lobe. Radiographic follow-up is recommended. Electronically Signed: Modesto Butler MD at 14:34 EDT , Discharge Plan Dx/Rx/DC Orders Clinical Impression: Community acquired pneumonia, Acute metabolic encephalopathy, Chronic back pain Disposition Disposition: Acute Care Hospital [facility]
[2022-11-28] MEDS: 0.9% Normal Saline 1,000 ML 999 ML IV (13:52)
[2022-11-28 14:11] LABS: Absolute Lymphocyte Count 1.91 X10^3/uL (0.83-4.51); Absolute Neutrophil Count 17.8 X10^3/uL (2.0-7.7); Basophil# 0.12 X10^3/uL; Basophil% 0.5 % (0-1); Eosinophil# 0.05 X10^3/uL; Eosinophils% 0.2 % (0-5); Hematocrit 36.5 % (37-47); Hemoglobin 11.9 g/dL (12.0-15.0); Lymphocyte # 1.91 X10^3/ul (0.83-4.51); Lymphocyte % 8.5 % (19-41); Mean Corp Hgb Conc 32.6 g/dL (32-36); Mean Corpuscular Hgb 27.1 pg (27.0-32.0); Mean Corpuscular Volume 83.1 fL (81-99); Mean Platelet Vol. 10.8 fl (6.2-12.0); Monocyte# 2.39 X10^3/uL; Monocyte% 10.7 % (0-10); NRBC Flagged by Analyzer 0 % (0-5); Neutrophil # 17.77 X10^3/uL (2.7-7.7); Neutrophil % 79.3 % (47-70); POSITIVE DIFFERENTIAL YES; Platelet Count 243 K/mm3 (150-450); RBC Distribution Width CV 18.6 % (11.6-14.6); RBC Distribution Width SD 55.6 fl (35.1-43.9); Red Blood Count 4.39 M/mm3 (4.2-5.4); White Blood Count 22.4 K/mm3 (4.4-11.0)
[2022-11-28 14:15] LABS: International Normalized Ratio 1.2; Partial Thromboplast Time 33.2 Seconds (24.1-36.2); Prothrombin Time (Protime)PT. 15.1 SECONDS (11.7-14.9)
--- NOTE | 2022-11-28 14:15 | RAD_ITS ---
STUDY: X-RAY CHEST REASON FOR EXAM: Female, 72 years old. Cough. Generalized illness. TECHNIQUE: PA and lateral views of the chest. COMPARISON: Comparison is made with prior examination dated June 21, 2022 and August 31, 2022. FINDINGS: EKG electrodes are seen. There now is evidence of a focal infiltrate in the right upper lobe as well as in the peripheral aspect of the lingular segment of the left upper lobe. There is no demonstrated pleural abnormality. Sternal cerclage wires and vascular clips are present from a prior sternotomy and coronary artery bypass graft procedure (CABG). Normal mediastinum and darlyn. Normal visualized pulmonary arteries. There is atherosclerotic calcification of the aortic arch with tortuosity. There is demineralization of the osseous structures. Normal visualized ribs, clavicles, and shoulders. There is no demonstrated abnormality of the visualized soft tissue structures of the upper abdomen. RAD/Chest PA and Lateral IMPRESSION: Infiltrate in the right upper lobe and lingular segment of the left upper lobe. Radiographic follow-up is recommended. Electronically Signed: Modesto Butler MD at 14:34 EDT ,
[2022-11-28 14:22] LABS: ALB/GLOB Ratio 0.7 RATIO (0.9-2.4); AST(SGOT) 105 U/L (15-37); Alanine Aminotransfer ALT/SGPT 70 U/L (13-56); Albumin, Serum 2.9 g/dL (3.2-5.0); Alkaline Phosphatase 134 U/L (45-117); Anion Gap 8 (5-15); BUN 21 mg/dL (7-18); BUN/Creat Ratio 21.1 RATIO (10-20); Chloride 101 mmol/L (98-107); EST Glomerular Filtration Rate 58 mL/min (>60); Est Glom Filt Rate - Afr Amer 71 mL/min (>60); Globulin 4.4 g/dL (2.2-4.2); Glucose 124 mg/dL (74-106); Potassium 3.6 mmol/L (3.5-5.1); Protein, Total 7.3 g/dL (6.4-8.2); Sodium Level 133 mmol/L (136-145)
[2022-11-28 14:23] LABS: Lactic Acid 1.3 mmol/L (0.4-1.9)
--- NOTE | 2022-11-28 14:32 | ED.RN ---
Addendum entered by Mackenzie Hill 11/28/22 14:33: director state pharmacy. Original Note: pharmacy notified to complete med list.
[2022-11-28 14:34] LABS: Bacteria 0 SEEN /hpf (None Seen); Mucous, Urine 0 SEEN /hpf (<or=2+); Red Blood Cells-Urine 0 SEEN /hpf (0-5)
[2022-11-28 14:35] LABS: Color, Urine Yellow (Yellow); Glucose, Dipstick Normal (Normal); Ketone-Dipstick Negative (Negative); Leukocyte Esterase-Dipstick 500 /ul (Negative); Nitrite-Dipstick Negative (Negative); Occult Blood-Urine Negative /ul (Negative); Protein-Dipstick 30 mg/dl (Negative); Urine Bilirubin Dipstick Negative (Negative); Urine Clarity Clear (Clear); Urine Urobilinogen Normal (Normal); Urine pH 6.5 (5.0 - 8.0)
[2022-11-28 14:41] LABS: Squamous Epithelial Cells - UA 5-10 SEEN /hpf (5-10); White Blood Cells 0-5 SEEN /hpf (0-5)
[2022-11-28 14:42] LABS: Renal Epithelial Cells 0-5 SEEN /hpf (0-5)
[2022-11-28 14:56] LABS: Differential Comment SCANNED; Differential Indicated SCAN CRITERIA MET
[2022-11-28] MEDS: HYDROcodone Bitartrate/Apap 5/325 Tablet PO ×2 (15:14→20:12)
--- NOTE | 2022-11-28 15:19 | ED.RN ---
meal tray ordered for pt
[2022-11-28] MEDS: Ceftriaxone 1 GM/50 ML BAG IV (15:22)
--- NOTE | 2022-11-28 15:22 | ED.RN ---
called meal tray for pt
--- NOTE | 2022-11-28 15:23 | NURSING ---
DR JUANITA TYLER
[2022-11-28 15:29] VITALS: BP 118/67; PULSE 92; RESP 16; O2SAT 92
--- NOTE | 2022-11-28 15:37 | HP.PCM.HOS_ITS ---
HPI - General HPI Narrative KORTNEY CRUZ, is a 72 F who presents to the hospital with altered mental status and intermittent fevers and slight shortness of breath. She states that she started feeling poorly about 4 to 5 days ago and initially had called their PCP who started her on a Z-Bert. She had an appointment today and her PCP felt that she was potentially a little bit confused and with the fevers recommended she come to the hospital for evaluation. In the hospital she is found to have an elevated white count but she is not hypoxic or tachycardic. She is also afebrile though per the ER doctor the stated that she had a temperature of 201 earlier today. Chest x-ray demonstrates bilateral pneumonia, flu and COVID testing were negative. She thinks that her confusion stems from Repatha injections. [facility] Medical History (Reviewed 11/07/22 @ 10:26 by Vijay Bridges SYSTEMS SOFTWARE SPECIALIST, SYSTEMS SOFTWARE SPECIALIST-C) Anxiety disorder Arthritis Atherosclerosis of aorta Atherosclerosis of [place] arteries of extremities with intermittent claudication, bilateral legs Chronic pain COPD (chronic obstructive pulmonary disease) Depression Essential hypertension GERD (gastroesophageal reflux disease) History of left heart catheterization (LHC) (~07/02/22) Hyperinflation of lungs Hyperlipidemia Hypertension PAD (peripheral artery disease) Palpitations Polycythemia secondary to smoking Pure hypercholesterolemia Tobacco dependence Vocal cord dysfunction Home Medications zolpidem 12.5 mg tablet,extended release,multiphase 6.25 mg PO QHS INSOMNIA 02/03/18 [History Last Taken 11/27/22] amlodipine 5 mg tablet 5 mg PO DAILY BLOOD PRESSURE 06/17/22 [History Last Taken 11/28/22] clonazepam 0.5 mg tablet 0.5 mg PO TID PRN Anxiety 06/17/22 [History Last Taken 11/28/22] baclofen 10 mg tablet 20 mg PO TID MUSCLE SPASMS 06/21/22 [History Last Taken 11/28/22] hydrocodone-acetaminophen 5-325mg 5mg-325mg 5 - 325 tab PO 4X/DAY PAIN 06/21/22 [History Last Taken 11/28/22] aspirin 81 mg tablet,delayed release 162 mg PO DAILY HEART HEALTH 07/05/22 [History Last Taken 11/28/22] ergocalciferol (vitamin D2) 1,250 mcg (50,000 unit) capsule 1,250 mcg PO MO SUPPLEMENT 08/22/22 [History Last Taken 11/25/22] atenolol 50 mg tablet 50 mg PO BID BLOOD PRESSURE 11/28/22 [History Last Taken 11/28/22] azithromycin 250 mg tablet 250 mg PO UD ANTIBIOTIC 11/28/22 [History Last Taken 11/28/22] buprenorphine 10 mcg/hour weekly transdermal patch 10 mcg transdermal TU PRN PAIN 11/28/22 [History Last Taken 11/26/22] hydroxyzine pamoate 100 mg capsule 100 mg PO QHS ANXIETY 11/28/22 [History Last Taken 11/27/22] Allergy/AdvReac Type Severity Reaction Status Date / Time prednisone Allergy Unknown Hives Verified 11/28/22 12:39 pregabalin [From Lyrica] Allergy Unknown Facial and Verified 11/28/22 12:39 hand swelling metoprolol AdvReac Intermediate Restless Verified 11/28/22 12:39 Legs atorvastatin [From Lipitor] AdvReac Other Verified 11/28/22 12:39 buspirone [From BuSpar] AdvReac NEEDS Verified 11/28/22 12:39 FOLLOW-UP cefaclor [From Ceclor] AdvReac Nausea Verified 11/28/22 12:39 codeine AdvReac NEEDS Verified 11/28/22 12:39 FOLLOW-UP erythromycin base AdvReac Vomiting Verified 11/28/22 12:39 gabapentin AdvReac Other Verified 11/28/22 12:39 hydrochlorothiazide AdvReac Nausea Verified 11/28/22 12:39 losartan [From Cozaar] AdvReac NEEDS Verified 11/28/22 12:39 FOLLOW-UP niacin AdvReac NEEDS Verified 11/28/22 12:39 FOLLOW-UP paroxetine [From Paxil] AdvReac Other Verified 11/28/22 12:39 propoxyphene [From Darvon] AdvReac NEEDS Verified 11/28/22 12:39 FOLLOW-UP rosuvastatin [From Crestor] AdvReac NEEDS Verified 11/28/22 12:39 FOLLOW-UP Swzejce-SSM-HyD Reductase AdvReac Unknown Verified 11/28/22 12:39 Inhibitor [Qsvrgcj-Oat-Mig Reductase Inhibitor] Tricyclic Antidepressants AdvReac Other Verified 11/28/22 12:39 and Tricy [Tricyclic Compounds] Family History (Reviewed 11/07/22 @ 10:26 by Vijay Bridges SYSTEMS SOFTWARE SPECIALIST, SYSTEMS SOFTWARE SPECIALIST-C) Mother Arthritis Hypertension Asthma Father Lung cancer Heart disease, Onset Age: 52 Diabetes Hypertension Brother CAD (coronary artery disease) History of coronary artery bypass surgery PAD (peripheral artery disease) Brother CAD (coronary artery disease) History of coronary artery bypass surgery PAD (peripheral artery disease) Surgical History (Reviewed 11/07/22 @ 10:26 by Vijay Bridges SYSTEMS SOFTWARE SPECIALIST, SYSTEMS SOFTWARE SPECIALIST-C) History of coronary artery bypass graft x 3 (~07/23/22) History of right breast biopsy Hx of cholecystectomy Status post insertion of iliac artery stent (~02/28/22) Social History (Reviewed 11/07/22 @ 10:26 by Vijay Bridges SYSTEMS SOFTWARE SPECIALIST, SYSTEMS SOFTWARE SPECIALIST-C) Smoking Status: Current some day smoker tobacco type: e-cigarettes second hand exposure: Yes alcohol intake: current alcohol intake frequency: holidays/special occasions only substance use type: does not use caffeine: Yes what type of physical activity do you participate in: walking frequency: 3-4 times per week seatbelt use: always ROS Constitutional Constitutional: Reports fatigue and fever(s); Denies chills or malaise Eyes Eyes: Denies blurry vision ENT HEENT: Denies headache(s) or nasal discharge Cardiovascular Cardiovascular: Denies chest pain, dyspnea on exertion or syncope Respiratory/Chest Respiratory/Chest: Reports cough; Denies shortness of breath at rest or shortness of breath with exertion Gastrointestinal Gastrointestinal: Denies constipation, diarrhea, nausea or vomiting Genitourinary Genitourinary: Denies dysuria Neurologic Neurologic: Denies focal weakness, numbness or tremor(s) Psychiatric Psychiatric: Denies anxiety or depression Vital Signs Vital Signs Vital Signs: 11/28/22 12:36 11/28/22 13:47 11/28/22 15:29 Temperature 97.7 F L Temperature Source Temporal Pulse Rate 75 92 Respiratory Rate 14 16 Blood Pressure 120/59 L 118/67 Blood Pressure Mean 79 84 Pulse Ox 94 92 Oxygen Delivery Method Room Air Room Air Room Air Weight Weight: 140 lb Body Mass Index (BMI) 25.6 Physical Exam Narrative General: Alert, Oriented x3, Cooperative, No apparent distress, slow mentation HEENT: Atraumatic, PERRLA, EOMI, Normocephalic Oral: Moist Mucosa Neck: Supple, No JVD Lungs: Diminished, Normal air movement, No rhonchi, No wheeze, No rales, mild crackles bilaterally Cardiovascular: Regular rate, Regular Rhythm, Normal S1, Normal S2, No murmurs Abdomen: Soft, Non Tender, Non-Distended, No Hepato-splenomegaly Extremities: No edema, Capillary Refill Less than 3 Seconds Skin: No rashes, No breakdown Musculoskeletal: No Tenderness to Palpation of Joints or Extremities Neurological: Cranial nerves II-XII grossly intact, Motor Exam 5/5 strength throughout, Sensory exam intact to light touch and pain Psych/Mental Status: Normal Affect, Appropriate Results Lab / Micro Data Result Diagrams: 11/28/22 13:49 11/28/22 13:49 Labs: Laboratory Results - last 24 hr 11/28/22 13:49: WBC 22.4 H, RBC 4.39, Hgb 11.9 L, Hct 36.5 L, MCV 83.1, MCH 27.1, MCHC 32.6, RDW Std Deviation 55.6 H, RDW Coeff of Santana 18.6 H, Plt Count 243, MPV 10.8, Immature Gran % (Auto) 0.800, Neut % (Auto) 79.3 H, Lymph % (Auto) 8.5 L, [place] % (Auto) 10.7 H, Eos % (Auto) 0.2, Baso % (Auto) 0.5, Absolute Neuts (auto) 17.8 H, Absolute Lymphs (auto) 1.91, Nucleated RBC % 0, Differential Comment SCANNED 11/28/22 13:49: PT 15.1 H, INR 1.2, APTT 33.2 11/28/22 13:49: Sodium 133 L, Potassium 3.6, Chloride 101, Carbon Dioxide 24.0, Anion Gap 8, BUN 21 H, Creatinine 1.00, Estim Creat Clear Calc 41.40, Est GFR (MDRD) Af Amer 71, Est GFR (MDRD) Non-Af 58 L, BUN/Creatinine Ratio 21.1 H, Glucose 124 H, Calcium 9.0, Total Bilirubin 0.80, AST 105 H, ALT 70 H, Alkaline Phosphatase 134 H, Total Protein 7.3, Albumin 2.9 L, Globulin 4.4 H, Albumin/Globulin Ratio 0.7 L 11/28/22 13:49: Lactic Acid 1.3 11/28/22 14:30: Urine Color Yellow, Urine Clarity Clear, Urine pH 6.5, Ur Specific [place] 1.010, Urine Protein 30 H, Urine Glucose (UA) Normal, Urine Ketones Negative, Urine Occult Blood Negative, Urine Nitrite Negative, Urine Bilirubin Negative, Urine Urobilinogen Normal, Ur Leukocyte Esterase 500 H, Urine RBC 0 SEEN, Urine WBC 0-5 SEEN, Ur Squamous Epith Cells 5-10 SEEN, Ur Renal Epithelial Cell 0-5 SEEN, Urine Bacteria 0 SEEN, Urine Mucus 0 SEEN Micro: Microbiology 11/28/22 14:30 Nasal Secretion SARS-CoV-2 & FLU Antigen (Rapid) - Final Radiology Impression Brain CT 11/28/22 13:45 IMPRESSION: Chronic involutional changes of the brain. Subacute right basal ganglion lacunar infarct. Electronically Signed: Modesto Butler MD at 14:29 EDT , Chest X-Ray 11/28/22 14:15 IMPRESSION: Infiltrate in the right upper lobe and lingular segment of the left upper lobe. Radiographic follow-up is recommended. Electronically Signed: Modesto Butler MD at 14:34 EDT , Assessment & Plan Assessment/Plan (1) Community acquired pneumonia: PLAN: Plan 1. Community-acquired pneumonia ? No evidence of hypoxia at this time she was down to about 89% but with directions for deep breathing she went up to 97 to 98% on room air ? Independent review of chest x-ray indicates bilateral pneumonia agree with radiologist ? Continue with Rocephin and azithromycin ? We will obtain a sputum culture ? Encourage incentive spirometry ? She is a former smoker so we will also add breathing treatments as she states that there is some question to a history of COPD ? No evidence of encephalopathy on my exam or sepsis 2. HTN/HLD/CAD status post CABG/peripheral vascular disease ? Blood pressures are stable, can resume her home blood pressure medication ? Continue with aspirin ? She does take Repatha which will be continued as an outpatient 3. Chronic back pain ? Stable on her current home regimen ? Can resume her home medications DVT: Ambulation 80 minutes was spent in chart review, direct patient care, and collaboration with other providers Charges/Coding Visit Charges Inpatient E&M: 62629 Init Hosp L3
--- NOTE | 2022-11-28 15:49 | NURSING ---
MED SURG OBS JUANITA CAP, METABOLIC ENCEPHALOPATHY
--- NOTE | 2022-11-28 16:16 | ED.RN ---
Pt upset that meal tray has not been delivered. Dietary called. Pt offered snack from ER, pt refuses.
[2022-11-28 16:28] VITALS: BP 122/73; PULSE 68; RESP 18; TEMP 36.6; O2SAT 98
--- NOTE | 2022-11-28 16:30 | ED.RN ---
pt given meal tray at this time
[2022-11-28 18:47] VITALS: BMI 26.2
[2022-11-28 18:57] VITALS: BP 125/47; PULSE 96; RESP 22; TEMP 37.2; O2SAT 94
[2022-11-28] MEDS: Ipratropium/Albuterol Sulfate 3 ML AMPUL.NEB INHALATION (19:35)
[2022-11-28 19:38] VITALS: PULSE 75; RESP 20; O2SAT 94
[2022-11-28] MEDS: Zolpidem Tartrate 5 MG Tablet PO (20:13)
[2022-11-28] MEDS: Atenolol 50 MG Tablet PO (20:14)
[2022-11-28] MEDS: Baclofen 10 MG Tablet 20 MG PO (20:16)
[2022-11-28] MEDS: clonazePAM 0.5 MG Tablet PO (20:18)
[2022-11-28 21:00] VITALS: BP 143/56; PULSE 110; RESP 16; TEMP 37.6; O2SAT 92
[2022-11-29] VITALS (13 sets, daily range): BP systolic 131–155; BP diastolic 55–66; PULSE 68–110; RESP 14–20; TEMP 36.4–37.9; O2SAT 83–98
[2022-11-29 06:17] LABS: Absolute Lymphocyte Count 1.75 X10^3/uL (0.83-4.51); Absolute Neutrophil Count 14.8 X10^3/uL (2.0-7.7); Basophil# 0.08 X10^3/uL; Basophil% 0.4 % (0-1); Eosinophil# 0.05 X10^3/uL; Eosinophils% 0.3 % (0-5); Hematocrit 36.2 % (37-47); Hemoglobin 11.7 g/dL (12.0-15.0); Lymphocyte # 1.75 X10^3/ul (0.83-4.51); Lymphocyte % 9.5 % (19-41); Mean Corp Hgb Conc 32.3 g/dL (32-36); Mean Corpuscular Hgb 26.8 pg (27.0-32.0); Monocyte# 1.51 X10^3/uL; Monocyte% 8.2 % (0-10); NRBC Flagged by Analyzer 0 % (0-5); Neutrophil # 14.82 X10^3/uL (2.7-7.7); Neutrophil % 80.8 % (47-70); POSITIVE DIFFERENTIAL YES; Platelet Count 278 K/mm3 (150-450); RBC Distribution Width CV 18.6 % (11.6-14.6); RBC Distribution Width SD 56.2 fl (35.1-43.9); Red Blood Count 4.36 M/mm3 (4.2-5.4); White Blood Count 18.4 K/mm3 (4.4-11.0)
[2022-11-29] MEDS: Baclofen 10 MG Tablet 20 MG PO ×3 (06:26→20:22)
[2022-11-29 06:40] LABS: Anion Gap 10 (5-15); BUN 13 mg/dL (7-18); BUN/Creat Ratio 18.4 RATIO (10-20); Chloride 106 mmol/L (98-107); EST Glomerular Filtration Rate 87 mL/min (>60); Est Glom Filt Rate - Afr Amer 105 mL/min (>60); Glucose 111 mg/dL (74-106); Potassium 3.5 mmol/L (3.5-5.1); Sodium Level 139 mmol/L (136-145)
[2022-11-29 06:45] LABS: Differential Indicated SCAN CRITERIA MET
[2022-11-29] MEDS: Ipratropium/Albuterol Sulfate 3 ML AMPUL.NEB INHALATION ×3 (07:13→19:31)
[2022-11-29] MEDS: Aspirin E.C. 81 MG Tablet 162 MG PO (10:32)
[2022-11-29] MEDS: HYDROcodone Bitartrate/Apap 5/325 Tablet PO ×4 (10:32→20:20)
[2022-11-29] MEDS: Atenolol 50 MG Tablet PO ×2 (10:33→20:21)
[2022-11-29] MEDS: amLODIPine 5 MG Tablet PO (10:33)
[2022-11-29] MEDS: 0.9% Saline Lock 10 ML Syringe IV (10:37)
[2022-11-29] MEDS: Ceftriaxone 1 GM/50 ML BAG IV (10:38)
[2022-11-29] MEDS: clonazePAM 0.5 MG Tablet PO (10:46)
--- NOTE | 2022-11-29 12:00 | CASEMGMT ---
MARIBEL FARRELL DC Planning Assessment: Face to Face with patient for initial transition planning/care coordination assessment. MARIBEL FARRELL introduced self and role at [facility], pt voices understanding.? Care providers, pharmacy,?and demographics verified. Pt alert and oriented but was falling to sleep easily throughout the assessment. Pt was easily aroused and appropriate. Admitting Dx: Bilat pneumonia PCP: Ramona Specialists:none Preferred Pharmacy: [facility] Insurance: [facility] A/B, MMO Prescription Benefit: yes-[employer]? Living Will/HPOA: none LNOK: spouse Terrance Living Arrangements: Pt lives with her spouse in a split level home with multiple steps. Pt denies any concerns with navigating steps. Pt states she is independent with all ADLS including self care and household tasks. Transportation: pt drives and her spouse is able to assist if needed DME: none SNF/HHC: denies any previous providers ? Plan: Pt plans to return home at discharge with the support of her . Discussed home O2 if needed at discharge. Pt selected [facility] for any home O2 if needed. Will continue to monitor and assist with DC needs as identified. Green sheet placed on chart for any home O2 needs if discharged over the weekend. Anuj Acosta RN CM
[2022-11-29 12:45] LABS: Pathologist Review Reviewed
--- NOTE | 2022-11-29 14:31 | PN_ITS ---
Subjective Subjective Patient seen and examined. She says she was feeling better. She is coughing but this is nonproductive. She denies any fever or chills and review of symptoms otherwise negative. She is on 2 L of oxygen. Her altered mental status has resolved. She has remained hemodynamically stable. Objective Data Objective Data Vital Signs: Vital Signs Temp Pulse Resp BP Pulse Ox O2 Del Method O2 Flow Rate 100.2 F H 68 20 H 131/60 H 90 Room Air 3 11/29/22 10:23 11/29/22 13:32 11/29/22 13:32 11/29/22 10:23 11/29/22 13:32 11/29/22 13:32 11/29/22 10:24 Oxygen Flow Rate (L/min) 3 Oxygen Delivery Method Room Air Weight: 143 lb 4.8 oz Body Mass Index (BMI) 26.2 Intake & Output: Intake and Output for Last 24 Hours 11/27/22 11/28/22 11/29/22 23:59 23:59 23:59 Intake Total 1305 / 1505 705 / 705 Balance 1305 / 1505 705 / 705 Lab / Micro Data Result Diagrams: 11/29/22 04:43 11/29/22 04:43 Labs: Laboratory Results - last 24 hr 11/28/22 13:49: WBC 22.4 H, RBC 4.39, Hgb 11.9 L, Hct 36.5 L, MCV 83.1, MCH 27.1, MCHC 32.6, RDW Std Deviation 55.6 H, RDW Coeff of Santana 18.6 H, Plt Count 243, MPV 10.8, Immature Gran % (Auto) 0.800, Neut % (Auto) 79.3 H, Lymph % (Auto) 8.5 L, [place] % (Auto) 10.7 H, Eos % (Auto) 0.2, Baso % (Auto) 0.5, Absolute Neuts (auto) 17.8 H, Absolute Lymphs (auto) 1.91, Nucleated RBC % 0, Differential Comment SCANNED, Diff Path Review Reviewed 11/28/22 13:49: PT 15.1 H, INR 1.2, APTT 33.2 11/28/22 14:30: Urine Color Yellow, Urine Clarity Clear, Urine pH 6.5, Ur Specific [place] 1.010, Urine Protein 30 H, Urine Glucose (UA) Normal, Urine Ketones Negative, Urine Occult Blood Negative, Urine Nitrite Negative, Urine Bilirubin Negative, Urine Urobilinogen Normal, Ur Leukocyte Esterase 500 H, Urine RBC 0 SEEN, Urine WBC 0-5 SEEN, Ur Squamous Epith Cells 5-10 SEEN, Ur Renal Epithelial Cell 0-5 SEEN, Urine Bacteria 0 SEEN, Urine Mucus 0 SEEN 11/29/22 04:43: WBC 18.4 H, RBC 4.36, Hgb 11.7 L, Hct 36.2 L, MCV 83.0, MCH 26.8 L, MCHC 32.3, RDW Std Deviation 56.2 H, RDW Coeff of Santana 18.6 H, Plt Count 278, MPV 11.0, Immature Gran % (Auto) 0.800, Neut % (Auto) 80.8 H, Lymph % (Auto) 9.5 L, [place] % (Auto) 8.2, Eos % (Auto) 0.3, Baso % (Auto) 0.4, Absolute Neuts (auto) 14.8 H, Absolute Lymphs (auto) 1.75, Nucleated RBC % 0, Differential Comment COMMENT 11/29/22 04:43: Sodium 139, Potassium 3.5, Chloride 106, Carbon Dioxide 23.0, Anion Gap 10, BUN 13, Creatinine 0.70, Estim Creat Clear Calc 41.40, Est GFR (MDRD) Af Amer 105, Est GFR (MDRD) Non-Af 87, BUN/Creatinine Ratio 18.4, Glucose 111 H, Calcium 9.0 Micro: Microbiology 11/28/22 14:30 Urine, Clean Catch Urine Culture - Preliminary Culture exhibits no growth. 11/28/22 14:30 Nasal Secretion SARS-CoV-2 & FLU Antigen (Rapid) - Final Radiography Diagnostic Testing: Radiology Impression Chest X-Ray 11/28/22 14:15 IMPRESSION: Infiltrate in the right upper lobe and lingular segment of the left upper lobe. Radiographic follow-up is recommended. Electronically Signed: Modesto Butler MD at 14:34 EDT , Physical Exam Const alert, oriented x3 and no apparent distress General Appearance: cooperative HEENT normocephalic, head/scalp atraumatic and moist oral mucous membranes Eyes PERRL and EOMs intact bilaterally Neck no lymphadenopathy, supple and no JVD Lymph Lymphatic: no lymphadenopathy noted Resp Resp Narrative: mildly diminished breath sounds bibasally, no wheezes or crackles. On 2L of oxygen by nasal canula Cardio regular rate, regular rhythm, S1 normal heart sound, S2 normal heart sound and no murmurs GI normal to inspection, nondistended, normoactive bowel sounds, soft to palpation and non-tender Extremity normal capillary refill, no clubbing, cyanosis or edema and no calf tenderness General Extremity: no tenderness to palpation of joints or extremities Skin General Skin Exam: no breakdown Neuro CN's II-XII intact bilaterally and no focal motor deficits Motor Exam: strength 5/5 throughout Psych thought process normal and cooperative Appearance: appropriate Assessment & Plan Assessment/Plan (1) Community acquired pneumonia: (2) Acute metabolic encephalopathy: PLAN: Plan #Acute metabolic encephalopathy * resolved. * she feels much better * #COmmunity acquired pneumonia * on IV ceftriaxone and azithromycin * sputum for strep and legionella is negative * sputum culture pending * ##Hypertension; on amlodipine nad atenolol #CAD s/p CABG: On aspirin. On Repatha which she gets on outpatient basis. #Chronic back pain: Stable. Continue pain medication DVT prophylaxis: We will start Lovenox. Charges/Coding Visit Charges Inpatient E&M: 43806 Subs Hosp L2
[2022-11-29] MEDS: Zolpidem Tartrate 5 MG Tablet PO (20:21)
[2022-11-30] VITALS (9 sets, daily range): BP systolic 133–152; BP diastolic 51–63; PULSE 80–95; RESP 14–21; TEMP 37–37.7; O2SAT 92–95
[2022-11-30] MEDS: Ipratropium/Albuterol Sulfate 3 ML AMPUL.NEB INHALATION ×3 (00:22→19:25)
[2022-11-30] MEDS: Baclofen 10 MG Tablet 20 MG PO ×3 (06:15→22:35)
[2022-11-30 06:20] LABS: Absolute Lymphocyte Count 2.04 X10^3/uL (0.83-4.51); Absolute Neutrophil Count 11.1 X10^3/uL (2.0-7.7); Basophil# 0.09 X10^3/uL; Basophil% 0.6 % (0-1); Eosinophil# 0.07 X10^3/uL; Eosinophils% 0.5 % (0-5); Hematocrit 35.2 % (37-47); Hemoglobin 11.4 g/dL (12.0-15.0); Lymphocyte # 2.04 X10^3/ul (0.83-4.51); Mean Corp Hgb Conc 32.4 g/dL (32-36); Mean Corpuscular Hgb 27.1 pg (27.0-32.0); Mean Corpuscular Volume 83.6 fL (81-99); Mean Platelet Vol. 10.6 fl (6.2-12.0); Monocyte# 1.17 X10^3/uL; NRBC Flagged by Analyzer 0 % (0-5); Neutrophil # 11.07 X10^3/uL (2.7-7.7); Neutrophil % 75.8 % (47-70); Platelet Count 265 K/mm3 (150-450); RBC Distribution Width CV 18.6 % (11.6-14.6); RBC Distribution Width SD 56.2 fl (35.1-43.9); Red Blood Count 4.21 M/mm3 (4.2-5.4); White Blood Count 14.6 K/mm3 (4.4-11.0)
[2022-11-30 06:57] LABS: Anion Gap 6 (5-15); BUN 12 mg/dL (7-18); BUN/Creat Ratio 20.8 RATIO (10-20); Calcium,Total 9.1 mg/dL (8.5-10.1); Chloride 108 mmol/L (98-107); Creatinine, Serum 0.58 mg/dL (0.55-1.02); EST Glomerular Filtration Rate 109 mL/min (>60); Est Glom Filt Rate - Afr Amer 132 mL/min (>60); Glucose 109 mg/dL (74-106); Potassium 3.3 mmol/L (3.5-5.1); Sodium Level 137 mmol/L (136-145)
[2022-11-30] MEDS: Aspirin E.C. 81 MG Tablet 162 MG PO (09:32)
[2022-11-30] MEDS: Atenolol 50 MG Tablet PO ×2 (09:32→22:35)
[2022-11-30] MEDS: Ceftriaxone 1 GM/50 ML BAG IV (09:32)
[2022-11-30] MEDS: amLODIPine 5 MG Tablet PO (09:32)
[2022-11-30] MEDS: Potassium Chloride Oral Tablet 20 MEQ 40 MEQ PO (09:32)
[2022-11-30] MEDS: HYDROcodone Bitartrate/Apap 5/325 Tablet PO ×4 (10:19→22:33)
--- NOTE | 2022-11-30 13:28 | PN_ITS ---
Subjective Subjective Patient seen and examined. She says she felt better today and her breathing had improved. She was on room air. She denied any chest pain or palpitations, dizziness, nausea or vomiting. Review of systems otherwise negative. She has remained hemodynamically stable. Objective Data Objective Data Vital Signs: Vital Signs Temp Pulse Resp BP Pulse Ox O2 Del Method O2 Flow Rate 99.9 F H 89 21 H 141/57 H 94 Room Air 3 11/30/22 09:28 11/30/22 11:03 11/30/22 11:03 11/30/22 09:28 11/30/22 09:28 11/30/22 09:29 11/30/22 07:13 Oxygen Flow Rate (L/min) 3 Oxygen Delivery Method Room Air Weight: 143 lb 4.8 oz Body Mass Index (BMI) 26.2 Intake & Output: Intake and Output for Last 24 Hours 11/28/22 11/29/22 11/30/22 23:59 23:59 23:59 Intake Total 1305 / 1505 705 / 805 625 / 625 Balance 1305 / 1505 705 / 805 625 / 625 Lab / Micro Data Result Diagrams: 11/30/22 05:30 11/30/22 05:30 Labs: Laboratory Results - last 24 hr 11/29/22 04:43: Diff Path Review January11/30/22 05:30: WBC 14.6 H, RBC 4.21, Hgb 11.4 L, Hct 35.2 L, MCV 83.6, MCH 27.1, MCHC 32.4, RDW Std Deviation 56.2 H, RDW Coeff of Santana 18.6 H, Plt Count 265, MPV 10.6, Immature Gran % (Auto) 1.100 H, Neut % (Auto) 75.8 H, Lymph % ( Auto) 14.0 L, [place] % (Auto) 8.0, Eos % (Auto) 0.5, Baso % (Auto) 0.6, Absolute Neuts (auto) 11.1 H, Absolute Lymphs (auto) 2.04, Nucleated RBC % 0 11/30/22 05:30: Sodium 137, Potassium 3.3 L, Chloride 108 H, Carbon Dioxide 23.0, Anion Gap 6, BUN 12, Creatinine 0.58, Estim Creat Clear Calc 41.40, Est GFR (MDRD) Af Amer 132, Est GFR (MDRD) Non-Af 109, BUN/Creatinine Ratio 20.8 H, Glucose 109 H, Calcium 9.1 Micro: Microbiology 11/28/22 14:30 Urine, Clean Catch Urine Culture - Final Mixed Gram Positive Organisms 11/28/22 13:49 Blood Culture (Wb) - Anticubital Right Blood Culture - Preliminary No growth in 48 hours. 11/28/22 14:00 Blood Culture (Wb) - Anticubital Left Blood Culture - Preliminary No growth in 48 hours. 11/28/22 14:30 Nasal Secretion SARS-CoV-2 & FLU Antigen (Rapid) - Final Physical Exam Const alert, oriented x3 and no apparent distress General Appearance: cooperative HEENT normocephalic, head/scalp atraumatic and moist oral mucous membranes Eyes PERRL and EOMs intact bilaterally Neck no lymphadenopathy, supple and no JVD Lymph Lymphatic: no lymphadenopathy noted Resp Resp Narrative: mildly diminished breath sounds bibasally, no wheezes or crackles. On room air now Cardio regular rate, regular rhythm, S1 normal heart sound, S2 normal heart sound and no murmurs GI normal to inspection, nondistended, normoactive bowel sounds, soft to palpation and non-tender Extremity normal capillary refill, no clubbing, cyanosis or edema and no calf tenderness General Extremity: no tenderness to palpation of joints or extremities Skin General Skin Exam: no breakdown Neuro CN's II-XII intact bilaterally and no focal motor deficits Motor Exam: strength 5/5 throughout Psych thought process normal and cooperative Appearance: appropriate Assessment & Plan Assessment/Plan (1) Community acquired pneumonia: (2) Acute metabolic encephalopathy: PLAN: Plan #Acute metabolic encephalopathy * resolved. * she feels much better * #COmmunity acquired pneumonia * on IV ceftriaxone and azithromycin * sputum for strep and legionella is negative * sputum culture pending * now on room air * wbc is down to 14.6 * #Hypokalemia: Potassium is 3.3. Will replace and trend. #Elevated liver enzymes: It is not clear if this is chronic or not. Will monitor. May be due to Repatha which she gets on outpatient basis. Will trend. ##Hypertension; on amlodipine nad atenolol #CAD s/p CABG: On aspirin. On Repatha which she gets on outpatient basis. #Chronic back pain: Stable. Continue pain medication DVT prophylaxis: On Lovenox Disposition: Will need placement. Patient's states he is unable to care for her at home. Case management to help with placement. Charges/Coding Visit Charges Inpatient E&M: 73641 Subs Hosp L2
[2022-11-30] MEDS: clonazePAM 0.5 MG Tablet PO ×2 (14:42→22:33)
--- NOTE | 2022-11-30 16:40 | CASEMGMT ---
Social Work Note MORALES was approached by community health educator reporting patient's was interested in SNF list. SW met with patient's and introduced herself and role as [facility] Beam Builder Helper. SW inquired about interest with SNF. Patient's reports he is unsure if it will be needed but wanted a list of [facility] SNFs just in case. SW provided patient's with a list of [facility] SNFs in network with patient's insurance and explained the SW/RNCM would continue to assist with discharge planning. Patient's was receptive towards list and reports understanding of plan. SW informed RNCM Carmen patient's had requested SNF list. Plan: MILLY Delgado [employer]INT [employer] PRODUCTION SUPERVISOR, KEVIN
--- NOTE | 2022-11-30 17:23 | CASEMGMT ---
MARIBEL FARRELL follow-up: Noted pt's spouse expressed concern re: ability to care for pt at discharge. This MARIBEL FARRELL and MORALES Reynoso to pt's room to discuss discharge plan. Pt awake and spouse at bedside. Pt states she continues to plan to return home and states she feels fine at this time. Pt's spouse states he can take pt home as long as pt's pneumonia as cleared and pt is safe to return home. Pt's spouse states pt's mental status is clearer today. Discussed insurance due to pt's concerns with staying impacting her bill. Explained that her staying will not change her bill and explained her OPERS benefit and coverage including MCR and MMO. Pt and spouse expressed understanding. Notified Dr. Campos. Orders received for PT/OT to further define final DC plan. Orders entered. Anuj Acosta RN CM
[2022-11-30] MEDS: Zolpidem Tartrate 5 MG Tablet PO (22:32)
[2022-11-30] MEDS: hydrOXYzine PAM 25 MG Capsule 100 MG PO (22:33)
--- NOTE | 2022-11-30 23:14 | NURSING ---
This evening patient is alert and oriented x3, she has been pleasant, took medications without issue.
[2022-12-01] VITALS (9 sets, daily range): BP systolic 117–153; BP diastolic 61–69; PULSE 78–91; RESP 16–91; TEMP 37.1; O2SAT 18–98; BMI 26.2
[2022-12-01 06:08] LABS: Absolute Neutrophil Count 8.9 X10^3/uL (2.0-7.7); Basophil# 0.13 X10^3/uL; Eosinophils% 1.5 % (0-5); Hematocrit 38.1 % (37-47); Hemoglobin 12.1 g/dL (12.0-15.0); Lymphocyte % 20.1 % (19-41); Mean Corp Hgb Conc 31.8 g/dL (32-36); Mean Corpuscular Hgb 26.6 pg (27.0-32.0); Mean Corpuscular Volume 83.7 fL (81-99); Mean Platelet Vol. 10.4 fl (6.2-12.0); Monocyte# 1.19 X10^3/uL; Monocyte% 8.8 % (0-10); NRBC Flagged by Analyzer 0 % (0-5); Neutrophil # 8.88 X10^3/uL (2.7-7.7); Neutrophil % 65.9 % (47-70); Platelet Count 312 K/mm3 (150-450); RBC Distribution Width CV 18.6 % (11.6-14.6); RBC Distribution Width SD 56.7 fl (35.1-43.9); Red Blood Count 4.55 M/mm3 (4.2-5.4); White Blood Count 13.5 K/mm3 (4.4-11.0)
[2022-12-01] MEDS: clonazePAM 0.5 MG Tablet PO ×3 (06:38→22:05)
[2022-12-01] MEDS: Senna/Docusate Sodium 1 Tablet PO ×3 (06:38→22:11)
[2022-12-01] MEDS: Baclofen 10 MG Tablet 20 MG PO (06:39)
[2022-12-01 06:45] LABS: Anion Gap 7 (5-15); BUN 13 mg/dL (7-18); BUN/Creat Ratio 22.3 RATIO (10-20); Calcium,Total 9.4 mg/dL (8.5-10.1); Chloride 108 mmol/L (98-107); Creatinine, Serum 0.58 mg/dL (0.55-1.02); EST Glomerular Filtration Rate 109 mL/min (>60); Est Glom Filt Rate - Afr Amer 131 mL/min (>60); Glucose 109 mg/dL (74-106); Potassium 3.6 mmol/L (3.5-5.1); Sodium Level 139 mmol/L (136-145)
[2022-12-01] MEDS: Ipratropium/Albuterol Sulfate 3 ML AMPUL.NEB INHALATION ×2 (07:11→19:03)
[2022-12-01] MEDS: Aspirin E.C. 81 MG Tablet 162 MG PO (09:31)
[2022-12-01] MEDS: Ceftriaxone 1 GM/50 ML BAG IV (09:31)
[2022-12-01] MEDS: 0.9% Saline Lock 10 ML Syringe IV (09:31)
[2022-12-01] MEDS: amLODIPine 5 MG Tablet PO (09:32)
[2022-12-01] MEDS: Atenolol 50 MG Tablet PO ×2 (09:32→22:06)
[2022-12-01] MEDS: HYDROcodone Bitartrate/Apap 5/325 Tablet PO ×4 (09:32→22:05)
--- NOTE | 2022-12-01 11:00 | MRI_ITS ---
STUDY: MRI BRAIN WITHOUT CONTRAST REASON FOR EXAM: Female, 72 years old. subacute stroke on CT, altered mental status TECHNIQUE: Standardized multiplanar fat and water weighted pulse sequences were obtained. COMPARISON: 01/03/2019 FINDINGS: There is mild cerebral atrophy with widening of the extra-axial spaces and ventricular dilatation. There are a limited number of small white matter hyperintensities, distributed throughout the deep white matter tracts of the cerebral hemispheres, consistent with mild chronic white matter ischemic changes. There is no evidence for recent intracranial ischemia or other cause of cytotoxic edema on diffusion weighted imaging (DWI). Normal T2* images of the brain without demonstrated susceptibility artifact. There is no demonstrated hemosiderin stain. Chronic lacunar infarct of the right putamen. Normal thalami. There is no extra-axial fluid accumulation. Normal flow voids within the major intracranial circulation suggesting patency by spin echo criteria. Normal sella turcica, pituitary gland, infundibular stalk, optic chiasm and hypothalamus. Normal tectal plate and pineal gland. Normal midbrain, terry and medulla. Normal cerebellum. Normal basal cisterns. Normal bilateral temporal bones. Normal bilateral internal auditory canals. No demonstrated orbital abnormality, within the constraints of a routine brain study. Normal visualized paranasal sinuses. Normal calvarium and skull base. Normal visualized soft tissue structures. Normal visualized upper cervical spine. MRI/Brain without Contrast IMPRESSION: Involutional changes of the brain, as described above. No acute infarct. Electronically Signed: Phill Macario MD at 13:30 EDT ,
--- NOTE | 2022-12-01 11:00 | PCM.PN.HOSP ---
Reason for Visit Reason for Visit: Diagnoses Metabolic encephalopathy (11/29/22) Pneumonia, unspecified organism (11/29/22) Subjective Subjective Patient reports her breathing is doing much better and she is not coughing. Continues to wax and pain with mental status. Spoke with daughter at length today. Objective Data Objective Data Vital Signs: Vital Signs Temp Pulse Resp BP Pulse Ox O2 Del Method O2 Flow Rate 98.7 F 91 18 146/66 H 95 Room Air 3 12/01/22 09:28 12/01/22 09:28 12/01/22 09:28 12/01/22 09:28 12/01/22 09:28 12/01/22 09:41 11/30/22 07:13 Oxygen Flow Rate (L/min) 3 Oxygen Delivery Method Room Air Weight: 65 kg Body Mass Index (BMI) 26.2 Intake & Output: Intake and Output for Last 24 Hours 11/29/22 11/30/22 12/01/22 23:59 23:59 23:59 Intake Total 705 / 805 625 / 625 50 / 50 Balance 705 / 805 625 / 625 50 / 50 Lab / Micro Data Result Diagrams: 12/01/22 05:00 12/01/22 05:00 Labs: Laboratory Results - last 24 hr 12/01/22 05:00: WBC 13.5 H, RBC 4.55, Hgb 12.1, Hct 38.1, MCV 83.7, MCH 26.6 L, MCHC 31.8 L, RDW Std Deviation 56.7 H, RDW Coeff of [place] 18.6 H, Plt Count 312, MPV 10.4, Immature Gran % (Auto) 2.700 H, Neut % (Auto) 65.9, Lymph % (Auto) 20.1, [place] % (Auto) 8.8, Eos % (Auto) 1.5, Baso % (Auto) 1.0, Absolute Neuts (auto) 8.9 H, Absolute Lymphs (auto) 2.70, Nucleated RBC % 0 12/01/22 05:00: Sodium 139, Potassium 3.6, Chloride 108 H, Carbon Dioxide 24.0, Anion Gap 7, BUN 13, Creatinine 0.58, Estim Creat Clear Calc 41.40, Est GFR (MDRD) Af Amer 131, Est GFR (MDRD) Non-Af 109, BUN/Creatinine Ratio 22.3 H, Glucose 109 H, Calcium 9.4 Micro: Microbiology 11/28/22 14:30 Urine, Clean Catch Urine Culture - Final Mixed Gram Positive Organisms 11/28/22 13:49 Blood Culture (Wb) - Anticubital Right Blood Culture - Preliminary No growth in 48 hours. 11/28/22 14:00 Blood Culture (Wb) - Anticubital Left Blood Culture - Preliminary No growth in 48 hours. 11/28/22 14:30 Nasal Secretion SARS-CoV-2 & FLU Antigen (Rapid) - Final Physical Exam Narrative General: Alert, somewhat restricted affect, no apparent distress, oriented to place and reason for admission but not year HEENT: Atraumatic, normocephalic Eyes: Anicteric, normal conjunctiva, extraocular movements grossly intact Neck: Supple Respiratory: Faint wheeze in right lower lung, normal respiratory effort Cardiovascular: Regular rate and rhythm GI: Soft, nontender, nondistended Extremities: No edema Musculoskeletal: Moving all extremities Neuro: No overt focal neurological deficits Skin: No rashes appreciated Psych: Superficially cooperative Assessment & Plan Assessment/Plan (1) Community acquired pneumonia: (2) Acute metabolic encephalopathy: (3) History of coronary artery bypass graft x 3: PLAN: Plan #Subacute right basal ganglia and lacunar infarct/subacute ischemic CVA -Has not had any neurological changes since admission and do not suspect new acute stroke so we will not start NIH is however given subacute nature with her history of alterations in mental status will obtain CT head and neck as well as brain MRI and echocardiogram -Continue aspirin, will Plavix -Lipid panel in the a.m. -We will place patient on telemetry -Has not tolerated statins in the past -Already evaluated by physical therapy and they felt she could go home with help #Encephalopathy, metabolic versus toxic -Suspect multifactorial -CT on admission did have subacute right basal ganglia lacunar infarct which was not noted on the CT in August -Additionally is on baclofen, hydroxyzine, Klonopin, hydrocodone, zolpidem and given her frequent waxing and waning symptoms throughout the day especially at home suspect medication/polypharmacy plays a large role in some of the symptoms -Decrease baclofen to 10 mg 3 times daily, will make zolpidem as needed and schedule melatonin. Given these adjustments will continue hydrocodone and Klonopin at this time though will be important that at least 1 of these is weaned down over time especially given her erratic behavior and what sounds to be delirium #History of coronary artery disease status post CABG x3 -On aspirin, on Repatha as an outpatient #Community-acquired pneumonia -Improving, continue Rocephin and azithromycin -Continue nebulizers #Elevated liver enzymes -Unclear etiology, will repeat liver panel #Chronic back pain -Changes as above #DVT ppx: SCDs Rosalie Noble MD Time spent in the patient's overall evaluation,decision-making process, review of diagnostic data, adjustment of management, discussion with other providers, nursing nursing and ancillary staff involved in patient's care documentation, 60 minutes Charges/Coding Visit Charges Inpatient E&M: 92657 Subs Hosp L2
--- NOTE | 2022-12-01 11:02 | CT_ITS ---
We are attempting to reach an attending provider to discuss findings. An addendum with communication details will be sent when the communication is complete. STUDY: CTA HEAD AND NECK WITH CONTRAST REASON FOR EXAM: Female, 72 years old. subacute stroke on CT RADIATION DOSAGE (If Supplied By Facility): CTDIvol = ( 25.33 ) mGy, DLP = ( 1517.91 ) mGycm TECHNIQUE: CT angiography was performed with a multi-detector CT scanner. Data acquisition was obtained from the skull base through the vertex following intravenous administration of IV 100mL Isovue-370. MIP images were reconstructed from the axial data set. Post-processing of the angiographic images was performed, with multiplanar reformation and 3D reconstruction. Individualized dose optimization techniques were used for this CT. COMPARISON: 01/02/2019 FINDINGS: Normal bilateral petrous carotid arteries. There is calcified plaque formation of the right cavernous carotid artery, without a cross-sectional luminal stenosis. There is calcified plaque formation of the left cavernous carotid artery, without a cross-sectional luminal stenosis. Normal right A1 segments of the anterior cerebral artery. Normal left A1 segments of the anterior cerebral artery. Normal intact anterior communicating artery (ACOM). Normal bilateral A2 segments of the anterior cerebral arteries. Normal right M1 and M2 segments of the middle cerebral arteries, with a normal M1 bifurcation. Normal left M1 and M2 segments of the middle cerebral arteries, with a normal M1 bifurcation. Normal right posterior communicating artery (PCOM). Normal left posterior communicating artery (PCOM). There is a small atretic left vertebral artery with a dominant right vertebral artery. Focal severe (80%) stenosis of the distal left vertebral artery at the at the level of the craniocervical junction. Normal basilar artery with a normal basilar bifurcation. The visualized bilateral superior cerebellar (SCA) arteries are normal. Normal bilateral P1, P2 and visualized P3 segments of the posterior cerebral arteries. There is no demonstrated aneurysm of the [place]. There is no demonstrated abnormality of the visualized brain. AORTIC ARCH: Normal visualized aortic arch. Normal origins of the brachiocephalic, left common carotid, and left subclavian arteries. RIGHT CAROTID ARTERIES: Normal right common carotid artery (CCA). There is mild atherosclerotic plaque formation with minimal narrowing of the right carotid bulb. There is mild atherosclerotic plaque formation of the origin of the right internal carotid artery with less than 50% cross sectional diameter stenosis. Normal visualized cervical portion of the right internal carotid artery. Normal origin of the right external carotid artery (ECA). LEFT CAROTID ARTERIES: Normal left common carotid artery (CCA). There is mild atherosclerotic plaque formation with minimal narrowing of the left carotid bulb. There is mild atherosclerotic plaque formation of the origin of the left internal carotid artery with less than 50% cross sectional diameter stenosis. Normal visualized cervical portion of the left internal carotid artery. Normal origin of the left external carotid artery (ECA). VERTEBRAL ARTERIES: There is enhancement within the bilateral vertebral arteries with a small left vertebral artery, and a dominant right vertebral artery. CT/STROKE CTA Head AND Neck W/Con IMPRESSION: Normal CTA Head with contrast. Mild (40%) carotid stenosis bilaterally. Widely patent dominant right vertebral artery. 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 Electronically Signed: Phill Macario MD at 13:13 EDT ,
--- NOTE | 2022-12-01 11:03 | ECHOD_ITS ---
Reason For Study: TIA/STROKE Procedure This was a 2D Doppler, Color Flow transthoracic echocardiogram. Technically difficult study due to uncooperative patient. Exam performed portable in patient room. Left Ventricle Normal LV size. Left ventricular systolic function is normal. The estimated ejection fraction is 55 %. Stage 1 diastolic dysfunction. No regional wall motion abnormalities noted. Right Ventricle Normal RV size. Normal systolic function. Atria Normal left atrium. Normal right atrium. Bubble contrast study negative for right to left interatrial shunt. Mitral Valve Normal mitral valve. Tricuspid Valve Normal tricuspid valve. Aortic Valve The aortic valve is not well visualized. Pulmonic Valve The pulmonic valve is not well visualized. Great Vessels Normal aortic root. The pulmonary artery is normal size. Normal inferior vena cava. Pericardium/Pleural No pericardial effusion. Medication Performed a rapid injection of agitated mix of 9 cc saline and 1cc air to assess for atrial septal defect. MMode/2D Measurements & Calculations LAV(MOD-sp4): 29.8 ml SV(MOD-sp4): 20.6 ml LVAd ap4: 15.5 cm2 LVLd ap4: 6.1 cm EDV(MOD-sp4): 31.9 ml EDV(sp4-el): 33.2 ml LVAs ap4: 8.3 cm2 LVLs ap4: 5.2 cm ESV(MOD-sp4): 11.3 ml ESV(sp4-el): 11.2 ml EF(MOD-sp4): 64.5 % EF(sp4-el): 66.2 % SV(sp4-el): 22.0 ml LA A4 area: 12.6 cm2 LA dimension(2D): 3.7 cm RA A4 area: 9.3 cm2 Time Measurements MV dec time: 0.21 sec Doppler Measurements & Calculations MV E max solo: 70.1 cm/sec Lat Peak E' Solo: 13.7 cm/sec Med Peak E' Solo: 7.9 cm/sec MV A max solo: 78.8 cm/sec E/E' lat: 5.1 E/E' med: 8.9 MV E/A: 0.89 MV V2 max: 97.7 cm/sec MV dec slope: 358.9 cm/sec2 Ao V2 max: 90.0 cm/sec MV max P.8 mmHg Ao max P.3 mmHg MV V2 mean: 67.9 cm/sec Ao V2 mean: 64.2 cm/sec MV mean P.0 mmHg Ao mean P.8 mmHg MV V2 VTI: 31.8 cm Ao V2 VTI: 20.7 cm AV (velocity ratio): 0.79 LV V1 max: 74.3 cm/sec MR max solo: 414.7 cm/sec LV V1 max P.2 mmHg MR max P.8 mmHg LV V1 mean P.3 mmHg LV V1 mean: 54.7 cm/sec LV V1 VTI: 16.3 cm ECHO/Echo Complete Interpretation Summary Normal LV size. Left ventricular systolic function is normal. The estimated ejection fraction is 55 %. Stage 1 diastolic dysfunction. Bubble contrast study negative for right to left interatrial shunt. Ordering Physician: Rosalie Noble Referring Physician: Josh Greene Performed By: Kim Alicia RCS
[2022-12-01] MEDS: Baclofen 10 MG Tablet PO ×2 (13:38→22:06)
[2022-12-01] MEDS: Clopidogrel Bisulfate 75 MG Tablet PO (13:38)
[2022-12-01] MEDS: hydrOXYzine PAM 25 MG Capsule 100 MG PO (22:06)
[2022-12-01] MEDS: MELATONIN 10 MG TABLET PO (22:07)
[2022-12-02] VITALS (9 sets, daily range): BP systolic 112–141; BP diastolic 62–86; PULSE 75–86; RESP 16–18; TEMP 36.8–37.1; O2SAT 92–96; BMI 26.2
[2022-12-02] MEDS: Baclofen 10 MG Tablet PO ×3 (05:55→21:25)
[2022-12-02] MEDS: guaiFENesin 10 ML UDC (200MG/10ML) PO (05:55)
[2022-12-02 07:07] LABS: Absolute Neutrophil Count 8.2 X10^3/uL (2.0-7.7); Basophil# 0.08 X10^3/uL; Basophil% 0.7 % (0-1); Eosinophil# 0.23 X10^3/uL; Hematocrit 34.4 % (37-47); Hemoglobin 11.3 g/dL (12.0-15.0); Lymphocyte % 16.2 % (19-41); Mean Corp Hgb Conc 32.8 g/dL (32-36); Mean Corpuscular Hgb 27.4 pg (27.0-32.0); Mean Corpuscular Volume 83.3 fL (81-99); Monocyte# 0.93 X10^3/uL; Monocyte% 7.9 % (0-10); NRBC Flagged by Analyzer 0 % (0-5); Neutrophil # 8.19 X10^3/uL (2.7-7.7); Neutrophil % 69.6 % (47-70); Platelet Count 304 K/mm3 (150-450); RBC Distribution Width CV 18.7 % (11.6-14.6); RBC Distribution Width SD 57.1 fl (35.1-43.9); Red Blood Count 4.13 M/mm3 (4.2-5.4); White Blood Count 11.8 K/mm3 (4.4-11.0)
[2022-12-02 07:54] LABS: AST(SGOT) 26 U/L (15-37); Alanine Aminotransfer ALT/SGPT 43 U/L (13-56); Albumin, Serum 2.4 g/dL (3.2-5.0); Alkaline Phosphatase 138 U/L (45-117); Anion Gap 8 (5-15); BUN 13 mg/dL (7-18); BUN/Creat Ratio 22.2 RATIO (10-20); Bilirubin, Direct 0.13 mg/dL (0.00-0.30); Calcium,Total 8.8 mg/dL (8.5-10.1); Chloride 107 mmol/L (98-107); Cholesterol 119 mg/dL (200); Creatinine, Serum 0.59 mg/dL (0.55-1.02); EST Glomerular Filtration Rate 108 mL/min (>60); Est Glom Filt Rate - Afr Amer 130 mL/min (>60); Globulin 4.3 g/dL (2.2-4.2); Glucose 108 mg/dL (74-106); High Density Lipoprotein 21 mg/dL; Potassium 3.3 mmol/L (3.5-5.1); Protein, Total 6.7 g/dL (6.4-8.2); Sodium Level 136 mmol/L (136-145); Triglycerides 173 mg/dL; Very Low Density Lipoprotein 35 mg/dL (5-40)
[2022-12-02 08:24] LABS: International Normalized Ratio 1.1
[2022-12-02] MEDS: Potassium Chloride Oral Tablet 20 MEQ 60 MEQ PO (09:06)
[2022-12-02] MEDS: 0.9% Saline Lock 10 ML Syringe IV ×2 (09:11→12:49)
[2022-12-02] MEDS: Lactulose 20 GM/30 ML UDC PO (11:02)
[2022-12-02] MEDS: HYDROcodone Bitartrate/Apap 5/325 Tablet PO ×4 (11:02→21:25)
[2022-12-02] MEDS: Senna/Docusate Sodium 1 Tablet PO (11:04)
[2022-12-02] MEDS: Aspirin E.C. 81 MG Tablet 162 MG PO (11:05)
[2022-12-02] MEDS: amLODIPine 5 MG Tablet PO (11:05)
[2022-12-02] MEDS: Clopidogrel Bisulfate 75 MG Tablet PO (11:05)
[2022-12-02] MEDS: Ceftriaxone 1 GM/50 ML BAG IV (11:06)
[2022-12-02] MEDS: Atenolol 50 MG Tablet PO ×2 (11:06→21:25)
--- NOTE | 2022-12-02 12:19 | CASEMGMT ---
Met with pt per request as he states he cannot take pt home. Discussed with him that pt does not meet criteria for SNF as he would like. No PT recommended and further OT recommended. Rounded with hospitalist who recommends pt work on outpt basis for all of the doctors to be aware of what others are ordering. Pt may be medically ready to dc today. RN BUD and MORALES met with pt again and relayed the above info. Pt states that he has tried to get pt to be weaned off of meds himself. Encouraged multiple times to have this done by medical professional. Discussed having [facility], he declined stating pt is going to cardiac rehab. He is agreeable to taking pt home now. Plan: DC home with cardiac rehab follow up.
[2022-12-02] MEDS: clonazePAM 0.5 MG Tablet PO ×2 (12:49→21:25)
--- NOTE | 2022-12-02 13:20 | CASEMGMT ---
Social Work SW assisted MARIBEL FARRELL with speaking to pt and sharing recommendations from MD Noble. expressed concern for taking pt home due to behaviors pt is having. MD Noble explained pt's medications are likely causing the symptoms that are being see as there are three different providers prescribing mediations and some of them have been known to interest negatively with one another. SW and MARIBEL FARRELL explained to pt that MD Noble recommends that pt's PCP medically taper pt off of all meds and then reintroduce the ones needed to find appropriate regimen that will not impact pt mental health and delirium. Pt wanting pt to go to SNF. SW explained that based on the recommendations of the therapy team here at [facility] that pt has no skillable need to be placed at a retirement. SW explained pt can private pay for this if SNF is what family desires for pt upon discharge from [facility]. then shared taking pt home would be plan. MARIBEL FARRELL offered to set up HHC and pt declined. SHELBY Jarrett
--- NOTE | 2022-12-02 16:42 | PN.HOSP_ITS ---
Reason for Visit Reason for Visit: Diagnoses Metabolic encephalopathy (11/29/22) Pneumonia, unspecified organism (11/29/22) Presence of aortocoronary bypass graft (11/29/22) Subjective Subjective Breathing continues to improve, no neurological deficits at this time Objective Data Objective Data Vital Signs: Vital Signs Temp Pulse Resp BP Pulse Ox O2 Del Method O2 Flow Rate 98.4 F 79 16 137/62 H 92 Room Air 3 12/02/22 14:41 12/02/22 14:41 12/02/22 14:41 12/02/22 14:41 12/02/22 14:41 12/02/22 14:41 11/30/22 07:13 Oxygen Flow Rate (L/min) 3 Oxygen Delivery Method Room Air Weight: 65 kg Body Mass Index (BMI) 26.2 Intake & Output: Intake and Output for Last 24 Hours 11/30/22 12/01/22 12/02/22 23:59 23:59 23:59 Intake Total 625 / 625 705 / 705 305 / 305 Balance 625 / 625 705 / 705 305 / 305 Lab / Micro Data Result Diagrams: 12/02/22 05:17 12/02/22 05:17 Labs: Laboratory Results - last 24 hr 12/02/22 05:17: WBC 11.8 H, RBC 4.13 L, Hgb 11.3 L, Hct 34.4 L, MCV 83.3, MCH 27.4, MCHC 32.8, RDW Std Deviation 57.1 H, RDW Coeff of [place] 18.7 H, Plt Count 304, MPV 10.0, Immature Gran % (Auto) 3.600 H, Neut % (Auto) 69.6, Lymph % (Auto) 16.2 L, [place] % (Auto) 7.9, Eos % (Auto) 2.0, Baso % (Auto) 0.7, Absolute Neuts (auto) 8.2 H, Absolute Lymphs (auto) 1.90, Nucleated RBC % 0 12/02/22 05:17: Sodium 136, Potassium 3.3 L, Chloride 107, Carbon Dioxide 21.0, Anion Gap 8, BUN 13, Creatinine 0.59, Estim Creat Clear Calc 41.40, Est GFR (MDRD) Af Amer 130, Est GFR (MDRD) Non-Af 108, BUN/Creatinine Ratio 22.2 H, Glucose 108 H, Calcium 8.8, Total Bilirubin 0.30, Direct Bilirubin 0.13, AST 26, ALT 43, Alkaline Phosphatase 138 H, Total Protein 6.7, Albumin 2.4 L, Globulin 4.3 H, Triglycerides 173, Cholesterol 119, LDL Cholesterol 63, VLDL Cholesterol 35, HDL Cholesterol 21 L, TSH 1.30 12/02/22 05:17: PT 14.0, INR 1.1 12/02/22 05:17: Ammonia 39.0 H Micro: Microbiology 11/28/22 14:30 Urine, Clean Catch Urine Culture - Final Mixed Gram Positive Organisms 11/28/22 13:49 Blood Culture (Wb) - Anticubital Right Blood Culture - Preliminary No growth in 48 hours. 11/28/22 14:00 Blood Culture (Wb) - Anticubital Left Blood Culture - Preliminary No growth in 48 hours. 11/28/22 14:30 Nasal Secretion SARS-CoV-2 & FLU Antigen (Rapid) - Final Physical Exam Narrative General: Alert, oriented, no apparent distress HEENT: Atraumatic, normocephalic Eyes: extraocular movements grossly intact Neck: Supple Respiratory: normal respiratory effort Cardiovascular: no edema appreciated GI: nondistended Extremities: Moving all extremities Neuro: No overt focal neurological deficits Psych: Cooperative Assessment & Plan Assessment/Plan (1) Community acquired pneumonia: (2) Acute metabolic encephalopathy: (3) History of coronary artery bypass graft x 3: PLAN: Plan #Subacute right basal ganglia and lacunar infarct/subacute ischemic CVA -Has not had any neurological changes since admission and do not suspect new a cute stroke so we will not start NIH is however given subacute nature with her history of alterations in mental status will obtain CT head and neck as well as brain MRI and echocardiogram -Continue aspirin, will Plavix -Lipid panel in the a.m. -We will place patient on telemetry -Has not tolerated statins in the past -Already evaluated by physical therapy and they felt she could go home with help -12/02: Echocardiogram pending, mental status is improving. CTA head and neck with mild 40% carotic stenosis bilaterally and a widely patent dominant right vertebral artery with hypoplastic left vertebral artery and a focal severe 80% stenosis at the craniocervical junction which is on the opposite side of the stroke which was confirmed by brain MRI which reported involutional changes of the brain with a chronic lacunar infarct of the right putamen. She is on aspirin and Plavix, no A-fib on telemetry. Will likely benefit from following up with neurology on an outpatient basis and Holter monitor pending echo results and overnight telemetry #Encephalopathy, metabolic versus toxic -Suspect multifactorial -CT on admission did have subacute right basal ganglia lacunar infarct which was not noted on the CT in August -Additionally is on baclofen, hydroxyzine, Klonopin, hydrocodone, zolpidem and given her frequent waxing and waning symptoms throughout the day especially at home suspect medication/polypharmacy plays a large role in some of the symptoms -Decrease baclofen to 10 mg 3 times daily, will make zolpidem as needed and schedule melatonin. Given these adjustments will continue hydrocodone and Klonopin at this time though will be important that at least 1 of these is weaned down over time especially given her erratic behavior and what sounds to be delirium -12/02: Improving #History of coronary artery disease status post CABG x3 -On aspirin, on Repatha as an outpatient #Community-acquired pneumonia -Improving, continue Rocephin and azithromycin -Continue nebulizers #Elevated liver enzymes -Unclear etiology, will repeat liver panel -12/02: Improved #Chronic back pain -Changes as above #DVT ppx: SCDs Rosalie Noble MD Time spent in the patient's overall evaluation,decision-making process, review of diagnostic data, adjustment of management, discussion with other providers, nursing nursing and ancillary staff involved in patient's care documentation, 30 minutes Charges/Coding Visit Charges Inpatient E&M: 59728 Subs Hosp L2
[2022-12-02] MEDS: hydrOXYzine PAM 25 MG Capsule 100 MG PO (21:25)
[2022-12-02] MEDS: MELATONIN 10 MG TABLET PO (21:25)
[2022-12-02] MEDS: Zolpidem Tartrate 5 MG Tablet PO (21:33)
[2022-12-03 01:17] VITALS: BMI 26.2
[2022-12-03] MEDS: Baclofen 10 MG Tablet PO ×2 (05:27→14:06)
[2022-12-03] MEDS: clonazePAM 0.5 MG Tablet PO ×2 (05:27→18:21)
[2022-12-03 05:31] VITALS: BP 148/67; PULSE 78; RESP 16; TEMP 36.8; O2SAT 94
[2022-12-03 06:21] LABS: Absolute Lymphocyte Count 2.11 X10^3/uL (0.83-4.51); Absolute Neutrophil Count 7.4 X10^3/uL (2.0-7.7); Basophil# 0.14 X10^3/uL; Basophil% 1.2 % (0-1); Eosinophils% 2.6 % (0-5); Hematocrit 35.9 % (37-47); Hemoglobin 11.6 g/dL (12.0-15.0); Lymphocyte # 2.11 X10^3/ul (0.83-4.51); Lymphocyte % 18.5 % (19-41); Mean Corp Hgb Conc 32.3 g/dL (32-36); Mean Corpuscular Hgb 27.2 pg (27.0-32.0); Mean Corpuscular Volume 84.3 fL (81-99); Mean Platelet Vol. 9.6 fl (6.2-12.0); Monocyte# 0.88 X10^3/uL; Monocyte% 7.7 % (0-10); NRBC Flagged by Analyzer 0 % (0-5); Neutrophil # 7.44 X10^3/uL (2.7-7.7); Neutrophil % 65.2 % (47-70); Platelet Count 323 K/mm3 (150-450); RBC Distribution Width CV 18.6 % (11.6-14.6); RBC Distribution Width SD 56.5 fl (35.1-43.9); Red Blood Count 4.26 M/mm3 (4.2-5.4); White Blood Count 11.4 K/mm3 (4.4-11.0)
[2022-12-03 06:54] LABS: Anion Gap 6 (5-15); BUN 10 mg/dL (7-18); BUN/Creat Ratio 16.3 RATIO (10-20); Calcium,Total 9.2 mg/dL (8.5-10.1); Chloride 107 mmol/L (98-107); Creatinine, Serum 0.61 mg/dL (0.55-1.02); EST Glomerular Filtration Rate 102 mL/min (>60); Est Glom Filt Rate - Afr Amer 124 mL/min (>60); Glucose 101 mg/dL (74-106); Sodium Level 135 mmol/L (136-145)
[2022-12-03 08:57] VITALS: BP 145/57; PULSE 80; RESP 16; TEMP 36.4; O2SAT 92
[2022-12-03] MEDS: Aspirin E.C. 81 MG Tablet 162 MG PO (09:08)
[2022-12-03] MEDS: Atenolol 50 MG Tablet PO (09:09)
[2022-12-03] MEDS: Clopidogrel Bisulfate 75 MG Tablet PO (09:09)
[2022-12-03] MEDS: HYDROcodone Bitartrate/Apap 5/325 Tablet PO ×3 (09:09→18:17)
[2022-12-03] MEDS: amLODIPine 5 MG Tablet PO (09:09)
[2022-12-03] MEDS: 0.9% Saline Lock 10 ML Syringe IV ×2 (09:10→14:07)
[2022-12-03] MEDS: guaiFENesin 10 ML UDC (200MG/10ML) PO (09:14)
[2022-12-03] MEDS: Ceftriaxone 1 GM/50 ML BAG IV (11:28)
[2022-12-03 13:33] LABS: Pathologist Review Reviewed
[2022-12-03 13:55] VITALS: BP 116/60; PULSE 71; RESP 16; TEMP 36.9; O2SAT 92
[2022-12-03] MEDS: BUPRENORPHINE 10 MCG/HR PATCH 1 PATCH TD (15:03)
[2022-12-03 15:49] VITALS: BMI 26.2
--- NOTE | 2022-12-03 17:42 | PCM.DC ---
Discharge Instructions Diet Discharge Diet: - (DASH diet) Activity Discharge Activity: Return to Normal Activity Follow Up Care Test Results: Test results from this visit will be discussed in further detail at your follow-up appointment, if applicable. Discharge Plan Admission Admit Date/Time: 11/29/22 09:17 Primary Reason for Your Visit: Shortness of breath, confusion Attending Provider: Rosalie Noble Primary Care Provider: Josh Greene Consulting Providers: Kory Drew Nana Yaa Instructions Patient Instructions: Stroke Prevention Activity Additional Instructions / Restrictions: DISCHARGE INSTRUCTIONS PLEASE READ *Please take this with you to your next doctors appointment* -You are found to have a recent stroke, would recommend taking aspirin 81 mg and Plavix 75 milligrams for 21 days followed by Plavix alone unless otherwise specified by your twister frame tender -For your pneumonia would recommend taking Augmentin for another 2 days -Augmentin and clopidogrel have been sent to preferred pharmacy on file and aspirin 81 mg can be obtained [id number] -You will be discharged with instructions for heart monitor that you will wear for 30 days to evaluate for underlying abnormal heart rhythm -please follow-up with neurology upon discharge, please call Dr. Whitehead's office upon discharge to schedule hospital follow-up appointment ) -It is also recommended that you follow-up with vascular neurology for outpatient evaluation and monitoring of a narrowing of a vertebral vessel though this was not the cause of your stroke, outpatient evaluation would be beneficial -Due to some of the confusion several of your medications have been adjusted, would recommend taking 10 mg of baclofen 3 times a day instead of 20 mg -Would recommend discussing your [place] and Klonopin with your prescribing physicians as it is strongly advised against taking both of these on a long-term basis together -Please discontinue Ambien as this can significantly contribute to confusion and mood lability. -Please call your primary care provider's office upon discharge to schedule a hospital follow up within 1 week. -For any concerning signs or symptoms please call 911 or proceed to the nearest emergency department Discharge Orders/Prescriptions Prescriptions: New clopidogrel 75 mg Tablet 75 mg PO DAILY 30 Days Qty: 30 0RF amoxicillin-pot clavulanate 875-125 mg tablet 1 tab PO BID 2 Days Qty: 4 0RF Continued clonazepam 0.5 mg tablet 0.5 mg PO TID PRN (Reason: Anxiety) amlodipine 5 mg tablet 5 mg PO DAILY ergocalciferol (vitamin D2) 1,250 mcg (50,000 unit) capsule 1,250 mcg PO MO hydrocodone-acetaminophen 5-325 mg tablet 5 - 325 tab PO 4X/DAY hydroxyzine pamoate 100 mg Capsule 100 mg PO QHS buprenorphine 10 mcg/hour patch weekly 10 mcg transdermal TU PRN (Reason: PAIN ) atenolol 50 mg tablet 50 mg PO BID Changed aspirin 81 mg tablet,delayed release (DR/EC) 81 mg PO DAILY 30 Days Qty: 30 0RF baclofen 10 mg tablet 10 mg PO TID 30 Days Qty: 0 0RF Discontinued zolpidem 12.5 MG tablet,ext release multiphase 6.25 mg PO QHS azithromycin 250 mg tablet 250 mg PO UD Other Ambulatory Orders: 30 Day Event Recorder Preventi (Urgent) Timeframe: 1 Day Facility: [facility] - Location: Cardiovascular Services Ordered By: Dr. Rosalie Noble Referrals / Follow Up: Dwight Smith MD [Other] - See Referral Note (Please call vascular neurology to schedule an outpatient evaluation) Josh Greene MD [Primary Care Provider] - Within 1 Week Santana Whitehead MD [Non-Staff -Ordering Privileges] - See Referral Note ( Please follow-up with neurology upon discharge, please call Dr. Whitehead's office upon discharge to schedule hospital follow-up appointment )) Disposition Disposition (needs filled in before D/C Order can be placed): Home, Self Care
--- NOTE | 2022-12-03 17:51 | PCM.DC.SUM ---
Providers Date of Admission: 11/29/22 Date of Discharge: 12/03/22 Primary Care Physician: Dr. Josh Greene MD Reason For Visit: PNEUMONIA Diagnosis Discharge Diagnosis (1) Community acquired pneumonia: Status: Acute Code(s): J18.9 - Pneumonia, unspecified organism (2) Acute metabolic encephalopathy: Status: Acute Code(s): G93.41 - Metabolic encephalopathy (3) History of coronary artery bypass graft x 3: Status: Acute Code(s): Z95.1 - Presence of aortocoronary bypass graft Plan #Subacute right basal ganglia and lacunar infarct/subacute ischemic CVA #Encephalopathy, mixed, metabolic and toxic #History of coronary artery disease status post CABG x3 #Community-acquired pneumonia #Chronic back pain Medications at Discharge Home Medications amlodipine 5 mg tablet 5 mg PO DAILY BLOOD PRESSURE 06/17/22 clonazepam 0.5 mg tablet 0.5 mg PO TID PRN Anxiety 06/17/22 hydrocodone-acetaminophen 5-325mg 5mg-325mg 5 - 325 tab PO 4X/DAY PAIN 06/21/22 ergocalciferol (vitamin D2) 1,250 mcg (50,000 unit) capsule 1,250 mcg PO MO SUPPLEMENT 08/22/22 atenolol 50 mg tablet 50 mg PO BID BLOOD PRESSURE 11/28/22 buprenorphine 10 mcg/hour weekly transdermal patch 10 mcg transdermal TU PRN PAIN 11/28/22 hydroxyzine pamoate 100 mg capsule 100 mg PO QHS ANXIETY 11/28/22 amoxicillin 875 mg-potassium clavulanate 125 mg tablet 1 tab PO BID 2 days #4 tabs 12/03/22 aspirin 81 mg tablet,delayed release 81 mg PO DAILY HEART HEALTH 30 days #30 tabs 12/03/22 baclofen 10 mg tablet 10 mg PO TID MUSCLE SPASMS 30 days #0 tabs 12/03/22 clopidogrel 75 mg tablet 75 mg PO DAILY 30 days #30 tabs 12/03/22 Hospital Course Procedures - (echo, mri, cta) Summary of Care Provided Minutes Spent on Discharge: 35 Hospital Course: Pt is a 72y/o f w/ hx of COPD, CAD s/p CABG, HTN, depression presented 11/28/22 w/ AMS and SOB. Found to have pneumonia and diagnosed with CAP and started on rocephin and azithro and given nebs and improved. DUring her admission she was also found to have waxing and waning confusion and on review of her medications she is on baclofen, hydroxyzine, Klonopin, hydrocodone, zolpidem and buprenorphine patch. Suspected that there was a large component of polypharmacy and baclofen decreased, zolpidem was made PRN and pt improved. During evaluation for her AMS her CT on admission was reviewed and there was noted to be a Subacute right basal ganglia and lacunar infarct and stroke workup underway. CTA head and neck with mild 40% carotic stenosis bilaterally and a widely patent dominant right vertebral artery with hypoplastic left vertebral artery and a focal severe 80% stenosis at the craniocervical junction which is on the opposite side of the stroke which was confirmed by brain MRI which reported involutional changes of the brain with a chronic lacunar infarct of the right putamen. She is on aspirin and Plavix, no A-fib on telemetry. Echo with no PFO or other contributing pathology. She had no focal deficits or new symptoms and did well. On day of d/c breathing significantly improved and mental status much improved with not taking ambien. D/c instructions as followed: -You are found to have a recent stroke, would recommend taking aspirin 81 mg and Plavix 75 milligrams for 21 days followed by Plavix alone unless otherwise specified by your director blood bank -For your pneumonia would recommend taking Augmentin for another 2 days -Augmentin and clopidogrel have been sent to preferred pharmacy on file and aspirin 81 mg can be obtained [id number] -You will be discharged with instructions for heart monitor that you will wear for 30 days to evaluate for underlying abnormal heart rhythm -please follow-up with neurology upon discharge, please call Dr. Whitehead's office upon discharge to schedule hospital follow-up appointment ( [phone]) -It is also recommended that you follow-up with vascular neurology for outpatient evaluation and monitoring of a narrowing of a vertebral vessel though this was not the cause of your stroke, outpatient evaluation would be beneficial -Due to some of the confusion several of your medications have been adjusted, would recommend taking 10 mg of baclofen 3 times a day instead of 20 mg -Would recommend discussing your Corea and Klonopin with your prescribing physicians as it is strongly advised against taking both of these on a long-term basis together -Please discontinue Ambien as this can significantly contribute to confusion and mood lability. -Please call your primary care provider's office upon discharge to schedule a hospital follow up within 1 week. -For any concerning signs or symptoms please call 911 or proceed to the nearest emergency department Physical Exam Narrative General: Alert, oriented, no apparent distress HEENT: Atraumatic, normocephalic Eyes: extraocular movements grossly intact Neck: Supple Respiratory: normal respiratory effort Cardiovascular: no edema appreciated GI: nondistended Extremities: Moving all extremities Neuro: No overt focal neurological deficits Psych: Cooperative Weight / BMI Weight Weight: 65 kg Body Mass Index (BMI) 26.2 ABG / Lab / Microbiology Data Result Diagrams: 12/03/22 05:17 12/03/22 05:17 Laboratory: Laboratory Results - last 24 hr 11/29/22 04:43: Diff Path Review Reviewed 12/03/22 05:17: WBC 11.4 H, RBC 4.26, Hgb 11.6 L, Hct 35.9 L, MCV 84.3, MCH 27.2, MCHC 32.3, RDW Std Deviation 56.5 H, RDW Coeff of Santana 18.6 H, Plt Count 323, MPV 9.6, Immature Gran % (Auto) 4.800 H, Neut % (Auto) 65.2, Lymph % (Auto) 18.5 L, [place] % (Auto) 7.7, Eos % (Auto) 2.6, Baso % (Auto) 1.2 H, Absolute Neuts (auto) 7.4, Absolute Lymphs (auto) 2.11, Nucleated RBC % 0 12/03/22 05:17: Sodium 135 L, Potassium 4.0, Chloride 107, Carbon Dioxide 22.0, Anion Gap 6, BUN 10, Creatinine 0.61, Estim Creat Clear Calc 41.40, Est GFR (MDRD) Af Amer 124, Est GFR (MDRD) Non-Af 102, BUN/Creatinine Ratio 16.3, Glucose 101, Calcium 9.2 Microbiology: Microbiology 11/28/22 14:00 Blood Culture (Wb) - Anticubital Left Blood Culture - Final No growth in 5 days. 11/28/22 13:49 Blood Culture (Wb) - Anticubital Right Blood Culture - Final No growth in 5 days. 11/28/22 14:30 Urine, Clean Catch Urine Culture - Final Mixed Gram Positive Organisms 11/28/22 14:30 Nasal Secretion SARS-CoV-2 & FLU Antigen (Rapid) - Final Radiography Diagnostic Testing: Radiology Impression Echocardiogram 12/01/22 11:03 Interpretation Summary Normal LV size. Left ventricular systolic function is normal. The estimated ejection fraction is 55 %. Stage 1 diastolic dysfunction. Bubble contrast study negative for right to left interatrial shunt. Ordering Physician: Rosalie Noble Referring Physician: Josh Greene Performed By: Kim Alicia RCS D/C Instructions Discharge Diet: - (DASH diet) Meaningful Use Info Meaningful Use Diagnoses (Choose all that apply): Ischemic CVA CVA Therapy Assessed for PT,OT and/or ST?: Yes Ischemic Stroke Antithrombotic order at d/c?: Yes Dx of Atrial fib/flutter?: No Statins at discharge?: No Reason Statin not ordered: Drug Intolerance Primary Dx Acute Ischemic CVA?: Yes IV thrombolytic ordered during stay?: No Reason IV thrombolytic not ordered: Medical Contraindication Discharge Plan Admission Admit Date/Time: 11/29/22 09:17 Primary Reason for Your Visit: Shortness of breath, confusion Attending Provider: Rosalie Noble Primary Care Provider: Josh Greene Consulting Providers: Kory Drew Nana Yaa Instructions Patient Instructions: Stroke Prevention Activity Additional Instructions / Restrictions: DISCHARGE INSTRUCTIONS PLEASE READ *Please take this with you to your next doctors appointment* -You are found to have a recent stroke, would recommend taking aspirin 81 mg and Plavix 75 milligrams for 21 days followed by Plavix alone unless otherwise specified by your director blood bank -For your pneumonia would recommend taking Augmentin for another 2 days -Augmentin and clopidogrel have been sent to preferred pharmacy on file and aspirin 81 mg can be obtained [id number] -You will be discharged with instructions for heart monitor that you will wear for 30 days to evaluate for underlying abnormal heart rhythm -please follow-up with neurology upon discharge, please call Dr. Whitehead's office upon discharge to schedule hospital follow-up appointment ) -It is also recommended that you follow-up with vascular neurology for outpatient evaluation and monitoring of a narrowing of a vertebral vessel though this was not the cause of your stroke, outpatient evaluation would be beneficial -Due to some of the confusion several of your medications have been adjusted, would recommend taking 10 mg of baclofen 3 times a day instead of 20 mg -Would recommend discussing your Corea and Klonopin with your prescribing physicians as it is strongly advised against taking both of these on a long-term basis together -Please discontinue Ambien as this can significantly contribute to confusion and mood lability. -Please call your primary care provider's office upon discharge to schedule a hospital follow up within 1 week. -For any concerning signs or symptoms please call 911 or proceed to the nearest emergency department Discharge Orders/Prescriptions Prescriptions: New clopidogrel 75 mg Tablet 75 mg PO DAILY 30 Days Qty: 30 0RF amoxicillin-pot clavulanate 875-125 mg tablet 1 tab PO BID 2 Days Qty: 4 0RF Continued clonazepam 0.5 mg tablet 0.5 mg PO TID PRN (Reason: Anxiety) amlodipine 5 mg tablet 5 mg PO DAILY ergocalciferol (vitamin D2) 1,250 mcg (50,000 unit) capsule 1,250 mcg PO MO hydrocodone-acetaminophen 5-325 mg tablet 5 - 325 tab PO 4X/DAY hydroxyzine pamoate 100 mg Capsule 100 mg PO QHS buprenorphine 10 mcg/hour patch weekly 10 mcg transdermal TU PRN (Reason: PAIN ) atenolol 50 mg tablet 50 mg PO BID Changed aspirin 81 mg tablet,delayed release (DR/EC) 81 mg PO DAILY 30 Days Qty: 30 0RF baclofen 10 mg tablet 10 mg PO TID 30 Days Qty: 0 0RF Discontinued zolpidem 12.5 MG tablet,ext release multiphase 6.25 mg PO QHS azithromycin 250 mg tablet 250 mg PO UD Other Ambulatory Orders: 30 Day Event Recorder Preventi (Urgent) Timeframe: 1 Day Facility: [facility] - Location: Cardiovascular Services Ordered By: Dr. Rosalie Noble Referrals / Follow Up: Dwight Smith MD [Other] - See Referral Note (Please call vascular neurology to schedule an outpatient evaluation) Josh Greene MD [Primary Care Provider] - Within 1 Week Santana Whitehead MD [Non-Staff -Ordering Privileges] - See Referral Note ( Please follow-up with neurology upon discharge, please call Dr. Whitehead's office upon discharge to schedule hospital follow-up appointment (ph [phone])) Disposition Disposition (needs filled in before D/C Order can be placed): Home, Self Care Charges/Coding Visit Charges Inpatient E&M: 89945 Disch Hosp >30min
[2022-12-03 18:23] VITALS: BP 146/47; PULSE 80; RESP 18; TEMP 36.5; O2SAT 94
[2022-12-03 20:11] VITALS: BMI 26.2
== END 2022-12-03 19:40 | disposition home or self-care (01) | DRG 193 ==
LOC: ED 16:16 → MS3 18:00
PROVIDERS: Nurse Practitioner; Student in an Organized Health Care Education/Training Program; Admitting Provider Family Medicine; Emergency Provider Student in an Organized Health Care Education/Training Program; PCP Family Medicine; Visit Provider Internal Medicine
DX: J18.9 Pneumonia, unspecified organism (principal); I63.81 Other cerebral infarction due to occlusion or stenosis of small artery; G93.41 Metabolic encephalopathy; G92.8 Other toxic encephalopathy; J44.0 Chronic obstructive pulmonary disease with (acute) lower respiratory infection; I70.213 Atherosclerosis of native arteries of extremities with intermittent claudication, bilateral legs; I10 Essential (primary) hypertension; E87.6 Hypokalemia; M54.9 Dorsalgia, unspecified; E78.00 Pure hypercholesterolemia, unspecified; F41.9 Anxiety disorder, unspecified; I65.02 Occlusion and stenosis of left vertebral artery; F17.290 Nicotine dependence, other tobacco product, uncomplicated; I65.23 Occlusion and stenosis of bilateral carotid arteries; T50.915A Adverse effect of multiple unspecified drugs, medicaments and biological substances, initial encounter; F32.A Depression, unspecified; Z79.82 Long term (current) use of aspirin; G89.29 Other chronic pain; Z20.822 Contact with and (suspected) exposure to COVID-19; Z95.1 Presence of aortocoronary bypass graft; Z95.820 Peripheral vascular angioplasty status with implants and grafts
CPT/HCPCS: 36415; 70450; 70496; 70498; 70551; 71046; 80048; 80053; 80061; 80076; 81001; 82140; 83605; 84443; 85025; 85610; 85730; 87040; 87070; 87086; 87088; 87205; 87428; 93005; 93306; 94640; 94668; 97116; 97161; 97165; 97530; 97535; 97802; 99285; J7050; Q9967; A4216

== ENCOUNTER 2023-01-01 13:00 | Outpatient (RCR) | payer MEDICARE, OTHER, SELFPAY ==
[2022-12-07 01:06] VITALS: BP 120/70; BP 152/64
--- NOTE | 2022-12-25 06:46 | PCM.CR.ITP ---
Diagnosis Exercise - Final/Discharge - Visit Date of Eval: 12/25/22 Session #:: 32 Comments:: Patient missed a total of 10 scheduled sessions over the course of her CR program. - Physician Prescribed Exercise Modalities: Treadmill, NuStep Frequency: 3x/week for 12 weeks [36 sessions] Intensity: 60-80% of age predicted maximum heart rate reserve Duration: 30 - 45 minutes Current METSs:: 3.0 Target Heart Rate:: 90-120 Current RPE:: 11-14 Maximum Excercise HR:: 92 Resting Blood Pressure: 108/54 Maximum Exercise Blood Pressure: 140/60 EKG Type: NSR with rare PAC Current Physical Activity or Exercising minutes: 37:24 - Outcomes & Goals Goals:: Verbalizes understanding of THR, RPE & goal METS by session 6, Documents in home exercise log/reports 30 min aerobic 5 day/wk by DC, Demonstrates accurate pulse taking by DC - Intervention & Plan Exercise Program Goals: Instruct on personal THR & RPE, Instruct on MET level & personal MET goal, Show patient to take own pulse /validate performance until accurate, Instruct on home exercise - 30-day Reassessments 30 day Reassessments:: Met - Physical Activity Home Exercise Physical Activity - Home Exercise: Safe Exercise, Warm-up, Self-monitoring, Cool-Down, Home Exercise > 30 min Daily, Sitting Time <3 hours/daily - Outcomes & Goals Outcomes/Goals: Demonstrates correct Warm-up/exercise Cool-Down (S3) if = 2.5 METs, Verbalizes symptoms of exercise intolerance by Session 3 (S3), Demonstrate safe equipment use (S3) & follows exercise prescrition (6) - Intervention & Plan Plan/Intervention: Instruct warm-up & cool-down if exercising at > 2 METs, Instruct on symptoms of exercise intolerance & actions to take, Instruct & monitor on saf, Assess intial functional capacity & safety risk - 30-day Reassessments 30 day Reassessments:: Met Nutrition - Initial Assessment Nutrition - 30-Day Assessment Nutrition - 60-Day Assessment Nutrition - 90-Day Assessment Nutrition - Final Assessment - Program Goals Nutrition Program Goals: LDL <100 optimal. 100 - 129 Near optimal. 130 - 159 Borderline High. 160 - 189 High. Total Cholesterol <200 desirable. 200 - 239 Borderline High. >/= 240 High. HDL < 40 Low >/=60 High. Triglycerides <150 desirable. <199 optimal. VlDL 5 - 40. HgbA1C <7%. BMI <25 Patient has diagnosis of Hyperlipidemia (ICD E78)?: Yes - Visit Date of Assessment:: 12/25/22 Session #:: 32 - Cholesterol/Lipids (Other Core Measures) Triglycerides (mg/dL): 310 Total Cholesterol (mg/dL): 220 LDL Cholesterol (mg/dL): 131 HDL Cholesterol (mg/dL): 27 Determine presence & major risk factors that modify LDL goal: Hypertension or hypertensive medication, Low HDL cholesterol <40 mg/dL*, Age men > 45 years; women >/= 55 years Outcomes/Goals: Pt IDs own risk factors & lifestyle modifications by Session 10, Verbalizes symptoms of angina & response by session 3., Pt independently manages Intervention/Plan: Instruct on personal lipid levels & lipid goals/NCEP guidelines, Instruct on cholesterol Referral to dietitian:: No - Patient cancelled her appointment with Nutrition and did not reschedule 30-day Reassessments:: Not Met - Diabetes (Other Core Measures) Diabetes Type: Not Applicable - Weight Mgt (Other Care) Height: 5 ft 2 in Weight:: 144 lb 8 oz BMI: 26.4 Diagnosis Overweight/Obesity BMI> 30% ICD-10 E66: No Diagnosis High BMI/Morbid Obesity BMI> 35% ICD-10 Z68: No Outcomes/Goals: Pt sets, maintains & shows weight loss goal & trend during rehab Intervention/Plan: Instruct on ideal BMI & set weight loss goal w/patient 30 day Reassessments:: Met - Healthy Eating Habits Will attend diet classes:: Yes Outcomes/Goals:: Consume diet rich in vegs,fruits,whole grain/high fiber,fish,lean meat, Limit sat/trans fats,cholesterol & added salts & sugars Intervention/Plan:: Assess current eating habits 30-day Reassessments:: Met - Education Gave educational materials for:: Healthy eating Core - Initial Assessment Core - 30-Day Assessment Core - 60-Day Assessment Core - 90 Day Assessment Core - Final Assessment - Visit Date of Eval: 12/25/22 Session #:: 32 - Medication Compliance Preventative Medication(s):: Aspirin, Statin/lipid, Beta ayesha H/O mental health issues: depression, anxiety, or addiction?: No Doesn?t believe in the benefits of treatment?: No Believes medications are unnecessary or harmful?: No Has a concern about medication side effects?: No Expresses concern over the cost of medications?: No Outcomes/Goals: Verbalizes medications,desired effect & common side effects @ DC, Pt self-reports following medication regimen, Keeps card in wallet w/medications listed by DC Interventions/plans: Instruct on medication effects & side effects, Review medication list w/patient every two weeks, Instruct importance of taking meds as ordered & assist problem solving 30-day Reassessments:: Met - Tobacco Use Tobacco Use: Non-smoker - Hypertension Hypertension Diagnosis:: Hypertension ICD-10 I10 Resting Blood Pressure:: 104/52 [employer] [employer] Hypertension Guidelines: [place] [employer] Hypertension Guidelines. Normal BP Less than 120/80. Elevated BP 120/80. Hypertension Stage 1: BP 130-139/80-89. Hypertesnion Stage 2: BP 140 or higher/90 or higher. Hypertension Crisis: BP higher than 180/120 Peak Exercise Blood Pressure:: 140/60 Outcomes/Goals: Able to verbalize/achieve optimal blood pressure <130/80, Incorporates diet changes & exercise for blood pressure control by DC Interventions/plan: Instruct on optimal blood pressure, hypertension & medications, Instruct on effects of sodium, alcohol, stress, exercise &hypertension 30 day Reassessments:: Met - Tobacco Cessation Referral Smoking Cessation Referral:: No Individual Education/Counseling:: No Education Schedule Given:: Yes - Patient actively participated in group education. Psychosocial - Initial Assess Psychosocial - 30-Day Assess Psychosocial - 60-Day Assess Psychosocial - 90-Day Assess Psychosocial - Final Assessmen - VIsit Date of Eval: 12/25/22 Session #:: 32 Not Applicable: No History of previous Mental disease:: Yes History of Emotional Disorders: Anxious, Depression - Psychosocial Test Tool Used:: [place] [place] QOL Cardiac, PHQ-9 Questionnaire phq-9 Severity: Severity. 1-4 Minimal Depression. 5-9 Mild Depression. 10-14 Moderate Depression. 15-19 Moderately Sever Depression. 20-27 Severe Depression. Rule: - Referral to Behavioral Health PS - Interventions: Yes Attend Stress Management Classes, No Referral to Behavioral Health if PHQ-9 score >9:, No Referral to [facility], No Referral to Physician if PHQ-9 if score is 5-9: - Outcomes/Goals: See list Psychosocial Outcomes/Goals:: ID's personal stressors & 2 strategies to manage stress by discharge - Intervention/Plan: See List Interventions/Plan:: Assess stressors,coping strategies & signs of derpression on admission, Instruct/assist pt to develop coping & personal stress Mgt strategies, Instruct patient to recognize signs & symptoms of depression, Instruct patient to recog - 30-day Reassessments: 30 day Reassessments:: Met Patient Health Questionnaire Discharge Assessment 1. Little interest or pleasure in doing things: Not at all 2. Feeling down, depressed, or hopeless: Several days 3. Trouble falling or staying asleep, or sleeping too much: Not at all 4. Feeling tired or having little energy: Not at all 5. Poor appetite or overeating: Several days 6. Feeling bad about yourself -- or that you are a failure or have let yourself or your family down: Not at all 7. Trouble concentrating on things, such as reading the newspaper or watching television: Not at all 8. Moving or speaking so slowly that other people could have noticed. Or the opposite - being so fidgety or restless that you have been moving around a lot more than usual: Not at all 9. Thoughts that you would be better off , or of hurting yourself in some way: Not at all How difficult have these problems made it for you to do your work, take care of things at home, or get along with other people?: Not difficult at all Total Score: 2 Self-Efficacy Discharge Assessment We would like to know how confident you are in doing certain activities. Please select your confidence level for:: Select your confidence level for the following using the scale 1-10 where 1 is not at all confident and 10 is totally confident. Your score is the average of all 6 responses. Fatigue: How confident are you that you can keep the fatigue caused by your disease from interfering with the things you want to do? Select Number: 8 Physical Discomfort or Pain: How confident are you that you can keep the physical discomfort or pain of your disease from interfering with the things you want to do? Select Number: 8 Emotional Distress: How confident are you that you can keep the emotional distress caused by your disease from interfering with the things you want to do? Select Number: 7 Other Symptoms or Health Problems: How confident are you that you can keep other symptoms or health problems from interfering with the things you want to do? Select Number: 9 Different Tasks and Activities: How confident are you that you can do the different tasks and activities needed to manage your health condition so as to reduce your need to see a doctor? Select Number: 8 Medication: How confident are you that you can do things other than just taking medication to reduce how much your illness affects your everyday life? Select Number: 9 Total Score:: 8 Nutrition Survey
[2022-12-25 06:58] VITALS: BP 104/52; BP 108/54; BP 140/60; BMI 26.4
== END 2023-01-05 23:59 ==
LOC: CR 13:00
PROVIDERS: PCP Family Medicine; Referring Provider Internal Medicine Cardiovascular Disease; Visit Provider Internal Medicine Cardiovascular Disease
DX: I70.213 Atherosclerosis of native arteries of extremities with intermittent claudication, bilateral legs (principal); Z95.1 Presence of aortocoronary bypass graft
CPT/HCPCS: 93798

== ENCOUNTER 2023-01-06 10:42 | Outpatient (RCR) | payer MEDICARE, OTHER, SELFPAY ==
[2022-12-25 06:58] VITALS: BMI 26.4
[2023-01-06 00:22] VITALS: BP 104/52; BP 108/54; BP 140/60
== END 2023-02-05 23:59 ==
LOC: CR 10:42
PROVIDERS: PCP Family Medicine; Referring Provider Internal Medicine Cardiovascular Disease; Visit Provider Internal Medicine Cardiovascular Disease
DX: I70.213 Atherosclerosis of native arteries of extremities with intermittent claudication, bilateral legs (principal); Z95.1 Presence of aortocoronary bypass graft
CPT/HCPCS: 93798

== ENCOUNTER → 2023-02-10 | Outpatient (CLI) | payer MEDICARE, OTHER, SELFPAY ==
[2022-12-25 06:58] VITALS: BMI 26.4
== END | disposition home or self-care (01) ==
LOC: PSN 12:31
PROVIDERS: PCP Family Medicine; Referring Provider Physician Assistant Medical; Visit Provider Physician Assistant Medical
DX: I70.213 Atherosclerosis of native arteries of extremities with intermittent claudication, bilateral legs (principal); R00.0 Tachycardia, unspecified
CPT/HCPCS: 93225; 93226

== ENCOUNTER → 2023-04-24 | Outpatient (CLI) | payer MEDICARE, OTHER, SELFPAY ==
[2022-12-25 06:58] VITALS: BMI 26.4
--- NOTE | 2023-04-24 16:31 | RAD_ITS ---
ACR Level 3 findings have been noted. An addendum which confirms receipt of the report will follow. EXAM: XR LUMBOSACRAL SPINE, 4 OR 5 VIEWS CLINICAL INDICATION: fall TECHNIQUE: Frontal, lateral and bilateral oblique views of the lumbar spine. COMPARISON: Lumbosacral spine x-rays 01/24/2022. FINDINGS: VERTEBRAE: L1 compression fracture with approximately 40% loss of height anteriorly new compared with the prior exam 01/24/2022. No retropulsion identified. Facet arthropathy bilaterally the lower lumbar spine. No spondylolisthesis. Preservation of the normal lumbar lordosis. DISC SPACES: No acute findings. Disc spaces are maintained. GASTROINTESTINAL TRACT: Unremarkable as visualized. Included bowel gas pattern is non-obstructive. RAD/Lumbar Spine 2 or 3 Views IMPRESSION: 1. L1 compression fracture with approximately 40% loss of height anteriorly new compared with the prior exam 01/24/2022. No retropulsion identified. Consider CT for further evaluation. 2. Facet arthropathy bilaterally the lower lumbar spine. Electronically Signed: Eddi Nolen MD at 4:18 EDT ,
--- NOTE | 2023-04-24 16:40 | RAD_ITS ---
EXAM: XR SACRUM AND COCCYX, 2 OR MORE VIEWS CLINICAL INDICATION: Fall TECHNIQUE: Frontal and lateral views of the sacrum and coccyx. COMPARISON: No relevant prior studies available. FINDINGS: SACRUM/COCCYX: Old coccygeal fracture. No destructive or sclerotic lesions. Note that overlapping bowel shadows may however obscure fine detail in the frontal view. Sacroiliac joints are unremarkable. SOFT TISSUES: Unremarkable. No soft tissue swelling or gas. VASCULATURE: Vascular stent overlying the left sacral wing. RAD/Sacrum-Coccyx min 2 Views IMPRESSION: Old coccygeal fracture. No acute fracture. Electronically Signed: Eddi Nolen MD at 4:15 EDT ,
== END | disposition home or self-care (01) ==
LOC: RAD 16:29
PROVIDERS: PCP Family Medicine; Referring Provider Anesthesiology Pain Medicine; Visit Provider Anesthesiology Pain Medicine
DX: M51.36 Other intervertebral disc degeneration, lumbar region (principal); W19.XXXA Unspecified fall, initial encounter
CPT/HCPCS: 72100; 72110; 72220

== ENCOUNTER → 2023-06-11 | Outpatient (CLI) | payer MEDICARE, OTHER, SELFPAY ==
[2022-12-25 06:58] VITALS: BMI 26.4
[2023-06-11 18:44] LABS: Anion Gap 5 (5-15); BUN 18 mg/dL (7-18); BUN/Creat Ratio 19.6 RATIO (10-20); Calcium,Total 9.2 mg/dL (8.5-10.1); Chloride 105 mmol/L (98-107); Cholesterol 331 mg/dL (200); Creatinine, Serum 0.92 mg/dL (0.55-1.02); EST Glomerular Filtration Rate 64 mL/min (>60); Est Glom Filt Rate - Afr Amer 78 mL/min (>60); Glucose 89 mg/dL (74-106); High Density Lipoprotein 47 mg/dL; Potassium 4.2 mmol/L (3.5-5.1); Sodium Level 137 mmol/L (136-145); Triglycerides 414 mg/dL
== END | disposition home or self-care (01) ==
LOC: MFPLAB 13:55
PROVIDERS: PCP Family Medicine; Visit Provider Family Medicine
DX: I25.10 Atherosclerotic heart disease of native coronary artery without angina pectoris (principal)
CPT/HCPCS: 36415; 80048; 80061

== ENCOUNTER 2023-10-04 11:38 | Emergency (ER) | payer MEDICARE, OTHER, SELFPAY ==
[2022-12-25 06:58] VITALS: BMI 26.4
[2023-10-04 11:39] VITALS: BP 170/80; PULSE 66; RESP 18; TEMP 35.9; O2SAT 91; BMI 24.8
--- NOTE | 2023-10-04 12:03 | EX.ED.DYSGE1 ---
HPI <CLIF Coronel - Last Filed: 10/04/23 12:45> History of Present Illness Chief Complaint: Constipation Narrative Narrative: 73-year-old female presents with constipation. She is usually has daily BMs but has not gone in 1 week despite trying multiple bzci-pre-dvejjst treatments including prune juice, MiraLAX, laxatives, and glycerin suppositories. She has abdominal discomfort if she pushes on her abdomen but otherwise no pain. Normal p.o. intake and no nausea or vomiting. History of cholecystectomy; no obstructions. She is on hydrocodone 4 times a day for chronic back pain but states she has never had opioid-induced constipation. PFSH <CLIF Coronel - Last Filed: 10/04/23 12:45> [facility] Medical History Acute metabolic encephalopathy Anxiety Anxiety disorder Arthritis Atherosclerosis of aorta Atherosclerosis of [place] arteries of extremities with intermittent claudication, bilateral legs Chronic pain COPD (chronic obstructive pulmonary disease) Depression Essential hypertension Former smoker GERD (gastroesophageal reflux disease) History of left heart catheterization (LHC) (~07/02/22) Hyperinflation of lungs Hyperlipidemia Hypertension Hypertension PAD (peripheral artery disease) Palpitations Polycythemia secondary to smoking Pure hypercholesterolemia Tobacco dependence Vocal cord dysfunction Home Medications amlodipine 5 mg tablet 5 mg PO DAILY BLOOD PRESSURE 06/17/22 [History Last Taken 11/28/22] clonazepam 0.5 mg tablet 0.5 mg PO TID PRN Anxiety 06/17/22 [History Last Taken 11/28/22] hydrocodone-acetaminophen 5-325mg 5mg-325mg 5 - 325 tab PO 4X/DAY PAIN 06/21/22 [History Last Taken 11/28/22] ergocalciferol (vitamin D2) 1,250 mcg (50,000 unit) capsule 1,250 mcg PO MO SUPPLEMENT 08/22/22 [History Last Taken 11/25/22] hydroxyzine pamoate 100 mg capsule 100 mg PO QHS ANXIETY 11/28/22 [History Last Taken 11/27/22] baclofen 10 mg tablet 10 mg PO TID MUSCLE SPASMS 30 days #0 tabs 12/03/22 [Rx Last Taken 11/28/22] clopidogrel 75 mg tablet 75 mg PO DAILY 30 days #30 tabs 12/03/22 [Rx Last Taken Unknown] atenolol 50 mg tablet 50 mg PO BID BLOOD PRESSURE #180 tabs 05/20/23 [Rx Last Taken Unknown] zolpidem 12.5 mg tablet,extended release,multiphase mg PO 06/09/23 [History Last Taken Unknown] Allergy/AdvReac Type Severity Reaction Status Date / Time pregabalin [From Lyrica] Allergy Unknown Facial and Verified 06/09/23 15:17 hand swelling metoprolol AdvReac Intermediate Restless Verified 06/09/23 15:17 Legs atorvastatin [From Lipitor] AdvReac Other Verified 06/09/23 15:17 buspirone [From BuSpar] AdvReac NEEDS Verified 06/09/23 15:17 FOLLOW-UP cefaclor [From Ceclor] AdvReac Nausea Verified 06/09/23 15:17 erythromycin base AdvReac Vomiting Verified 06/09/23 15:17 gabapentin AdvReac Other Verified 06/09/23 15:17 hydrochlorothiazide AdvReac Nausea Verified 06/09/23 15:17 losartan [From Cozaar] AdvReac NEEDS Verified 06/09/23 15:17 FOLLOW-UP niacin AdvReac NEEDS Verified 06/09/23 15:17 FOLLOW-UP paroxetine [From Paxil] AdvReac Other Verified 06/09/23 15:17 propoxyphene [From Darvon] AdvReac NEEDS Verified 06/09/23 15:17 FOLLOW-UP rosuvastatin [From Crestor] AdvReac NEEDS Verified 06/09/23 15:17 FOLLOW-UP Frsnfvn-NBV-HuX Reductase AdvReac Unknown Verified 06/09/23 15:17 Inhibitor [Gctsnmv-Yfi-Yov Reductase Inhibitor] Tricyclic Antidepressants AdvReac Other Verified 06/09/23 15:17 and Tricy [Tricyclic Compounds] Family History Mother Arthritis Hypertension Asthma Father Lung cancer Heart disease, Onset Age: 52 Diabetes Hypertension Brother CAD (coronary artery disease) History of coronary artery bypass surgery PAD (peripheral artery disease) Brother CAD (coronary artery disease) History of coronary artery bypass surgery PAD (peripheral artery disease) Other Palpitations Surgical History History of cholecystectomy History of coronary artery bypass graft x 3 (~07/23/22) History of coronary artery stent placement History of right breast biopsy Hx of cholecystectomy Status post insertion of iliac artery stent (~02/28/22) Social History Smoking Status: Former smoker quit date: 08/02/22 pack-years: 100 second hand exposure: Yes alcohol intake: current alcohol intake frequency: holidays/special occasions only substance use type: does not use caffeine: Yes what type of physical activity do you participate in: walking frequency: 3-4 times per week seatbelt use: always ROS <CLIF Coronel - Last Filed: 10/04/23 12:45> ROS ED ROS Narrative Constitutional: Negative for fever, chills, malaise. GI: Positive for constipation. Negative for abdominal pain, nausea, vomiting, diarrhea, melena, hematochezia. : Negative for dysuria, hematuria or frequency. EXAM <CLIF Coronel - Last Filed: 10/04/23 12:45> Physical Exam Narrative Exam Narrative: CONST: Patient sitting in no acute distress. EYES: Normal inspection. NECK: Normal inspection. RESP: No respiratory distress, CTAB. CVS: Regular rate and rhythm, no murmur, no gallop. ABD: Soft and nontender, no guarding or rebound, nondistended, bowel sounds present. Rectum: Small external hemorrhoid, no stool in rectum. SKIN: Color normal, no rash, warm, dry, intact. EXTREMITIES: Normal appearance, no pedal edema. NEURO: Oriented x4. PSYCH: Normal affect. Const Vital Signs: 10/04/23 11:39 Temperature 96.7 F L Temperature Source Temporal Pulse Rate 66 Respiratory Rate 18 Blood Pressure 170/80 H Blood Pressure Mean 110 Pulse Ox 91 Oxygen Delivery Method Room Air <Dr. Diego Cooper MD - Last Filed: 10/04/23 12:38> Physical Exam Const Vital Signs: 10/04/23 11:39 Temperature 96.7 F L Temperature Source Temporal Pulse Rate 66 Respiratory Rate 18 Blood Pressure 170/80 H Blood Pressure Mean 110 Pulse Ox 91 Oxygen Delivery Method Room Air MDM <CLIF Coronel - Last Filed: 10/04/23 12:45> MDM MDM Narrative Medical decision making narrative: Patient concerned for 1 week of constipation. She is taking multiple laxatives and had liquid stools but no formed bowel movements. She has normal p.o. intake, no vomiting, no abdominal pain. Abdomen is soft and nontender with no distention. Rectum has no impaction. KUB shows nonobstructive bowel gas pattern. Basic labs are unremarkable with no evidence of infection. I do not think she requires a CT with no abdominal pain and serial benign exams as I do not suspect obstruction. She was instructed on symptomatic care at home and discharged in stable condition. I have personally performed a face to face assessment of the patient and have reviewed the PRINCE Note. I performed a substantive portion of the visit including all aspects of the following. My stephenson findings include: History is 73-year-old female complaining constipation. She says she had a lot of liquid stool after taking stool softeners and anticonstipation medication. She is just concerned because she has noticed significant formed bowel movement. Denies any abdominal pain. No vomiting. Prior cholecystectomy. Denies any fever. Exam: well-appearing 73-year-old female. Vital signs are stable and afebrile. HEENT exam normal. Mytrex membranes. Lungs clear. Heart regular rhythm. Abdomen soft, nontender, nondistended, normal bowel sounds without peritoneal signs. No signs of obstruction. No distention. No pulsatile mass. Moving all 4 extremities. Back nontender. Neurologically she is awake and alert.] Medical Decision Making [patient was concern for constipation actually has her self cleaned out from using a bunch anticonstipation medications. She has had plenty of liquid stools. KUB shows no signs of obstruction or even significant stool in her rectum or lower colon. There is no air-fluid levels. Initial CBC is normal. We are awaiting her chemistry panel if it is okay she will be discharged home. Patient is comfortable with the plan.] Other additions or changes: [None] Lab Data Labs: Laboratory Results - last 24 hr 10/04/23 12:15 WBC 8.9 RBC 4.95 Hgb 13.6 Hct 42.1 MCV 85.1 MCH 27.5 MCHC 32.3 RDW Std Deviation 42.8 RDW Coeff of [place] 13.9 Plt Count 271 MPV 9.7 Immature Gran % (Auto) 0.300 Neut % (Auto) 65.2 Lymph % (Auto) 22.8 [place] % (Auto) 7.0 Eos % (Auto) 3.9 Baso % (Auto) 0.8 Absolute Neuts (auto) 5.8 Absolute Lymphs (auto) 2.03 Nucleated RBC % 0 Sodium 137 Potassium 4.1 Chloride 109 H Carbon Dioxide 26.0 Anion Gap 2 L BUN 16 Creatinine 0.94 Estim Creat Clear Calc 47.42 Est GFR (MDRD) Af Amer 75 Est GFR (MDRD) Non-Af 62 BUN/Creatinine Ratio 17.0 Glucose 99 Calcium 9.4 <Dr. Diego Cooper MD - Last Filed: 10/04/23 12:38> MDM MDM Narrative Medical decision making narrative: I have personally performed a face to face assessment of the patient and have reviewed the PRINCE Note. I performed a substantive portion of the visit including all aspects of the following. My stephenson findings include: History is 73-year-old female complaining constipation. She says she had a lot of liquid stool after taking stool softeners and anticonstipation medication. She is just concerned because she has noticed significant formed bowel movement. Denies any abdominal pain. No vomiting. Prior cholecystectomy. Denies any fever. Exam: well-appearing 73-year-old female. Vital signs are stable and afebrile. HEENT exam normal. Mytrex membranes. Lungs clear. Heart regular rhythm. Abdomen soft, nontender, nondistended, normal bowel sounds without peritoneal signs. No signs of obstruction. No distention. No pulsatile mass. Moving all 4 extremities. Back nontender. Neurologically she is awake and alert.] Medical Decision Making [patient was concern for constipation actually has her self cleaned out from using a bunch anticonstipation medications. She has had plenty of liquid stools. KUB shows no signs of obstruction or even significant stool in her rectum or lower colon. There is no air-fluid levels. Initial CBC is normal. We are awaiting her chemistry panel if it is okay she will be discharged home. Patient is comfortable with the plan.] Other additions or changes: [None] Lab Data Attestation: I reviewed the patient's lab results. Lab results narrative: CBC normal. White count 8. H&H 13 and 42. Platelets 271. Labs: Laboratory Results - last 24 hr 10/04/23 12:15 WBC 8.9 RBC 4.95 Hgb 13.6 Hct 42.1 MCV 85.1 MCH 27.5 MCHC 32.3 RDW Std Deviation 42.8 RDW Coeff of [place] 13.9 Plt Count 271 MPV 9.7 Immature Gran % (Auto) 0.300 Neut % (Auto) 65.2 Lymph % (Auto) 22.8 [place] % (Auto) 7.0 Eos % (Auto) 3.9 Baso % (Auto) 0.8 Absolute Neuts (auto) 5.8 Absolute Lymphs (auto) 2.03 Nucleated RBC % 0 Sodium 137 Potassium 4.1 Chloride 109 H Carbon Dioxide 26.0 Anion Gap 2 L BUN 16 Creatinine 0.94 Estim Creat Clear Calc 47.42 Est GFR (MDRD) Af Amer 75 Est GFR (MDRD) Non-Af 62 BUN/Creatinine Ratio 17.0 Glucose 99 Calcium 9.4 Radiography Diagnostic Testing: KUB, single view, interpreted by myself shows no air-fluid levels. No obstruction. No free air. Nonspecific bowel gas pattern. Limited stool in the ascending and descending colon. Rectum is unremarkable. Interpreted by myself. Discharge Plan Triage Chief Complaint: Constipation ED Midlevel Provider: Carmen Leahy ED Provider: Diego Cooper Dx/Rx/DC Orders Clinical Impression: Acute constipation Instructions: ED Constipation (Adult) Prescriptions: No Action clonazepam 0.5 mg tablet 0.5 mg PO TID PRN (Reason: Anxiety) amlodipine 5 mg tablet 5 mg PO DAILY ergocalciferol (vitamin D2) 1,250 mcg (50,000 unit) capsule 1,250 mcg PO MO atenolol 50 mg tablet 50 mg PO BID Qty: 180 3RF zolpidem 12.5 mg tablet,ext release multiphase PO Patient Comments: Take 1 tablet by mouth at bedtime hydrocodone-acetaminophen 5-325 mg tablet 5 - 325 tab PO 4X/DAY hydroxyzine pamoate 100 mg Capsule 100 mg PO QHS clopidogrel 75 mg Tablet 75 mg PO DAILY 30 Days Qty: 30 0RF baclofen 10 mg tablet 10 mg PO TID 30 Days Qty: 0 0RF Primary Care Provider: Josh Greene Referrals: Josh Greene MD [Primary Care Provider] - Activity Restrictions/Additional Instructions: You likely have cleared yourself out by the multiple [id number]-[id number] treatments you are taking in liquid stool. I would not prescribe anything else. If you do not start having bowel movements take 1-2 caps of MiraLAX daily. Follow-up with your doctor. Disposition Disposition: Home, Self Care
--- NOTE | 2023-10-04 12:20 | RAD_ITS ---
INDICATION: constipation EXAMINATION/TECHNIQUE: X-RAY - XR Abdomen 1 View COMPARISON: CT dated February 08, 2022 FINDINGS: BOWEL GAS PATTERN: Non-obstructive. No bowel or stomach distention. There is a left common iliac stents in place. FREE AIR: Not assessed on a single supine view. ORGANOMEGALY: Not seen. CALCIFICATIONS: No abnormal calcifications observed. LOWER CHEST: No acute pathology. BONES AND SOFT TISSUES: There is evidence of prior cementoplasty of L1. RAD/Abdomen Single View (Portable) IMPRESSION: Non-obstructive bowel gas pattern. Electronically Signed: Kerry Blanco MD at 12:46 EST ,
[2023-10-04 12:25] LABS: Absolute Lymphocyte Count 2.03 X10^3/uL (0.83-4.51); Absolute Neutrophil Count 5.8 X10^3/uL (2.0-7.7); Basophil# 0.07 X10^3/uL; Basophil% 0.8 % (0-1); Eosinophil# 0.35 X10^3/uL; Eosinophils% 3.9 % (0-5); Hematocrit 42.1 % (37-47); Hemoglobin 13.6 g/dL (12.0-15.0); Lymphocyte # 2.03 X10^3/ul (0.83-4.51); Lymphocyte % 22.8 % (19-41); Mean Corp Hgb Conc 32.3 g/dL (32-36); Mean Corpuscular Hgb 27.5 pg (27.0-32.0); Mean Corpuscular Volume 85.1 fL (81-99); Mean Platelet Vol. 9.7 fl (6.2-12.0); Monocyte# 0.62 X10^3/uL; NRBC Flagged by Analyzer 0 % (0-5); Neutrophil # 5.79 X10^3/uL (2.7-7.7); Neutrophil % 65.2 % (47-70); Platelet Count 271 K/mm3 (150-450); RBC Distribution Width CV 13.9 % (11.6-14.6); RBC Distribution Width SD 42.8 fl (35.1-43.9); Red Blood Count 4.95 M/mm3 (4.2-5.4); White Blood Count 8.9 K/mm3 (4.4-11.0)
[2023-10-04 12:37] LABS: Anion Gap 2 (5-15); BUN 16 mg/dL (7-18); Calcium,Total 9.4 mg/dL (8.5-10.1); Chloride 109 mmol/L (98-107); Creatinine, Serum 0.94 mg/dL (0.55-1.02); EST Glomerular Filtration Rate 62 mL/min (>60); Est Glom Filt Rate - Afr Amer 75 mL/min (>60); Estimated Creatinine Clearance 47.42 ml/min; Glucose 99 mg/dL (74-106); Potassium 4.1 mmol/L (3.5-5.1); Sodium Level 137 mmol/L (136-145)
[2023-10-04 12:42] VITALS: BP 151/60; O2SAT 98
== END 2023-10-04 12:55 | disposition home or self-care (01) ==
PROVIDERS: Physician Assistant; Emergency Provider Emergency Medicine; PCP Family Medicine; Visit Provider Emergency Medicine
DX: K59.00 Constipation, unspecified (principal); J44.9 Chronic obstructive pulmonary disease, unspecified; Z87.891 Personal history of nicotine dependence; M54.9 Dorsalgia, unspecified; G89.29 Other chronic pain; I10 Essential (primary) hypertension; E78.00 Pure hypercholesterolemia, unspecified
CPT/HCPCS: 74018; 80048; 85025; 99283

== ENCOUNTER → 2023-10-09 | Outpatient (CLI) | payer MEDICARE, OTHER, SELFPAY ==
[2022-12-25 06:58] VITALS: BMI 26.4
== END | disposition home or self-care (01) ==
PROVIDERS: PCP Family Medicine; Visit Provider Family Medicine
DX: N39.0 Urinary tract infection, site not specified (principal)
CPT/HCPCS: 87077; 87086; 87088; 87186

== ENCOUNTER → 2024-04-21 | Outpatient (CLI) | payer MEDICARE, OTHER, SELFPAY ==
[2022-12-25 06:58] VITALS: BMI 26.4
[2024-04-21 14:13] LABS: Amphetamine Urine VISTA NEGATIVE (<1000 ng/mL); Barbiturate Urine VISTA NEGATIVE (< 200 ng/mL); Benzodiazepine Urine VISTA NEGATIVE (< 200 ng/mL); Cocaine Urine VISTA NEGATIVE (< 300 ng/mL); Ecstacy Urine VISTA NEGATIVE (< 500 ng/mL); Methadone Urine VISTA NEGATIVE (< 300 ng/mL); PCP Urine VISTA NEGATIVE (< 25 ng/mL); THC Urine VISTA NEGATIVE (< 50 ng/mL); Vista UDS pH Range 5
== END | disposition home or self-care (01) ==
LOC: LAB 13:11
PROVIDERS: PCP Family Medicine; Referring Provider Anesthesiology Pain Medicine; Visit Provider Anesthesiology Pain Medicine
DX: F11.20 Opioid dependence, uncomplicated (principal)
CPT/HCPCS: 80307

== ENCOUNTER → 2024-05-03 | Outpatient (CLI) | payer MEDICARE, OTHER, SELFPAY ==
[2022-12-25 06:58] VITALS: BMI 26.4
[2024-05-03 19:07] LABS: AST(SGOT) 26 U/L (15-37); Alanine Aminotransfer ALT/SGPT 39 U/L (13-56); Albumin, Serum 3.3 g/dL (3.2-5.0); Alkaline Phosphatase 86 U/L (45-117); Anion Gap 8 (5-15); BUN 14 mg/dL (7-18); Calcium,Total 9.1 mg/dL (8.5-10.1); Chloride 105 mmol/L (98-107); Cholesterol 271 mg/dL (200); Creatinine, Serum 0.94 mg/dL (0.55-1.02); EST Glomerular Filtration Rate 63 mL/min (>60); Est Glom Filt Rate - Afr Amer 76 mL/min (>60); Globulin 3.3 g/dL (2.2-4.2); Glucose 120 mg/dL (74-106); High Density Lipoprotein 50 mg/dL; Protein, Total 6.6 g/dL (6.4-8.2); Sodium Level 139 mmol/L (136-145); Triglycerides 233 mg/dL; Very Low Density Lipoprotein 47 mg/dL (5-40)
== END | disposition home or self-care (01) ==
LOC: MTLAB 15:31
PROVIDERS: PCP Family Medicine; Referring Provider Family Medicine; Visit Provider Family Medicine
DX: N39.0 Urinary tract infection, site not specified (principal); E78.5 Hyperlipidemia, unspecified
CPT/HCPCS: 36415; 80053; 80061; 81001

== ENCOUNTER → 2024-07-06 | Outpatient (CLI) | payer MEDICARE, OTHER, SELFPAY ==
[2022-12-25 06:58] VITALS: BMI 26.4
--- NOTE | 2024-07-06 13:11 | CDU_ITS ---
Reason For Study: CAROTID ARTERY DISEASE Rt. Velocities/BP Lt. Velocities/BP Prox CCA 67.6/11.0 cm/sec. Prox CCA 87.5/16.0 cm/sec. Mid CCA 85.6/14.7 cm/sec. Mid CCA 100.7/18.2 cm/sec. Dist CCA 64.8/11.0 cm/sec. Dist CCA 100.7/18.2 cm/sec. Prox ICA 72.1/16.0 cm/sec. Prox ICA 101.4/20.4 cm/sec. Mid ICA 75.4/16.0 cm/sec. Mid ICA 89.1/15.5 cm/sec. Dist ICA 100.7/14.9 cm/sec. Dist ICA 68.3/16.7 cm/sec. Rt. ICA/CCA = 100.7/85.6=1.2. Lt. ICA/CCA = 101.4/100.7=1.0. Prox ECA 98.5/10.6 cm/sec. Prox ECA 99.6/14.9 cm/sec. Rt. Vert. 64.4/17.1 cm/sec. Lt. Vert. 60.9/5.6 cm/sec. Right Extracranial There is homogeneous, smooth atherosclerotic plaque noted in the right common carotid artery. There is heterogeneous, smooth atherosclerotic plaque noted in the right internal carotid artery. There is homogeneous, smooth atherosclerotic plaque noted in the right external carotid artery. Antegrade flow is noted in the right vertebral artery. Left Extracranial There is homogeneous, smooth atherosclerotic plaque noted in the left common carotid artery. There is heterogeneous, irregular atherosclerotic plaque noted in the left internal carotid artery. There is homogeneous, smooth atherosclerotic plaque noted in the left external carotid artery. Antegrade flow is noted in the left vertebral artery. Procedure Carotid Duplex [id number]. This is a Carotid Duplex examination using B-mode, color flow and specral Doppler. Exam performed in department. VL/Carotid Duplex Ultrasound Interpretation Summary Mild (<50%) stenosis right extracranial internal carotid. Mild (<50%) stenosis left extracranial internal carotid. Patent and antegrade vertebrals bilaterally. Ordering Physician: Nirali Cheatham Referring Physician: Josh Greene Performed By: Amy Zarate RDCS, RVT
== END | disposition home or self-care (01) ==
PROVIDERS: PCP Family Medicine; Referring Provider Internal Medicine Cardiovascular Disease; Visit Provider Internal Medicine Cardiovascular Disease
DX: I65.23 Occlusion and stenosis of bilateral carotid arteries (principal)
CPT/HCPCS: 93880

== ENCOUNTER → 2024-09-09 | Outpatient (CLI) | payer MEDICARE, OTHER, SELFPAY ==
[2022-12-25 06:58] VITALS: BMI 26.4
--- NOTE | 2024-09-09 12:55 | RAD_ITS ---
STUDY: X-RAY - LEFT SHOULDER REASON FOR EXAM: Female, 74 years old. PAIN TECHNIQUE: 4 views of the left shoulder. COMPARISON: None. FINDINGS: Normal glenohumeral articulation. There is mild acromioclavicular arthrosis. Normal acromion. There is calcific density adjacent to the greater tuberosity of the humeral head, suspicious for calcific tendinitis of the rotator cuff. Normal humeral head and visualized proximal humerus. The soft tissue structures are unremarkable. There is no demonstrated fracture. Normal visualized pulmonary apex. RAD/Shoulder min 2 Views IMPRESSION: Calcific density adjacent to the greater tuberosity of the humeral head, suspicious for calcific tendinitis of the rotator cuff. Mild acromioclavicular arthrosis. Electronically Signed: Pedro Mccabe MD at 15:52 EST ,
== END | disposition home or self-care (01) ==
LOC: MTRAD 12:52
PROVIDERS: PCP Family Medicine; Referring Provider Family Medicine; Visit Provider Family Medicine
DX: M25.512 Pain in left shoulder (principal)
CPT/HCPCS: 73030

== ENCOUNTER → 2024-09-16 | Outpatient (CLI) | payer MEDICARE, OTHER, SELFPAY ==
[2022-12-25 06:58] VITALS: BMI 26.4
--- NOTE | 2024-09-16 15:25 | RAD_ITS ---
STUDY: X-RAY - BILATERAL RIBS WITH CHEST REASON FOR EXAM: Female, 74 years old. RIB PAIN TECHNIQUE - RIBS: 8 views of the ribs. TECHNIQUE - CHEST: Single frontal view of the chest. COMPARISON: Chest x-ray exam dated 11/28/2022. FINDINGS - RIBS : Normal visualized ribs without a demonstrated fracture. FINDINGS - CHEST: There is are sternal cerclage wires and reconstruction plate in place. There is kyphoplasty at L1. The lungs are clear and expanded. The previously seen infiltrates in the right upper lobe and left lung have resolved. There is no demonstrated pleural abnormality. Normal size heart. Normal mediastinum and darlyn. Normal visualized pulmonary arteries. Normal visualized aortic arch and descending thoracic aorta. Normal visualized thoracic spine. Normal visualized ribs, clavicles, and shoulders. There is no demonstrated abnormality of the visualized soft tissue structures of the upper abdomen. RAD/Ribs Sergei Min 4V w/PA Chest IMPRESSION: RIBS: Normal x-ray examination of the bilateral ribs. CHEST: Interval resolution of previously seen lung infiltrates. No active cardiopulmonary disease. Electronically Signed: Pedro Mccabe MD at 12:01 EST ,
== END | disposition home or self-care (01) ==
LOC: MTRAD 15:19
PROVIDERS: PCP Family Medicine; Referring Provider Family Medicine; Visit Provider Family Medicine
DX: N76.0 Acute vaginitis (principal)
CPT/HCPCS: 71111

== ENCOUNTER → 2024-09-20 | Outpatient (CLI) | payer MEDICARE, OTHER, SELFPAY ==
[2022-12-25 06:58] VITALS: BMI 26.4
[2024-09-20 17:38] LABS: Amphetamine Urine VISTA NEGATIVE (<1000 ng/mL); Barbiturate Urine VISTA NEGATIVE (< 200 ng/mL); Benzodiazepine Urine VISTA NEGATIVE (< 200 ng/mL); Cocaine Urine VISTA NEGATIVE (< 300 ng/mL); Ecstacy Urine VISTA NEGATIVE (< 500 ng/mL); Methadone Urine VISTA NEGATIVE (< 300 ng/mL); PCP Urine VISTA NEGATIVE (< 25 ng/mL); THC Urine VISTA NEGATIVE (< 50 ng/mL); Vista UDS pH Range 6
== END | disposition home or self-care (01) ==
LOC: LAB 15:22
PROVIDERS: PCP Family Medicine; Referring Provider Anesthesiology Pain Medicine; Visit Provider Anesthesiology Pain Medicine
DX: F11.20 Opioid dependence, uncomplicated (principal)
CPT/HCPCS: 36415; 80307

== ENCOUNTER → 2024-10-08 | Outpatient (CLI) | payer MEDICARE, OTHER, SELFPAY ==
[2022-12-25 06:58] VITALS: BMI 26.4
--- NOTE | 2024-10-08 16:00 | MRI_ITS ---
PROCEDURE: MRI left shoulder without IV contrast REASON FOR EXAM: Pain TECHNIQUE: Multisequence multiplanar MR images of the left shoulder were obtained without the administration of intravenous contrast. COMPARISON: None FINDINGS Mild supraspinatus and infraspinatus tendinopathy. Superimposed partial- thickness (about 50%) intrasubstance tear at the supraspinatus/infraspinatus tendon junction measuring 4 mm in width. Adjacent focus of mineralization at the supraspinatus/infraspinatus tendon junction bursal fibers measuring 3 x 4 mm with surrounding edema most consistent with calcific tendinopathy. Subscapularis and teres minor tendons are intact. No significant rotator cuff muscle atrophy. Mild long head biceps tenosynovitis. Biceps tendon is otherwise intact. Glenohumeral joint alignment is intact. No displaced labral tear or paralabral cysts. Mild diffuse chondral thinning along the humeral head and glenoid without a focal full-thickness defect. No significant joint effusion. Mild/moderate acromioclavicular joint osteoarthritis including a small undersurface distal clavicular osteophyte measuring 3 mm. Negative for acute fracture or marrow replacement. Trace amount of fluid in the subacromial/subdeltoid bursa. MRI/Upper Ext Joint Only(Routine) IMPRESSION: 1. Partial-thickness intrasubstance tear of the supraspinatus/infraspinatus ten don junction near its insertion. Mild supraspinatus and infraspinatus tendinopathy. 2. Small focus of mineralization at the supraspinatus/infraspinatus tendon junc tion bursal fibers with surrounding edema likely related to calcific tendinopathy. Correlate with radiographs. 3. Mild/moderate acromioclavicular joint osteoarthritis. Reading Location: [facility]
== END | disposition home or self-care (01) ==
LOC: MRI 15:30
PROVIDERS: PCP Family Medicine; Referring Provider Family Medicine; Visit Provider Family Medicine
DX: M25.512 Pain in left shoulder (principal)
CPT/HCPCS: 73221

== ENCOUNTER 2024-11-05 14:00 | Outpatient (RCR) | payer MEDICARE, OTHER, SELFPAY ==
[2022-12-25 06:58] VITALS: BMI 26.4
--- NOTE | 2024-09-17 15:32 | HP.PTEVAL_ITS ---
Patient's Visit Information Visit Information Visit Information: KORTNEY CRUZ is a 74 year old F referred to Physical Therapy by Dr. Josh Greene MD with a diagnosis of L shoulder pain. Date of Evaluation: 09/17/24 Physical Therapist: Jonathan Baldwin, DPT, OCS, CSCS Visit Plan Frequency: 3x /Week Duration: 4-6 Weeks Plan: 3x/week fro 3-6 IE HEP scap circles 15x, supine stick flexion and er 10x both 2x/day adn impingement precautions reviewed, sleeping position, use of ice and activitiy modification In clinic ideally PROM, mobs grade 1-2 g-h L and progress to strengthening, Do US nonthermal to L supra insert and STM to L UT and supra belly each session, may use MH. Progress to RC and scap strength when pain improved. May use TENS if painful at rest. Subjective Subjective: L shoulder and bicep hurt and has for about a month for no apparent reasson. Woke up one night with pain. Constant pain since. Can't use L arm. hard to do hair and get coat off. Neck is fine. No numbness or tingling in arm. Movement is worse, comfy at rest. Sleep is Ok with meds. Hard to change positions or lie on L. Not employed, I am old. When healthy spends day, [employer], TV, clean house. has not been able to clean house lately due to back. Can do some cooking. Used to т[place]на. no regular ex but used to work out at but used to walk. Basic ADLs, dressing is painful, doing hair is painful. Shower I but painful with arm movement. R handed. Pain L shoulder: Pain Intensity (Out of 10): 2 Pain Intensity Range: 2 and 7 Comment: movement is worse, 2 at rest Objective Objective: Walks I into PT minimally babying L arm, less swing then R. Forward head and protracted scap posture B. Tender to palpation max in L UT and supraspinatus muscle and mod into supra insertion and biceps tendon groove. - labral test, - marcio-p arm, - ext rotation lag test, - sulcus, AROM L shoulder flexion 105 limited by pain, er 34 painful, IR painful and psis. R side 140, 50 and L5. elbow and wrist AROM WNL B reflexes 1/3 patella adn achilles B Sensation WNL to gross light touch. PROM 140 L with less pain flexion and 40 abduction still painful. + HK and + neer good scapular ROM B but painful on L. Strength flexion L 3 pain, abd 3 pain, er 3 pain, ir 4- pain, biceps 4 pain and triceps no pain and 4. r side is 4 without pain. Balance/Special Test Scores Quick DASH Score: 79.5450 Goals Goal 1:: Full aROM L shoulder flexion to 145 actively and er to 45 AROM without pain increase. Goal Time Frame: 4-6 Weeks Goal 2:: Pain 90% better at 1/10 at worst Goal Time Frame: 4-6 Weeks Goal 3:: quickdash score 16 or better Goal Time Frame: 4-6 Weeks Goal 4:: patient able to don coat and do hair without noticing pain increase. Goal Time Frame: 4-6 Weeks Goal 5:: I apporpiate HEP to limit future problems. Goal Time Frame: 4-6 Weeks Rehabilitation Potential Physical Therapy Diagnosis: inflammation and pain L shoulder limiting comfortable mobility and funciton. Rehabilitation Potential: Fair Anticipated Interventions Patient/Client Instruction: Educate patient on: Condition and Plan of Care For the Purpose of:: To decrease pain, To increase ROM, To improve nutrient delivery to tissue, To improve muscle performance and motor function and To increase tolerance to activity/condition/position Therapeutic Exercise to Include: Strength training, Postural training, Flexibilty training, Passive ROM and Active ROM For the Purpose of:: To decrease pain, To increase ROM, To improve nutrient delivery to tissue, To improve muscle performance and motor function and To increase tolerance to activity/condition/position Manual Therapy Techniques to Include: Mobilization, Passive ROM and Soft tissue mobilization For the Purpose of:: To decrease pain, To increase ROM, To improve nutrient deli very to tissue, To improve muscle performance and motor function and To increase tolerance to activity/condition/position TENS: Yes Cryotherapy (ice pack, ice massage): Yes Thermo therapy (hot pack): Yes Ultrasound (thermal/non thermal): Yes (nonthermal) For the Purpose of:: To decrease pain, To decrease swelling/inflammation, To increase ROM, To improve nutrient delivery to tissue, To improve muscle performance and motor function and To increase tolerance to activity/conditi on/position Text: Thank you for the opportunity to evaluate your patient. For Medicare and Medicare HMO plans, please review the plan of care and approve it. It will need to be FAXED BACK to us at [phone] for Medicare purposes. For Medicare only, by signing this I certify the plan of care. Please let me know if there are questions or concerns regarding this plan of care. Physician Signature: Date:
--- NOTE | 2024-10-29 14:26 | HP.PTREVAL ---
Re-Evaluation Intro: Dr. Josh Greene MD, It has been my pleasure to treat KORTNEY CRUZ over the last 17 visits for L shoulder pain. Please see the progress note below for an update on the physical therapy plan of care! Subjective Subjective: Better. I am able to lift half gallon of milk with K arm. Still cannot carry things well. A Plate with food is painful at times. Getting dressed is L arm first. No pain at rest. Has to bee moving it to hurt. Sleep if roll on R side. Injections have not helped yet. HEP: stick supine, side to sidee er, pulleys at home. Got band today adn will use O adn YTB at home. Had an appointment but cancelled and dodes not want surgery. Objective Objective/Function: 130 B shoulder flexion, painful L shoulder, er 30 B and painful L end range, IR to L5 B and painful end range L. All this pain is transient. streength is poor at 3+ in flexion adn abduction with some mild discomfort L. er 3+ L and 4- R, IR 4- B with L sided pain. Still presenting with OA improving very slowly, wanting to continue US adn manaual but more appropriate to get more aggressive with strengtheningvia HEP Plan Plan Plan: 2x/week x 2 weeks then 1x/week x 2 weeks until 11/25, please focus on progressive home strength adn may do some manual arm pull, mobs at end. Try to hold on US. New POC and goals still appropriate with fair prognosis for continued improvement but hard to tell if she believes she can keep getting better with HEP. Balance/Gait/Functional tests Balance/Special Test Scores Quick DASH Score: 43.1800 Goals Goals Goal 1:: Full aROM L shoulder flexion to 145 actively and er to 45 AROM without pain increase. Goal Time Frame: 4-6 Weeks Goal Progress: Not Progressing er Goal 2:: Pain 90% better at 1/10 at worst Goal Time Frame: 4-6 Weeks Goal Progress: 60%, appropriate Goal 3:: quickdash score 16 or better Goal Time Frame: 4-6 Weeks Goal Progress: 13 points improved, appro Goal 4:: patient able to don coat and do hair without noticing pain increase. Goal Time Frame: 4-6 Weeks Goal Progress: Progressing, approp Goal 5:: I apporpiate HEP to limit future problems. Goal Time Frame: 4-6 Weeks Goal Progress: needs more strength Anticipated Interventions Anticipated Interventions Patient/Client Instruction: Educate patient on: Condition and Plan of Care For the Purpose of:: To decrease pain, To increase ROM, To improve nutrient delivery to tissue, To improve muscle performance and motor function and To increase tolerance to activity/condition/position Therapeutic Exercise to Include: Strength training, Postural training, Flexibilty training, Passive ROM and Active ROM For the Purpose of:: To decrease pain, To increase ROM, To improve nutrient delivery to tissue, To improve muscle performance and motor function and To increase tolerance to activity/condition/position Manual Therapy Techniques to Include: Mobilization, Passive ROM and Soft tissue mobilization For the Purpose of:: To decrease pain, To increase ROM, To improve nutrient delivery to tissue, To improve muscle performance and motor function and To increase tolerance to activity/condition/position TENS: Yes Cryotherapy (ice pack, ice massage): Yes Thermo therapy (hot pack): Yes Ultrasound (thermal/non thermal): Yes (nonthermal) For the Purpose of:: To decrease pain, To decrease swelling/inflammation, To increase ROM, To improve nutrient delivery to tissue, To improve muscle performance and motor function and To increase tolerance to activity/condition/position Re-Evaluation Ending Re-evaluation ending: Please do not hesitate to contact me at [phone] by phone or if you have questions or concerns regarding this new plan of care! Sincerely, Jonathan Baldwin, DPT, OCS, CSCS
--- NOTE | 2024-11-08 14:15 | HP.PT.NRP ---
Patient Information Patient Information: KORTNEY CRUZ was seen in my office for initial evaluation on 09/17/24. The following Plan of Care was established for this patient: POC Established Initial Frequency: 3x /Week Initial Duration: 4-6 Weeks Anticipated Interventions Patient/Client Instruction: Educate patient on: Condition and Plan of Care For the Purpose of:: To decrease pain, To increase ROM, To improve nutrient delivery to tissue, To improve muscle performance and motor function and To increase tolerance to activity/condition/position Therapeutic Exercise to Include: Strength training, Postural training, Flexibilty training, Passive ROM and Active ROM For the Purpose of:: To decrease pain, To increase ROM, To improve nutrient delivery to tissue, To improve muscle performance and motor function and To increase tolerance to activity/condition/position Manual Therapy Techniques to Include: Mobilization, Passive ROM and Soft tissue mobilization For the Purpose of:: To decrease pain, To increase ROM, To improve nutrient delivery to tissue, To improve muscle performance and motor function and To increase tolerance to activity/condition/position TENS: Yes Cryotherapy (ice pack, ice massage): Yes Thermo therapy (hot pack): Yes Ultrasound (thermal/non thermal): Yes (nonthermal) For the Purpose of:: To decrease pain, To decrease swelling/inflammation, To increase ROM, To improve nutrient delivery to tissue, To improve muscle performance and motor function and To increase tolerance to activity/condition/position Last Seen Last Seen: This patient was last seen in our office 11/05/24. Pertinent comments regarding their Physical therapy will appear below: Pt seen 18 visits of POC and was 60% better. A new POC was just established but she has called and cancelled these visits stating her back hurts I will disocntinue her shoulder from my care at her request. At this point I will be discontinuing this patient from physical therapy. I would be happy to see this patient again in the future if found appropriate by the physician. Thank you! Jonathan Baldwin, DPT, OCS, CSCS Balance/Gait/Functional tests Balance/Special Test Scores Quick DASH Score: 43.1800
== END 2024-11-05 19:00 | disposition home or self-care (01) ==
LOC: PT 14:00
PROVIDERS: PCP Family Medicine; Referring Provider Family Medicine; Visit Provider Family Medicine
DX: M25.512 Pain in left shoulder (principal)
CPT/HCPCS: 97035; 97110; 97140; 97161; 97164; 97530

== ENCOUNTER → 2025-01-06 | Outpatient (CLI) | payer MEDICARE, OTHER, SELFPAY ==
[2022-12-25 06:58] VITALS: BMI 26.4
[2025-01-06 21:25] LABS: Amphetamine Urine NEGATIVE (<1000 ng/mL); Barbiturate Urine NEGATIVE (< 200 ng/mL); Benzodiazepine Urine PRESUMPTIVE POSITIVE (< 200 ng/mL); Buprenorphine Urine NEGATIVE (< 200 ng/mL); Cocaine Urine NEGATIVE (< 300 ng/mL); Fentanyl, Urine NEGATIVE; Methadone Urine NEGATIVE (< 300 ng/mL); Opiates Urine NEGATIVE (< 300 ng/mL); Oxycodone, Urine PRESUMPTIVE POSITIVE (< 100 ng/mL); PCP Urine NEGATIVE (< 25 ng/mL); THC Urine NEGATIVE (< 50 ng/mL)
== END | disposition home or self-care (01) ==
LOC: LAB 15:10
PROVIDERS: PCP Family Medicine; Referring Provider Anesthesiology Pain Medicine; Visit Provider Anesthesiology Pain Medicine
DX: F11.20 Opioid dependence, uncomplicated (principal)
CPT/HCPCS: 80307

== ENCOUNTER → 2025-03-24 | Outpatient (CLI) | payer MEDICARE, OTHER, SELFPAY ==
[2022-12-25 06:58] VITALS: BMI 26.4
--- NOTE | 2025-03-24 16:15 | RAD_ITS ---
PROCEDURE: THORACIC SPINE 3 VIEWS 03/24/2025 REASON FOR EXAM: SPONDYLOSIS WITHOUT MYELOPATHY OR RADICULOPATHY, THORACIC REGION TECHNIQUE: THORACIC SPINE 3 VIEWS COMPARISON: Thoracic spine study dated 06/09/2023 FINDINGS: Three views of the thoracic spine demonstrate diffuse osteopenia of the osseous structures. There is no spondylolisthesis or spondylolysis. Degenerative disc disease is seen throughout the thoracic spine and is similar when compared to the prior exam. There has been previous vertebroplasty at the L1 level. Arteriosclerotic vascular disease of the aorta is noted. Median sternotomy wires and vascular clips are noted. Paravertebral soft tissues are grossly unremarkable. RAD/Thoracic Spine 3 Views IMPRESSION: 1. Diffuse osteopenia of the osseous structures of the thoracic spine. 2. Degenerative disc disease is seen throughout the thoracic spine discs and t his is similar when compared to the prior exam. Reading Location: [id number]
== END | disposition home or self-care (01) ==
LOC: RAD 16:09
PROVIDERS: PCP Family Medicine; Referring Provider Anesthesiology Pain Medicine; Visit Provider Anesthesiology Pain Medicine
DX: M47.814 Spondylosis without myelopathy or radiculopathy, thoracic region (principal)
CPT/HCPCS: 72072

== ENCOUNTER → 2025-04-25 | Outpatient (CLI) | payer MEDICARE, OTHER, SELFPAY ==
[2022-12-25 06:58] VITALS: BMI 26.4
[2025-04-25 15:48] LABS: Hematocrit 46.3 % (37-47); Hemoglobin 15.1 g/dL (12.0-15.0); Immature Granulocytes Count 0.020 X10^3/uL (0.0-0.0); Mean Corp Hgb Conc 32.6 g/dL (32-36); Mean Corpuscular Volume 82.8 fL (81-99); Mean Platelet Vol. 9.1 fl (6.2-12.0); NRBC Flagged by Analyzer 0 % (0-5); Platelet Count 322 K/mm3 (150-450); RBC Distribution Width CV 13.6 % (11.6-14.6); RBC Distribution Width SD 41.5 fl (35.1-43.9); Red Blood Count 5.59 M/mm3 (4.2-5.4); White Blood Count 7.6 K/mm3 (4.4-11.0)
[2025-04-25 16:21] LABS: AST(SGOT) 24 U/L (<=31); Alanine Aminotransfer ALT/SGPT 27 U/L (<=34); Albumin, Serum 4.0 g/dL (3.4-4.8); Alkaline Phosphatase 87 U/L (35-104); Anion Gap 10 (5-15); BUN 10 mg/dL (4-19); BUN/Creat Ratio 12.9 RATIO (10-20); Calcium,Total 9.5 mg/dL (7.6-11.0); Carbon Dioxide 26.2 mmol/L (21.0-32.0); Chloride 98 mmol/L (98-108); Cholesterol 271 mg/dL (<=200); Globulin 2.8 g/dL (2.2-4.2); Glucose 89 mg/dL (70-99); Low Density Lipoprotein Calc. 159 mg/dL; Potassium 4.3 mmol/L (3.3-5.1); Triglycerides 272 mg/dL; Very Low Density Lipoprotein 54 mg/dL (5-40); cholesterol:hdl ratio screen 4.73
== END | disposition home or self-care (01) ==
LOC: MFPLAB 11:10
PROVIDERS: PCP Family Medicine; Visit Provider Family Medicine
DX: E66.9 Obesity, unspecified (principal); Z95.1 Presence of aortocoronary bypass graft; I10 Essential (primary) hypertension; D75.1 Secondary polycythemia
CPT/HCPCS: 36415; 80053; 80061; 84443; 85025

== ENCOUNTER → 2025-05-06 | Outpatient (CLI) | payer MEDICARE, OTHER, SELFPAY ==
[2022-12-25 06:58] VITALS: BMI 26.4
--- NOTE | 2025-05-06 13:28 | BI_ITS ---
EXAM: SCRN MAMM (CAD)W/DANIEL BILAT DATE: 05/06/2025 CLINICAL HISTORY: F, Age 75 y/o , SCREENING TECHNIQUE: Procedure Code: [id number] Modality: MG Procedure: SCRN MAMM (CAD)W/DANIEL BILAT COMPARISON: None available FINDINGS: TISSUE DENSITY: The breasts are heterogeneously dense, which may obscure small masses. Bilateral Breast Mammographic Findings: No suspicious masses, calcifications or other abnormalities are identified. BI/SCRN MAMM (CAD)W/DANIEL BILAT IMPRESSION: No mammographic evidence of malignancy. OVERALL FINAL ASSESSMENT BI-RADS 1: NEGATIVE. RECOMMENDATION: Routine annual follow-up in 1 Year A letter with findings and recommendations will be mailed to the patient. Reading Location: [id number]
== END | disposition home or self-care (01) ==
LOC: OPBI 13:21
PROVIDERS: PCP Family Medicine; Referring Provider Family Medicine; Visit Provider Family Medicine
DX: Z12.31 Encounter for screening mammogram for malignant neoplasm of breast (principal)
CPT/HCPCS: 77063; 77067

== ENCOUNTER → 2025-08-24 | Outpatient (CLI) | payer MEDICARE, OTHER, SELFPAY ==
[2022-12-25 06:58] VITALS: BMI 26.4
[2025-08-24 18:14] LABS: AST(SGOT) 21 U/L (<=31); Alanine Aminotransfer ALT/SGPT 15 U/L (<=34); Albumin, Serum 4.0 g/dL (3.4-4.8); Alkaline Phosphatase 81 U/L (35-104); Anion Gap 12 (5-15); BUN 15 mg/dL (4-19); BUN/Creat Ratio 18.3 RATIO (10-20); Calcium,Total 9.3 mg/dL (7.6-11.0); Carbon Dioxide 25.5 mmol/L (21.0-32.0); Chloride 103 mmol/L (98-108); Cholesterol 289 mg/dL (<=200); Globulin 2.7 g/dL (2.2-4.2); Glucose 130 mg/dL (70-99); Low Density Lipoprotein Calc. 153 mg/dL; Potassium 3.8 mmol/L (3.3-5.1); Triglycerides 486 mg/dL; Very Low Density Lipoprotein 97 mg/dL (5-40); cholesterol:hdl ratio screen 6.74
== END | disposition home or self-care (01) ==
LOC: MFPLAB 14:24
PROVIDERS: PCP Family Medicine; Visit Provider Family Medicine
DX: E78.5 Hyperlipidemia, unspecified (principal)
CPT/HCPCS: 36415; 80053; 80061